=== PATIENT | female | born 1945 | race Caucasian/White ===

== ENCOUNTER 2020-06-27 10:01 | Outpatient (REF) | payer MEDICARE, OTHER, SELFPAY ==
[2020-06-27 11:50] LABS: Estimated Average Glucose 157 mg/dL; Hemoglobin A1c % 7.1 %
== END 2020-06-27 10:02 | disposition home or self-care (01) ==
LOC: HO.MANLDS 10:01
PROVIDERS: PCP Physician Assistant; Visit Provider Physician Assistant
DX: E11.9 Type 2 diabetes mellitus without complications (principal)
CPT/HCPCS: 83036

== ENCOUNTER 2020-08-29 09:03 | Outpatient (REF) | payer MEDICARE, OTHER, SELFPAY ==
--- NOTE | 2020-08-29 | MM_ITS ---
EXAMINATION: MM SCREENING DIGITAL BREAST TOMOSYNTHESIS, BILATERAL CLINICAL INFORMATION: Screening. Asymptomatic. Prior left breast cancer, post lumpectomy 1999. COMPARISON: Mammography: 08/24/2019, 08/20/2018, 08/13/2017 TECHNIQUE: Digital breast tomosynthesis is performed in both the craniocaudal and mediolateral oblique views along with computer-aided detection (CAD). Synthesized 2D images are generated from the tomosynthesis. Additional bilateral MLO views are provided. FINDINGS: The breasts are almost entirely fatty (ACR BI-RADS breast composition Category a). There are post therapy changes on left with mild reduced breast size and stable scarring. Medial breast shows developing density or interval mass or architectural abnormality or abnormal calcifications. No significant changes from prior studies. MM/MM tomosynthesis screening BI IMPRESSION: No mammographic evidence of malignancy. Post therapy changes left breast. ASSESSMENT: BI-RADS 2: Benign RECOMMENDATION: Routine annual mammography screening. This patient's information was entered into a reminder system with a target due date for their next mammogram.
== END 2020-08-29 09:04 | disposition home or self-care (01) ==
LOC: HO.MAMMO 09:03
PROVIDERS: PCP Internal Medicine; Visit Provider Internal Medicine
DX: Z12.31 Encounter for screening mammogram for malignant neoplasm of breast (principal)
CPT/HCPCS: 77063; 77067

== ENCOUNTER 2020-10-24 07:54 | Outpatient (REF) | payer MEDICARE, OTHER, SELFPAY ==
[2020-10-24 11:25] LABS: Estimated Average Glucose 151 mg/dL; Hemoglobin A1c % 6.9 %
[2020-10-24 11:54] LABS: Alanine Aminotransferase 28 U/L (0-31); Albumin Level 4.1 g/dL (3.5-5.0); Alkaline Phosphatase 69 U/L (39-117); Anion Gap 15 (12-20); Aspartate Amino Transferase 30 U/L (5-31); Bilirubin Total 0.3 mg/dL (0.0-1.0); Blood Urea Nitrogen 13 mg/dL (9-16); Calcium 9.3 mg/dL (8.4-10.2); Carbon Dioxide 27 mmol/L (22-29); Chloride 105 mmol/L (96-108); Cholesterol 162 mg/dL; Estimated Glomerular Filt Rate > 60; Glucose Fasting 151 mg/dL (60-99); HDL Cholesterol 49 mg/dL; LDL Cholesterol Calculated 68 mg/dl; Potassium 4.5 mmol/L (3.3-5.1); Sodium 142 mmol/L (135-145); Total Protein 6.3 g/dL (6.5-8.0); Triglycerides 227 mg/dL
[2020-10-24 11:58] LABS: Creatinine Urine 112.23 mg/dL; Microalbum/Creatinine Ratio Ur 14.2 ug/mg cr
== END 2020-10-24 07:55 | disposition home or self-care (01) ==
LOC: HO.MANLR 07:54
PROVIDERS: PCP Internal Medicine; Visit Provider Physician Assistant
DX: E11.9 Type 2 diabetes mellitus without complications (principal); I10 Essential (primary) hypertension
CPT/HCPCS: 36415; 80053; 80061; 82043; 83036

== ENCOUNTER 2021-01-17 07:48 | Outpatient (REF) | payer MEDICARE, OTHER, SELFPAY ==
[2021-01-17 11:57] LABS: Estimated Average Glucose 160 mg/dL; Hemoglobin A1c % 7.2 %
[2021-01-17 12:11] LABS: Alanine Aminotransferase 18 U/L (0-31); Albumin Level 4.2 g/dL (3.5-5.0); Alkaline Phosphatase 79 U/L (39-117); Anion Gap 16 (12-20); Aspartate Amino Transferase 21 U/L (5-31); Bilirubin Total 0.5 mg/dL (0.0-1.0); Blood Urea Nitrogen 11 mg/dL (9-16); Calcium 9.7 mg/dL (8.4-10.2); Carbon Dioxide 27 mmol/L (22-29); Chloride 106 mmol/L (96-108); Cholesterol 182 mg/dL; Estimated Glomerular Filt Rate > 60; Glucose Fasting 153 mg/dL (60-99); HDL Cholesterol 53 mg/dL; LDL Cholesterol Calculated 70 mg/dl; Potassium 4.5 mmol/L (3.3-5.1); Sodium 144 mmol/L (135-145); Total Protein 6.5 g/dL (6.5-8.0); Triglycerides 295 mg/dL
== END 2021-01-17 07:49 | disposition home or self-care (01) ==
LOC: HO.MANLDS 07:48
PROVIDERS: Visit Provider Internal Medicine
DX: E11.9 Type 2 diabetes mellitus without complications (principal); I10 Essential (primary) hypertension
CPT/HCPCS: 36415; 80053; 80061; 83036

== ENCOUNTER 2021-04-18 07:56 | Outpatient (REF) | payer MEDICARE, OTHER, SELFPAY ==
[2021-04-18 11:34] LABS: Estimated Average Glucose 151 mg/dL; Hemoglobin A1c % 6.9 %
== END 2021-04-18 07:57 | disposition home or self-care (01) ==
LOC: HO.MANLDS 07:56
PROVIDERS: PCP Physician Assistant; Visit Provider Physician Assistant
DX: E11.9 Type 2 diabetes mellitus without complications (principal); I10 Essential (primary) hypertension
CPT/HCPCS: 36415; 83036

== ENCOUNTER 2021-08-08 09:42 | Outpatient (REF) | payer MEDICARE, OTHER, SELFPAY ==
[2021-08-08 11:39] LABS: Estimated Average Glucose 163 mg/dL; Hemoglobin A1c % 7.3 %
[2021-08-08 12:16] LABS: Alanine Aminotransferase 28 U/L (0-31); Albumin Level 4.1 g/dL (3.5-5.0); Alkaline Phosphatase 68 U/L (39-117); Anion Gap 12 (12-20); Aspartate Amino Transferase 23 U/L (5-31); Bilirubin Total 0.4 mg/dL (0.0-1.0); Blood Urea Nitrogen 11 mg/dL (9-16); Carbon Dioxide 28 mmol/L (22-29); Chloride 106 mmol/L (96-108); Cholesterol 161 mg/dL; Estimated Glomerular Filt Rate > 60; Glucose Fasting 152 mg/dL (60-99); HDL Cholesterol 50 mg/dL; LDL Cholesterol Calculated 64 mg/dl; Potassium 4.3 mmol/L (3.3-5.1); Sodium 142 mmol/L (135-145); Total Protein 6.3 g/dL (6.5-8.0); Triglycerides 239 mg/dL
[2021-08-08 12:21] LABS: Creatinine Urine 55.41 mg/dL
== END 2021-08-08 09:43 | disposition home or self-care (01) ==
LOC: HO.MANLDS 09:42
PROVIDERS: PCP Physician Assistant; Visit Provider Physician Assistant
DX: E11.9 Type 2 diabetes mellitus without complications (principal); I10 Essential (primary) hypertension
CPT/HCPCS: 36415; 80053; 80061; 82043; 83036

== ENCOUNTER 2021-08-31 07:53 | Outpatient (REF) | payer MEDICARE, OTHER, SELFPAY ==
--- NOTE | ~2021-08-31 | MM_ITS ---
EXAMINATION: MM SCREENING DIGITAL BREAST TOMOSYNTHESIS, BILATERAL CLINICAL INFORMATION: Status post left breast lumpectomy. COMPARISON: Mammography: August 29, 2020 and studies dating back to June 14, 2014 TECHNIQUE: Digital breast tomosynthesis is performed in both the craniocaudal and mediolateral oblique views along with computer-aided detection (CAD). Synthesized 2D images are generated from the tomosynthesis. FINDINGS: The breasts are almost entirely fatty (ACR BI-RADS breast composition Category a). There are no new significant masses, abnormal calcifications, or other abnormalities. Status post left breast lumpectomy with postsurgical change in the deep upper outer aspect. MM/MM tomosynthesis screening BI IMPRESSION: There are no significant changes from prior study. ASSESSMENT: BI-RADS 2: Benign RECOMMENDATION: Routine annual mammography screening. This patient's information was entered into a reminder system with a target due date for their next mammogram.
--- NOTE | ~2021-08-31 | XR_ITS ---
EXAMINATION: XR SINUSES CLINICAL INFORMATION: New onset vertigo and dizziness COMPARISON: None TECHNIQUE: 4 views of the sinuses were obtained. FINDINGS: The paranasal sinuses are well aerated and clear. No opacification or air-fluid level is seen to suggest sinusitis. There is a 0.7 cm density visualized adjacent/medial to the left mandible. This is not identified on the other views to better localize or define the abnormality. Bony structures are otherwise unremarkable. XR/XR sinus min 3V IMPRESSION: Clear paranasal sinuses. 0.7 cm density seen on the submental vertex view only medial to the left side of the mandible of uncertain etiology.
== END 2021-08-31 07:54 | disposition home or self-care (01) ==
LOC: HO.MAMMO 07:53
PROVIDERS: Absent Provider Physician Assistant; PCP Internal Medicine; Visit Provider Internal Medicine
DX: Z12.31 Encounter for screening mammogram for malignant neoplasm of breast (principal); R42 Dizziness and giddiness
CPT/HCPCS: 70220; 77063; 77067

== ENCOUNTER 2021-09-05 10:11 | Outpatient (REF) | payer MEDICARE, OTHER, SELFPAY ==
--- NOTE | ~2021-09-05 | US_ITS ---
EXAMINATION: US EXTRACRANIAL CAROTID DUPLEX, BILATERAL CLINICAL INFORMATION: Dizziness and giddiness. COMPARISON: None TECHNIQUE: Real-time ultrasound and Doppler techniques (integrating B-mode 2-D vascular images, Doppler spectral analysis and color-flow Doppler imaging) were utilized to interrogate the extracranial carotid arteries, the vertebral arteries and proximal subclavian arteries bilaterally. The degree of stenosis is determined by criteria similar to NASCET. FINDINGS: Right Side: 1. There is mild atherosclerotic plaque seen in the bifurcation/proximal ICA region. 2. The common carotid artery PSV proximally is 95 cm/s and distally 68 cm/s. 3. The proximal internal carotid artery velocities are 46 cm/s systolic and 14 cm/s diastolic. 4. The proximal external carotid artery PSV is 112 cm/s. 5. The vertebral artery shows antegrade flow. 6. The subclavian artery waveforms are normal. Left Side: 1. There is no atherosclerotic plaque seen in the bifurcation/proximal ICA region. 2. The common carotid artery PSV proximally is 136 cm/s and distally 90 cm/s. 3. The proximal internal carotid artery velocities are 76 cm/s systolic and 29 cm/s diastolic. 4. The proximal external carotid artery PSV is 101 cm/s. 5. The vertebral artery shows flow antegrade flow. 6. The subclavian artery waveforms are normal. US/US carotid duplex BI IMPRESSION: 1. RIGHT: Mild atherosclerotic plaque. Nonhemodynamically significant 0-49% right ICA stenosis. 2. LEFT: Normal. No plaque or stenosis.
== END 2021-09-05 10:12 | disposition home or self-care (01) ==
LOC: HO.US 10:11
PROVIDERS: Visit Provider Physician Assistant
DX: R42 Dizziness and giddiness (principal)
CPT/HCPCS: 93880

== ENCOUNTER 2021-09-12 08:28 | Outpatient (REF) | payer MEDICARE, OTHER, SELFPAY ==
--- NOTE | ~2021-09-12 | CT_ITS ---
EXAMINATION: CT SINUS WITHOUT CONTRAST CLINICAL INFORMATION: Chronic sinusitis. COMPARISON: X-ray sinuses 08/31/2021. TECHNIQUE: 1.5 mm thin axial and reformatted 1.5 mm thin sagittal and coronal images of sinuses were obtained. This CT examination was performed using dose optimization techniques as appropriate, variously including the following: *Automated exposure control *Adjustment of mA and/or kV according to patient size (this includes techniques or standardized protocols for targeted exams where dose is matched to indication/reason for exam; i.e. extremities or head) *Use of iterative reconstruction technique DLP: 117 mGy-cm FINDINGS: FRONTAL SINUSES AND DRAINAGE PATHWAYS: There is minimal mucosal thickening right frontal sinus. Left frontal sinus is widely patent. MAXILLARY SINUSES AND DRAINAGE PATHWAYS: Normal. The infundibula are patent. ETHMOID SINUSES: There is minimal mucosal thickening right ethmoid sinus. The ethmoid roofs are symmetric, with olfactory fossa depth of 0.4 on the right and 0.5 on the left. SPHENOID SINUSES AND DRAINAGE PATHWAYS: Normal. The sphenoid ostia are patent. The carotid canals are covered by bone. NASAL CAVITY/NASOPHARYNX: The nasal cavity is clear. There is moderate nasal septal deviation/spurring to the left. The nasopharynx is symmetric. ADDITIONAL RELEVANT FINDINGS: No periapical disease is seen. The TMJs articulate normally. The orbits and skull base soft tissues are unremarkable. The middle ear cavities and mastoid air cells are clear. Limited evaluation demonstrates no acute intracranial findings. CT/CT sinus wo con IMPRESSION: There is moderate deviation of nasal septum to the left with a moderate-sized spur. Minimal inflammatory changes right frontal and anterior ethmoid sinus.
== END 2021-09-12 08:29 | disposition home or self-care (01) ==
LOC: HO.CT 08:28
PROVIDERS: Visit Provider Physician Assistant
DX: J32.9 Chronic sinusitis, unspecified (principal)
CPT/HCPCS: 70486

== ENCOUNTER 2021-11-08 08:16 | Outpatient (REF) | payer MEDICARE, OTHER, SELFPAY ==
[2021-11-08 11:35] LABS: Estimated Average Glucose 163 mg/dL; Hemoglobin A1c % 7.3 %
== END 2021-11-08 08:17 | disposition home or self-care (01) ==
LOC: HO.MANLDS 08:16
PROVIDERS: PCP Physician Assistant; Visit Provider Physician Assistant
DX: I10 Essential (primary) hypertension (principal); E78.1 Pure hyperglyceridemia; E11.9 Type 2 diabetes mellitus without complications
CPT/HCPCS: 36415; 83036

== ENCOUNTER 2022-02-27 07:49 | Outpatient (REF) | payer MEDICARE, OTHER, SELFPAY ==
[2022-02-27 11:37] LABS: Alanine Aminotransferase 22 U/L (0-31); Albumin Level 4.2 g/dL (3.5-5.0); Alkaline Phosphatase 85 U/L (39-117); Anion Gap 13 (12-20); Aspartate Amino Transferase 19 U/L (5-31); Bilirubin Total 0.4 mg/dL (0.0-1.0); Blood Urea Nitrogen 15 mg/dL (9-16); Calcium 9.4 mg/dL (8.4-10.2); Carbon Dioxide 28 mmol/L (22-29); Chloride 105 mmol/L (96-108); Cholesterol 181 mg/dL; Estimated Glomerular Filt Rate > 60; Glucose Random 186 mg/dL (60-115); HDL Cholesterol 52 mg/dL; LDL Cholesterol Calculated 61 mg/dl; Potassium 4.5 mmol/L (3.3-5.1); Sodium 141 mmol/L (135-145); Total Protein 6.4 g/dL (6.5-8.0); Triglycerides 344 mg/dL
[2022-02-27 11:40] LABS: Creatinine Urine 114.26 mg/dL; Microalbum/Creatinine Ratio Ur 57.7 ug/mg cr
[2022-02-27 11:46] LABS: Estimated Average Glucose 169 mg/dL; Hemoglobin A1c % 7.5 %
== END 2022-02-27 07:50 | disposition home or self-care (01) ==
LOC: HO.MANLDS 07:49
PROVIDERS: Visit Provider Physician Assistant
DX: I10 Essential (primary) hypertension (principal); E78.1 Pure hyperglyceridemia; E11.9 Type 2 diabetes mellitus without complications
CPT/HCPCS: 36415; 80053; 80061; 82043; 83036

== ENCOUNTER 2022-06-18 09:45 | Outpatient (REF) | payer MEDICARE, OTHER, SELFPAY ==
[2022-06-18 11:14] LABS: MANUAL DIFF FLAG NO
[2022-06-18 11:40] LABS: Basophils Percent Auto 0.4 % (0-2); Eosinophils Absolute Auto 0.2 X10*3/uL (0.0-0.4); Eosinophils Percent Auto 2.2 % (0-4); Hematocrit 40.2 % (37.0-47.0); Hemoglobin 13.2 g/dl (12.0-16.0); Imm Gran Abs Auto 0.02 X10*3/uL (0.00-0.03); Imm Gran Pct Auto 0.3 % (0.0-0.4); Lymphocytes Absolute Auto 1.5 X10*3/uL (1.2-4.9); Lymphocytes Percent Auto 19.6 % (20-40); Mean Corpuscular HGB Conc 32.8 g/dl (31.0-35.0); Mean Corpuscular Hemoglobin 30.8 pg (27.0-33.0); Mean Corpuscular Volume 93.7 fL (80.0-98.0); Mean Platelet Volume 10.2 fL (9.4-12.3); Monocytes Absolute Auto 0.4 X10*3/uL (0.1-1.2); Monocytes Percent Auto 5.3 % (2-11); Neutrophils Absolute Auto 5.3 x10*3/uL (2.0-8.3); Neutrophils Percent Auto 72.2 % (45-73); Platelet Count 252 X10*3/uL (160-400); Red Blood Count 4.29 X10*6/uL (4.20-5.50); Red Cell Distribution Width 13.2 % (11.0-16.0); White Blood Count 7.4 X10*3/uL (4.8-10.8)
[2022-06-18 13:02] LABS: Alanine Aminotransferase 24 U/L (0-31); Alkaline Phosphatase 93 U/L (39-117); Anion Gap 15 (12-20); Aspartate Amino Transferase 20 U/L (5-31); Bilirubin Total 0.4 mg/dL (0.0-1.0); Blood Urea Nitrogen 15 mg/dL (9-16); Calcium 10.1 mg/dL (8.4-10.2); Carbon Dioxide 26 mmol/L (22-29); Chloride 105 mmol/L (96-108); Estimated Glomerular Filt Rate > 60; Glucose Random 177 mg/dL (60-115); Potassium 4.4 mmol/L (3.3-5.1); Sodium 142 mmol/L (135-145); Total Protein 6.3 g/dL (6.5-8.0)
[2022-06-18 14:16] LABS: Vitamin D 25-OH Total 56.5 ng/mL (>30)
== END 2022-06-18 09:46 | disposition home or self-care (01) ==
LOC: HO.MANLDS 09:45
PROVIDERS: Visit Provider Physician Assistant
DX: E11.9 Type 2 diabetes mellitus without complications (principal); E83.52 Hypercalcemia
CPT/HCPCS: 36415; 80053; 82306; 85025

== ENCOUNTER 2022-09-04 07:37 | Outpatient (REF) | payer MEDICARE, OTHER, SELFPAY ==
--- NOTE | ~2022-09-04 | MM_ITS ---
EXAMINATION: MM SCREENING DIGITAL BREAST TOMOSYNTHESIS, BILATERAL CLINICAL INFORMATION: Screening. Asymptomatic. Remote left lumpectomy for breast cancer, 1999. COMPARISON: Mammography: 08/31/2021, 08/29/2020, 08/24/2019 TECHNIQUE: Digital breast tomosynthesis is performed in both the craniocaudal and mediolateral oblique views along with computer-aided detection (CAD). Synthesized 2D images are generated from the tomosynthesis. Additional left exaggerated CC and left MLO views are provided. FINDINGS: The breasts are almost entirely fatty (ACR BI-RADS breast composition Category a). There are no significant masses, abnormal calcifications, or other abnormalities. Post therapy changes left breast are again seen similar to prior studies. No significant changes. MM/MM tomosynthesis screening BI IMPRESSION: No mammographic evidence of malignancy. ASSESSMENT: BI-RADS 2: Benign RECOMMENDATION: Routine annual mammography screening. This patient's information was entered into a reminder system with a target due date for their next mammogram.
== END 2022-09-04 07:38 | disposition home or self-care (01) ==
LOC: HO.MAMMO 07:37
PROVIDERS: PCP Physician Assistant; Visit Provider Physician Assistant
DX: Z12.31 Encounter for screening mammogram for malignant neoplasm of breast (principal)
CPT/HCPCS: 77063; 77067

== ENCOUNTER 2022-09-10 07:40 | Outpatient (REF) | payer MEDICARE, OTHER, SELFPAY ==
[2022-09-10 12:07] LABS: Estimated Average Glucose 186 mg/dL; Hemoglobin A1c % 8.1 %
[2022-09-10 12:17] LABS: Alanine Aminotransferase 19 U/L (0-31); Albumin Level 4.1 g/dL (3.5-5.0); Alkaline Phosphatase 92 U/L (39-117); Anion Gap 13 (12-20); Aspartate Amino Transferase 17 U/L (5-31); Bilirubin Total 0.5 mg/dL (0.0-1.0); Blood Urea Nitrogen 10 mg/dL (9-16); Calcium 9.9 mg/dL (8.4-10.2); Carbon Dioxide 30 mmol/L (22-29); Chloride 105 mmol/L (96-108); Cholesterol 155 mg/dL; Estimated Glomerular Filt Rate > 60; Glucose Random 181 mg/dL (60-115); HDL Cholesterol 50 mg/dL; LDL Cholesterol Calculated 61 mg/dl; Potassium 4.4 mmol/L (3.3-5.1); Sodium 144 mmol/L (135-145); Total Protein 6.2 g/dL (6.5-8.0); Triglycerides 221 mg/dL
== END 2022-09-10 07:41 | disposition home or self-care (01) ==
LOC: HO.MANLDS 07:40
PROVIDERS: Visit Provider Physician Assistant
DX: E11.9 Type 2 diabetes mellitus without complications (principal)
CPT/HCPCS: 36415; 80053; 80061; 83036

== ENCOUNTER 2022-12-10 07:42 | Outpatient (REF) | payer MEDICARE, OTHER, SELFPAY ==
[2022-12-10 11:49] LABS: Estimated Average Glucose 128 mg/dL; Hemoglobin A1c % 6.1 %
[2022-12-10 12:31] LABS: Alanine Aminotransferase 19 U/L (0-31); Alkaline Phosphatase 71 U/L (39-117); Anion Gap 13 (12-20); Aspartate Amino Transferase 18 U/L (5-31); Bilirubin Total 0.6 mg/dL (0.0-1.0); Blood Urea Nitrogen 14 mg/dL (9-16); Calcium 10.3 mg/dL (8.4-10.2); Carbon Dioxide 29 mmol/L (22-29); Chloride 106 mmol/L (96-108); Cholesterol 143 mg/dL; Estimated Glomerular Filt Rate > 60; Glucose Random 104 mg/dL (60-115); HDL Cholesterol 45 mg/dL; LDL Cholesterol Calculated 72 mg/dl; Potassium 4.4 mmol/L (3.3-5.1); Sodium 144 mmol/L (135-145); Total Protein 6.2 g/dL (6.5-8.0); Triglycerides 131 mg/dL
[2022-12-10 12:38] LABS: Creatinine Urine 137.68 mg/dL
== END 2022-12-10 07:43 | disposition home or self-care (01) ==
LOC: HO.MANLDS 07:42
PROVIDERS: Visit Provider Physician Assistant
DX: E11.9 Type 2 diabetes mellitus without complications (principal)
CPT/HCPCS: 36415; 80053; 80061; 82043; 83036

== ENCOUNTER 2023-03-25 07:40 | Outpatient (REF) | payer MEDICARE, OTHER, SELFPAY ==
[2023-03-25 13:55] LABS: Estimated Average Glucose 111 mg/dL; Hemoglobin A1c % 5.5 % (<6.0)
[2023-03-25 14:24] LABS: Creatinine Urine 34.94 mg/dL; Microalbum/Creatinine Ratio Ur 125.9 ug/mg cr (<30)
[2023-03-25 14:25] LABS: Alanine Aminotransferase 29 U/L (0-31); Alkaline Phosphatase 59 U/L (39-117); Anion Gap 11 (12-20); Aspartate Amino Transferase 27 U/L (5-31); Bilirubin Total 0.5 mg/dL (0.0-1.0); Blood Urea Nitrogen 14 mg/dL (9-16); Calcium 10.8 mg/dL (8.4-10.2); Carbon Dioxide 29 mmol/L (22-29); Chloride 108 mmol/L (96-108); Cholesterol 142 mg/dL (<200); Estimated Glomerular Filt Rate > 60; Glucose Random 116 mg/dL (60-115); HDL Cholesterol 44 mg/dL (>40); LDL Cholesterol Calculated 64 mg/dL (<100); Potassium 4.4 mmol/L (3.3-5.1); Sodium 144 mmol/L (135-145); Total Protein 6.4 g/dL (6.5-8.0); Triglycerides 170 mg/dL (<150)
== END 2023-03-25 07:41 | disposition home or self-care (01) ==
LOC: HO.MANLDS 07:40
PROVIDERS: Visit Provider Physician Assistant
DX: E11.9 Type 2 diabetes mellitus without complications (principal)
CPT/HCPCS: 36415; 80053; 80061; 82043; 83036

== ENCOUNTER 2023-05-27 07:39 | Outpatient (REF) | payer MEDICARE, OTHER, SELFPAY ==
[2023-05-27 14:03] LABS: Alanine Aminotransferase 41 U/L (0-31); Albumin Level 4.2 g/dL (3.5-5.0); Alkaline Phosphatase 66 U/L (39-117); Anion Gap 14 (12-20); Aspartate Amino Transferase 34 U/L (5-31); Bilirubin Total 0.4 mg/dL (0.0-1.0); Blood Urea Nitrogen 11 mg/dL (9-16); Carbon Dioxide 28 mmol/L (22-29); Chloride 107 mmol/L (96-108); Cholesterol 142 mg/dL (<200); Estimated Glomerular Filt Rate > 60; Glucose Fasting 103 mg/dL (60-99); HDL Cholesterol 52 mg/dL (>40); LDL Cholesterol Calculated 68 mg/dL (<100); Potassium 4.4 mmol/L (3.3-5.1); Sodium 145 mmol/L (135-145); Total Protein 6.7 g/dL (6.5-8.0); Triglycerides 113 mg/dL (<150)
[2023-05-27 14:04] LABS: Estimated Average Glucose 111 mg/dL; Hemoglobin A1c % 5.5 % (<6.0)
== END 2023-05-27 07:40 | disposition home or self-care (01) ==
LOC: HO.MANLDS 07:39
PROVIDERS: Visit Provider Physician Assistant
DX: E11.9 Type 2 diabetes mellitus without complications (principal)
CPT/HCPCS: 36415; 80053; 80061; 83036

== ENCOUNTER 2023-09-10 09:12 | Outpatient (REF) | payer MEDICARE, OTHER, SELFPAY ==
--- NOTE | ~2023-09-10 | MM_ITS ---
EXAMINATION: MM SCREENING DIGITAL BREAST TOMOSYNTHESIS, BILATERAL CLINICAL INFORMATION: Screening. Asymptomatic. Previously treated left breast cancer in 2000. COMPARISON: Mammography: This study is compared with prior exams dating back to 2019. TECHNIQUE: Digital breast tomosynthesis is performed in both the craniocaudal and mediolateral oblique views along with computer-aided detection (CAD). Synthesized 2D images are generated from the tomosynthesis. FINDINGS: The breasts are almost entirely fatty (ACR BI-RADS breast composition Category a). There are no significant masses, abnormal calcifications, or other abnormalities. There are minor architectural changes in the upper outer quadrant of the left breast from prior cancer surgery. MM/MM tomosynthesis screening BI IMPRESSION: No mammographic evidence of malignancy. ASSESSMENT: BI-RADS BI-RADS 2 - Benign Findings RECOMMENDATION: Routine annual mammography screening. 1 year F/U This examination should not preclude the clinical evaluation of a suspicious palpable abnormality. This patient's information was entered into a reminder system with a target due date for their next mammogram.
== END 2023-09-10 09:13 | disposition home or self-care (01) ==
LOC: HO.MAMMO 09:12
PROVIDERS: PCP Internal Medicine; Visit Provider Physician Assistant
DX: Z12.31 Encounter for screening mammogram for malignant neoplasm of breast (principal)
CPT/HCPCS: 77063; 77067

== ENCOUNTER → 2023-09-10 09:30 | Outpatient (BNV) | payer MEDICARE, OTHER, SELFPAY | PROVIDERS: PCP Internal Medicine; Visit Provider Radiology Diagnostic Radiology | DX: Z12.31 Encounter for screening mammogram for malignant neoplasm of breast (principal) | CPT/HCPCS: 77063; 77067 ==

== ENCOUNTER 2023-09-16 07:46 | Outpatient (REF) | payer MEDICARE, OTHER, SELFPAY ==
[2023-09-16 14:00] LABS: Estimated Average Glucose 111 mg/dL; Hemoglobin A1c % 5.5 % (<6.0)
[2023-09-16 14:40] LABS: Alanine Aminotransferase 31 U/L (0-31); Albumin Level 3.9 g/dL (3.5-5.0); Alkaline Phosphatase 62 U/L (39-117); Anion Gap 13 (12-20); Aspartate Amino Transferase 31 U/L (5-31); Blood Urea Nitrogen 13 mg/dL (9-16); Calcium 10.2 mg/dL (8.4-10.2); Carbon Dioxide 30 mmol/L (22-29); Chloride 106 mmol/L (96-108); Cholesterol 131 mg/dL (<200); Estimated Glomerular Filt Rate > 60; Glucose Random 119 mg/dL (60-115); HDL Cholesterol 47 mg/dL (>40); LDL Cholesterol Calculated 51 mg/dL (<100); Potassium 3.5 mmol/L (3.3-5.1); Sodium 145 mmol/L (135-145); Total Protein 6.3 g/dL (6.5-8.0); Triglycerides 165 mg/dL (<150)
[2023-09-16 14:50] LABS: Bilirubin Total 0.5 mg/dL (0.0-1.0)
== END 2023-09-16 07:47 | disposition home or self-care (01) ==
LOC: HO.MANLDS 07:46
PROVIDERS: Visit Provider Physician Assistant
DX: E11.9 Type 2 diabetes mellitus without complications (principal)
CPT/HCPCS: 36415; 80053; 80061; 83036

== ENCOUNTER 2023-09-30 11:01 | Outpatient (REF) | payer MEDICARE, OTHER, SELFPAY ==
[2023-09-30 14:40] LABS: Erythrocyte Sedimentation Rate 13 MM/HR (0-20)
[2023-09-30 14:47] LABS: Alanine Aminotransferase 46 U/L (0-31); Albumin Level 3.9 g/dL (3.5-5.0); Alkaline Phosphatase 72 U/L (39-117); Anion Gap 11 (12-20); Aspartate Amino Transferase 35 U/L (5-31); Bilirubin Total 0.4 mg/dL (0.0-1.0); Blood Urea Nitrogen 17 mg/dL (9-16); C Reactive Protein < 0.10 mg/dL (< or = 0.50); Calcium 10.3 mg/dL (8.4-10.2); Carbon Dioxide 29 mmol/L (22-29); Chloride 108 mmol/L (96-108); Estimated Glomerular Filt Rate > 60; Glucose Random 73 mg/dL (60-115); Potassium 3.9 mmol/L (3.3-5.1); Sodium 144 mmol/L (135-145); Total Protein 6.4 g/dL (6.5-8.0)
[2023-10-04 15:34] LABS: NT-proBNP 321 pg/mL (<450)
== END 2023-09-30 11:02 | disposition home or self-care (01) ==
LOC: HO.MANLDS 11:01
PROVIDERS: Visit Provider Physician Assistant
DX: R60.0 Localized edema (principal)
CPT/HCPCS: 36415; 80053; 83880; 85652; 86140

== ENCOUNTER 2024-01-07 07:31 | Outpatient (REF) | payer MEDICARE, OTHER, SELFPAY ==
[2024-01-07 13:31] LABS: MANUAL DIFF FLAG NO
[2024-01-07 13:46] LABS: Basophils Absolute Auto 0.1 X10*3/uL (0.0-0.2); Eosinophils Absolute Auto 0.5 X10*3/uL (0.0-0.4); Eosinophils Percent Auto 6.6 % (0-4); Hematocrit 41.4 % (37.0-47.0); Hemoglobin 13.2 g/dl (12.0-16.0); Imm Gran Abs Auto 0.02 X10*3/uL (0.00-0.03); Imm Gran Pct Auto 0.3 % (0.0-0.4); Lymphocytes Absolute Auto 1.3 X10*3/uL (1.2-4.9); Lymphocytes Percent Auto 18.9 % (20-40); Mean Corpuscular HGB Conc 31.9 g/dl (31.0-35.0); Mean Corpuscular Hemoglobin 31.1 pg (27.0-33.0); Mean Corpuscular Volume 97.4 fL (80.0-98.0); Mean Platelet Volume 9.7 fL (9.4-12.3); Monocytes Absolute Auto 0.5 X10*3/uL (0.1-1.2); Monocytes Percent Auto 7.3 % (2-11); Neutrophils Absolute Auto 4.5 x10*3/uL (2.0-8.3); Neutrophils Percent Auto 65.9 % (45-73); Platelet Count 362 X10*3/uL (160-400); Red Blood Count 4.25 X10*6/uL (4.20-5.50); White Blood Count 6.8 X10*3/uL (4.8-10.8)
[2024-01-07 13:58] LABS: Alanine Aminotransferase 11 U/L (0-31); Albumin Level 3.9 g/dL (3.5-5.0); Alkaline Phosphatase 136 U/L (39-117); Anion Gap 15 (12-20); Aspartate Amino Transferase 15 U/L (5-31); Bilirubin Total 0.4 mg/dL (0.0-1.0); Blood Urea Nitrogen 11 mg/dL (9-16); Calcium 10.4 mg/dL (8.4-10.2); Carbon Dioxide 26 mmol/L (22-29); Chloride 107 mmol/L (96-108); Cholesterol 165 mg/dL (<200); Estimated Glomerular Filt Rate > 60; Glucose Random 99 mg/dL (60-115); HDL Cholesterol 60 mg/dL (>40); LDL Cholesterol Calculated 66 mg/dL (<100); Potassium 3.8 mmol/L (3.3-5.1); Sodium 144 mmol/L (135-145); Total Protein 6.7 g/dL (6.5-8.0); Triglycerides 196 mg/dL (<150)
[2024-01-07 13:59] LABS: Estimated Average Glucose 117 mg/dL; Hemoglobin A1c % 5.7 % (<6.0)
[2024-01-07 14:14] LABS: Parathyroid Hormone Intact 95.1 pg/mL (8.7-77.1)
[2024-01-07 14:15] LABS: Free T4 (Free Thyroxine) 1.01 ng/dL (0.71-1.85); Thyroid Stimulating Hormone 0.49 uIU/mL (0.32-4.0)
== END 2024-01-07 07:32 | disposition home or self-care (01) ==
LOC: HO.MANLDS 07:31
PROVIDERS: Visit Provider Physician Assistant
DX: E11.9 Type 2 diabetes mellitus without complications (principal); E83.52 Hypercalcemia
CPT/HCPCS: 36415; 80053; 80061; 83036; 83970; 84439; 84443; 85025

== ENCOUNTER 2024-09-15 09:15 | Outpatient (REF) | payer MEDICARE, OTHER, SELFPAY | END 2024-09-15 09:16 | disposition home or self-care (01) | LOC: HO.MAMMO 09:15 | PROVIDERS: PCP Internal Medicine; Visit Provider Internal Medicine | DX: Z12.31 Encounter for screening mammogram for malignant neoplasm of breast (principal) | CPT/HCPCS: 77063; 77067 ==

== ENCOUNTER → 2024-09-15 09:30 | Outpatient (BNV) | payer MEDICARE, OTHER, SELFPAY | PROVIDERS: PCP Internal Medicine; Visit Provider Internal Medicine | DX: Z12.31 Encounter for screening mammogram for malignant neoplasm of breast (principal) | CPT/HCPCS: 77063; 77067 ==

== ENCOUNTER 2024-10-12 16:24 | Inpatient (IN) | payer MEDICARE, OTHER, SELFPAY ==
--- NOTE | ~2024-10-12 | FL_ITS ---
EXAMINATION: FL GUIDANCE ONLY HISTORY: CYSTOSCOPY URETEROSCOPY WITH STENT PLACEMENT COMPARISON: Correlation is made with an unenhanced CT of the abdomen and pelvis dated 10/12/2024. TECHNIQUE: Fluoroscopy time: 28.9 seconds. Cumulative Dose: 10.97 mGy. Images: 3. FINDINGS: Images demonstrate placement of a left nephroureteral stent. FL/FL guidance in OR IMPRESSION: Fluoroscopy during procedure. Please see procedure report for additional information. Electronically signed by: Shree Can MD 10/13/2024 03:34 PM EDT
--- NOTE | ~2024-10-12 | CT_ITS ---
CLINICAL HISTORY: L fLank pain CT abdomen and pelvis without contrast Comparison: X-rays of the left hip from 11/20/2016 Findings: Mild bibasilar atelectasis and scarring. Metal artifacts obscure of the majority of the pelvis including majority of the urinary bladder. Mild to moderate left-sided hydronephrosis secondary to 6 mm stone in the midportion left ureter. Additional nephrolithiasis measures 4 mm in the upper pole of the left kidney. 2 mm nephrolithiasis of the lower pole of the right kidney no obstructing stone in the right kidney or imaged right ureter. The adrenal glands are normal. The spleen is nonenlarged. Mild volume loss of the pancreas is noted. Gallbladder and liver are unremarkable for noncontrast CT. Calcified and noncalcified plaque involving the aorta and its branches. No enlarged lymphadenopathy. Small bilateral fat containing inguinal hernias, right larger than left. No small bowel obstruction. Severe stool burden, including the cecum. Imaged appendix is within normal limits. Uterus and adnexa are partly obscured but otherwise unremarkable. No definite hardware loosening of the hip arthroplasty hardware with multiple old sclerotic fragments particularly at left greater trochanter. Degenerative changes include pubic symphysis, SI joints, and spine, with multifocal facet arthropathy. IMPRESSION: 1. Mild-moderate left-sided hydroureteronephrosis secondary to 6 mm stone in the midportion of the left ureter. 2. Additional small bilateral nephrolithiasis noted This document has been electronically signed by: Mich Ivy MD on 10/12/2024 20:50:32
[2024-10-12 16:38] VITALS: BP 146/57; PULSE 61; RESP 19; TEMP 36.6; O2SAT 98; BMI 29.1
[2024-10-12 17:20] LABS: Basophils Percent Auto 0.2 % (0-2); Eosinophils Percent Auto 0.1 % (0-4); Hematocrit 40.4 % (37.0-47.0); Hemoglobin 13.7 g/dl (12.0-16.0); Imm Gran Abs Auto 0.04 X10*3/uL (0.00-0.03); Imm Gran Pct Auto 0.3 % (0.0-0.4); Lymphocytes Absolute Auto 0.5 X10*3/uL (1.2-4.9); Lymphocytes Percent Auto 4.2 % (20-40); MANUAL DIFF FLAG SCAN; Mean Corpuscular HGB Conc 33.9 g/dl (31.0-35.0); Mean Corpuscular Volume 94.4 fL (80.0-98.0); Mean Platelet Volume 9.7 fL (9.4-12.3); Monocytes Absolute Auto 0.5 X10*3/uL (0.1-1.2); Monocytes Percent Auto 4.3 % (2-11); Neutrophils Absolute Auto 11.3 x10*3/uL (2.0-8.3); Neutrophils Percent Auto 90.9 % (45-73); Platelet Count 243 X10*3/uL (160-400); Red Blood Count 4.28 X10*6/uL (4.20-5.50); Red Cell Distribution Width 14.2 % (11.0-16.0); SCAN SMEAR FLAG 1; White Blood Count 12.4 X10*3/uL (4.8-10.8)
[2024-10-12 17:33] LABS: Appearance Urine Cloudy; Color Urine Dark Yellow; Glucose Urine UA 500 mg/dL (Negative); Leukocyte Esterase Urine Small (1+) (Negative); Nitrite Urine Negative (Negative); PH 5.5 (5.0-9.0); Specific Gravity - Urine 1.025 (1.005-1.025); UMIC TRIGGER UACC YES; Urine Blood Large (3+) (Negative); Urine Ketones 15 mg/dL (Negative); Urine Protein 100 (2+) mg/dL (Neg-Trace)
[2024-10-12 17:34] LABS: Anion Gap 11 (12-20); Blood Urea Nitrogen 13 mg/dL (9-16); Calcium 10.5 mg/dL (8.4-10.2); Carbon Dioxide 27 mmol/L (22-29); Chloride 107 mmol/L (96-108); Creatinine Clr Calc Pharmacy 62.2; Estimated Glomerular Filt Rate > 60; Glucose Random 132 mg/dL (60-115); Potassium 4.4 mmol/L (3.3-5.1); Sodium 141 mmol/L (135-145)
[2024-10-12 17:40] LABS: Bacteria Urine None Seen (None Seen); Calcium Oxalate Crystals Urine Present; RBC Urine >20 /HPF (0-2); UACC Culture Trigger YES; WBC Urine 21-50 /HPF (0-5)
[2024-10-12 18:09] LABS: SLIDE REVIEW VERIFIED
[2024-10-12 22:14] LABS: Alanine Aminotransferase 12 U/L (0-31); Albumin Level 4.1 g/dL (3.5-5.0); Alkaline Phosphatase 75 U/L (39-117); Aspartate Amino Transferase 22 U/L (5-31); Bilirubin Direct 0.2 mg/dL (0.0-0.5); Bilirubin Total 0.6 mg/dL (0.0-1.0); Lipase 20 U/L (8-78); Total Protein 7.1 g/dL (6.5-8.0)
--- NOTE | 2024-10-12 22:32 | ED_ITS ---
HPI - Female Genitourinary General Chief complaint: Urogenital-Female Stated complaint: vomiting,lower back pack Time Seen by Provider: 10/12/24 22:21 Source: patient Mode of arrival: ambulatory Limitations: no limitations History of Present Illness ED Provider: DR. Barreto HPI Narrative: 79-year-old female presented for evaluation of left flank pain x5 days associated with nausea and vomiting, no dysuria, no frequency urination, no hematuria, no fever, chills. Never had similar pain before, no history of kidney stone, last bowel movement was this morning and was normal no blood in the vomit or the stool. Related Data Allergies Allergy/AdvReac Type Severity Reaction Status Date / Time acetaminophen [From PERCOCET] Allergy Intermediate NAUSEA & Verified 10/12/24 16:40 VOMITING codeine [CODEINE] Allergy Unknown RASH-VOMITI Verified 10/12/24 16:40 NG latex Allergy Rash Verified 10/12/24 16:41 From PERCOCET Allergy Intermediate NAUSEA & Uncoded 10/12/24 16:40 VOMITING Review of Systems 2 Review of Systems: All other systems are reviewed and are negative Constitutional: Reports as per HPI and Reports no additional constitutional complaints Eyes: Reports as per HPI and Reports no additional eye complaints Reports system reviewed and no additional complaints, except as documented Cardiovascular: Reports as per HPI and Reports no additional cardiovascular complaints Respiratory: Reports as per HPI and Reports no additional respiratory complaints Gastrointestinal: Reports as per HPI and Reports no additional gastrointestinal complaints Genitourinary: Reports no additional female genitourinary complaints Musculoskeletal: Reports no additional musculoskeletal complaints Skin/Breast: Reports system reviewed and no additional complaints, except as docu Psychiatric: Reports no additional psychiatric complaints Endocrine: Reports no additional endocrine complaints Hematologic/Lymphatic: Reports no additional hematologic/lymphatic complaints Allergic/Immunologic: Reports no additional allergic/immunologic complaints Reports system reviewed and no additional complaints, except as documented and Reports Abnormal speech present [facility] Social History Social History Advance Directives: No Advance Directives Information Provided: No Do you have a plan to hurt others: No Plan Physical Exam 2 Vital Signs: Vital Signs: Last Vital Signs Temp 98 F 10/12/24 16:38 Pulse 61 10/12/24 16:38 Resp 19 10/12/24 16:38 BP 146/57 H 10/12/24 16:38 Pulse Ox 98 10/12/24 16:38 O2 Del Method Room Air 10/12/24 16:38 BMI result Body Mass Index 29.1 Vital signs have been reviewed and appear to be correct. Blood pressure elevated. Heart rate normal. Respiratory rate normal. Temperature normal. Oxygen saturation normal. Appearance: Alert. Oriented X3. No acute distress. Head: Normal external exam. Normocephalic. Atraumatic. No Melendez signs noted. No raccoon eyes noted Eyes: PERRLA. EOMI. Conjunctiva and sclera normal. Eyelids normal. ENT: TM's Normal. Pharynx normal. Uvula midline. Moist mucous membranes. No trismus noted. No drooling noted. No muffled voice noted. Neck: Normal inspection. Neck supple. FROM. No adenopathy. Thyroid Normal. No meningeal signs. No neck mass noted. CVS: Normal heart rate and rhythm. Heart sound normal. No murmurs noted. Pulses normal throughout. Respiratory: No respiratory distress. Painless inspiration. Breath sounds normal. No wheezes/rales/rhonchi noted. Chest nontender. No accessory muscle usage noted or decreased air movement noted. Abdomen: Soft and nontender. Bowel sounds normal in all 4 quadrants. No distention noted. No organomegaly noted. No visible injury noted. Back: Left CVA tenderness. Full range of motion noted. Skin: Skin warm and dry. Normal skin color. Normal skin turgor. No rashes/lesions/lacerations noted. Extremities: No lower extremity edema. Extremities exhibit normal range of motion. Extremities nontender. Neuro: Oriented X 3. Cranial nerve exam: II-XII are grossly intact No motor deficit. No sensory deficit. Reflexes normal. Course Reevaluation(s) Reevaluation #1: presented with left flank pain x4 days, CT reveals 6 mm left mid ureteral kidney stone with UTI. Case discussed with Dr. Yas ferrer ( from Urology Service) recommended antibiotic, fluids, NPO after midnight and admit to medical service. Case discussed with Dr. Schmitz to admit to his service. Time: 22:50 Medical Decision Making Differential Diagnosis Differential Diagnoses: The differential diagnosis associated with the presentation includes ( Colitis, pancreatitis, acute cholecystitis, diverticulitis, obstructive uropathy, pyelonephritis, UTI, electrolyte derangement, severe anemia.) Admission/Observation Consideration of admission/observation: Escalation of care including admission/observation considered Consult Healthcare Provider Management of the patient was discussed with: Hospitalist ( Dr. Schmitz) and Information Security Analyst ( Dr. Ferrer) Lab Data MDM Lab Attestation statement: I reviewed the patient's lab results. 10/12/24 17:14 10/12/24 17:14 Labs: Lab Results 10/12/24 Range/Units 17:14 WBC 12.4 H (4.8-10.8) X10*3/uL RBC 4.28 (4.20-5.50) X10*6/uL Hgb 13.7 (12.0-16.0) g/dl Hct 40.4 (37.0-47.0) % MCV 94.4 (80.0-98.0) fL MCH 32.0 (27.0-33.0) pg MCHC 33.9 (31.0-35.0) g/dl RDW 14.2 (11.0-16.0) % Plt Count 243 D (160-400) X10*3/uL MPV 9.7 (9.4-12.3) fL Immature Gran % (Auto) 0.3 (0.0-0.4) % Neut % (Auto) 90.9 H (45-73) % Lymph % (Auto) 4.2 L (20-40) % [place] % (Auto) 4.3 (2-11) % Eos % (Auto) 0.1 (0-4) % Baso % (Auto) 0.2 (0-2) % Lymph # (Auto) 0.5 L (1.2-4.9) X10*3/uL [place] # (Auto) 0.5 (0.1-1.2) X10*3/uL Eos # (Auto) 0.0 (0.0-0.4) X10*3/uL Baso # (Auto) 0.0 (0.0-0.2) X10*3/uL Abs Immat Gran (auto) 0.04 H (0.00-0.03) X10*3/uL Absolute Neuts (auto) 11.3 H (2.0-8.3) x10*3/uL Absolute Nucleated RBC 0.000 (0.0-0.012) X10*3/uL Nucleated RBC % (auto) 0.0 (0.0-0.2) /100WBC Smear Tech's Comments VERIFIED Sodium 141 (135-145) mmol/L Potassium 4.4 (3.3-5.1) mmol/L Chloride 107 (96-108) mmol/L Carbon Dioxide 27 (22-29) mmol/L Anion Gap 11 L (12-20) BUN 13 (9-16) mg/dL Creatinine 0.75 (0.5-1.4) mg/dL Estim Creat Clear Calc 62.2 Estimated GFR > 60 Random Glucose 132 H (60-115) mg/dL Calcium 10.5 H (8.4-10.2) mg/dL Total Bilirubin 0.6 (0.0-1.0) mg/dL Direct Bilirubin 0.2 (0.0-0.5) mg/dL AST 22 (5-31) U/L ALT 12 (0-31) U/L Alkaline Phosphatase 75 (39-117) U/L Total Protein 7.1 (6.5-8.0) g/dL Albumin 4.1 (3.5-5.0) g/dL Lipase 20 (8-78) U/L Urine Color Dark Yellow Urine Appearance Cloudy Urine pH 5.5 (5.0-9.0) Ur Specific [place] 1.025 (1.005-1.025) Urine Protein 100 (2+) H (Neg-Trace) mg/dL Urine Glucose (UA) 500 H (Negative) mg/dL Urine Ketones 15 (Negative) mg/dL Urine Blood Large (3+) H (Negative) Urine Nitrite Negative (Negative) Ur Leukocyte Esterase Small (1+) H (Negative) Urine RBC >20 H (0-2) /HPF Urine WBC 21-50 H (0-5) /HPF Ur Squamous Epith Cells 3-5 (0-2) /HPF Calcium Oxalate Crystal Present Urine Bacteria None Seen (None Seen) Hyaline Casts 3-5 (0-2) /LPF Independent Interpretation I performed an independent interpretation of an: CT Scan ( abdomen and pelvis:1. Mild-moderate left-sided hydroureteronephrosis secondary to 6 mm stone in the midportion of the left ureter. 2. Additional small bilateral nephrolithiasis noted) Radiology Impression Discussion of test interpretation with radiology: I have reviewed the radiologist's reading. Discharge Plan Discharge Clinical Impression: Urinary tract infection, Calculus of left ureter Patient Disposition: Admitted As Inpatient Print Language: Cymro
--- OUTSIDE RECORDS SUMMARY | 2024-10-12 22:32 | XMS_ITS | Patient Health Record ---
Author Organization [facility] Address [address] [place] [address] Support Name Relationship Address Phone JAYLENBALDOMEROE Guarantor Unknown [phone] Reason For Referral No Information Medications Medication SIG (Take, Route, Fr equency, Duration) Notes Start Date End Date Status Multivitamins 1 ORAL daily for -3 [facility]- 05/09/2012 Active 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 2.5MG 1 ORAL EVERY WEEK for -3 [facility]-MJ 2011 Active Folic Acid 1MG 1 ORAL 6X A WEEK for -3 [facility]- 05/09/2012 Active Ecotrin 325MG 1 ORAL daily for -3 [facility]- 05/09/2012 Active Atenolol 25MG 1 ORAL DAILY for -3 [facility]- 05/09/2012 Active Problems Problem Type SNOMED Code ICD Code Onset Dates Problem Status W/U Status Risk Notes Problem Hyperlipidemia (19907346) Other and unspecified hyperlipidemia (272.4) Active confirmed Major Problem Obesity (091171278) Obesity, unspecified (278.00) Active confirmed Major Problem Rheumatoid arthritis (10385284) Rheumatoid arthritis (714.0) Active confirmed Major Problem Gynecological examination normal (301359707177825) Routine gynecological examination (V72.31) Active confirmed Diag Plan Of Treatment No Information Insurance Providers Payer Name Payer Address Payer Phone Subscriber Number Group Number Insured Name Patient Relationship to Insured Coverage Start Date Coverage End Date MEDICARE [address] [place], [place] [id number] RODNEY [place] Self - patient is the insured /[address] [employer] [address] [place] [address] [id number] RODNEY YORK Self - patient is the insured
--- OUTSIDE RECORDS SUMMARY | 2024-10-12 22:32 | XMS_ITS | Continuity of Care Document ---
Author Name [facility] Organization [facility] Care Team Providers Care Hospitality Aide Name Role Phone [facility] Unavailable Unavailable Medications Combined list of outpatient medications from Department of Defense and Veterans Affairs facilities.Medications provided include 1) outpatient medications from the last 15 months, and 2) patient-reported medications. Medication Details Route Status Patient Instructions Prescription Expires Prescription Number Last Dispense Date Ordering Provider Order Date Order Qty Source ALBUTEROL SULFATE HFA (albuterol sulfate), 90 MCG, HFA AER AD, INHALATION, [facility]/ IKMA, 6.7 g CANISTER Active [id number] 4 2023 6.7 Pharmac y Data Transac tion Service Facilit y ATENOLOL (ATENOLOL), 25 MG, TABLET, ORAL, [address] 1000 ea. BOTTLE Active [id number] 4 2023 90 Pharmac y Data Transac tion Service Facilit y BENZONATATE (benzonatat e), 200 MG, CAPSULE, ORAL, STRIDES PHARMA, 100 ea. BOTTLE Active [id number] 4 2023 21 Pharmac y Data Transac tion Service Facilit y BENZONATATE (benzonatat e), 200 MG, CAPSULE, ORAL, STRIDES PHARMA, 500 ea. BOTTLE Active [id number] 4 2023 21 Pharmac y Data Transac tion Service Facilit y BENZONATATE (benzonatat e), 200 MG, CAPSULE, ORAL, STRIDES PHARMA, 500 ea. BOTTLE Active [id number] 4 2023 21 Pharmac y Data Transac tion Service Facilit y CEFADROXIL (CEFADROXIL ), 500 MG, CAPSULE, ORAL, [employer], 100 ea. BOTTLE Active [id number] 4 2023 19 Pharmac y Data Transac tion Service Facilit y CELECOXIB (celecoxib) , 200 MG, CAPSULE, ORAL, LINDA PHARMACEU, 500 ea. BOTTLE Active [id number] 4 2023 90 Pharmac y Data Transac tion Service Facilit y DOXYCYCLINE HYCLATE (doxycyclin e hyclate), 100 MG, TABLET, ORAL, [employer], 50 ea. BOTTLE Active [id number] 4 2023 20 Pharmac y Data Transac tion Service Facilit y FLUTICASONE PROPIONATE (FLUTICASON E PROPIONATE) , 50MCG, SPRAY SUSP, NASAL, APOTEX DONNA, 16 g AER W/ADAP Active [id number] 4 2023 16 Pharmac y Data Transac tion Service Facilit y GLIMEPIRIDE (glimepirid e), 2 MG, TABLET, ORAL, [employer] TECH, 500 ea. BOTTLE Active [id number] 4 2023 90 Pharmac y Data Transac tion Service Facilit y GLIMEPIRIDE (glimepirid e), 2 MG, TABLET, ORAL, [employer] TECH, 500 ea. BOTTLE Active [id number] 4 2023 90 Pharmac y Data Transac tion Service Facilit y GLIMEPIRIDE (glimepirid e), 2 MG, TABLET, ORAL, [employer] 100 ea. BOTTLE Active [id number] 3 2022 90 Pharmac y Data Transac tion Service Facilit y LISINOPRIL (lisinopril ), 10 MG, TABLET, ORAL, EXELAN PHARMACE, 1000 ea. BOTTLE Active [id number] 4 2023 90 Pharmac y Data Transac tion Service Facilit y LISINOPRIL (lisinopril ), 10 MG, TABLET, ORAL, EXELAN PHARMACE, 1000 ea. BOTTLE Active [id number] 4 2023 90 Pharmac y Data Transac tion Service Facilit y METFORMIN HCL ER (metformin HCl), 750 MG, TAB ER 24H, ORAL, [employer], 100 ea. BOTTLE Active [id number] 3 2022 180 Pharmac y Data Transac tion Service Facilit y METFORMIN HCL ER (metformin HCl), 750 MG, TAB ER 24H, ORAL, [employer], 100 ea. BOTTLE Active [id number] 4 2023 180 Pharmac y Data Transac tion Service Facilit y METFORMIN HCL ER (metformin HCl), 750 MG, TAB ER 24H, ORAL, [employer], 500 ea. BOTTLE Active [id number] 4 2023 180 Pharmac y Data Transac tion Service Facilit y METHYLPREDN ISOLONE (methylpred nisolone), 4 MG, TAB DS PK, ORAL, ZYDUS PHARMACEU, 21 ea. DOSE-PACK Active [id number] 4 2023 21 Pharmac y Data Transac tion Service Facilit y MUPIROCIN (MUPIROCIN) , 2%, OINT.(GM), TOPICAL, [employer] 22 g TUBE Active [id number] 4 2023 22 Pharmac y Data Transac tion Service Facilit y ONDANSETRON ODT (ONDANSETRO N), 4MG, TAB RAPDIS, ORAL, [employer] PHARMA, 30 ea. BLIST PACK Active [id number] 4 2023 20 Pharmac y Data Transac tion Service Facilit y OXYCODONE HCL (OXYCODONE HCL), 5MG, TABLET, ORAL, [employer]RT PHARM, 100 ea. BOTTLE Cancele d [id number] : 2023 0 Pharmac y Data Transac tion Service Facilit y ROSUVASTATI N CALCIUM (rosuvastat in calcium), 40 MG, TABLET, ORAL, [address] 1000 ea. BOTTLE Active [id number] 4 2023 90 Pharmac y Data Transac tion Service Facilit y Immunizations Combined list of available immunizations from the Department of Defense and Veterans Affairs facilities. Immunization Series Date Given Administered By Site Reaction Lot Number CVX Code Drug Art Conservator Status Comments Source COVID-19, mRNA, LNP-S, PF, 30 mcg/0.3 mL dose 2020 [employer] [place] (PFR) Not Given COVID-19, mRNA, LNP-S, PF, 30 mcg/0.3 mL dose [facility] influenza, high-dose, quadrivalent 2020 BOGDASARIAN, () Not Given influenza , high-dose , quadrival ent [facility] influenza, high-dose, quadrivalent 2019 GIANNA, () Not Given influenza , high-dose , quadrival ent [facility] Influenza, high dose seasonal 2018 Kiet KATZ () Not Given Influenza , high dose seasonal DoD pneumococcal polysaccharid e PPV23 2017 Kiet KATZ () Not Given pneumococ ramy polysacch aride PPV23 [facility] Influenza, high dose seasonal 2015 LEONARDA BLUE () Not Given Influenza , high dose seasonal DoD Pneumococcal conjugate PCV 13 2014 LEONARDA BLUE () Not Given Pneumococ ramy conjugate PCV 13 [facility] Social History Combined list of available smoking, tobacco, and other social history from Department of Defense and Veterans Affairs facilities. Social History Type Response Date Comment [facility] e This section is an empty social history section. DoD
--- OUTSIDE RECORDS SUMMARY | 2024-10-12 22:32 | XMS_ITS | Data Portability ---
Author Organization [facility] Home Service Address [address] [place] [address] Assessment Encounter Date Assessment Date Assessment LastModified by Organization Details LastModified Time 10/25/2023 10/25/2023 Patient agreed and verbally consents to this audio and video Telehealth appt via a secure platform [email or web address] Not available 10/25/2023 13:59:35 01/20/2024 01/20/2024 The patient denies little pleasure in activities they find enjoyable, feeling depressed, difficulties sleeping, feeling tired or having little energy, change in appetite, feeling guilty, overwhelmed or unmotivated. The patient denies suicidal ideation, thoughts of hurting themselves or others. Their mood is appropriate, they show good judgement and clear understanding of the conversation. They are orientated to time, place and person. They are not expressing any concerning thoughts or actions that would need further investigation and treatment for mental health. The patient denies recent falls or recurrent falls. Denies instability, weakness, abnormal gait, or difficulties with movement. The patient wears correct, supportive shoes and is not otherwise severely visually impaired. The patient is full weight bearing and if using the assistance of a cane or walker feels supported and stable with the use of such devices. All medical conditions have been taken into account that may pose a risk for the patient for falls. Home mitzi, carpets and/or rugs do not pose a challenge for the patient. The patient has been educated about the use of vitamin D supplementation for bone health and prevention of hypotensive episodes that may increase risk for fall. All question and concerns were answered to the patient's satisfaction. 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 REVIEW OF PRIOR EXTERNAL NOTES/RESULTS, ORDERING OF TEST(S) CATEGORY 2. ASSESSMENT REQUIRING INDEPENDENT HISTORIAN(S) INCLUDE WHO THE HISTORIAN IS AND RELATION TO PT AND WHY PT IS UNABLE TO GIVE COMPLETE HISTORY ELEMENT 3: RISK (LOW) RISK OF COMPLICATIONS AND/OR MORBIDITY OR MORTALITY OF PATIENT MANAGEMENT PROVIDER MUST THOROUGHLY DOCUMENT ALL OF THE ELEMENTS COVERED Not available 01/29/2024 14:12:22 09/07/2024 09/07/2024 Patient presente d to office today for their Medicare Annual Wellness Visit. Education was provided on healthy nutrition, including a diet rich in fruits and vegetables, minimizing simple carbohydrates, salt, and saturated fats. Encouraged regular cardiovascular exercise such as walking at least 30 minutes daily, 5 times per week. Emphasized preventive health measures and educated pt on fall prevention and community-based lifestyle interventions to help reduce health risks and promote healthy living. [email or web address] Not available 09/07/2024 09:04:55 Plan of Treatment Reminders Order Date Submit Date Provider Last Modified By Organization Details Last Modified Time Details Appointments FOLLOW UP 15 2024 09:45A M KEVIN COY Not available Not available Not available MEDICARE ANNUAL WELLNESS 2025 09:00A M KEVIN COY Not available Not available Not available Lab None recorded. Referral None recorded. Procedures None recorded. Surgeries None recorded. Imaging None recorded. Medication Orders albuterol sulfate HFA 90 mcg/actua tion aerosol inhaler 2023 024 [id number], [address], [place], [id number], 05/25/2024 10:25:08 doxycycli ne hyclate 100 mg tablet 2023 024 [facility] #[id number], [address], [place], [id number], 01/20/2024 10:14:21 Patient TargetsNo targets recorded. Patient Instructions Encounter Date Encounter Id Patient Instructions Last Modified By Organization Details Last Modified Time 01/29/2024 [id number] knee arthritis: care instructions Not available 01/29/2024 14:12:23 09/07/2024 [id number] advance care planning: care instructions [email or web address] Not available 09/07/2024 09:05:22 Discussed and explained advance directives such as standard forms to the {{patient* caregi karissa patient and caregiver}}. Face to face discussion lasted for a duration of 30 minutes. [email or web address] Not available 09/07/2024 09:07:49 Reason for Referral None Reported. Results Created Date Observation Date Name Description Value Unit Range Abnormal Flag Note LastModifiedBy Organization Detail LastModifiedTime 09/23/1909/15/2024 MAMMO , scree liza, digit al, bilat eral No observ ation record ed. [email or web address] [facility] [address] [place], [address], 09/23/2024 09:46:39 10/13/19 25 10/12/2024 imagi ng/di agnos tic resul t No observ ation record ed. [email or web address] [facility] (Medical Records) [address] [facility], [place], [address], 10/12/2024 21:09:15 Result Notes None recorded. Problems Name Problem SNOMED Code Status Onset Date Resolution Date Notes Provider Name and Address Organization Details Recorded Time Hypertri glycerid emia 096742834 Active 2017 Not Available [facility] 4 17:49:00 Low back pain 232811418 Active 2021 Not Available [facility] 4 17:49:00 Osteoart hritis of knee 456825477 Active 2021 Not Available [facility] 4 17:49:00 [place]we[place] ht 314868784 Active 2021 Not Available [facility] 4 17:49:00 Microalb uminuria 591622211 Active 2021 Not Available [facility] 4 17:49:00 Hypercal cemia 85945879 Active 2021 Not Available [facility] 4 17:49:01 Carotid artery stenosis 57235779 Active 2022 Not Available [facility] 4 17:49:01 Carotid artery stenosis 81201539 Active 2022 Not Available [facility] 4 17:49:01 Type 2 diabetes mellitus 96618095 Active 2022 Not Available [facility] 4 17:49:01 Cellulit is of lower limb 764444763 Active 2022 Not Available [facility] 4 17:49:01 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 57333300 Active 2022 Not Available [facility] 4 17:49:01 Osteoart hritis of left hip joint 9908918256 51525 Active 2022 Not Available [facility] 4 17:49:00 Disorder of bone 51968059 Active 2022 Not Available [facility] 4 17:49:01 Vertigo 420671993 Active 2022 Not Available [facility] 4 17:49:01 Posterio r rhinorrh ea 63909851 Active 2023 KEVIN COY [address] [place], [address], [facility] 4 10:33:06 Edema of lower extremit y 095344574 Active 2023 KEVIN COY [address] [place], [address], [facility] 4 10:36:12 Cough 73409878 Active 2023 KEVIN COY [address] [place], [address], [facility] 4 12:15:25 Total replacem ent of hip Active 2023 R KEVIN COY [address] [place] [address], [phone], [facility] 4 10:17:40 [facility] hyperten chirs 85492613 Active 2017 Not Available [facility] 4 17:49:01 Disorder of breast 15577247 Active 2017 Breast cancer 2000, lumpecto my, XRT Left THR 2014 Not Available [facility] 4 17:49:01 Rheumato id arthriti s 68193013 Active 2017 Dr. Nixon bryan Not Available [facility] 4 17:49:01 Lyme disease 65335325 Active 2017 Not Available [facility] 4 17:49:00 Osteopor osis 83636182 Active 2017 Not Available [facility] 4 17:49:01 Hemorrho ids 40360562 Active 2017 Not Available [facility] 4 17:49:01 Impaired fasting glycemia 113992620 Completed 201702/12/2018November DIMPLE Mascorro [address] [place] [address], [address], [facility] 8 09:22:42 Problem Notes None recorded. Procedures Surgical History Date Name Laterality Status Provider Name and Address Organization Details Recorded Time 024 Corticosteroid Injection completed Gary Mcfadden DO [address] [place] [address], [address], [facility] 01/29/2024 14:11:37 024 Corticosteroid Injection completed Gary Mcfadden DO [address] [place] [address], [address], [facility] 10/01/2023 15:44:04 023 Corticosteroid Injection completed Gary Mcfadden DO [address] [place] [address], [address], [facility] 05/22/2023 14:43:19 023 Corticosteroid Injection completed Gary Mcfadden DO [address] [place] [address], [address], [facility] 01/02/2023 17:04:01 023 Corticosteroid Injection completed Gary Mcfadden DO [address] [place], [address], [facility] 10/24/2022 14:24:12 023 Corticosteroid Injection completed Gary Mcfadden DO [address] [place], [address], [facility] 09/11/2022 12:15:39 022 Corticosteroid Injection completed Gary Mcfadden DO [address] [place] [address], [address], [facility] 12/08/2021 12:37:09 021 Corticosteroid Injection completed Gary Mcfadden DO [address] [place] [address], [address], [facility] 07/25/2021 09:35:46 021 Corticosteroid Injection completed Gary Mcfadden DO [address] [place] [address], [address], [facility] 02/13/2021 15:45:24 018 Most Recent Mammogram completed Radha Zimmerman [facility] 09/09/2018 13:49:25 Imaging Results Imaging Date Name Status LastModified by Organiz ation Details LastModified Time 09/15/2024 MAMMO, screening, digital, bilateral completed [email or web address] [facility] [address] [place] [address] [place], [address], 09/23/2024 09:46:39 10/12/2024 imaging/diagno stic result active [email or web address] [facility] (Medical Records) [address] [place] [address] [place], [address], 10/12/2024 21:09:15 Procedure Notes None recorded. Medical Equipment None Reported. Allergies Allergen ID Allergen Name Allergen Category Reaction Reaction Severity Criticality Documentation Date Start Date Code Code System Note Provider Name and Address Organization Details Recorded Time 7208 duloxetin e medicatio n nausea Not available Not available 04/01/2023 97123 RxNorm KEVIN COY [address] [place], [address], [facility] 3 09:04:05 7431 Latex (substanc e) environme nt,medica tion Not available Not available Not available 06/04/2023 29373 8007 SNOMED Julianne Louie [facility] 3 14:15:23 8111 oxycodone medicatio n Not available Not available Not available 01/20/2024 7804 RxNorm nause a, chest pain KEVIN COY [address] [place], [address], [facility] 4 10:06:05 Medications Name Sig Start Date Stop Date Status Note LastModified by Organization Details LastModified Time celecoxib 200 mg capsule TAKE 1 CAPSULE DAILY 2024 active Not Available Not Available Not Avai lable amoxicillin 500 mg capsule TAKE 4 CAPSULES BY MOUTH DIRECTED 30 MINUTES TO 1 HOUR PRIOR TO ANY DENTAL PROCEDURE 05/25 completed Not Available Not Available Not Available atorvastati n 80 mg tablet TAKE 1 TABLET DAILY 03/09 completed Not Available Not Available Not Available acetaminoph en 325 mg tablet 01/19 completed Not Available Not Available Not Available prednisone 10 mg tablet 06/21 completed Not Available Not Available Not Available doxycycline hyclate 100 mg capsule TAKE 1 CAPSULE BY MOUTH TWICE DAILY FOR 7 DAYS 12/19 completed Not Available Not Available Not Available azithromyci n 250 mg tablet TAKE 2 TABLETS (500 MG) BY ORAL ROUTE ONCE DAILY FOR 1 DAY THEN 1 TABLET (250 MG) BY ORAL ROUTE ONCE DAILY FOR 4 DAYS 03/25 completed Not Available Not Available Not Available benzonatate 200 mg capsule TAKE 1 CAPSULE BY MOUTH THREE TIMES DAILY FOR 7 DAYS NEEDED 09/07 completed Not Available Not Available Not Available senna 8.6 mg tablet TAKE 2 TABLETS BY MOUTH EVERY NIGHT AT BEDTIME 01/19 completed Not Available Not Available Not Available glipizide ER 5 mg tablet, extended release 24 hr active Not Available Not Available Not Available atenolol 25 mg tablet TAKE 1 TABLET DAILY active Not Available Not Available No t Available aspirin 81 mg tablet,jesusita yed release TAKE 1 TABLET BY MOUTH TWICE DAILY 05/25 completed Not Available Not Available Not Available tramadol 50 mg tablet Take 1 tablet every 6 hours by oral route as needed for 7 days. 2024 active Not Available Not Available Not Avai lable glimepiride 2 mg tablet TAKE 1 TABLET DAILY active Not Available Not Available No t Available cefadroxil 500 mg capsule 01/19 completed Not Available Not Available Not Available methotrexat e sodium 2.5 mg tablet 6 tablets every saturday active Not Available Not Available No t Available meclizine 25 mg tablet TAKE 1 TABLET BY MOUTH EVERY DAY 01/19 completed PRN Not Available Not Available Not Available baclofen 10 mg tablet Take 1 tablet 3 times a day by oral route as needed for 14 days. 2024 active Not Available Not Available Not Avai lable cephalexin 500 mg capsule TAKE 1 CAPSULE BY MOUTH TWICE DAILY FOR 7 DAYS 05/25 completed Not Available Not Available Not Available ranitidine 150 mg tablet Take 1 tablet twice a day by oral route as needed for 30 days. 03/09 completed Not Available Not Available Not Available lisinopril 10 mg tablet TAKE 1 TABLET DAILY 2024 active Not Available Not Available Not Avai lable folic acid 1 mg tablet TAKE 1 TABLET BY MOUTH DAILY DIRECTED active Not Available Not Available No t Available lisinopril 5 mg tablet TAKE 1 TABLET DAILY 06/21 completed Not Available Not Available Not Available mupirocin 2 % topical ointment APPLY TOPICALLY TWICE DAILY. APPLY TO BOTH NARES TWICE DAILY STARTING 5 DAYS BEFORE SURGERY. 01/19 completed Not Available Not Available Not Available levofloxaci n 500 mg tablet Take 1 tablet every 24 hours by oral route for 7 days. 12/13 completed Not Available Not Available Not Available methylpredn isolone 4 mg tablets in a dose pack FOLLOW PACKAGE DIRECTION S 01/19 completed Not Available Not Available Not Available albuterol sulfate HFA 90 mcg/actuati on aerosol inhaler Inhale 2 puffs every 4 hours by inhalatio n route for 30 days. 05/25 completed Not Available Not Available Not Available ondansetron 4 mg disintegrat ing tablet 01/19 completed Not Available Not Available Not Available fluticasone propionate 50 mcg/actuati on nasal spray,suspe nsion SHAKE LIQUID AND USE 1 SPRAY IN EACH NOSTRIL EVERY DAY 09/07 completed Not Available Not Available Not Available lisinopril 2.5 mg tablet TAKE 1 TABLET DAILY 06/24 completed Not Available Not Available Not Available doxycycline hyclate 100 mg tablet TAKE 1 TABLET BY MOUTH TWICE DAILY FOR 10 DAYS 01/19 completed Not Available Not Available Not Available atenolol 50 mg tablet Take 1 tablet every day by oral route. 06/24 completed Not Available Not Available Not Available amoxicillin 500 mg-potassiu m clavulanate 125 mg tablet TAKE 1 TABLET BY MOUTH TWICE DAILY 09/30 completed Not Available Not Available Not Available oxycodone 5 mg tablet 01/19 completed Not Available Not Available Not Available Pneumovax-2 3 25 mcg/0.5 mL injection syringe 03/25 completed Not Available Not Available Not Available Asprin Ec Low Dose 81 mg tablet,jesusita yed release Take 1 tablet every day by oral route. 09/10 completed Not Available Not Available Not Available cyclobenzap rine 5 mg tablet TAKE 1 TABLET BY MOUTH TWICE DAILY NEEDED 06/04 completed Not Available Not Available Not Available metformin ER 750 mg tablet,exte nded release 24 hr TAKE 1 TABLET TWICE A DAY active Not Available Not Available No t Available rosuvastati n 40 mg tablet TAKE 1 TABLET DAILY active Not Available Not Available No t Available duloxetine 30 mg capsule,del ayed release TAKE 1 CAPSULE BY MOUTH EVERY DAY 06/04 completed Not Available Not Available Not Available methotrexat e 5 pills at 2.5 mg once a week 01/19 completed Not Available Not Available Not Available Centrum 1 tablet qd 12/19 completed Not Available Not Available Not Available celecoxib 200 mg every other day 01/19 completed Not Available Not Available Not Available Glucosamine Chondroitin 1500.mg glucosami ne 1200mg chondroti n 2 tablets per day active Not Available Not Available No t Available Fluad 65yr up(PF)45 mcg(15 mcgx3)/0.5 mL intramuscul ar syringe 12/13 completed Not Available Not Available Not Available Fluzone High-Dose 5154-8789 (PF) 180 mcg/0.5 mL intramuscul ar syringe 03/09 completed Not Available Not Available Not Available Fluzone High-Dose 2018- (PF) 180 mcg/0.5 mL intramuscul ar syringe 09/07 completed Not Available Not Available Not Available Fluzone High-Dose Quad (PF) 240 mcg/0.7 mL IM syringe 11/02 completed Not Available Not Available Not Available BinaxNOW COVID-19 Ag Self Test kit TEST DIRECTED TODAY 09/12 completed Not Available Not Available Not Available Vitals Date Recorded Body height Provider Name an d Address Organization Details Last Updated DateTime 10/25/2023 163.83 cm Emani Hernandez [facility] 10/25/2023 09:25:36 Date Recorded Body height Body mass index (BMI) Body weight Heart rate Oxygen saturation Oxygen saturation in Arterial blood by Pulse oximetry Systolic blood pressure Diastolic blood pressure Provider Name and Address Organization Details Last Updated DateTime 4 163.83 cm 29.9 kg/m2 52997.8 5 g 55 /min 95 % 95 % 142 mm[Hg] 80 mm[Hg] Ольга [facility] 4 10:00:05 Date Recorded Body height Body mass index (BMI) Body weight Heart rate Oxygen saturation Oxygen saturation in Arterial blood by Pulse oximetry Systolic blood pressure Diastolic blood pressure Provider Name and Address Organization Details Last Updated DateTime 4 163.83 cm 30.2 kg/m2 63268.9 6 g 54 /min 98 % 98 % 124 mm[Hg] 78 mm[Hg] Emani [facility] 4 10:26:51 Date Recorded Body height Body mass index (BMI) Body weight Heart rate Oxygen saturation Oxygen saturation in Arterial blood by Pulse oximetry Systolic blood pressure Diastolic blood pressure Provider Name and Address Organization Details Last Updated DateTime 5 163.83 cm 29.9 kg/m2 49976.4 9 g 61 /min 95 % 95 % 134 mm[Hg] 74 mm[Hg] Emani [facility] 5 08:56:09 Social History Question Answer Notes LastModified by Organizat ion Details LastModified Time Tobacco Smoking Status Never Smoker Radha [facility] 12/06/2017 11:10:37 What Was The Date Of Your Most Recent Tobacco Screening? 09/07/2024 [email or web address] Information not available 09/07/2024 Do You Or Have You Ever Used Any Other Forms Of Tobacco Or Nicotine? No [email or web address] Information not available 12/19/2022 Sex: Unknown Functional Status None recorded. Mental Status None recorded. Family History Relationship Description Onset Age of this Age Resolved Age Notes LastModified by Organization Details LastModified Time Father No current problems or disability [email or web address] Not available 11/14 09:53:50 Mother No current problems or disability [email or web address] Not available 11/14 09:53:50 Medical History No medical history recorded. Gynecological History Statement/Question Response Most Recent Mammogram 08/13/2017 Obstetrics History GPAL:G 0 P 0 0 0 0 Immunizations Vaccine Type Date Status Note Provider Nam e and Address Organization Details Recorded Time Influenza, split virus, quadrivalent, preservative 8 completed Not Available [facility] 08/07/2023 17:49:02 COVID-19, mRNA, LNP-S, PF, 30 mcg/0.3 mL dose 2 completed Not Available [facility] 08/07/2023 17:49:02 Influenza, split virus, quadrivalent, preservative 2 completed Not Available [facility] 08/07/2023 17:49:02 SARS-COV-2 (COVID-19) vaccine, UNSPECIFIED 3 completed Not Available [facility] 08/07/2023 17:49:02 SARS-COV-2 (COVID-19) vaccine, UNSPECIFIED 4 completed [facility] 05/25/2024 10:25:28 Tdap 5 completed Not Available [facility] 08/07/2023 17:49:03 pneumococcal polysaccharide PPV23 5 completed Not Available [facility] 08/07/2023 17:49:03 Pneumococcal conjugate PCV 13 7 completed Not Available [facility] 08/07/2023 17:49:03 Influenza, split virus, quadrivalent, preservative 9 completed Not Available [facility] 08/07/2023 17:49:01 pneumococcal polysaccharide PPV23 8 completed Not Available [facility] 08/07/2023 17:49:03 COVID-19 vaccine, vector-nr, rS-ChAdOx1, PF, 0.5 mL 1 completed Not Available [facility] 08/07/2023 17:49:02 COVID-19 vaccine, vector-nr, rS-ChAdOx1, PF, 0.5 mL 1 completed Not Available [facility] 08/07/2023 17:49:02 Past Encounters Encounter ID Performer Location Encounter Start Date Encounter Closed Date Diagnosis/Indication Diagnosis SNOMED-CT Code Diagnosis ICD10 Code Diagnosis Note [id number] [facility] [address] [facility] [facility],[place] [address] 12/06/2017 10:58:12 12/06/2017 15:55:32 Pneumonia 188397010 J18.9 Please take prescribed or OTC medication s as above. Pt advised to rest, drink clear fluids, use a humidifier , gargle with warm salt water, use Acetominop hen and/or Ibuprofen for fever or pain. Pt advised to notify provider: if temp >101 or persists for >3weeks, if there are any signs of dehydratio n, or any problems breathing. also advised to take mucinex dm if sx worsen, will order cxr, for now will defer and treat empiricall y Essential hypertension 72284923 I10 slightly elevated today, though like fever related, will check at f/u next week [id number] [facility] [address], [place] [address] 12/13/2017 09:19:31 12/13/2017 10:36:58 Pneumonia 078524056 J18.9 sx all resolved except minor cough at this point Essential hypertension 85990480 I10 BP greatly improved after resolution of fever stable on current regimen Diabetes mellitus 411748 09 E11.9 consistent ly stable a1c, with good diet, and exercise lipids at goal as well [id number] [address] [facility] [address] [facility] [address] 01/17/2018 14:59:45 01/17/2018 15:52:11 Acute sinusitis 67591540 J01.90 fluids, rinses, flonase if needed Essential hypertension 14157992 I10 stable [id number] [facility] [address] [facility] [address], [place] [address] 03/25/2018 08:51:05 03/25/2018 12:04:25 Essential hypertension 29175843 I10 not quite at goal, will increase lisinopril from 2.5 to 5 mg daily Diabetes mellitus 232326 09 E11.9 consistent ly stable a1c, with good diet, and exercise lipids at goal as well Hypertriglyceridemia 302 895177 E78.2 elevated trig diet/exerc ise/wt loss discussed [id number] [facility] [address] [facility] [facility], [place] [address] 06/24/2018 09:47:54 06/24/2018 10:51:06 Essential hypertension 48617839 I10 accidental ly taking 2 of atenolol instead of 2 of lisinopril she will take atenolol 25 qd and lisinopril 5 mg qd bp at goal today Diabetes mellitus 030132 09 E11.9 consistent ly stable a1c, with good diet, and exercise lipids at goal as well Hypertriglyceridemia 302 838231 E78.2 elevated trig diet/exerc ise/wt loss discussed Body mass index 30+ - obesity 223151138 Z68.32 continue healthy diet and exercise Palpitations 09243461 R0 0.2 ? 2/2 bradycardi a? will d/c 50 atenolol and restart 25 of atenolol and assess sx. if persisting or if new sx develop f/u luz [id number] Kylah [place], [facility] [facility] [address] [facility] [address] [address] 09/10/2018 09:04:35 09/10/2018 10:18:01 Adult health examination 843981930 Z00.00 had derm annual exam medicare wellness visit complete Screening for cardiovascular system disease 185794639 Z13.6 labs complete LDL mildly elevated trigs elevated healthy diet encouraged will trial change from atorvastat in to rosuvastat in to attempt to reach LDL goals Screening mammography 24 119591 Z12.31 done 2019 Essential hypertension 80838222 I10 bp nearly at goal Diabetes mellitus 082746 09 E11.9 consistent ly stable a1c, on metformin with good diet, and exercise foot exam next visit Hypertriglyceridemia 302 592508 E78.2 trigs remain elevated LDL mildly above goal plan as stated above Body mass index 30+ - obesity 875225752 Z68.32 continue healthy diet and exercise Palpitations 57034411 R0 0.2 palps resolved Heartburn 11926906 R12 more likely explanatio n for her sx though if chest pain/back pain persists despite treatement f/u Chest pain 15613644 R07. 9 ACS unlikely in setting of totally normal EKG advised taht if chest pain persists we will pursue further cardiac work up Osteoporosis 50415925 M8 1[place]0 [place] [address] November [facility] Internal Medicine [address] [facility],[place] [address] 03/09/2019 08:54:24 03/09/2019 09:36:30 Essential hypertension 11769065 I10 stable Diabetes mellitus 053533 09 E11.9 consistent ly stable a1c, with good diet, and exercise lipids at goal as well dm eye exam scheduled for next month meds reviewed Hypertriglyceridemia 302 448422 E78.2 elevated trig diet/exerc ise/wt loss discussed Body mass index 30+ - obesity 191699827 Z68.32 continue healthy diet and exercise Palpitations 47239688 R0 0.2 resolved with proper bp medication s Heartburn 29706478 R12 resolved no longer taking zantac 96754 November [facility] Internal Medicine [address] [facility],[place] [facility] [place] [address] 09/07/2019 08:50:34 09/07/2019 09:27:12 Screening for cardiovascular system disease 541454443 Z13.6 labs complete LDL mildly elevated trigs elevated healthy diet encouraged will trial change from atorvastat in to rosuvastat in to attempt to reach LDL goals Diabetes mellitus 777541 09 E11.9 go back on metformin BID rather than QD Essential hypertension 53141565 I10 stable Headache 56404410 R51 stable, treated with tylenol vs excedrin tension Difficulty sleeping 3013 87495 Z72.820 take tylenol pm occasional ly, advised it can become habit forming, but not likely if used sparingly 13208 KEVIN COY [facility] Internal Medicine [address],[place] [facility] [place] [address] 12/08/2019 08:50:47 12/08/2019 10:04:23 Diabetes mellitus 01549694 E11.9 the patient is doing well, no concerns no numbness or tingling in the feet no loss of propriocep tion or balance will check her HbA1c to see what her level is at Essential hypertension 43332040 I10 BP 120/76 excellent control 19991 KEVIN COY [facility] Internal Medicine [address] [facility],[place] [address] 03/08/2020 08:54:15 03/08/2020 10:16:49 Essential hypertension 99284561 I10 BP 126/62 today the patient is well controlled on medication Diabetes mellitus 554640 09 E11.9 the patient is doing well, no concerns no numbness or tingling in the feet no loss of propriocep tion or balance will check her HbA1c to see what her level is at Hypertriglyceridemia 302 505513 E78.1 will check lipid panel again [id number] Gary Mcfadden DO [facility] Internal Medicine [address] [facility],[place] [address] 04/20/2020 09:54:08 04/20/2020 10:32:45 Cellulitis of toe of right foot 5865748857 0885278 L03.031 not finished by cephalexin will change to doxy for poss resist and rechk in 10 days [id number] Gary Mcfadden DO [facility] Internal Medicine [address] [facility],[place] [address] 05/02/2020 11:20:31 05/02/2020 12:08:55 Essential hypertension 23168165 I10 Diabetes mellitus 522466 09 E11.9 Cellulitis of toe of right foot 4001321858 5538856 L03.031 resolved and doing well 23331 KEVIN COY [facility] Internal Medicine [address] [facility] [facility],[place] [address] 06/21/2020 10:24:54 06/21/2020 11:20:07 Type 2 diabetes mellitus 66729070 E11.9 will check A1c Adult heal th examination 267648729 Z00.00 will fu in one month for BP Essential hypertension 31257906 I10 BP elevated will increase to 5 mg to 10 mg of lisinopril [id number] KEVIN COY [facility] Internal Medicine [address] [facility],[place] [address] 07/22/2020 10:22:13 07/22/2020 11:34:58 Essential hypertension 79534336 I10 BP much improved on increased lisinopril dosage Diabetes mellitus 649459 09 E11.9 the patient is doing well, no concerns no numbness or tingling in the feet no loss of propriocep tion or balance 38822 KEVIN COY [facility] Internal Medicine [address] [facility],[place] [address] 11/02/2020 09:51:44 11/02/2020 15:02:04 Essential hypertension 47835124 I10 BP much improved on increased lisinopril dosage Acute low back pain 2788 72181 M54.5 will trial a low dose MSK relaxer and see if improvemen t patient is told to rest her back as well Diabetes mellitus 022396 09 E11.9 the patient is doing well, no concerns no numbness or tingling in the feet no loss of propriocep tion or balance A1c is down to 6.9 which is excellent 51705 KEVIN COY [facility] Internal Medicine [address] [facility],[place] [address] 01/25/2021 09:52:00 01/25/2021 12:09:58 Osteoarthritis of knee 785681543 M17.0 L>Rset up with a cortisone injection with MB Diabetes mellitus 996895 09 E11.9 mild increase in neuropathy A1c is upwill work on exercise when her knee feels better Essential hypertension 14062567 I10 BP much improved on increased lisinopril dosage 09907 Gary Mcfadden DO [facility] [address] [facility] [address],[place] [address] 02/13/2021 14:53:54 02/13/2021 16:48:51 Osteoarthritis of left knee joint 3242375603 84441 M17.12 [place] 6[address]14 KEVIN COY [facility] [address] [facility] [address],[place] [address] 04/24/2021 08:27:26 04/25/2021 11:57:09 Diabetes mellitus 37265532 E11.9 A1c is downdoing excellent with diet and exercise 00558 Gary Mcfadden [facility] Internal Medicine [address] [facility] [address],[place] [address] 07/25/2021 09:04:12 07/25/2021 11:09:29 Osteoarthritis of right knee joint 5523715731 60572 M17.11 [place] 12852 KEVIN COY [facility] [address] [facility] [address],[place] [address] 08/15/2021 08:09:04 08/15/2021 17:23:48 Diabetes mellitus 19322451 E11.9 A1c is downdoing excellent with diet and exercise Essential hypertension 40719115 I10 BP much improved on increased lisinopril dosage Hypertriglyceridemia 302 840321 E78.1 will check lipid panel again Osteoporosis 16493618 M8 1.0 stable, sees arthritis clinic Rheumatoid arthritis 698 71717 M06.89 seeing arthritis clinic Vertigo 054332465 R42 will fu with work up to r/o 50353 KEVIN COY [facility] [address] [facility] [address],[place] [address] 11/14/2021 09:18:16 11/15/2021 10:00:16 Hypertriglyceridemia 712523339 E78.1 will check lipid panel again Essential hypertension 11840841 I10 BP much improved on increased lisinopril dosage Diabetes mellitus 890969 09 E11.9 A1c is downdoing excellent with diet and exercise Low back pain 146360201 M54.59 acute flare up of her low backwill give a refill of MSK relaxer Osteoarthr itis of knee 968701034 M17.0 will have her fu with MB for cortisone inj in the right knee 80148 Gary Mcfadden DO [facility] Medicine [address] [facility] [address],[place] [address] 12/08/2021 12:05:43 12/08/2021 12:47:42 Osteoarthritis of knee 932625958 M17.0 [place] [address] KEVIN COY [facility] [address] [facility] [address],[place] [address] 03/20/2022 11:06:26 03/20/2022 13:44:40 Hypertriglyceridemia 303990613 E78.1 stable, add fish oil Essential hypertension 64290152 I10 stable at home Diabetes mellitus 905406 09 E11.9 A1c is downdoing excellent with diet and exercise Overweight 085383111 E66 .3 will fu with nutritioni st referral 96936 KEVIN COY [facility] [address] [facility] [address],[place] [address] 06/18/2022 09:04:12 06/18/2022 09:50:39 Diabetes mellitus 57627225 E11.9 will need to add labs they didn't do all of it for me at prior appts Microalbuminuria 4210927 06 R80.8 will recheck labsprobab ly a combinatio n T2DM, being a methotrexa te user and being 77 y/o, probably related to mild kidney dysfunctio n Hypercalcemia 65737556 E 83.52 will recheck levels from prior assessment at rheum Overweight 534244635 E66 .3 will f/u with nutritioni st referral [id number] Gary Mcfadden DO [facility] [address] [facility] [address],[place] [address] 09/11/2022 11:37:16 09/11/2022 16:02:49 Osteoarthritis of knee 334987955 M17.0 [place] 61996 KEVIN COY [facility] Medicine [address] [facility] [address],[place] [address] 09/12/2022 11:09:02 09/12/2022 15:11:47 Diabetes mellitus 93149974 E11.9 agreed to starting on glipizide for better sugar control with elevated A1c Carotid ar alex stenosis 88693708 I65.21 will recheck in another yearwas between 0-49% Essential hypertension 16183058 I10 stable at home and here 770[address] Gary Mcfadden [facility] Internal Medicine [address] [facility] [address] [address] 10/24/2022 14:04:11 10/24/2022 16:05:05 Rheumatoid arthritis 27961865 M06.89 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 Sparrow Low back pain 553426179 M54.59 stableit's her hip that's causing complicati on Disorder of bone 3401070 3 M89.762 [address] fu with Dr[address] Sparrow 50915 Gary Mcfadden [facility] Internal Medicine [address] [facility],[place] [address] 01/02/2023 16:23:51 01/04/2023 14:04:10 Osteoarthritis of knee 336051089 M17.0 [place] 71246 KEVIN COY [facility] Internal Medicine [address] [facility] [address] [address] 04/01/2023 08:34:59 04/01/2023 15:53:08 Essential hypertension 04971377 I10 stable at home and here Hypercalcemia 98075019 E 83.52 elevated againprevi ous checks were normal with PTH Hypertriglyceridemia 302 548791 E78.1 stable, add fish oil Rheumatoid arthritis 698 50781 M06.89 stable Type 2 haris betes mellitus 97550024 E11.9 level is excellent Disorder of bone 8720060 3 M89.762 has hip surgery 07/[address] Levy Moore [address] Gary Mcfadden, [facility] Internal Medicine [address] [facility],[place] [address] 05/22/2023 14:22:32 05/22/2023 15:29:01 Osteoarthritis of knee 600376784 M17.0 [place] 22295 KEVIN COY [facility] Medicine [address] [facility],[place] 7 06/04/2023 14:03:21 06/04/2023 14:57:43 Vertigo 977747135 R42 will trial medrol if no effective other options are valium, HTCZ insteadhol d on vestibular rehab referral for now Pre-surger y evaluation 331593402 Z01.818 The patient was seen in the office today for pre-op evaluation . All medical conditions on patient's problem list were addressed and are currently stable, no interventi on needed at this time. Based on history and physical performed, the patient is cleared for surgery. [id number] Gary Mcfadden, [facility] Internal Medicine [address] [facility],[place] [address] 10/01/2023 15:07:23 10/02/2023 15:26:36 Osteoarthritis of knee 481546788 M17.0 well baltazar inj [id number] KEVIN COY [facility] Internal Medicine [address] [facility],[place] [address] 09/30/2023 10:18:18 10/01/2023 10:51:36 Posterior rhinorrhea 18591217 R09.82 start on nasal spraywill let me know if her ears are still having issues Edema of l ower extremity 792260149 R60.0 possibly just vascular incompeten cewill set up with lab work Type 2 haris betes mellitus 86023371 E11.9 level is excellent Hypercalcemia 40773428 E 83.52 elevated againprevi ous checks were normal with PTH Rheumatoid arthritis 698 10837 M06.89 stable 140201 KEVIN COY [facility] Internal Medicine [address] [facility] [address] [facility],[place] [address] 10/25/2023 09:23:22 10/25/2023 14:18:18 Acute bronchitis 22602293 J20.8 continue on the medrol and benzonatat estart inhaler 426002 KEVIN COY [facility] Internal Medicine [address] [facility] [address] [facility],[place] [address] 01/20/2024 09:48:24 01/20/2024 10:54:22 Depression screening 295618812 Z13.31 negative At low risk for fall 439 275455 Z91.81 0 Essential hypertension 14933246 I10 stable at home and here Type 2 hrais betes mellitus 77446184 E11.9 level is excellent; 5.7%, feet look good [id number] Gary Mcfadden DO [facility] Internal Medicine [address] [facility],[place] [address] 01/29/2024 13:35:06 01/29/2024 14:37:32 Osteoarthritis of knee 407342187 M17.0 well baltazar inj [id number] KEVIN COY [facility] Medicine [address] [facility],[place] [address] 05/25/2024 10:06:16 05/25/2024 11:19:26 Essential hypertension 14781982 I10 stable at home and here Hypercalcemia 40479905 E 83.52 stablewnl with this recent check Hypertriglyceridemia 302 503706 E78.1 stable Type 2 haris betes mellitus 41020558 E11.9 6% which is excellent [id number] KEVIN COY [facility] Internal Medicine [address] [facility],[place] [address] 09/07/2024 08:47:58 09/07/2024 09:34:56 Adult health examination 742837814 Z00.00 BP is stable Type 2 haris betes mellitus 62827657 E11.9 6% which is excellent Rheumatoid arthritis 698 39385 M06.89 stable Health Concerns Section Related Observation LastModified by Organization Detai ls LastModified Time None Recorded Concern Status LastModified by Organization Details LastModified Time None Recorded Advance Directives Directive None Recorded Payers Encounter Date Sequence Insurance Name Policy Number Policy Abrams Covered Member ID Abrams Member ID Guarantor Name 10/25/2023 1 MEDICARE [place]: [facility] Evelia Russell [id number] Eveliaronak Russell 10/25/2023 2 WPS - FOR LIFE (SECONDARY TO MEDICARE) Blake Russell [id number] Eveliaronak Russell 01/20/2024 [facility] Evelia Russell [id number] Evelia Drew 01/20/2024 2 WPS - FOR LIFE (SECONDARY TO MEDICARE) Blake Russell [id number] Eveliaronak Russell 01/29/2024 1 [place]ICARE B[place]: [facility] Evelia Russell [id number] Eveliaronak Russell 01/29/2024 2 WPS - FOR LIFE (SECONDARY TO MEDICARE) Blake Russell [id number] Eveliaronak Russell 05/25/2024 1 [facility] Evelia Russell [id number] Evelia Drew 05/25/2024 2 WPS - FOR LIFE (SECONDARY TO MEDICARE) Blake Russell [id number] Evelia Russell 09/07/2024 1 [facility] Evelia Russell [id number] Eveliaronak Russell 09/07/2024 2 WPS - FOR LIFE (SECONDARY TO MEDICARE) Blake Russell [id number] Evelia Russell Notes Date Note Type Note Provider Name a nd Address Organization Details Recorded Time 4 text/html c/o sick symptoms The patient is participating in this appointment via telemedicine communication with a phone call/video calling service (Doxy)The patient consents to use of these platforms in place of an in-person appointment due to either sick symptoms the patient is presenting with or current office closure due to COVID exposure in order to keep our office staff and patients safe The patient presents to the office today with concerns of sick symptoms including wheezing, cough, ear pain, sinus congestion The symptoms started originally around last weekThe patient reports exposure to family members and was also in [place], could have been exposed to anyone with sick symptomsThe patient symptoms mainly involves the cough and wheezing Pertinent comorbidities include age The patient symptoms are alleviated by restThe patient symptoms are exacerbated by laying flat, mornings The patient has tested for COVID-19 and the results was negative KEVIN COY [address] [place], [address], [facility] Medicine 10/25/2023 14:06:54 4 text/html f/u 4 mos the patient is doing well after her surgery for hip replacement (R)the patient has recovered from acute bronchitis as wellno lingering symptoms the patient has an injection with MB for the right knee the patient reports she developed an allergy to oxycodone while recovering from the surgerycaused significant chest pain and discomfort and severe nausea the incision site looks good, no signs of infection PTH and calcium elevated but related to recent surgery, surgical response depression score: negativefall risk score: negative, low risk her levels look good for her A1c medication reviewed in chart, all current meds up to date no other concerns todayreviewed her lab work KEVIN COY [address] [place], [address], [facility] 01/20/2024 10:20:04 4 text/html did fantastic with her hip surgery feels greathere for right knee inj shakira Gary Mcfadden, [address] [place], [address], [facility] 01/29/2024 14:17:01 4 text/html 4 mos f/u the pt is doing wellthe patient lab work looks excellent the patient's cholesterol is really goodthe patient's thyroid levels are wnl HTN: today in the office the patient BP is 124/78 R arm sitting the patient is doing well on the BP medication with no side effects and no adjustment of their medications needed today at the appointment well-controlled on medication denies chest pain, sob, ankle swelling, orthopnea, palpitations KEVIN COY [address] [place], [address], [facility] 05/25/2024 10:50:04 5 text/html Medicare Annual Wellness VisitReported bypatient.Diet and Nutrition:healthy diet; discussed vitamin and supplement use; discussed portion control; discussed maintaining calcium balance; discussed diet improvement Fracture Risk:no history of fractures; no recent explained fracture; no sudden unexplained fractures; no previous musculoskeletal injuries Physical Activity:exercises on a regular basis; recent increase in physical activity; good physical condition; discussed weightbearing activities; discussed exercise habits Depression Risk:never feels sad, empty, or tearful; no loss of interest in activities; no significant changes in weight; no sleep disturbances or insomnia; no agitation; no loss of energy; no feelings of worthlessness or guilt; no thoughts of suicide; no history of depression; no history of mood disorders Orientation:no disorientation to time; no disorientation to date; no disorientation to place Concentration and Memory:no decreased concentrating ability; no memory lapses or loss; does not forget words Speech/Motor difficulties:no speech difficulties; no difficulty expressing formulated concepts; no difficulty with fine manipulative tasks; no difficulty writing/copying; no slowed reaction time; does not knock things over when trying to pick them up Hearing:no loss of hearing Vision:no vision problems Activities of Daily Living:able to bathe with limited or no assistance; able to contol urination and bowels; able to dress with limited or no assistance; able to feed self with limited or no assistance; able to get out of chair or bed with limited or no assistance; able to groom with limited or no assistance; able to toilet with limited or no assistance Instrumental Activities of Daily Living:able to do house work with limited or no assistance; able to grocery shop with limited or no assistance; able to manage medications with limited or no assistance; able to manage money with limited or no assistance; able to prepare meals with limited or no assistance; able to use the phone with limited or no assistance Falls Risk Assessment:no frequent falls while walking; no fall in the past year; no fall since last visit; no dizziness/vertigo Home Safety:no unsafe mitzi hazzards; no unsafe stairs; no unsafe gas appliances; working smoke/CO detectors; wears protective head gear for biking/high velocity; use of seatbelts; practicing 'safer sex'; no vision or hearing loss while driving; no fire arms; has hand bars in the bathroom/shower; good lighting in the home restart fish oil for her triglycerides KEVIN COY [address] [place] [address], [address], [facility] 09/07/2024 09:18:59 OBGyn Episode No OBEpisode recorded.
[2024-10-12] MEDS: 0.9 % Sodium Chloride 1,000 ML 999 ML IV (23:20)
[2024-10-12] MEDS: ondansetron HCL 4 MG/2 ML VIAL IVPUSH (23:20)
[2024-10-12] MEDS: Ketorolac Tromethamine 15 MG/ML VIAL IVPUSH (23:20)
[2024-10-12] MEDS: Morphine Sulfate 2 MG/ML CARTRIDGE IVPUSH (23:21)
--- NOTE | 2024-10-12 23:21 | P.HPHOSP_ITS ---
History of Present Illness Date of Service: 10/12/24 Chief Complaint: Left flank pain 79-year-old female with a past medical history of HTN, HLD, dm presented to the hospital with a chief complaint of left flank pain. Patient reports that over the past 1 week she has been having intermittent left flank pain; denies any associated nausea vomiting. Denies any diarrhea. Denies any urinary symptoms. As the symptoms were not improving she decided to come to the ER for further evaluation. Mentions today she had severe pain. Reports her pain is better at the time of entry. Denies any hematuria. Denies any fever chills cough or sputum production. Denies any chest pain or palpitations. Review of all other systems is negative except mentioned above ER course: Per ER team, patient noted to have left flank tenderness; CT scan showed [id number] left-sided hydroureteronephrosis with 6 mm ureteric stone. Also noted additional small nephrolithiasis. Urology Dr. Harrison was notified who suggested admission to the medicine service and will evaluate with the patient in the morning. Blood pressure is stable with systolic in 140s. Urinalysis abnormal case with the UTI. Given ceftriaxone. PMFSH Social History Advance Directives: No Advance Directives Information Provided: No Do you have a plan to hurt others: No Plan Meds Allergies Allergy/AdvReac Type Severity Reaction Status Date / Time acetaminophen [From PERCOCET] Allergy Intermediate NAUSEA & Verified 10/12/24 16:40 VOMITING codeine [CODEINE] Allergy Unknown RASH-VOMITI Verified 10/12/24 16:40 NG latex Allergy Rash Verified 10/12/24 16:41 From PERCOCET Allergy Intermediate NAUSEA & Uncoded 10/12/24 16:40 VOMITING Active Medications: Current Medications Acetaminophen (Acetaminophen 325 Mg Tablet) 650 mg PO Q6H PRN PRN Reason: Pain, Mild 1-3,fever,headache Calcium Carbonate (Calcium Carbonate 750 Mg Tab.Chew) 750 mg PO Q4H PRN PRN Reason: Heartburn Heparin Sodium (Porcine) (Heparin Sodium,Porcine 5,000 Unit/Ml Vial) 5,000 unit SUBCUT Q8H [facility] Hydromorphone HCl (Hydromorphone Hcl 0.5 Mg/0.5 Ml Syringe) 0.5 mg IVPUSH Q4H PRN; Protocol PRN Reason: Pain, Severe (Pain Scale 7-10) Sodium Chloride (Ns) 1,000 mls @ 999 mls/hr IV .Q1H1M ONE Stop: 10/12/24 23:37 Lactated Ringer's (Lr) 1,000 mls @ 100 mls/hr IVCONT .Q10H [facility] Magnesium Hydroxide (Milk Of Magnesia 30 Ml Oral.Susp) 30 ml PO DAILY PRN PRN Reason: Constipation Melatonin (Melatonin 3 Mg Tablet) 6 mg PO BEDTIME PRN PRN Reason: Insomnia Sodium Chloride (0.9 % Sodium Chloride Flush 3 Ml Syringe) 3 ml IVFLUSH QSHIFT [facility] Physical Exam 2 Vital Signs and Narrative: Vital Signs: Last Vital Signs Temp 98 F 10/12/24 16:38 Pulse 61 10/12/24 16:38 Resp 19 10/12/24 16:38 BP 146/57 H 10/12/24 16:38 Pulse Ox 98 10/12/24 16:38 O2 Del Method Room Air 10/12/24 16:38 BMI result Body Mass Index 29.1 Gen: Appears be in no acute distress HEENT: NCAT, Moist mucosa. Pulmonary: Vesicular breath sounds, fair air entry CVS: Normal S1-S2 Abdomen: BS+, Soft, Nontender Extremities: Warm well perfused Neuro: Alert and awake. Results Labs 10/12/24 17:14 10/12/24 17:14 Labs: Laboratory Results - last 24 hr 10/12/24 17:14 MCV 94.4 MCH 32.0 MCHC 33.9 RDW 14.2 Plt Count 243 D MPV 9.7 Immature Gran % (Auto) 0.3 Neut % (Auto) 90.9 H Lymph % (Auto) 4.2 L Kay % (Auto) 4.3 Eos % (Auto) 0.1 Baso % (Auto) 0.2 Lymph # (Auto) 0.5 L Kay # (Auto) 0.5 Eos # (Auto) 0.0 Baso # (Auto) 0.0 Abs Immat Gran (auto) 0.04 H Absolute Neuts (auto) 11.3 H Absolute Nucleated RBC 0.000 Nucleated RBC % (auto) 0.0 Smear Tech's Comments VERIFIED Anion Gap 11 L Estim Creat Clear Calc 62.2 Estimated GFR > 60 Random Glucose 132 H Calcium 10.5 H Total Bilirubin 0.6 Direct Bilirubin 0.2 AST 22 ALT 12 Alkaline Phosphatase 75 Total Protein 7.1 Albumin 4.1 Lipase 20 Urine Color Dark Yellow Urine Appearance Cloudy Urine pH 5.5 Ur Specific [place] 1.025 Urine Protein 100 (2+) H Urine Glucose (UA) 500 H Urine Ketones 15 Urine Blood Large (3+) H Urine Nitrite Negative Ur Leukocyte Esterase Small (1+) H Urine RBC >20 H Urine WBC 21-50 H Ur Squamous Epith Cells 3-5 Calcium Oxalate Crystal Present Urine Bacteria None Seen Hyaline Casts 3-5 Assessment and Plan (1) Urinary tract infection: Qualifiers: Urinary tract infection type: acute cystitis Hematuria presence: with hematuria Qualified Code(s): N30.01 - Acute cystitis with hematuria Status: Acute Plan 79-year-old female with a past medical history of HTN, HLD, dm presented to the hospital with a chief complaint of left flank pain. Noted to have obstructing ureteral stone with hydronephrosis. Also positive for UTI. UTI: Left ureteral stone: Left hydroureteronephrosis: Nephrolithiasis: Patient denies prior history of renal calculi. Has been symptomatic for about a week. Noted to have microscopic hematuria with UTI as well. Blood pressure is stable with systolic 140s on admission. Urology Dr. Rojo was notified. Continue ceftriaxone Follow-up cultures NPO Gentle IV fluids Pain control Diabetes: Insulin sliding scale. Hold home metformin. Hypertension: Hold home atenolol for now. DVT prophylaxis: SubQ heparin Code status: Full code, confirmed Quality Stroke Does the patient have a stroke diagnosis?: No VTE Prior VTE?: No VTE Risk Level:: Medical - moderate - high VTE Device Contraindication: N/A - Device Ordered VTE Drug Contraindication: N/A - Med Ordered
[2024-10-12] MEDS: cefTRIAXone sodium 1 GM VIAL IVPUSH (23:34)
[2024-10-12 23:36] VITALS: BP 133/36; PULSE 69; RESP 18; TEMP 37.6; O2SAT 90
[2024-10-13] VITALS (18 sets, daily range): BP systolic 118–144; BP diastolic 48–66; PULSE 58–74; RESP 14–20; TEMP 36.4–37.5; O2SAT 90–99; BMI 30.1
[2024-10-13] MEDS: Lactated Ringers 1,000 ML 100 ML IVCONT ×2 (01:18→09:33)
[2024-10-13] MEDS: Heparin Sodium,Porcine 5,000 UNIT/ML VIAL 5000 UNIT SUBCUT ×3 (01:18→17:29)
[2024-10-13] MEDS: HYDROmorphone HCl 0.5 MG/0.5 ML SYRINGE IVPUSH ×2 (03:36→13:24)
[2024-10-13] MEDS: Acetaminophen 325 MG TABLET 650 MG PO (03:43)
--- NOTE | 2024-10-13 03:44 | PC.NURSE ---
pt rang call samson. c/o pain returning 02/11, and felt warm like she had a fever. temp 99.4 oral. pt medicated per OCT for pain and fever
[2024-10-13 05:12] LABS: MANUAL DIFF FLAG NO
[2024-10-13 05:15] LABS: Basophils Percent Auto 0.3 % (0-2); Eosinophils Percent Auto 0.5 % (0-4); Hemoglobin 11.9 g/dl (12.0-16.0); Imm Gran Abs Auto 0.03 X10*3/uL (0.00-0.03); Imm Gran Pct Auto 0.4 % (0.0-0.4); Lymphocytes Absolute Auto 0.8 X10*3/uL (1.2-4.9); Lymphocytes Percent Auto 9.9 % (20-40); Mean Corpuscular HGB Conc 33.1 g/dl (31.0-35.0); Mean Corpuscular Hemoglobin 31.6 pg (27.0-33.0); Mean Corpuscular Volume 95.7 fL (80.0-98.0); Mean Platelet Volume 9.9 fL (9.4-12.3); Monocytes Absolute Auto 0.6 X10*3/uL (0.1-1.2); Monocytes Percent Auto 7.7 % (2-11); Neutrophils Absolute Auto 6.2 x10*3/uL (2.0-8.3); Neutrophils Percent Auto 81.2 % (45-73); Platelet Count 200 X10*3/uL (160-400); Red Blood Count 3.76 X10*6/uL (4.20-5.50); Red Cell Distribution Width 14.1 % (11.0-16.0); White Blood Count 7.6 X10*3/uL (4.8-10.8)
[2024-10-13 05:38] LABS: Alanine Aminotransferase 13 U/L (0-31); Albumin Level 3.4 g/dL (3.5-5.0); Alkaline Phosphatase 65 U/L (39-117); Anion Gap 11 (12-20); Aspartate Amino Transferase 22 U/L (5-31); Bilirubin Total 0.3 mg/dL (0.0-1.0); Blood Urea Nitrogen 12 mg/dL (9-16); Calcium 9.4 mg/dL (8.4-10.2); Carbon Dioxide 26 mmol/L (22-29); Chloride 108 mmol/L (96-108); Creatinine Clr Calc Pharmacy 63.9; Estimated Glomerular Filt Rate > 60; Glucose Random 107 mg/dL (60-115); Potassium 3.4 mmol/L (3.3-5.1); Sodium 142 mmol/L (135-145); Total Protein 5.8 g/dL (6.5-8.0)
[2024-10-13] MEDS: Morphine Sulfate 2 MG/ML CARTRIDGE 1 MG IVPUSH (05:45)
--- NOTE | 2024-10-13 05:48 | PC.NURSE ---
pt endorsing pain remained after dilaudid. hospitalist aware. pt medicated per MAR with morphine
--- NOTE | 2024-10-13 07:42 | P.PNIM_ITS ---
Subjective Subjective Date of Service: 10/13/24 Interval History: f/u on obstructive kidney stone, hydronephrosis and uti Physical Exam 2 Vital Signs: Vital Signs: Last Vital Signs Temp 97.6 F 10/13/24 04:00 Pulse 62 10/13/24 04:00 Resp 15 10/13/24 04:00 BP 144/63 H 10/13/24 04:00 Pulse Ox 96 10/13/24 04:00 O2 Del Method Room Air 10/13/24 04:00 BMI result Body Mass Index 29.1 Const: Other: General: AO X 3, no acute distress Resp: CTA bilateral CVS: S1,S2,RRR GI: +BS, NT, no distention Skin: No rash Neuro: motor grossly intact Psych: appropriate affect Objective Data Active Medications Acetaminophen (Acetaminophen 325 Mg Tablet) 650 mg PO Q6H PRN PRN Reason: Pain, Mild 1-3,fever,headache Last Admin: 10/13/24 03:43 Dose: 650 mg Documented By: JENNY Calcium Carbonate (Calcium Carbonate 750 Mg Tab.Chew) 750 mg PO Q4H PRN PRN Reason: Heartburn Ceftriaxone Sodium (Ceftriaxone Sodium 1 Gm Vial) 1 gm IVPUSH Q24H [facility] Dextrose (Dextrose 50 % 25 Gm/50 Ml Syringe) 25 gm IVPUSH Q15M PRN; Protocol PRN Reason: per Hypoglycemia Standing Ord. Glucose (Glucose Gel 15 Gm Gel..Gram.) 15 gm PO Q15M PRN; Protocol PRN Reason: per Hypoglycemia Standing Ord. Heparin Sodium (Porcine) (Heparin Sodium,Porcine 5,000 Unit/Ml Vial) 5,000 unit SUBCUT Q8H [facility] Last Admin: 10/13/24 01:18 Dose: 5,000 unit Documented By: JENNY Hydromorphone HCl (Hydromorphone Hcl 0.5 Mg/0.5 Ml Syringe) 0.5 mg IVPUSH Q4H PRN; Protocol PRN Reason: Pain, Severe (Pain Scale 7-10) Last Admin: 10/13/24 03:36 Dose: 0.5 mg Documented By: JENNY Lactated Ringer's (Lr) 1,000 mls @ 100 mls/hr IVCONT .Q10H [facility] Last Admin: 10/13/24 01:18 Dose: 100 mls/hr Documented By: JENNY Insulin Human Lispro (Insulin Lispro 100 Unit/Ml 3 Ml Vial) 0 unit SUBCUT QIDACHS [facility]; Protocol Magnesium Hydroxide (Milk Of Magnesia 30 Ml Oral.Susp) 30 ml PO DAILY PRN PRN Reason: Constipation Melatonin (Melatonin 3 Mg Tablet) 6 mg PO BEDTIME PRN PRN Reason: Insomnia Sodium Chloride (0.9 % Sodium Chloride Flush 3 Ml Syringe) 3 ml IVFLUSH QSHIFT [facility] Last Admin: 10/13/24 00:09 Dose: Not Given Documented By: JENNY Non-Admin Reason: IV Running Labs 10/13/24 04:25 10/13/24 04:25 Labs: Laboratory Results - last 24 hr 10/12/24 10/13/24 17:14 04:25 MCV 94.4 95.7 MCH 32.0 31.6 MCHC 33.9 33.1 RDW 14.2 14.1 Plt Count 243 D 200 MPV 9.7 9.9 Immature Gran % (Auto) 0.3 0.4 Neut % (Auto) 90.9 H 81.2 H Lymph % (Auto) 4.2 L 9.9 L [place] % (Auto) 4.3 7.7 Eos % (Auto) 0.1 0.5 Baso % (Auto) 0.2 0.3 Lymph # (Auto) 0.5 L 0.8 L [place] # (Auto) 0.5 0.6 Eos # (Auto) 0.0 0.0 Baso # (Auto) 0.0 0.0 Abs Immat Gran (auto) 0.04 H 0.03 Absolute Neuts (auto) 11.3 H 6.2 Absolute Nucleated RBC 0.000 0.000 Nucleated RBC % (auto) 0.0 0.0 Smear Tech's Comments VERIFIED Anion Gap 11 L 11 L Estim Creat Clear Calc 62.2 63.9 Estimated GFR > 60 > 60 Random Glucose 132 H 107 Calcium 10.5 H 9.4 D Total Bilirubin 0.6 0.3 Direct Bilirubin 0.2 AST 22 22 ALT 12 13 Alkaline Phosphatase 75 65 Total Protein 7.1 5.8 L Albumin 4.1 3.4 L Lipase 20 Urine Color Dark Yellow Urine Appearance Cloudy Urine pH 5.5 Ur Specific [place] 1.025 Urine Protein 100 (2+) H Urine Glucose (UA) 500 H Urine Ketones 15 Urine Blood Large (3+) H Urine Nitrite Negative Ur Leukocyte Esterase Small (1+) H Urine RBC >20 H Urine WBC 21-50 H Ur Squamous Epith Cells 3-5 Calcium Oxalate Crystal Present Urine Bacteria None Seen Hyaline Casts 3-5 Assessment and Plan (1) Calculus of left ureter: Status: Acute (2) Urinary tract infection: Status: Acute Plan 79-year-old female with a past medical history of HTN, HLD, dm presented to the hospital with a chief complaint of left flank pain. Noted to have obstructing ureteral stone with hydronephrosis and UTI Left ureteral stone, Left hydroureteronephrosis and Nephrolithiasis and UTI Urology consult (Dr. Kota wild) pending, may need cysto and stent contininue ceftriaxone, follow cultures NPO IVF Dilaudid and Tyelenol for pain Diabetes Insulin sliding scale Hold home metformin Hypertension reume home meds once DVT prophylaxis: SubQ heparin Code status: Full code, confirmed Quality Stroke Does the patient have a stroke diagnosis?: No VTE Prior VTE?: No VTE Risk Level:: Medical - moderate - high VTE Device Contraindication: N/A - Device Ordered VTE Drug Contraindication: N/A - Med Ordered
--- NOTE | 2024-10-13 08:52 | PHA.MEDREC ---
Addendum entered by Williams Michelle 10/13/24 09:23: reviewed Original Note: Pharmacy Consult ? Medication Reconciliation Pharmacy has completed the medication reconciliation. Spoke to patient to confirm med list. Patient states she is no longer taking Baclofen 10 mg and Tramadol 50 mg. Patient confirmed 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 12.5 mg every Saturday. (5 x 2.5 mg), last dose 10/09/24.
[2024-10-13] MEDS: 0.9 % Sodium Chloride Flush 3 ML SYRINGE IVFLUSH (09:19)
[2024-10-13] MEDS: atenoloL 25 MG TABLET PO (09:32)
[2024-10-13] MEDS: lisinopriL 10 MG TABLET PO (09:32)
[2024-10-13] MEDS: Folic Acid 1 MG TABLET PO (09:32)
[2024-10-13 09:41] LABS: Glucose, Whole Blood 117 mg/dL (60-115)
--- NOTE | 2024-10-13 10:44 | MHC.CM.PN ---
CM met with Patient at bedside and addressed IMM with her; the original was given to her and a copy has been placed on the chart. 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 Home/self care is Patient's goal and CM has initiated and will follow for dc planning. PCP is Dr. Gary Mcfadden and Daughter will transport to home at dc.
--- NOTE | 2024-10-13 10:46 | P.CNUR_ITS ---
History of Present Illness Consult details Consult date: 10/13/24 Requesting physician: Brown Evans Narrative: 79-year-old female with a past medical history of HTN, HLD, dm presented to the hospital with a chief complaint of left flank pain. Patient reports that over the past 1 week she has been having intermittent left flank pain; denies any associated nausea vomiting. Denies any diarrhea. Denies any urinary symptoms. CTAP-10/12/24--Mild-moderate left-sided hydroureteronephrosis secondary to 6 mm stone, in the midportion of the left ureter. Review of Systems 2 Review of Systems: Yes all other systems are reviewed and are negative Constitutional: Constitutional: Reports no additional constitutional complaints Eyes: Eyes: Reports no additional eye complaints ENT: Reports system reviewed and no additional complaints, except as documented Cardiovascular: Cardiovascular: Reports no additional cardiovascular complaints Respiratory: Respiratory: Reports no additional respiratory complaints Gastrointestinal: Gastrointestinal: Reports no additional gastrointestinal complaints Genitourinary: Genitourinary: Reports as per HPI Musculoskeletal: Musculoskeletal: Reports no additional musculoskeletal complaints Integumentary/Breasts: Skin/Breast: Reports system reviewed and no additional complaints, except as docu Neurologic: Reports system reviewed and no additional complaints, except as documented Psychiatric: Psychiatric: Reports no additional psychiatric complaints Endocrine: Endocrine: Reports no additional endocrine complaints Hematologic/Lymphatic: Hematologic/Lymphatic: Reports no additional hematologic/lymphatic complaints Allergic/Immunologic: Allergic/Immunologic: Reports no additional allergic/immunologic complaints [facility] Social History Social History Household Members: None [facility] Are you a primary career and guidance counselor to a significant other at home: No Do you presently have visiting nurse or other home services: No Patient Tobacco Use Status: Never used Tobacco service: No Meds Allergies Allergy/AdvReac Type Severity Reaction Status Date / Time acetaminophen [From PERCOCET] Allergy Intermediate NAUSEA & Verified 10/12/24 16:40 VOMITING codeine [CODEINE] Allergy Unknown RASH-VOMITI Verified 10/12/24 16:40 NG latex Allergy Rash Verified 10/12/24 16:41 From PERCOCET Allergy Intermediate NAUSEA & Uncoded 10/12/24 16:40 VOMITING Active Medications: Current Medications Acetaminophen (Acetaminophen 325 Mg Tablet) 650 mg PO Q6H PRN PRN Reason: Pain, Mild 1-3,fever,headache Last Admin: 10/13/24 03:43 Dose: 650 mg Atenolol (Atenolol 25 Mg Tablet) 25 mg PO DAILY [facility]; Protocol Last Admin: 10/13/24 09:32 Dose: 25 mg Atorvastatin Calcium (Atorvastatin Calcium 80 Mg Tablet) 80 mg PO BEDTIME [facility] Calcium Carbonate (Calcium Carbonate 750 Mg Tab.Chew) 750 mg PO Q4H PRN PRN Reason: Heartburn Ceftriaxone Sodium (Ceftriaxone Sodium 1 Gm Vial) 1 gm IVPUSH Q24H [facility] Dextrose (Dextrose 50 % 25 Gm/50 Ml Syringe) 25 gm IVPUSH Q15M PRN; Protocol PRN Reason: per Hypoglycemia Standing Ord. Folic Acid (Folic Acid 1 Mg Tablet) 1 mg PO DAILY [facility] Last Admin: 10/13/24 09:32 Dose: 1 mg Glucose (Glucose Gel 15 Gm Gel..Gram.) 15 gm PO Q15M PRN; Protocol PRN Reason: per Hypoglycemia Standing Ord. Heparin Sodium (Porcine) (Heparin Sodium,Porcine 5,000 Unit/Ml Vial) 5,000 unit SUBCUT Q8H [facility] Last Admin: 10/13/24 09:18 Dose: 5,000 unit Hydromorphone HCl (Hydromorphone Hcl 0.5 Mg/0.5 Ml Syringe) 0.5 mg IVPUSH Q4H PRN; Protocol PRN Reason: Pain, Severe (Pain Scale 7-10) Last Admin: 10/13/24 03:36 Dose: 0.5 mg Lactated Ringer's (Lr) 1,000 mls @ 100 mls/hr IVCONT .Q10H [facility] Last Admin: 10/13/24 09:33 Dose: 100 mls/hr Insulin Human Lispro (Insulin Lispro 100 Unit/Ml 3 Ml Vial) 0 unit SUBCUT QIDACHS [facility]; Protocol Last Admin: 10/13/24 09:18 Dose: Not Given Lisinopril (Lisinopril 10 Mg Tablet) 10 mg PO DAILY [facility]; Protocol Last Admin: 10/13/24 09:32 Dose: 10 mg Magnesium Hydroxide (Milk Of Magnesia 30 Ml Oral.Susp) 30 ml PO DAILY PRN PRN Reason: Constipation Melatonin (Melatonin 3 Mg Tablet) 6 mg PO BEDTIME PRN PRN Reason: Insomnia 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 (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 Sodium 2.5 Mg Tablet) 12.5 mg PO FR [facility] Sodium Chloride (0.9 % Sodium Chloride Flush 3 Ml Syringe) 3 ml IVFLUSH QSHIFT [facility] Last Admin: 10/13/24 09:19 Dose: 3 ml Home Medications ?Medication ?Instructions ?Recorded ?Confirmed ?Last Taken ?Type atenolol 25 mg tablet 25 mg PO DAILY 10/13/24 10/13/24 10/12/24 History celecoxib 200 mg capsule 200 mg PO DAILY 10/13/24 10/13/24 10/12/24 History folic acid 1 mg tablet 1 mg PO DAILY 10/13/24 10/13/24 10/12/24 History glimepiride 2 mg tablet 2 mg PO DAILY 10/13/24 10/13/24 10/12/24 History lisinopril 10 mg tablet 10 mg PO DAILY 10/13/24 10/13/24 10/12/24 History metformin 750 mg tablet,extended 750 mg PO BID 10/13/24 10/13/24 10/12/24 History release 24 hr methotrexate sodium 2.5 mg tablet 12.5 mg PO FR 10/13/24 10/13/24 10/09/24 History rosuvastatin 40 mg tablet 40 mg PO BEDTIME 10/13/24 10/13/24 10/12/24 History Physical Exam 2 Vital Signs: Vital Signs: Last Vital Signs Temp 98.2 F 10/13/24 09:11 Pulse 60 10/13/24 09:32 Resp 20 10/13/24 09:11 BP 139/65 10/13/24 09:32 Pulse Ox 93 10/13/24 09:11 O2 Del Method Room Air 10/13/24 09:11 BMI result Body Mass Index 29.1 Const: General: cooperative, healthy appearing and no acute distress O rientation/consciousness: patient oriented x3 HEENT: Head: Yes normal to inspection, Yes normocephalic and Yes atraumatic Eyes: Conjunctivae: conjunctivae normal Neck: Neck: Yes normal visual inspection and Yes trachea midline Chest: Chest palpation & inspection: normal inspection of the chest Resp: Effort & Inspection: normal respiratory effort Cardio: Rate: regular rate GI: Inspection: Yes normal to inspection Palpation (GI): Soft to palpation : General: Yes CVA tenderness (left) Back/Spine/Pelvis: Back: CVA tenderness (left) Neuro: General: patient oriented x3 Psych: Appearance: grossly normal Results Labs 10/13/24 04:25 10/13/24 04:25 Labs: Abnormal lab results 10/12/24 10/13/24 10/13/24 Range/Units 17:14 04:25 09:17 WBC 12.4 H (4.8-10.8) X10*3/uL RBC 3.76 L (4.20-5.50) X10*6/uL Hgb 11.9 L (12.0-16.0) g/dl Hct 36.0 L (37.0-47.0) % Neut % (Auto) 90.9 H 81.2 H (45-73) % Lymph % (Auto) 4.2 L 9.9 L (20-40) % Lymph # (Auto) 0.5 L 0.8 L (1.2-4.9) X10*3/uL Abs Immat Gran (auto) 0.04 H (0.00-0.03) X10*3/uL Absolute Neuts (auto) 11.3 H (2.0-8.3) x10*3/uL Anion Gap 11 L 11 L (12-20) POC Glucose 117 H (60-115) mg/dL Random Glucose 132 H (60-115) mg/dL Calcium 10.5 H (8.4-10.2) mg/dL Total Protein 5.8 L (6.5-8.0) g/dL Albumin 3.4 L (3.5-5.0) g/dL Urine Protein 100 (2+) H (Neg-Trace) mg/dL Urine Glucose (UA) 500 H (Negative) mg/dL Urine Blood Large (3+) H (Negative) Ur Leukocyte Esterase Small (1+) H (Negative) Urine RBC >20 H (0-2) /HPF Urine WBC 21-50 H (0-5) /HPF Short CBC 10/12/24 10/13/24 Range/Units 17:14 04:25 WBC 12.4 H 7.6 (4.8-10.8) X10*3/uL Hgb 13.7 11.9 L (12.0-16.0) g/dl Hct 40.4 36.0 L (37.0-47.0) % Plt Count 243 D 200 (160-400) X10*3/uL BMP 10/12/24 10/13/24 17:14 04:25 Sodium 141 142 Potassium 4.4 3.4 D Chloride 107 108 Carbon Dioxide 27 26 BUN 13 12 Creatinine 0.75 0.73 Calcium 10.5 H 9.4 D Liver Function 10/12/24 10/13/24 Range/Units 17:14 04:25 Total Bilirubin 0.6 0.3 (0.0-1.0) mg/dL Direct Bilirubin 0.2 (0.0-0.5) mg/dL AST 22 22 (5-31) U/L ALT 12 13 (0-31) U/L Alkaline Phosphatase 75 65 (39-117) U/L Albumin 4.1 3.4 L (3.5-5.0) g/dL Urine 10/12/24 Range/Units 17:14 Urine Color Dark Yellow Urine Appearance Cloudy Urine pH 5.5 (5.0-9.0) Ur Specific [place] 1.025 (1.005-1.025) Urine Protein 100 (2+) H (Neg-Trace) mg/dL Urine Glucose (UA) 500 H (Negative) mg/dL Imaging Abdomen CT scan report/results: report reviewed and image reviewed CT scan - pelvis: report reviewed and image reviewed Additional studies: Date of Service: 10/12/24 CLINICAL HISTORY: L fLank pain CT abdomen and pelvis without contrast Comparison: X-rays of the left hip from 11/20/2016 Findings: Mild bibasilar atelectasis and scarring. Metal artifacts obscure of the majority of the pelvis including majority of the urinary bladder. Mild to moderate left-sided hydronephrosis secondary to 6 mm stone in the midportion left ureter. Additional nephrolithiasis measures 4 mm in the upper pole of the left kidney. 2 mm nephrolithiasis of the lower pole of the right kidney no obstructing stone in the right kidney or imaged right ureter. The adrenal glands are normal. The spleen is nonenlarged. Mild volume loss of the pancreas is noted. Gallbladder and liver are unremarkable for noncontrast CT. Calcified and noncalcified plaque involving the aorta and its branches. No enlarged lymphadenopathy. Small bilateral fat containing inguinal hernias, right larger than left. No small bowel obstruction. Severe stool burden, including the cecum. Imaged appendix is within normal limits. Uterus and adnexa are partly obscured but otherwise unremarkable. No definite hardware loosening of the hip arthroplasty hardware with multiple old sclerotic fragments particularly at left greater trochanter. Degenerative changes include pubic symphysis, SI joints, and spine, with multifocal facet arthropathy. IMPRESSION: 1. Mild-moderate left-sided hydroureteronephrosis secondary to 6 mm stone in the midportion of the left ureter. 2. Additional small bilateral nephrolithiasis noted Assessment and Plan (1) Calculus of left ureter: Status: Acute (2) Hydronephrosis, left: Status: Acute (3) Bilateral kidney stones: Status: Acute Plan Cystoscopy Left ureteral stent, possible ureteroscopy laser. Procedures Date of Service Date of Service: 10/13/24
[2024-10-13 10:53] LABS: Glucose, Whole Blood 97 mg/dL (60-115)
[2024-10-13 11:41] LABS: Glucose, Whole Blood 98 mg/dL (60-115)
--- NOTE | 2024-10-13 12:01 | P.CONAN_ITS ---
HPI - Anesthesia Eval Consult details Narrative: 79 yo female patient for Cysto, Ureteroscopy, Retro, Stent Left Ureter PMFSH Active Problems Active Problems: All Active Problems Bilateral kidney stones (Acute) Hydronephrosis, left (Acute) Calculus of left ureter (Acute) Urinary tract infection (Acute) Type 2 DM HTN Hypercholesterolemia Rheumatoid Arthritis H/o Left breast Ca Past Medical History Medical History (Updated 10/13/24 @ 13:20 by Penny Tavares RN) Lyme disease Diabetes mellitus, type 2 Urinary tract infection Kidney stones Dizziness Hypercholesteremia Osteoporosis Foot fracture, right Breast cancer Family History Family history of problems with anesthesia: No Surgical History Surgical History (Updated 10/13/24 @ 13:32 by Vilma Gonsalves MD) Breast cancer, left breast S/P hip replacement History of Problems with Anesthesia: Yes (PONV) Social History Social History Household Members: None [facility] Are you a primary nurse healthcare manager to a significant other at home: No Do you presently have visiting nurse or other home services: No Patient Tobacco Use Status: Never used Tobacco service: No Meds Allergies Allergy/AdvReac Type Severity Reaction Status Date / Time acetaminophen [From PERCOCET] Allergy Intermediate NAUSEA & Verified 10/12/24 16:40 VOMITING codeine [CODEINE] Allergy Unknown RASH-VOMITI Verified 10/12/24 16:40 NG latex Allergy Rash Verified 10/12/24 16:41 From PERCOCET Allergy Intermediate NAUSEA & Uncoded 10/12/24 16:40 VOMITING Active Medications: Current Medications Acetaminophen (Acetaminophen 325 Mg Tablet) 650 mg PO Q6H PRN PRN Reason: Pain, Mild 1-3,fever,headache Last Admin: 10/13/24 03:43 Dose: 650 mg Atenolol (Atenolol 25 Mg Tablet) 25 mg PO DAILY COOKIE; Protocol Last Admin: 10/13/24 09:32 Dose: 25 mg Atorvastatin Calcium (Atorvastatin Calcium 80 Mg Tablet) 80 mg PO BEDTIME COOKIE Calcium Carbonate (Calcium Carbonate 750 Mg Tab.Chew) 750 mg PO Q4H PRN PRN Reason: Heartburn Ceftriaxone Sodium (Ceftriaxone Sodium 1 Gm Vial) 1 gm IVPUSH Q24H COOKIE Dextrose (Dextrose 50 % 25 Gm/50 Ml Syringe) 25 gm IVPUSH Q15M PRN; Protocol PRN Reason: per Hypoglycemia Standing Ord. Folic Acid (Folic Acid 1 Mg Tablet) 1 mg PO DAILY [facility] Last Admin: 10/13/24 09:32 Dose: 1 mg Glucose (Glucose Gel 15 Gm Gel..Gram.) 15 gm PO Q15M PRN; Protocol PRN Reason: per Hypoglycemia Standing Ord. Heparin Sodium (Porcine) (Heparin Sodium,Porcine 5,000 Unit/Ml Vial) 5,000 unit SUBCUT Q8H [facility] Last Admin: 10/13/24 09:18 Dose: 5,000 unit Hydromorphone HCl (Hydromorphone Hcl 0.5 Mg/0.5 Ml Syringe) 0.5 mg IVPUSH Q4H PRN; Protocol PRN Reason: Pain, Severe (Pain Scale 7-10) Last Admin: 10/13/24 03:36 Dose: 0.5 mg Lactated Ringer's (Lr) 1,000 mls @ 100 mls/hr IVCONT .Q10H [facility] Last Admin: 10/13/24 09:33 Dose: 100 mls/hr Insulin Human Lispro (Insulin Lispro 100 Unit/Ml 3 Ml Vial) 0 unit SUBCUT QIDACHS [facility]; Protocol Last Admin: 10/13/24 10:59 Dose: Not Given Lisinopril (Lisinopril 10 Mg Tablet) 10 mg PO DAILY [facility]; Protocol Last Admin: 10/13/24 09:32 Dose: 10 mg Magnesium Hydroxide (Milk Of Magnesia 30 Ml Oral.Susp) 30 ml PO DAILY PRN PRN Reason: Constipation Melatonin (Melatonin 3 Mg Tablet) 6 mg PO BEDTIME PRN PRN Reason: Insomnia 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 (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 Sodium 2.5 Mg Tablet) 12.5 mg PO [facility] Sodium Chloride (0.9 % Sodium Chloride Flush 3 Ml Syringe) 3 ml IVFLUSH QSHIFT [facility] Last Admin: 10/13/24 09:19 Dose: 3 ml Home Medications ?Medication ?Instructions ?Recorded ?Confirmed ?Last Taken ?Type atenolol 25 mg tablet 25 mg PO DAILY 10/13/24 10/13/24 10/12/24 History celecoxib 200 mg capsule 200 mg PO DAILY 10/13/24 10/13/24 10/12/24 History folic acid 1 mg tablet 1 mg PO DAILY 10/13/24 10/13/24 10/12/24 History glimepiride 2 mg tablet 2 mg PO DAILY 10/13/24 10/13/24 10/12/24 History lisinopril 10 mg tablet 10 mg PO DAILY 10/13/24 10/13/24 10/12/24 History metformin 750 mg tablet,extended 750 mg PO BID 10/13/24 10/13/24 10/12/24 History release 24 hr methotrexate sodium 2.5 mg tablet 12.5 mg PO FR 10/13/24 10/13/24 10/09/24 History rosuvastatin 40 mg tablet 40 mg PO BEDTIME 10/13/24 10/13/24 10/12/24 History Exam Height,Weight and Vital Signs: Height 5 ft 5 in Weight 82 kg Last Vital Signs Temp 99.0 F 10/13/24 11:26 Pulse 58 10/13/24 11:26 Resp 14 10/13/24 11:26 BP 140/66 H 10/13/24 11:26 Pulse Ox 99 10/13/24 11:26 O2 Del Method Room Air 10/13/24 11:26 Pertinent Lab Results Pertinent Lab Results: Laboratory Tests 10/12/24 10/13/24 10/13/24 17:14 04: 09:17 WBC 12.4 H 7.6 RBC 4.28 3.76 L Hgb 13.7 11.9 L Hct 40.4 36.0 L MCV 94.4 95.7 MCH 32.0 31.6 MCHC 33.9 33.1 RDW 14.2 14.1 Plt Count 243 D 200 MPV 9.7 9.9 Immature Gran % (Auto) 0.3 0.4 Neut % (Auto) 90.9 H 81.2 H Lymph % (Auto) 4.2 L 9.9 L [place] % (Auto) 4.3 7.7 Eos % (Auto) 0.1 0.5 Baso % (Auto) 0.2 0.3 Lymph # (Auto) 0.5 L 0.8 L [place] # (Auto) 0.5 0.6 Eos # (Auto) 0.0 0.0 Baso # (Auto) 0.0 0.0 Abs Immat Gran (auto) 0.04 H 0.03 Absolute Neuts (auto) 11.3 H 6.2 Absolute Nucleated RBC 0.000 0.000 Nucleated RBC % (auto) 0.0 0.0 Smear Tech's Comments VERIFIED Sodium 141 142 Potassium 4.4 3.4 D Chloride 107 108 Carbon Dioxide 27 26 Anion Gap 11 L 11 L BUN 13 12 Creatinine 0.75 0.73 Estim Creat Clear Calc 62.2 63.9 Estimated GFR > 60 > 60 POC Glucose 117 H Random Glucose 132 H 107 Calcium 10.5 H 9.4 D Total Bilirubin 0.6 0.3 Direct Bilirubin 0.2 AST 22 22 ALT 12 13 Alkaline Phosphatase 75 65 Total Protein 7.1 5.8 L Albumin 4.1 3.4 L Lipase 20 Urine Color Dark Yellow Urine Appearance Cloudy Urine pH 5.5 Ur Specific [place] 1.025 Urine Protein 100 (2+) H Urine Glucose (UA) 500 H Urine Ketones 15 Urine Blood Large (3+) H Urine Nitrite Negative Ur Leukocyte Esterase Small (1+) H Urine RBC >20 H Urine WBC 21-50 H Ur Squamous Epith Cells 3-5 Calcium Oxalate Crystal Present Urine Bacteria None Seen Hyaline Casts 3-5 10/13/24 10/13/24 10:47 11:37 WBC RBC Hgb Hct MCV MCH MCHC RDW Plt Count MPV Immature Gran % (Auto) Neut % (Auto) Lymph % (Auto) [place] % (Auto) Eos % (Auto) Baso % (Auto) Lymph # (Auto) [place] # (Auto) Eos # (Auto) Baso # (Auto) Abs Immat Gran (auto) Absolute Neuts (auto) Absolute Nucleated RBC Nucleated RBC % (auto) Smear Tech's Comments Sodium Potassium Chloride Carbon Dioxide Anion Gap BUN Creatinine Estim Creat Clear Calc Estimated GFR POC Glucose 97 98 Random Glucose Calcium Total Bilirubin Direct Bilirubin AST ALT Alkaline Phosphatase Total Protein Albumin Lipase Urine Color Urine Appearance Urine pH Ur Specific [place] Urine Protein Urine Glucose (UA) Urine Ketones Urine Blood Urine Nitrite Ur Leukocyte Esterase Urine RBC Urine WBC Ur Squamous Epith Cells Calcium Oxalate Crystal Urine Bacteria Hyaline Casts Narrative Narrative: O2 saturation noted by Pre-op nurse to be drifting below 90%. Nasal O2 @2L/min give Airway Mallampati Class: II TM Dist: >3cm Neck ROM: Full Loose/Missing/Broken Teeth: Yes (Missing some teeth. Denies broken or loose teeth) Heart: RRR Lungs: CTAB Assessment and Plan Assessment Anesthesia Assessment: Anesthesia Plan Discussed and Chart Reviewed Final Anesthetic Review Family History of Problems with Anesthesia: No History of Problems with Anesthesia: Yes (PONV) NPO: Yes ASA Class: III and Emergency Final Preanesthetic Review: No Changes in Pt Med Stat, Meds/Allgs Chart Reviewed, Consent Obtained/Reviewed and Anes Risks/Benef Reviewed Patient Risk: Intermediate Procedure Risk: Low Assessment/Block/Sedation in SS: Assess/Block/Sedation-SS Anesthetic Plan Anesthetic Plan: GA Disposition: Standard PACU
--- NOTE | 2024-10-13 13:59 | P.OP_ITS ---
Operative Note Operative Note Date of Service: 10/13/24 Narrative: PreOperative Diagnosis:?? Left ureteral stone left hydronephrosis Post Operative Diagnosis:?? Left ureteral stone left hydronephrosis Procedure: - Cystoscopy, left retrograde, left ureteroscopy laser lithotripsy stent insertion, 6 Indonesian by 24 cm Surgeon:?Dr Yas Chapman Anesthesia:? General Indications for procedure: Left flank pain left obstructive uropathy Procedure: After informed consent was verified the patient was brought to the operating placed on the OR table in supine position.? General Anesthesia was administered per protocol.? The patient was placed in lithotomy position, prepped and draped in the usual sterile fashion.? Safety pause time-out and side of surgery confirmed.? Antibiotics confirmed. 2% lidocaine jelly 10 mL was passed transurethrally. A 22 Indonesian cystoscope was inserted transurethrally, The bladder was visualized.? Both ureteric orifices were in normal position. An open-ended ureteral catheter was passed into the left ureteral orifice and a retrograde examination was performed. There was a filling defect in the distal left ureter and dilatation of the proximal ureter. A guidewire was passed through the ureteral catheter into the kidney. The balloon dilator size 12 fr x 4 cm was passed over the guide-wire the balloon was inflated to 8 mmHg and the intramural ureter was dilated for 40 seconds. The balloon was deflated and removed. After removing the balloon dilator a 2nd guidewire was then passed into the kidney to use as a safety. The cystoscope was removed, leaving both guidewires in place. One guidewire was used as the safety and was attached to the draping. The semi rigid ureteroscope was passed over one of the guidewires to the level of the stone in the ureter. One guidewire was then removed. Laser lithotripsy of the stone was done using the 365 fiber with settings 0.8 joules by 5 w. There was good fragmentation of the stone. The 0 degree basket was passed through the ureteroscope, stone fragment(s) removed and sent for analysis. The ureteroscope was removed. The cystoscope was passed over the safety guidewire. A? 6 Indonesian by 24 cm stent was placed into the ureter and renal pelvis under a combination of fluoroscopy and direct visualization. The bladder was emptied.? The rigid cystoscope was removed. ? The patient tolerated the procedure well and was brought to the recovery room in stable condition. Complications: None Drains: Ureteral stent as dictated above
--- NOTE | 2024-10-13 13:59 | MHC.SHP ---
Pre-Procedural Eval Section A - 24 Hr Update-Section A only Date of Service: 10/13/24 The patient is an INPATIENT: Yes Section B - Complete if H&P > 30 days Chief Complaint: Left ureteral stone Allergies: Allergies Allergy/AdvReac Type Severity Reaction Status Date / Time acetaminophen [From PERCOCET] Allergy Intermediate NAUSEA & Verified 10/12/24 16:40 VOMITING codeine [CODEINE] Allergy Unknown RASH-VOMITI Verified 10/12/24 16:40 NG latex Allergy Rash Verified 10/12/24 16:41 From PERCOCET Allergy Intermediate NAUSEA & Uncoded 10/12/24 16:40 VOMITING Plan Diagnosis/Plan: Unchanged I have reviewed the history and physical and performed a pertinent physical examination on my patient. No changes have occurred unless specified. Plan for Cystoscopy, Left ureteral stent possible ureteroscopy, laser lithotripsy. Risks discussed included but not limited to, possible need to repeat procedure if stone is not completely fragmented, Irritative voiding symptoms, bladder spasms, urgency, blood in urine. Time Spent With Patient Time: Total time managing care of this patient today ____ minutes.
[2024-10-13 16:23] LABS: Glucose, Whole Blood 120 mg/dL (60-115)
[2024-10-13 20:21] LABS: Glucose, Whole Blood 317 mg/dL (60-115)
[2024-10-13] MEDS: cefTRIAXone sodium 1 GM VIAL IVPUSH (20:53)
[2024-10-13] MEDS: Atorvastatin Calcium 80 MG TABLET PO (20:53)
[2024-10-13] MEDS: Insulin Lispro 100 UNIT/ML 3 ML VIAL SUBCUT (20:54)
[2024-10-14 03:24] VITALS: BP 130/61; PULSE 71; RESP 16; TEMP 37.1; O2SAT 94
[2024-10-14] MEDS: Acetaminophen 325 MG TABLET 650 MG PO (03:49)
[2024-10-14 06:58] LABS: Glucose, Whole Blood 93 mg/dL (60-115)
[2024-10-14 07:20] VITALS: BP 143/74; PULSE 59; RESP 20; TEMP 37; O2SAT 92
[2024-10-14 08:44] VITALS: BP 138/68
[2024-10-14] MEDS: atenoloL 25 MG TABLET PO (08:44)
[2024-10-14] MEDS: lisinopriL 10 MG TABLET PO (08:44)
[2024-10-14] MEDS: Folic Acid 1 MG TABLET PO (08:44)
[2024-10-14] MEDS: 0.9 % Sodium Chloride Flush 3 ML SYRINGE IVFLUSH ×2 (08:45)
[2024-10-14 09:07] LABS: Hematocrit 37.1 % (37.0-47.0); Hemoglobin 12.4 g/dl (12.0-16.0); Mean Corpuscular HGB Conc 33.4 g/dl (31.0-35.0); Mean Corpuscular Hemoglobin 31.7 pg (27.0-33.0); Mean Corpuscular Volume 94.9 fL (80.0-98.0); Mean Platelet Volume 9.8 fL (9.4-12.3); Platelet Count 208 X10*3/uL (160-400); Red Blood Count 3.91 X10*6/uL (4.20-5.50); Red Cell Distribution Width 14.3 % (11.0-16.0); White Blood Count 5.9 X10*3/uL (4.8-10.8)
--- NOTE | 2024-10-14 09:42 | MHC.CM.PN ---
Shorty MARIN has been addressed with Patient; she has received the original and a copy has been placed on the chart.
--- NOTE | 2024-10-14 10:35 | P.DS_ITS ---
DS: Providers Provider Date of admission: 10/12/24 23:17 Primary care physician: Gary Mcfadden MD Consults: 10/12/24 23:16 Consult to Urology Routine Consulting Provider: [facility] – [place] Urology Services Reason for consultation: obstructing stone; uti DS: Diagnosis Discharge Diagnosis (1) Calculus of left ureter: Status: Acute (2) Hydronephrosis, left: Status: Acute (3) Bilateral kidney stones: Status: Acute DS: Summary Hospital Course Hospital Course: admission hpi Chief Complaint: Left flank pain 79-year-old female with a past medical history of HTN, HLD, dm presented to the hospital with a chief complaint of left flank pain. Patient reports that over the past 1 week she has been having intermittent left flank pain; denies any associated nausea vomiting. Denies any diarrhea. Denies any urinary symptoms. As the symptoms were not improving she decided to come to the ER for further evaluation. Mentions today she had severe pain. Reports her pain is better at the time of entry. Denies any hematuria. Denies any fever chills cough or sputum production. Denies any chest pain or palpitations. Review of all other systems is negative except mentioned above ER course: Per ER team, patient noted to have left flank tenderness; CT scan showed [id number] left-sided hydroureteronephrosis with 6 mm ureteric stone. Als o noted additional small nephrolithiasis. Urology Dr. Harrison was notified who suggested admission to the medicine service and will evaluate with the patient in the morning. Blood pressure is stable with systolic in 140s. Urinalysis abnormal case with the UTI. Given ceftriaxone. Hospital course: 79-year-old female with a past medical history of HTN, HLD, dm presented to the hospital with a chief complaint of left flank pain. Noted to have obstructing ureteral stone with hydronephrosis and UTI. She was initiated on IV Ceftriaxone for UTI, cultures are negative. She underwent cystoscopy on 10/13 with left retrograde, left ureteroscopy laser lithotripsy stent insertion, 6 Serbian by 24 cm. She is afebrile, WBC are normal. Will transition to oral Ceftin for 7 days, Pyridium for dysuria and to follow up with urology in the office. Diabetes resume home medication Hypertension resume home medication Physical Exam Vital Signs: Vital Signs: Last Vital Signs Temp 98.6 F 10/14/24 07:20 Pulse 59 10/14/24 07:20 Resp 20 10/14/24 07:20 BP 138/68 10/14/24 08:44 Pulse Ox 92 10/14/24 07:20 O2 Del Method Room Air 10/14/24 07:20 O2 Flow Rate 2 10/13/24 15:45 BMI result Body Mass Index 30.1 DS: Data Data Completed and Pending Pending studies at discharge: Pending at discharge 10/13/24 15:33 Surgical [PTH] Routine Labs on day of discharge: Laboratory Results - last 24 hr 10/13/24 10/13/24 10/13/24 10:47 11:37 16:16 WBC RBC Hgb Hct MCV MCH MCHC RDW Plt Count MPV Absolute Nucleated RBC Nucleated RBC % (auto) POC Glucose 97 98 120 H 10/13/24 10/14/24 10/14/24 20:17 06:53 09:03 WBC 5.9 RBC 3.91 L Hgb 12.4 Hct 37.1 MCV 94.9 MCH 31.7 MCHC 33.4 RDW 14.3 Plt Count 208 MPV 9.8 Absolute Nucleated RBC 0.000 Nucleated RBC % (auto) 0.0 POC Glucose 317 H 93 Preliminary micro results at discharge 10/12/24 23:23 Blood Culture - Preliminary Blood - Venous No growth after 24 hours. 10/12/24 23:23 Blood Culture - Preliminary Blood - Venous No growth after 24 hours. Discharge Plan Discharge Referrals: Gary Mcfadden MD [Primary Care Provider] - 1 Week Discharge Medications: No Action celecoxib 200 mg capsule 200 mg PO DAILY atenolol 25 mg tablet 25 mg PO DAILY glimepiride 2 mg tablet 2 mg PO DAILY methotrexate sodium 2.5 mg tablet 12.5 mg PO FR Rx Instructions: 5 tabs X 2.5 mg lisinopril 10 mg tablet 10 mg PO DAILY folic acid 1 mg tablet 1 mg PO DAILY metformin 750 mg tablet extended release 24 hr 750 mg PO BID rosuvastatin 40 mg tablet 40 mg PO BEDTIME Print Language: Icelandic
--- NOTE | 2024-10-14 10:51 | MHC.CM.PN ---
Patient has been medically cleared for dc to hoe today, self care.
--- NOTE | 2024-10-15 08:19 | HO.POSTANES ---
Post Anesthesia Evaluation Post Anesthesia Evaluation Date of Service: 10/15/24 Anesthesia: General Mental Status: Awake Pain Control: Satisfactory Nausea/Vomiting: None Hydration: Adequate Anesthesia-Related Issues: No Anes. Related Issues
[2024-10-21 04:13] LABS: Stone Source KIDNEY STONE
== END 2024-10-14 11:51 | disposition home or self-care (01) | DRG 661 ==
LOC: HO.ED 22:49 → HO.EDOVER 23:24 → HO.IMC 10-13 09:07
PROVIDERS: Urology; Admitting Provider Hospitalist; Emergency Provider Emergency Medicine; PCP Internal Medicine; Visit Provider Internal Medicine
PROC: 0T778DZ Dilation of Left Ureter with Intraluminal Device, Via Natural or Artificial Opening Endoscopic (ICD-10-PCS; principal; 2024-10-13 13:10)
DX: N13.6 Pyonephrosis (principal); I10 Essential (primary) hypertension; E78.5 Hyperlipidemia, unspecified; E11.9 Type 2 diabetes mellitus without complications; Z79.84 Long term (current) use of oral hypoglycemic drugs; Z79.899 Other long term (current) drug therapy
CPT/HCPCS: 36415; 74176; 80048; 80053; 80076; 81001; 82365; 82947; 83690; 85025; 85027; 87040; 87086; 88300; 99285; C1726; C1758; C1769; C2617; J0131; J0690; J0696; J1100; J1171; J1644; J1885; J2003; J2270; J2371; J2405; J2704; J3010; J7120; Q9967

== ENCOUNTER → 2024-10-12 19:23 | Outpatient (BNV) | payer MEDICARE, OTHER, SELFPAY | PROVIDERS: PCP Internal Medicine; Visit Provider Radiology Neuroradiology | DX: R10.32 Left lower quadrant pain (principal) | CPT/HCPCS: 74176 ==

== ENCOUNTER → 2024-10-12 23:17 | Outpatient (BNV) | payer MEDICARE, OTHER, SELFPAY | PROVIDERS: Admitting Provider Hospitalist; Emergency Provider Emergency Medicine; PCP Internal Medicine; Visit Provider Urology | DX: N20.1 Calculus of ureter (principal); N13.30 Unspecified hydronephrosis; N20.0 Calculus of kidney | CPT/HCPCS: 99223 ==

== ENCOUNTER → 2024-10-12 23:17 | Outpatient (BNV) | payer MEDICARE, OTHER, SELFPAY | PROVIDERS: Admitting Provider Hospitalist; Emergency Provider Emergency Medicine; PCP Internal Medicine; Visit Provider Hospitalist | DX: N20.1 Calculus of ureter (principal); N13.30 Unspecified hydronephrosis; N20.0 Calculus of kidney | CPT/HCPCS: 99223; 99232; 99239 ==

== ENCOUNTER 2024-10-20 09:24 | Outpatient (AMB) | payer MEDICARE, OTHER, SELFPAY ==
--- NOTE | 2024-10-20 09:56 | MHC.OFFVIS ---
Intake Visit Reasons: cysto/stent removal Intake Note: Patient is present for Cystoscopy/STENT REMOVAL Urology Medication:PYRDIUM Antibiotic Allergy:NONE Blood Thinner:NONE Lot:[id number] Exp:06/08/27 Treasury Representative Required: No Allergies acetaminophen [From PERCOCET] Allergy (Intermediate, Verified 10/20/24 09:57) NAUSEA & VOMITING codeine [CODEINE] Allergy (Unknown, Verified 10/20/24 09:57) RASH-VOMITING latex Allergy (Verified 10/20/24 09:57) Rash From PERCOCET Allergy (Intermediate, Uncoded 10/20/24 09:57) NAUSEA & VOMITING HPI Comments Details: 10/20/24--Evelia is an 79-year-old female presenting with the need for stent removal post-procedure. She underwent left ureteroscopy with laser lithotripsy on October 13, 2024, to treat a left distal ureteral stone. A CT scan post-procedure has revealed additional renal stones, including a 4 mm stone in the left upper pole and a 2 mm stone in the right kidney, suggesting bilateral nephrolithiasis. I discussed with the patient the finding of additional stones on her recent CT scan, including the 4 mm stone in the left kidney and the 2 mm stone in the right kidney. We covered managing these stones and the potential for a shockwave lithotripsy to address the 4 mm stone in the left kidney if necessary. We also discussed conducting a 24-hour urine collection to assess for any dietary causes contributing to stone formation, emphasizing the importance of maintaining a low-sodium diet and sufficient fluid intake (48 to 64 ounces daily). Consents for stent removal and future shockwave lithotripsy were thoroughly discussed, considering benefits, risks, and alternatives. Results - Imaging: CT scan showing a 4 mm stone in the left upper pole of the kidney and a 2 mm stone in the right kidney. [10/12/24--Mild to moderate left-sided hydronephrosis secondary to 6 mm stone in the midportion left ureter. Additional nephrolithiasis measures 4 mm in the upper pole of the left kidney. 2 mm nephrolithiasis of the lower pole of the right kidney no obstructing stone in the right kidney or imaged right ureter.] [facility] Medical History Lyme disease Diabetes mellitus, type 2 Urinary tract infection Kidney stones Dizziness Hypercholesteremia Osteoporosis Foot fracture, right Breast cancer Surgical History Breast cancer, left breast S/P hip replacement Social History Household Members: None Housing: Condominium Are you a primary home care associate to a significant other at home: No Do you presently have visiting nurse or other home services: No Patient Tobacco Use Status: Never used Tobacco service: No Review of Systems Const All systems reviewed & are unremarkable except as noted in HPI and below Reports no additional complaints Eyes Reports no additional complaints ENT Reports no additional complaints Card Reports no additional complaints Resp Reports no additional complaints GI Reports no additional complaints Reports as per HPI Musc Reports no additional complaints Skin/Breast Reports system reviewed and no additional complaints, except as documented Neuro Reports no additional complaints Psych Reports no additional complaints Endo Reports no additional complaints Dany/Lymph Reports no additional complaints Aller/Immun Reports no additional complaints Office Procedures Cystoscopy Consent Discussed risk and benefit or proposed procedure with the patient. Information consent for procedure given to the patient. Discussed technical aspects, risks, benefits and alternatives in full. Addressed all of the patient's questions and concerns regarding the procedure. The patient demonstrated knowledge and understanding. They wish to proceed with this procedure. Preparation The patient was prepped in the usual manner. A hearing consultant was present and in the room. Genitalia was prepped with betadine solution in a sterile manner. Lidocaine Jelly 2% was placed into the urethra and 16Fr flexible Olympus cystoscope was inserted into the meatus after adequate lubrication. Procedure Time out per protocol performed. Bladder Inspection Cystoscopy findings: mild edema ureteral orifice which is expected, distal end of ureteral stent visualized. The grasping forceps were used and the stent was removed without difficulty. [id number] with stent removal DISPOSABLE SCOPE URO-G FLEXIBLE SCOPE Procedure code (CPT) selection complete Office Meds lidocaine HCl 2 % mucosal jelly in applicator Performing Provider: Yas Chapman MD [place] Administered by: John Hernandez LPN on 10/20/24 09:59 Dose Route Admin Location Dispensed Lot Number Expiration Date [facility] Front End Architect 10 mL intra-urethral 20 mL ciprofloxacin HCl 500 mg tablet Performing Provider: Yas Chapman MD Performing Location: [facility] [place] [facility] Administered by: John Hernandez LPN on 10/20/24 09:59 Dose Route Admin Location Dispensed Lot Number Expiration Date NDC Front End Architect 500 mg PO 1 tab naproxen 500 mg tablet Performing Provider: Yas Chapman MD Performing Location: [facility] [place] [facility] Administered by: John Hernandez LPN on 10/20/24 09:59 Dose Route Admin Location Dispensed Lot Number Expiration Date NDC Front End Architect 500 mg PO 1 tab phenazopyridine 200 mg tablet Performing Provider: Yas Chapman MD Performing Location: [facility] [place] [facility] Administered by: John Hernandez LPN on 10/20/24 09:59 Dose Route Admin Location Dispensed Lot Number Expiration Date NDC Front End Architect 200 mg PO 1 tab Results AMB Urinalysis, Automated UA Leukoctes 500 Jono/uL Last Edit by RAJENDRA Rosado on 10/20/24 10:00 UA Nitrite Positive Last Edit by RAJENDRA Rosado on 10/20/24 10:00 UA Urobilinogen 35 mg/dL Last Edit by RAJENDRA Rosado on 10/20/24 10:00 UA Protein 3.0 mg/dL Last Edit by RAJENDRA Rosado on 10/20/24 10:00 UA pH 6.0 Last Edit by RAJENDRA Rosado on 10/20/24 10:00 UA Blood 200 Hiram/uL Last Edit by RAJENDRA Rosado on 10/20/24 10:00 UA Specific Empire 1.025 Last Edit by RAJENDRA Rosado on 10/20/24 10:00 UA Ketone Positive Last Edit by RAJENDRA Rsoado on 10/20/24 10:00 UA Bilirubin 17 mg/dL Last Edit by RAJENDRA Rosado on 10/20/24 10:00 UA Glucose 15 mg/dL Last Edit by RAJENDRA Rosado on 10/20/24 10:00 Results Reviewed Results Reviewed: Laboratory Last Values Urine pH (Auto) 6.0 10/20/24 09:50 Specific Empire (Auto) 1.025 10/20/24 09:50 Urine Protein (Auto) 3.0 mg/dL 10/20/24 09:50 Glucose (UA)(Auto) 15 mg/dL 10/20/24 09:50 Urine Ketones (Auto) Positive 10/20/24 09:50 Urine Blood (Auto) 200 Hiram/uL 10/20/24 09:50 Urine Nitrite (Auto) Positive 10/20/24 09:50 Urine Bilirubin (Auto) 17 mg/dL 10/20/24 09:50 Urine Urobilinogen (Auto) 35 mg/dL 10/20/24 09:50 Leukocyte Esterase (Auto) 500 Jono/uL 10/20/24 09:50 Date of Service: 10/12/24 CLINICAL HISTORY: L fLank pain CT abdomen and pelvis without contrast Comparison: X-rays of the left hip from 11/20/2016 Findings: Mild bibasilar atelectasis and scarring. Metal artifacts obscure of the majority of the pelvis including majority of the urinary bladder. Mild to moderate left-sided hydronephrosis secondary to 6 mm stone in the midportion left ureter. Additional nephrolithiasis measures 4 mm in the upper pole of the left kidney. 2 mm nephrolithiasis of the lower pole of the right kidney no obstructing stone in the right kidney or imaged right ureter. The adrenal glands are normal. The spleen is nonenlarged. Mild volume loss of the pancreas is noted. Gallbladder and liver are unremarkable for noncontrast CT. Calcified and noncalcified plaque involving the aorta and its branches. No enlarged lymphadenopathy. Small bilateral fat containing inguinal hernias, right larger than left. No small bowel obstruction. Severe stool burden, including the cecum. Imaged appendix is within normal limits. Uterus and adnexa are partly obscured but otherwise unremarkable. No definite hardware loosening of the hip arthroplasty hardware with multiple old sclerotic fragments particularly at left greater trochanter. Degenerative changes include pubic symphysis, SI joints, and spine, with multifocal facet arthropathy. IMPRESSION: 1. Mild-moderate left-sided hydroureteronephrosis secondary to 6 mm stone in the midportion of the left ureter. 2. Additional small bilateral nephrolithiasis noted Assessment & Plan Assessment & Plan (1) Bilateral kidney stones: Code(s): N20.0 - Calculus of kidney Category: Medical (2) Hydronephrosis, left: Code(s): N13.30 - Unspecified hydronephrosis Category: Medical (3) Calculus of left ureter: Code(s): N20.1 - Calculus of ureter Category: Medical Plan Plan The patient's ureteral stent was successfully removed today. Further management of her bilateral nephrolithiasis with consideration of shockwave lithotripsy for the left-sided 4 mm renal stone. I have instructed her on a 24-hour urine collection to identify dietary factors that may be contributing to the formation of stones. Patient education focused on maintaining a low-sodium diet and adequate hydration. Orders: Orders AMB Urinalysis Automated Today Z13.9 - Encounter for screening, unspecified AMB Cystoscopy Today N20.0 - Calculus of kidney Patient Instructions: The patient had an opportunity to ask questions regarding treatment plan. The patient expressed understanding and agreement with the above treatment plan. The patient is aware they should contact our office by phone for worsening of their current condition or the appearance of new symptoms. Compliance is encouraged with any medications and followup testing that is ordered. It is a privilege to be allowed the opportunity to participate in the urologic care of your patient. If you have any questions or concerns regarding treatment for the above conditions please do not hesitate to contact me. The office telephone contact is [phone]. This note is constructed in part using voice recognition software. While every effort has been made to ensure accuracy concrete pipe machine operator errors may have been included. Yours sincerely, Yas Chapman MD Scribe Plan - Not visible on output: Patient was informed and verbally consented to the use of an ambient scribe for clinic note documentation during this visit. Coding Level of Care Code Est Pt Level 4 (34203) Diagnoses Bilateral kidney stones N20.0 Hydronephrosis, left N13.30 Calculus of left ureter N20.1 CPT Codes Cystoscopy - CPT: 91858-[id number] with stent removal ([id number])
--- OUTSIDE RECORDS SUMMARY | 2024-10-20 10:16 | XMS_ITS | Data Portability ---
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 Patient Instructions Encounter Date Encounter Id Patient Instructions Last Modified By Organization Details Last Modified Time 01/29/2024 [id number] knee arthritis: care instructions Not available 01/29/2024 14:12:23 09/07/2024 [id number] advance care planning: care instructions [email or web address] Not [...] eral No observ ation record ed. [email or web address] [facility] [address] [place], [id number], 09/23/2024 09:46:39 10/13/19 25 10/12/2024 CT, abdom en + pelvi s, w/o contr ast No observ ation record ed. [email or web address] [facility] (Medical Records) [address] [place], [address], 10/13/2024 08:17:17 10/14/19 25 10/13/2024 fluor oscop ic lis nce for needl e place ment (PROC ) No observ ation record ed. [email or web address] [facility] (Medical Records) [address] [place], [address], 10/13/2024 15:45:55 Result Notes None recorded. Problems Name Problem SNOMED Code Status Onset Date Resolution Date Notes Provider Name and Address Organization Details Recorded Time Hypertri glycerid emia 926658312 Active 2017 Not Available [facility] 4 17:49:00 Low back pain 155819130 Active 2021 Not Available [facility] 4 17:49:00 Osteoart hritis of knee 753947106 Active 2021 Not Available [facility] 4 17:49:00 Overweig ht 841556576 Active 2021 Not Available [facility] 4 17:49:00 Microalb uminuria 943875998 Active 2021 Not Available [facility] 4 17:49:00 Hypercal cemia 96801430 Active 2021 Not Available [facility] 4 17:49:01 Carotid artery stenosis 46484744 Active 2022 Not Available [facility] 4 17:49:01 Carotid artery stenosis 87060102 Active 2022 Not Available [facility] 4 17:49:01 Type 2 diabetes mellitus 77699587 Active 2022 Not Available [facility] 4 17:49:01 Cellulit is of lower limb 121350302 Active 2022 Not Available [facility] 4 17:49:01 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 35638817 Active 2022 Not Available [facility] 4 17:49:01 Osteoart hritis of left hip joint 3689653316 20884 Active 2022 Not Available [facility] 4 17:49:00 Disorder of bone 58402286 Active 2022 Not Available [facility] 4 17:49:01 Vertigo 327744087 Active 2022 Not Available [facility] 4 17:49:01 Posterio r rhinorrh ea 18743213 Active 2023 KEVIN COY [address] [place], [address], [facility] 4 10:33:06 Edema of lower extremit y 330295690 Active 2023 KEVIN COY [address] [place], [address], [facility] 4 10:36:12 Cough 70806646 Active 2023 KEVIN COY [address] [place], [address], [facility] 4 12:15:25 Total replacem ent of hip Active 2023 R KEVIN COY [address] [place], [address], [facility] 4 10:17:40 [facility] hyperten chris 03135549 Active 2017 Not Available [facility] 4 17:49:01 Disorder of breast 17662679 Active 2017 Breast cancer 2000, lumpecto my, XRT Left THR 2014 Not Available [facility] 4 17:49:01 Rheumato id arthrimartina s 53850832 Active 2017 Dr. Nixon bryan Not Available [facility] 4 17:49:01 Lyme disease 33677809 Active 2017 Not Available [facility] 4 17:49:00 Osteopor osis 92039519 Active 2017 Not Available [facility] 4 17:49:01 Hemorrho ids 03286651 Active 2017 Not Available [facility] 4 17:49:01 Impaired fasting glycemia 438550326 Completed 201702/12/2018November DIMPLE Mascorro [address] [place], [address], [facility] 8 09:22:42 Problem Notes None recorded. Procedures Surgical History Date Name Laterality Status Provider Name and Address Organization Details Recorded Time 024 Corticosteroid Injection completed Gary Mcfadden DO [address] [place] [address], [address], [facility] 01/29/2024 14:11:37 024 Corticosteroid Injection completed Gary Mcfadden DO [address] [place] [address], [phone], [facility] 10/01/2023 15:44:04 023 Corticosteroid Injection completed Gary Mcfadden DO [address] [place] [address], [phone], [facility] 05/22/2023 14:43:19 023 Corticosteroid Injection completed Gary Mcfadden DO [address] [place] [address], [address], [facility] 01/02/2023 17:04:01 023 Corticosteroid Injection completed Gary Mcfadden DO [address] [place] [address], [address], [facility] 10/24/2022 14:24:12 023 Corticosteroid Injection completed Gary BarillasBetsy LesaDO [address] [place] [address], [address], [facility] 09/11/2022 12:15:39 022 Corticosteroid Injection completed Gary BarillasBetsy LesaDO [address] [place] [address], [address], [facility] 12/08/2021 12:37:09 021 Corticosteroid Injection completed Gary McfaddenDO [address] [place] [address], [address], [facility] 07/25/2021 09:35:46 021 Corticosteroid Injection completed Gary BarillasBetsy LesaDO [address] [place] [address], [address], [facility] 02/13/2021 15:45:24 018 Most Recent Mammogram completed Radha Zimmerman [facility] 09/09/2018 13:49:25 Imaging Results Imaging Date Name Status LastModified by Organization Details LastModified Time 09/15/2024 MAMMO, screening, digital, bilateral completed [email or web address] [facility] [address] [place] [address] Abdulaziz Batista, [facility], [address], 09/23/2024 09:46:39 10/12/2024 CT, abdomen + pelvis, w/o contrast completed [email or web address] [facility] (Medical Records) [address] [place], [address], 10/13/2024 08:17:17 10/13/2024 fluoroscopic guidance for needle placement (PROC) completed [email or web address] [facility] (Medical Records) [address] [place], [address], 10/13/2024 15:45:55 Procedure Notes None recorded. Medical Equipment None Reported. Allergies Allergen ID Allergen Name Allergen Category Reaction Reaction Severity Criticality Documentation Date Start Date Code Code System Note Provider Name and Address Organization Details Recorded Time 7208 duloxetin e medicatio n nausea Not available Not available 04/01/2023 91452 RxNorm KEVIN COY [address] [place], [address], [facility] 3 09:04:05 7431 Latex (substanc e) environme nt,medica tion Not available Not available Not available 06/04/2023 77166 8007 SNOMED Julianne Louie [facility] 3 14:15:23 8111 oxycodone medicatio n Not available Not available Not available 01/20/2024 7804 RxNorm nause a, chest pain KEVIN COY [address] [place], [address], [facility] 4 10:06:05 Medications Name Sig Start Date Stop Date Status Note LastModified by Organization Details LastModified Time celecoxib 200 mg capsule TAKE 1 CAPSULE DAILY active Not Available Not Available No t Available amoxicillin 500 mg capsule TAKE 4 CAPSULES [...] Available Not Available tramadol 50 mg tablet TAKE 1 TABLET BY MOUTH EVERY 6 HOURS FOR 7 DAYS NEEDED active Not Available Not Available No t Available glimepiride 2 mg tablet TAKE 1 TABLET [...] PRN Not Available Not Available Not Available phenazopyri dine 100 mg tablet active Not Available Not Available Not Available baclofen 10 mg tablet TAKE 1 TABLET BY MOUTH THREE TIMES DAILY FOR 14 DAYS NEEDED active Not Available Not Available No t Available cephalexin 500 mg capsule TAKE 1 CAPSULE BY MOUTH TWICE DAILY FOR 7 DAYS 05/25 completed Not Available Not Available Not Available ranitidine 150 mg tablet Take 1 tablet twice a day by oral route as needed for 30 days. 03/09 completed Not Available Not Available Not Available lisinopril 10 mg tablet TAKE 1 TABLET DAILY active Not Available Not Available No t Available folic acid 1 mg tablet TAKE 1 [...] completed Not Available Not Available Not Available cefuroxime axetil 500 mg tablet active Not Available Not Available No t Available levofloxaci n 500 mg tablet Take [...] Available Not Available No t Available Fluad 2016- 65yr up(PF)45 mcg(15 mcgx3)/0.5 mL intramuscul ar syringe 12/13 completed Not Available Not Available Not Available Fluzone High-Dose 6906-5085 (PF) 180 mcg/0.5 mL intramuscul ar syringe 03/09 completed Not Available Not Available Not Available Fluzone High-Dose 2018- (PF) 180 mcg/0.5 mL intramuscul ar syringe 09/07 completed Not Available Not Available Not Available Fluzone High-Dose Quad 2019- (PF) 240 mcg/0.7 mL IM syringe 11/02 completed Not Available Not Available Not Available BinaxNOW COVID-19 Ag Self Test kit TEST DIRECTED TODAY 09/12 completed Not Available Not Available Not Available Vitals Date Recorded Body height Provider Name an d Address Organization Details Last Updated DateTime 10/25/2023 163.83 cm Emani Hernandez [facility] 10/25/2023 09:25:36 Date Recorded Body height Body mass index (BMI) Body weight Heart rate Oxygen saturation Oxygen saturation in Arterial blood by Pulse oximetry Systolic blood pressure Diastolic blood pressure Provider Name and Address Organization Details Last Updated DateTime 4 163.83 cm 29.9 kg/m2 54107.8 5 g 55 /min 95 % 95 % 142 mm[Hg] 80 mm[Hg] Ольга [facility] 4 10:00:05 Date Recorded Body height Body mass index (BMI) Body weight Heart rate Oxygen saturation Oxygen saturation in Arterial blood by Pulse oximetry Systolic blood pressure Diastolic blood pressure Provider Name and Address Organization Details Last Updated DateTime 4 163.83 cm 30.2 kg/m2 63617.9 6 g 54 /min 98 % 98 % 124 mm[Hg] 78 mm[Hg] Emani Julio [facility] 4 10:26:51 Date Recorded Body height Body mass index (BMI) Body weight Heart rate Oxygen saturation Oxygen saturation in Arterial blood by Pulse oximetry Systolic blood pressure Diastolic blood pressure Provider Name and Address Organization Details Last Updated DateTime 5 163.83 cm 29.9 kg/m2 12510.4 9 g 61 /min 95 % 95 % 134 mm[Hg] 74 mm[Hg] Emani Julio [facility] 5 08:56:09 Social History Question Answer Notes LastModified by Organizat ion Details LastModified Time Tobacco Smoking Status Never Smoker [facility] 12/06/2017 11:10:37 What Was The [...] virus, quadrivalent, preservative 8 completed Not Available [facility] 08/07/2023 17:49:02 COVID-19, mRNA, LNP-S, PF, 30 mcg/0.3 mL dose 2 completed Not Available [facility] 08/07/2023 17:49:02 Influenza, split virus, quadrivalent, preservative 2 completed Not Available [facility] 08/07/2023 17:49:02 SARS-COV-2 (COVID-19) vaccine, UNSPECIFIED 3 completed Not Available [facility] 08/07/2023 17:49:02 SARS-COV-2 (COVID-19) vaccine, UNSPECIFIED 4 completed Emani christine [facility] 05/25/2024 10:25:28 Tdap 5 completed Not Available [facility] 08/07/2023 17:49:03 pneumococcal polysaccharide PPV23 5 completed Not Available [facility] 08/07/2023 17:49:03 Pneumococcal conjugate PCV 13 7 completed Not Available [facility] 08/07/2023 17:49:03 Influenza, split virus, quadrivalent, preservative 9 completed Not Available [facility] 08/07/2023 17:49:01 pneumococcal polysaccharide PPV23 8 completed Not Available [facility] 08/07/2023 17:49:03 COVID-19 vaccine, vector-nr, rS-ChAdOx1, PF, 0.5 mL 1 completed Not Available [facility] 08/07/2023 17:49:02 COVID-19 vaccine, vector-nr, rS-ChAdOx1, PF, 0.5 mL 1 completed Not Available [facility] 08/07/2023 17:49:02 Past Encounters Encounter ID Performer Location Encounter Start Date Encounter Closed Date Diagnosis/Indication Diagnosis SNOMED-CT Code Diagnosis ICD10 Code Diagnosis Note [id number] November DIMPLE Mascorro [facility] [address] [facility],[place] [address] 12/06/2017 10:58:12 12/06/2017 15:55:32 Pneumonia 788855596 J18.9 Please take prescribed or OTC medication [...] defer and treat empiricall y Essential hypertension 89756897 I10 slightly elevated today, though like fever related, will check at f/u next week [id number] [facility] [address] [facility] [address] [place], [place] [facility] [address] 12/13/2017 09:19:31 12/13/2017 10:36:58 Pneumonia 726646809 J18.9 sx all resolved except minor cough at this point Essential hypertension 76801108 I10 BP greatly improved after resolution of fever stable on current regimen Diabetes mellitus 611083 09 E11.9 consistent ly stable a1c, with good diet, and exercise lipids at goal as well [id number] Kylah [facility] [address] [facility], [place]e [facility] [place] [address] 01/17/2018 14:59:45 01/17/2018 15:52:11 Acute sinusitis 78313841 J01.90 fluids, rinses, flonase if needed Essential hypertension 79205574 I10 stable [id number] November [facility] [address] [facility] [address], [employer] [facility] [address] 03/25/2018 08:51:05 03/25/2018 12:04:25 Essential hypertension 28844737 I10 not quite at goal, will increase lisinopril from 2.5 to 5 mg daily Diabetes mellitus 639434 09 E11.9 consistent ly stable a1c, with good diet, and exercise lipids at goal as well Hypertriglyceridemia 302 239466 E78.2 elevated trig diet/exerc ise/wt loss discussed [id number] [facility] [address] [facility], [place] [address] 06/24/2018 09:47:54 06/24/2018 10:51:06 Essential hypertension 15662425 I10 accidental ly taking 2 of atenolol instead of 2 of lisinopril she will take atenolol 25 qd and lisinopril 5 mg qd bp at goal today Diabetes mellitus 149193 09 E11.9 consistent ly stable a1c, with good diet, and exercise lipids at goal as well Hypertriglyceridemia 302 734405 E78.2 elevated trig diet/exerc ise/wt loss discussed Body mass index 30+ - obesity 420889146 Z68.32 continue healthy diet and exercise Palpitations 90915803 R0 0.2 ? 2/2 bradycardi a? will d/c 50 atenolol and restart 25 of atenolol and assess sx. if persisting or if new sx develop f/u luz [id number] November [facility] [address] [facility],[place] [address] 09/10/2018 09:04:35 09/10/2018 10:18:01 Adult health examination 864005208 Z00.00 had derm annual exam medicare wellness visit complete Screening for cardiovascular system disease 262520326 Z13.6 labs complete LDL mildly elevated trigs elevated healthy diet encouraged will trial change from atorvastat in to rosuvastat in to attempt to reach LDL goals Screening mammography 24 586514 Z12.31 done 2019 Essential hypertension 94570923 I10 bp nearly at goal Diabetes mellitus 997209 09 E11.9 consistent ly stable a1c, on metformin with good diet, and exercise foot exam next visit Hypertriglyceridemia 302 786150 E78.2 trigs remain elevated LDL mildly above goal plan as stated above Body mass index 30+ - obesity 423181009 Z68.32 continue healthy diet and exercise Palpitations 49365189 R0 0.2 palps resolved Heartburn 80722951 R12 more likely explanatio n for her sx though if chest pain/back pain persists despite treatement f/u Chest pain 18748179 R07. 9 ACS unlikely in setting of totally normal EKG advised taht if chest pain persists we will pursue further cardiac work up Osteoporosis 94910818 M8 1.0 [place] [id number] November [facility] [address] [facility],[place] [facility] [place] [address] 03/09/2019 08:54:24 03/09/2019 09:36:30 Essential hypertension 26625036 I10 stable Diabetes mellitus 582651 09 E11.9 consistent ly stable a1c, with good diet, and exercise lipids at goal as well dm eye exam scheduled for next month meds reviewed Hypertriglyceridemia 302 581489 E78.2 elevated trig diet/exerc ise/wt loss discussed Body mass index 30+ - obesity 173509462 Z68.32 continue healthy diet and exercise Palpitations 27138671 R0 0.2 resolved with proper bp medication s Heartburn 53650689 R12 resolved no longer taking zantac [id number] Kylah DIMPLE Mascorro [facility] [address] [facility],[place] [address] 09/07/2019 08:50:34 09/07/2019 09:27:12 Screening for cardiovascular system disease 134456946 Z13.6 labs complete LDL mildly elevated trigs elevated healthy diet encouraged will trial change from atorvastat in to rosuvastat in to attempt to reach LDL goals Diabetes mellitus 607068 09 E11.9 go back on metformin BID rather than QD Essential hypertension 52032849 I10 stable Headache 94382959 R51 stable, treated with tylenol vs excedrin tension Difficulty sleeping 3013 65316 Z72.820 take tylenol pm occasional ly, advised it can become habit forming, but not likely if used sparingly [id number] KEVIN COY [facility] [address] [facility], [place] [address] 12/08/2019 08:50:47 12/08/2019 10:04:23 Diabetes mellitus 46355847 E11.9 the patient is doing well, no concerns no numbness or tingling in the feet no loss of propriocep tion or balance will check her HbA1c to see what her level is at Essential hypertension 75600013 I10 BP 120/76 excellent control [id number] KEVIN COY [facility] [address] [facility], [place] [address] 03/08/2020 08:54:15 03/08/2020 10:16:49 Essential hypertension 99116777 I10 BP 126/62 today the patient is well controlled on medication Diabetes mellitus 515647 09 E11.9 the patient is doing well, no concerns no numbness or tingling in the feet no loss of propriocep tion or balance will check her HbA1c to see what her level is at Hypertriglyceridemia 302 726167 E78.1 will check lipid panel again [id number] Gary Mcfadden DO [facility] [address] [facility],[place] [address] 04/20/2020 09:54:08 04/20/2020 10:32:45 Cellulitis of toe of right foot 0796532543 9985244 L03.031 not finished by cephalexin will change to doxy for poss resist and rechk in 10 days [id number] aGry Mcfadden DO [facility] [address] [facility],[place] [address] 05/02/2020 11:20:31 05/02/2020 12:08:55 Essential hypertension 69963564 I10 Diabetes mellitus 179451 E11.9 Cellulitis of toe of right foot 3783770343 9007390 L03.031 resolved and doing well [id number] KEVIN COY [facility] [address] [facility],[place] [address] 06/21/2020 10:24:54 06/21/2020 11:20:07 Type 2 diabetes mellitus 26736160 E11.9 will check A1c Adult [facility] examination 277898625 Z00.00 will fu in one month for BP Essential hypertension 98179229 I10 BP elevated will increase to 5 mg to 10 mg of lisinopril [id number] KEVIN COY [facility] [address] [facility],[place] [address] 07/22/2020 10:22:13 07/22/2020 11:34:58 Essential hypertension 70458266 I10 BP much improved on increased lisinopril dosage Diabetes mellitus 957212 E11.9 the patient is doing well, no concerns no numbness or tingling in the feet no loss of propriocep tion or balance [id number] KEVIN COY [facility] [address] [facility],[place] [address] 11/02/2020 09:51:44 11/02/2020 15:02:04 Essential hypertension 54160155 I10 BP much improved on increased lisinopril dosage Acute low back pain 1128 74357 M54.5 will trial a low dose MSK relaxer and see if improvemen t patient is told to rest her back as well Diabetes mellitus 931872 E11.9 the patient is doing well, no concerns no numbness or tingling in the feet no loss of propriocep tion or balance A1c is down to 6.9 which is excellent [id number] KEVIN COY [facility] [address] [facility] [address], [place] [address] 01/25/2021 09:52:00 01/25/2021 12:09:58 Osteoarthritis of knee 371064054 M17.0 L>Rset up with a cortisone injection with MB Diabetes mellitus 193546 09 E11.9 mild increase in neuropathy A1c is upwill work on exercise when her knee feels better Essential hypertension 37004212 I10 BP much improved on increased lisinopril dosage [id number] Gary Mcfadden [facility] [address] [facility] [address], [place] [address] 02/13/2021 14:53:54 02/13/2021 16:48:51 Osteoarthritis of left knee joint 6807719248 56301 M17.12 [place] [id number] KEVIN COY [facility] [address] [facility], [place] [address] 04/24/2021 08:27:26 04/25/2021 11:57:09 Diabetes mellitus 82304660 E11.9 A1c is downdoing excellent with diet and exercise [id number] Gary Mcfadden DO [facility] [address] [facility],[place] [address] 07/25/2021 09:04:12 07/25/2021 11:09:29 Osteoarthritis of right knee joint 5904256155 29670 M17.11 [place] [id number] KEVIN COY [facility] [address] [facility], [place] [address] 08/15/2021 08:09:04 08/15/2021 17:23:48 Diabetes mellitus 14321899 E11.9 A1c is downdoing excellent with diet and exercise Essential hypertension 33030483 I10 BP much improved on increased lisinopril dosage Hypertriglyceridemia 302 440031 E78.1 will check lipid panel again Osteoporosis 21634413 M8 1.0 stable, sees arthritis clinic Rheumatoid arthritis 698 79186 M06.89 seeing arthritis clinic Vertigo 643334762 R42 will fu with work up to r/o [id number] KEVIN COY [facility] [address] [facility] [address] [address] 11/14/2021 09:18:16 11/15/2021 10:00:16 Hypertriglyceridemia 975638837 E78.1 will check lipid panel again Essential hypertension 08449600 I10 BP much improved on increased lisinopril dosage Diabetes mellitus 293992 09 E11.9 A1c is downdoing excellent with diet and exercise Low back pain 851817289 M54.59 acute flare up of her low backwill give a refill of MSK relaxer Osteoarthr itis of knee 761550382 M17.0 will have her fu with MB for cortisone inj in the right knee [id number] Gary Mcfadden, [facility] [address] [facility] [address] [address] 12/08/2021 12:05:43 12/08/2021 12:47:42 Osteoarthritis of knee 174293752 M17.0 [place] [id number] KEVIN COY [facility] [address] [facility] [address],[place] [address] 03/20/2022 11:06:26 03/20/2022 13:44:40 Hypertriglyceridemia 026934014 E78.1 stable, add fish oil Essential hypertension 80688383 I10 stable at home Diabetes mellitus 311640 09 E11.9 A1c is downdoing excellent with diet and exercise Overweight 676991088 E66 .3 will fu with nutritioni st referral [id number] KEVIN COY [facility] [facility] [address],[place] [address] 06/18/2022 09:04:12 06/18/2022 09:50:39 Diabetes mellitus 60857921 E11.9 will need to add labs they didn't do all of it for me at prior appts Microalbuminuria 6428739 06 R80.8 will recheck labsprobab ly a combinatio n T2DM, being a methotrexa te user and being 77 y/o, probably related to mild kidney dysfunctio n Hypercalcemia 35384182 E 83.52 will recheck levels from prior assessment at rheum Overweight 646156919 E66 .3 will f/u with nutritioni referral [id number] Gary Mcfadden [facility] [address] [facility] [address],[place] [address] 09/11/2022 11:37:16 09/11/2022 16:02:49 Osteoarthritis of knee 345426683 M17.0 [place] [id number] KEVIN COY [facility] [address] [facility],[place] [address] 09/12/2022 11:09:02 09/12/2022 15:11:47 Diabetes mellitus 17619463 E11.9 agreed to starting on glipizide for better sugar control with elevated A1c Carotid ar alex stenosis 15772513 I65.21 will recheck in another yearwas between 0-49% Essential hypertension 80104607 I10 stable at home and here 04668 Gary Mcfadden [facility] [address] [facility] [facility] [address],[place] [address] 10/24/2022 14:04:11 10/24/2022 16:05:05 Rheumatoid arthritis 57296075 M06.89 Degenerati ve joint disease of shoulder region 54929188 M19.019 shakira inj well tolerated 64481 KEVIN COY [facility] [address] [facility] [address] 12/19/2022 09:20:11 12/19/2022 10:11:53 Type 2 diabetes mellitus 85373632 E11.9 will check A1c Essential hypertension 65969883 I10 stable at home and here Osteoarthr itis of left hip joint 0009034970 94868 M16.12 will set up with previous ortho Dr. Sparrow Low back pain 341412401 M54.59 stableit's her hip that's causing complicati on Disorder of bone 0382953 3 M89.762 left hipwill fu with Dr. Sparrow 18875 Gary Mcfadden [facility] [address] [facility],[place] [address] 01/02/2023 16:23:51 01/04/2023 14:04:10 Osteoarthritis of knee 628364869 M17.0 [place] [address] KEVIN COY [facility] [address] [facility], [facility] [facility] [place] [address] 04/01/2023 08:34:59 04/01/2023 15:53:08 Essential hypertension 58512855 I10 stable at home and here Hypercalcemia 83841128 E 83.52 elevated againprevi ous checks were normal with PTH Hypertriglyceridemia 302 688887 E78.1 stable, add fish oil Rheumatoid arthritis 698 89268 M06.89 stable Type 2 haris betes mellitus 94510215 E11.9 level is excellent Disorder of bone 5287845 3 M89.762 has hip surgery 07/[address] Levy Moore [address]9667 Gary Mcfadden [facility] [address] [place] [address], [place] [address] 05/22/2023 14:22:32 05/22/2023 15:29:01 Osteoarthritis of knee 358578336 M17.0 [place] [address] KEVIN COY [facility] [address] [place] [address], [place] [address] 06/04/2023 14:03:21 06/04/2023 14:57:43 Vertigo 654554366 R42 will trial medrol if no effective other options are valium, HTCZ insteadhol d on vestibular rehab referral for now Pre-surger y evaluation 117168931 Z01.818 The patient was seen in the office today for pre-op evaluation . All medical conditions on patient's problem list were addressed and are currently stable, no interventi on needed at this time. Based on history and physical performed, the patient is cleared for surgery. [id number] Gary Mcfadden [facility] [address] [facility], [place] [address] 10/01/2023 15:07:23 10/02/2023 15:26:36 Osteoarthritis of knee 212707824 M17.0 well baltazar inj [id number] KEVIN COY [facility] [address] [address] 09/30/2023 10:18:18 10/01/2023 10:51:36 Posterior rhinorrhea 16504024 R09.82 start on nasal spraywill let me know if her ears are still having issues Edema of l ower extremity 310732109 R60.0 possibly just vascular incompeten cewill set up with lab work Type 2 haris betes mellitus 67924453 E11.9 level is excellent Hypercalcemia 03895256 E 83.52 elevated againprevi ous checks were normal with PTH Rheumatoid arthritis 698 74087 M06.89 stable 070896 KEVIN COY [facility] [address] [facility] [address] [place] [address] 10/25/2023 09:23:22 10/25/2023 14:18:18 Acute bronchitis 70942081 J20.8 continue on the medrol and benzonatat estart inhaler [id number] KEVIN COY [facility] [address] [facility] [address] [place] [address] 01/20/2024 09:48:24 01/20/2024 10:54:22 Depression screening 224731534 Z13.31 negative At low risk for fall 439 333042 Z91.81 0 Essential hypertension 37817099 I10 stable at home and here Type 2 haris betes mellitus 59699252 E11.9 level is excellent; 5.7%, feet look good [id number] Gary Mcfadden, [facility] [address],[place] [address] 01/29/2024 13:35:06 01/29/2024 14:37:32 Osteoarthritis of knee 194468323 M17.0 well baltazar inj [id number] KEVIN COY [facility] [address],[place] [address] 05/25/2024 10:06:16 05/25/2024 11:19:26 Essential hypertension 89719011 I10 stable at home and here Hypercalcemia 41712395 E 83.52 stablewnl with this recent check Hypertriglyceridemia 302 810684 E78.1 stable Type 2 haris betes mellitus 29899248 E11.9 6% which is excellent [id number] KEVIN COY [facility] [address],[place] [address] 09/07/2024 08:47:58 09/07/2024 09:34:56 Adult health examination 622406223 Z00.00 BP is stable Type 2 haris betes mellitus 08286841 E11.9 6% which is excellent Rheumatoid arthritis 698 08302 M06.89 stable Health Concerns Section Related Observation LastModified by Organization Detai ls LastModified Time None Recorded Concern Status LastModified by Organization Details LastModified Time None Recorded Advance Directives Directive None Recorded Payers Encounter Date Sequence Insurance Name Policy Number Policy Abrams Covered Member ID Abrams Member ID Guarantor Name 10/25/2023 1 [place]: [employer] Evelia Russell [id number] Evelia Russell 10/25/2023 2 WPS - FOR LIFE (SECONDARY TO MEDICARE) Blake Russell [id number] Evelia Russell 01/20/2024 1 MED[place]ARE [place]: [facility] Evelia Russell [id number] Evelia Russell 01/20/2024 2 WPS - FOR LIFE (SECONDARY TO MEDICARE) Blake Russell [id number] Evelia Russell 01/29/2024 1 [place]: [facility] Evelia Russell [id number] Evelia Russell 01/29/2024 2 WPS - FOR LIFE (SECONDARY TO MEDICARE) Blake Russell [id number] Evelia Russell 05/25/2024 1 [place]: [facility] Evelia Russell [id number] Evelia Russell 05/25/2024 2 WPS - FOR LIFE (SECONDARY TO MEDICARE) Blake Russell [id number] Evelia Russell 09/07/2024 1 [place]: [employer] Evelia Russell [id number] Evelia Russell 09/07/2024 2 WPS - FOR LIFE (SECONDARY TO MEDICARE) Blake Russell [id number] Evelia Russell Notes Date Note Type Note [...] and the results was negative KEVIN COY [address] [place] [address], [phone], [facility] 10/25/2023 14:06:54 4 text/html f/u [...] concerns todayreviewed her lab work KEVIN COY [address] [place] [address], [phone], [facility] 01/20/2024 10:20:04 4 text/html did fantastic with her hip surgery feels greathere for right knee inj shakira Mcfadden DO [address] [place] [address], [address], [facility] 01/29/2024 14:17:01 4 text/html 4 [...] ankle swelling, orthopnea, palpitations KEVIN COY [address] [place], [address], [facility] 05/25/2024 10:50:04 5 text/html Medicare [...] fish oil for her triglycerides KEVIN COY [address] [place], [address], [facility] 09/07/2024 09:18:59 OBGyn Episode No OBEpisode recorded.
--- OUTSIDE RECORDS SUMMARY | 2024-10-20 10:16 | XMS_ITS | Patient Health Record ---
Author Organization [employer] [facility] Address [address] [place] [address] Support Name Relationship Address Phone JAYLENBALDOMEROE Guarantor Unknown [phone] Reason For Referral No Information Medications Medication SIG (Take, Route, Fr equency, Duration) Notes Start Date End Date Status Multivitamins 1 ORAL daily for -3 [facility] 05/09/2012 Active 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 2.5MG 1 ORAL EVERY WEEK for -3 [facility] [place] 2011 Active Folic Acid 1MG 1 ORAL 6X A WEEK for -3 [facility] [place]- 05/09/2012 Active Ecotrin 325MG 1 ORAL daily for -3 [facility] [place]- 05/09/2012 Active Atenolol 25MG 1 ORAL DAILY for -3 [facility] [place]- 05/09/2012 Active Problems Problem Type SNOMED Code ICD Code Onset Dates Problem Status W/U Status Risk Notes Problem Hyperlipidemia (35761070) Other and unspecified hyperlipidemia (272.4) Active confirmed Major Problem Obesity (443758802) Obesity, unspecified (278.00) Active confirmed Major Problem Rheumatoid arthritis (31397051) Rheumatoid arthritis (714.0) Active confirmed Major Problem Gynecological examination normal (947679801880864) Routine gynecological examination (V72.31) Active confirmed Diag Plan Of Treatment No Information Insurance Providers Payer Name Payer Address Payer Phone Subscriber Number Group Number Insured Name Patient Relationship to Insured Coverage Start Date Coverage End Date MEDICARE [address] [place], [place] [id number] RODNEY YORK Self - patient is the insured /[address] [employer] [address] [place] [address] [id number] RODNEY YORK Self - patient is the insured
== END 2024-10-20 11:08 | disposition home or self-care (01) ==
LOC: HO.HUSH 09:25
PROVIDERS: PCP Internal Medicine; Visit Provider Urology
DX: N20.0 Calculus of kidney (principal); N13.30 Unspecified hydronephrosis; N20.1 Calculus of ureter; Z13.9 Encounter for screening, unspecified; Z96.0 Presence of urogenital implants
CPT/HCPCS: 52310; 99214

== ENCOUNTER → 2024-10-20 09:24 | Outpatient (BNVA) | payer MEDICARE, OTHER, SELFPAY | PROVIDERS: PCP Internal Medicine; Visit Provider Urology | DX: N20.0 Calculus of kidney (principal); N20.1 Calculus of ureter; N13.30 Unspecified hydronephrosis; Z46.6 Encounter for fitting and adjustment of urinary device | CPT/HCPCS: 52310; 81003; 99212 ==

== ENCOUNTER 2024-12-01 11:11 | Outpatient (REF) | payer MEDICARE, OTHER, SELFPAY ==
--- OUTSIDE RECORDS SUMMARY | 2024-12-01 13:08 | XMS_ITS | Data Portability ---
Author Organization [facility] Home Service Address [address] [place] [address] Assessment Encounter Date Assessment Date Assessment LastModified [...] [email or web address] Not available 01/20/2024 10:08:51 01/29/2024 01/29/2024 [id number] [place] [id number] ([employer]) : MDM LOW MUST MEET 2 OF [...] 90 mcg/actua tion aerosol inhaler 2023 024 [id number], [address], [place], [id number], 05/25/2024 10:25:08 doxycycli ne hyclate 100 mg tablet 2023 024 [facility] [address][id number], [address], [place], [id number], 01/20/2024 10:14:21 Patient TargetsNo targets recorded. Patient Instructions Encounter Date Encounter Id Patient Instructions Last Modified By Organization Details Last Modified Time 01/29/2024 [id number] knee arthritis: care instructions Not available 01/29/2024 14:12:23 09/07/2024 [id number] advance care planning: care instructions [email or web address] Not [...] eral No observ ation record ed. [email or web address] [facility] [address], [address], 09/23/2024 09:46:39 10/13/19 25 10/12/2024 CT, abdom en + pelvi s, w/o contr ast No observ ation record ed. [email or web address] [facility] (Medical Records) [address] [place], [address], 10/13/2024 08:17:17 10/14/19 25 10/13/2024 fluor oscop ic lis nce for needl e place ment (PROC ) No observ ation record ed. [email or web address] [facility] (Medical Records) [address] [place], [address], 10/13/2024 15:45:55 Result Notes None recorded. Problems Name Problem SNOMED Code Status Onset Date Resolution Date Notes Provider Name and Address Organization Details Recorded Time Hypertri glycerid emia 380250812 Active 2017 Not Available [facility] 4 17:49:00 Low back pain 056865126 Active 2021 Not Available [facility] 4 17:49:00 Osteoart hritis of knee 150888400 Active 2021 Not Available [facility] 4 17:49:00 Overweig ht 831973152 Active 2021 Not Available [facility] 4 17:49:00 Microalb uminuria 046316343 Active 2021 Not Available [facility] 4 17:49:00 Hypercal cemia 71806367 Active 2021 Not Available [facility] 4 17:49:01 Carotid artery stenosis 89693061 Active 2022 Not Available [facility] 4 17:49:01 Carotid artery stenosis 87235069 Active 2022 Not Available [facility] 4 17:49:01 Type 2 diabetes mellitus 77253931 Active 2022 Not Available [facility] 4 17:49:01 Cellulit is of lower limb 607759855 Active 2022 Not Available [facility] 4 17:49:01 Osteoart hritis of shoulder region 41765019 Active 2022 Not Available [facility] 4 17:49:01 Osteoart hritis of left hip joint 3440348713 72555 Active 2022 Not Available [facility] 4 17:49:00 Disorder of bone 03876294 Active 2022 Not Available [facility] 4 17:49:01 Vertigo 241179858 Active 2022 Not Available [facility] 4 17:49:01 Posterio r rhinorrh ea 95341458 Active 2023 KEVIN COY [address] [place], [address], [facility] 4 10:33:06 Edema of lower extremit y 783400763 Active 2023 KEVIN COY [address] [place], [address], [facility] 4 10:36:12 Cough 47279890 Active 2023 KEVIN COY [address] [place], [address], [facility] 4 12:15:25 Total replacem ent of hip Active 2023 R KEVIN COY [address] [place], [address], [facility] 4 10:17:40 [facility] hyperten chris 29505968 Active 2017 Not Available [facility] 4 17:49:01 Disorder of breast 17690440 Active 2017 Breast cancer 2000, lumpecto my, XRT Left THR 2014 Not Available [facility] 4 17:49:01 Rheumato id arthrimartina s 95606925 Active 2017 Dr. Nixon bryan Not Available [facility] 4 17:49:01 Lyme disease 06584478 Active 2017 Not Available [facility] 4 17:49:00 Osteopor osis 20000121 Active 2017 Not Available [facility] 4 17:49:01 Hemorrho ids 28626659 Active 2017 Not Available [facility] 4 17:49:01 Impaired fasting glycemia 535203690 Completed 201702/12/2018November DIMPLE Mascorro [address] [place], [address], [facility] 8 09:22:42 Problem Notes None recorded. Procedures Surgical History Date Name Laterality Status Provider Name and Address Organization Details Recorded Time 024 Corticosteroid Injection completed Gary Mcfadden DO [address] [place] [address], [address], [facility] 01/29/2024 14:11:37 024 Corticosteroid Injection completed Gary Mcfadden DO [address] [place] [address], [address], [facility] 10/01/2023 15:44:04 10/18/2 023 Corticosteroid Injection completed Gary Mcfadden DO [address] [place] [address], [address], [facility] 05/22/2023 14:43:19 023 Corticosteroid Injection completed Gary Mcfadden DO [address] [place] [address], [address], [facility] 01/02/2023 17:04:01 023 Corticosteroid Injection completed Gary Mcfadden DO [address] [place] [address], [address], [facility] 10/24/2022 14:24:12 023 Corticosteroid Injection completed Gary BarillasBetsy LesaDO [address] [place] [address], [address], [facility] 09/11/2022 12:15:39 022 Corticosteroid Injection completed Gary BarillasBetsy LesaDO [address] [place] [address], [address], [facility] 12/08/2021 12:37:09 021 Corticosteroid Injection completed Gary McfaddenDO [address] [place] [address], [address], [facility] 07/25/2021 09:35:46 021 Corticosteroid Injection completed Gary BarillasBetsy LesaDO [address] [place] [address], [address], [facility] 02/13/2021 15:45:24 018 Most Recent Mammogram completed Radha Zimmerman [facility] 09/09/2018 13:49:25 Imaging Results Imaging Date Name Status LastModified by Organization Details LastModified Time 09/15/2024 MAMMO, screening, digital, bilateral completed [email or web address] [facility] [address] [place] [address] [place], [address], 09/23/2024 09:46:39 10/12/2024 CT, abdomen + pelvis, w/o contrast completed [email or web address] [facility] (Medical Records) [address] [place], [address], 10/13/2024 08:17:17 10/13/2024 fluoroscopic guidance for needle placement (PROC) completed [email or web address] [facility] (Medical Records) [address] [place], [address], 10/13/2024 15:45:55 Procedure Notes None recorded. Medical Equipment None Reported. Allergies Allergen ID Allergen Name Allergen Category Reaction Reaction Severity Criticality Documentation Date Start Date Code Code System Note Provider Name and Address Organization Details Recorded Time 7208 duloxetin e medicatio n nausea Not available Not available 04/01/2023 48526 RxNorm KEVIN COY [address] [place], [address], [facility] 3 09:04:05 7431 Latex (substanc e) environme nt,medica tion Not available Not available Not available 06/04/2023 14088 8007 SNOMED Julianne Louie [facility] 3 14:15:23 8111 oxycodone medicatio n Not available Not available Not available 01/20/2024 7804 RxNorm nause a, chest pain KEVIN COY [address] [place], [address], [facility] 4 10:06:05 Medications Name Sig [...] THREE TIMES DAILY FOR 7 DAYS NEEDED active Not Available Not Available No t Available senna 8.6 mg tablet TAKE 2 [...] Available Not Available Not Available Fluzone High-Dose (PF) 180 mcg/0.5 mL intramuscul ar syringe 03/09 completed Not Available Not Available Not Available Fluzone High-Dose (PF) 180 mcg/0.5 mL intramuscul ar syringe [...] DateTime 10/25/2023 163.83 cm Emani Hernandez [facility] 10/25/2023 09:25:36 Date Recorded Body height Body mass index (BMI) Body weight Heart rate Oxygen saturation Oxygen saturation in Arterial blood by Pulse oximetry Systolic blood pressure Diastolic blood pressure Provider Name and Address Organization Details Last Updated DateTime 4 163.83 cm 29.9 kg/m2 03720.8 5 g 55 /min 95 % 95 % 142 mm[Hg] 80 mm[Hg] Ольга [facility] 4 10:00:05 Date Recorded Body height Body mass index (BMI) Body weight Heart rate Oxygen saturation Oxygen saturation in Arterial blood by Pulse oximetry Systolic blood pressure Diastolic blood pressure Provider Name and Address Organization Details Last Updated DateTime 4 163.83 cm 30.2 kg/m2 53435.9 6 g 54 /min 98 % 98 % 124 mm[Hg] 78 mm[Hg] Emani Julio [facility] 4 10:26:51 Date Recorded Body height Body mass index (BMI) Body weight Heart rate Oxygen saturation Oxygen saturation in Arterial blood by Pulse oximetry Systolic blood pressure Diastolic blood pressure Provider Name and Address Organization Details Last Updated DateTime 5 163.83 cm 29.9 kg/m2 21038.4 9 g 61 /min 95 % 95 % 134 mm[Hg] 74 mm[Hg] Emani Drew [facility] 5 08:56:09 Social History Question Answer Notes LastModified by Organizat ion Details LastModified Time Tobacco Smoking Status [facility] 11:10:37 What Was The Date Of [...] virus, quadrivalent, preservative 8 completed Not Available [facility] 08/07/2023 17:49:02 COVID-19, mRNA, LNP-S, PF, 30 mcg/0.3 mL dose 2 completed Not Available [facility] 08/07/2023 17:49:02 Influenza, split virus, quadrivalent, preservative 2 completed Not Available [facility] 08/07/2023 17:49:02 SARS-COV-2 (COVID-19) vaccine, UNSPECIFIED 3 completed Not Available [facility] 08/07/2023 17:49:02 SARS-COV-2 (COVID-19) vaccine, UNSPECIFIED 4 completed Emani christine [facility] 05/25/2024 10:25:28 Tdap 5 completed Not Available [facility] 08/07/2023 17:49:03 pneumococcal polysaccharide PPV23 5 completed Not Available [facility] 08/07/2023 17:49:03 Pneumococcal conjugate PCV 13 7 completed Not Available [facility] 08/07/2023 17:49:03 Influenza, split virus, quadrivalent, preservative 9 completed Not Available [facility] 08/07/2023 17:49:01 pneumococcal polysaccharide PPV23 8 completed Not Available [facility] 08/07/2023 17:49:03 COVID-19 vaccine, vector-nr, rS-ChAdOx1, PF, 0.5 mL 1 completed Not Available [facility] 08/07/2023 17:49:02 COVID-19 vaccine, vector-nr, rS-ChAdOx1, PF, 0.5 mL 1 completed Not Available [facility] 08/07/2023 17:49:02 Past Encounters Encounter ID Performer Location Encounter Start Date Encounter Closed Date Diagnosis/Indication Diagnosis SNOMED-CT Code Diagnosis ICD10 Code Diagnosis Note [id number] November DIMPLE Mascorro [facility] [address] [employer] [address] [place] [address] 12/06/2017 10:58:12 12/06/2017 15:55:32 Pneumonia 346298823 J18.9 Please take prescribed or OTC medication [...] defer and treat empiricall y Essential hypertension 13235525 I10 slightly elevated today, though like fever related, will check at f/u next week [id number] [facility] [address] [facility] [address],[place] [address] 12/13/2017 09:19:31 12/13/2017 10:36:58 Pneumonia 098887785 J18.9 sx all resolved except minor cough at this point Essential hypertension 04203239 I10 BP greatly improved after resolution of fever stable on current regimen Diabetes mellitus 988574 09 E11.9 consistent ly stable a1c, with good diet, and exercise lipids at goal as well [id number] [facility] [address] [facility] [address], [place] [address] 01/17/2018 14:59:45 01/17/2018 15:52:11 Acute sinusitis 82712239 J01.90 fluids, rinses, flonase if needed Essential hypertension 01909156 I10 stable [id number] November [facility] [address] [facility] [address],[place] [address] 03/25/2018 08:51:05 03/25/2018 12:04:25 Essential hypertension 66074430 I10 not quite at goal, will increase lisinopril from 2.5 to 5 mg daily Diabetes mellitus 133979 09 E11.9 consistent ly stable a1c, with good diet, and exercise lipids at goal as well Hypertriglyceridemia 302 745156 E78.2 elevated trig diet/exerc ise/wt loss discussed [id number] [facility] [address] [facility] [address], [place] [address] 06/24/2018 09:47:54 06/24/2018 10:51:06 Essential hypertension 61151987 I10 accidental ly taking 2 of atenolol instead of 2 of lisinopril she will take atenolol 25 qd and lisinopril 5 mg qd bp at goal today Diabetes mellitus 184622 09 E11.9 consistent ly stable a1c, with good diet, and exercise lipids at goal as well Hypertriglyceridemia 302 808676 E78.2 elevated trig diet/exerc ise/wt loss discussed Body mass index 30+ - obesity 605901073 Z68.32 continue healthy diet and exercise Palpitations 46207678 R0 0.2 ? 2/2 bradycardi a? will d/c 50 atenolol and restart 25 of atenolol and assess sx. if persisting or if new sx develop f/u luz [id number] November [facility] [address] [employer] [address] [address] 09/10/2018 09:04:35 09/10/2018 10:18:01 Adult health examination 593837780 Z00.00 had derm annual exam medicare wellness visit complete Screening for cardiovascular system disease 659237044 Z13.6 labs complete LDL mildly elevated trigs elevated healthy diet encouraged will trial change from atorvastat in to rosuvastat in to attempt to reach LDL goals Screening mammography 24 140115 Z12.31 done 2019 Essential hypertension 61805133 I10 bp nearly at goal Diabetes mellitus 480721 09 E11.9 consistent ly stable a1c, on metformin with good diet, and exercise foot exam next visit Hypertriglyceridemia 302 837807 E78.2 trigs remain elevated LDL mildly above goal plan as stated above Body mass index 30+ - obesity 606308571 Z68.32 continue healthy diet and exercise Palpitations 10146049 R0 0.2 palps resolved Heartburn 66362020 R12 more likely explanatio n for her sx though if chest pain/back pain persists despite treatement f/u Chest pain 29976212 R07. 9 ACS unlikely in setting of totally normal EKG advised taht if chest pain persists we will pursue further cardiac work up Osteoporosis 01409880 M8 1.0 [place] [id number] November [facility] [address] [address] 03/09/2019 08:54:24 03/09/2019 09:36:30 Essential hypertension 95992386 I10 stable Diabetes mellitus 879881 09 E11.9 consistent ly stable a1c, with good diet, and exercise lipids at goal as well dm eye exam scheduled for next month meds reviewed Hypertriglyceridemia 302 413237 E78.2 elevated trig diet/exerc ise/wt loss discussed Body mass index 30+ - obesity 151554639 Z68.32 continue healthy diet and exercise Palpitations 03682932 R0 0.2 resolved with proper bp medication s Heartburn 23666940 R12 resolved no longer taking zantac [id number] Kylah DIMPLE Mascorro [facility] [address] [employer] [address],[place] [address] 09/07/2019 08:50:34 09/07/2019 09:27:12 Screening for cardiovascular system disease 607614319 Z13.6 labs complete LDL mildly elevated trigs elevated healthy diet encouraged will trial change from atorvastat in to rosuvastat in to attempt to reach LDL goals Diabetes mellitus 181586 09 E11.9 go back on metformin BID rather than QD Essential hypertension 60530705 I10 stable Headache 19148675 R51 stable, treated with tylenol vs excedrin tension Difficulty sleeping 3013 43749 Z72.820 take tylenol pm occasional ly, advised it can become habit forming, but not likely if used sparingly [id number] KEVIN COY [facility] [address] [address] 12/08/2019 08:50:47 12/08/2019 10:04:23 Diabetes mellitus 78529244 E11.9 the patient is doing well, no concerns no numbness or tingling in the feet no loss of propriocep tion or balance will check her HbA1c to see what her level is at Essential hypertension 98817215 I10 BP 120/76 excellent control [id number] KEVIN COY [facility] [address] [address] 03/08/2020 08:54:15 03/08/2020 10:16:49 Essential hypertension 38397014 I10 BP 126/62 today the patient is well controlled on medication Diabetes mellitus 405779 09 E11.9 the patient is doing well, no concerns no numbness or tingling in the feet no loss of propriocep tion or balance will check her HbA1c to see what her level is at Hypertriglyceridemia 302 162767 E78.1 will check lipid panel again [id number] Gary Mcfadden DO [facility] [address] [address] 04/20/2020 09:54:08 04/20/2020 10:32:45 Cellulitis of toe of right foot 0710815039 9551940 L03.031 not finished by cephalexin will change to doxy for poss resist and rechk in 10 days [id number] Gary Mcfadden DO [facility] [address] [facility] [address] [address] 05/02/2020 11:20:31 05/02/2020 12:08:55 Essential hypertension 96408705 I10 Diabetes mellitus 827719 E11.9 Cellulitis of toe of right foot 6470850420 4980807 L03.031 resolved and doing well [id number] KEVIN COY [facility] [address] [facility] [address],[place] [address] 06/21/2020 10:24:54 06/21/2020 11:20:07 Type 2 diabetes mellitus 96995345 E11.9 will check A1c Adult [facility] examination 400310311 Z00.00 will fu in one month for BP Essential hypertension 73524491 I10 BP elevated will increase to 5 mg to 10 mg of lisinopril [id number] KEVIN COY [facility] [address] [facility] [address],[place] [address] 07/22/2020 10:22:13 07/22/2020 11:34:58 Essential hypertension 51337246 I10 BP much improved on increased lisinopril dosage Diabetes mellitus 983442 E11.9 the patient is doing well, no concerns no numbness or tingling in the feet no loss of propriocep tion or balance [id number] KEVIN COY [facility] [address] [facility] [address],[place] [address] 11/02/2020 09:51:44 11/02/2020 15:02:04 Essential hypertension 84568424 I10 BP much improved on increased lisinopril dosage Acute low back pain 1428 11662 M54.5 will trial a low dose MSK relaxer and see if improvemen t patient is told to rest her back as well Diabetes mellitus 306561 E11.9 the patient is doing well, no concerns no numbness or tingling in the feet no loss of propriocep tion or balance A1c is down to 6.9 which is excellent [id number] KEVIN COY [facility] [address] [facility] [address] [address] 01/25/2021 09:52:00 01/25/2021 12:09:58 Osteoarthritis of knee 477847648 M17.0 L>Rset up with a cortisone injection with MB Diabetes mellitus 649161 09 E11.9 mild increase in neuropathy A1c is upwill work on exercise when her knee feels better Essential hypertension 29667612 I10 BP much improved on increased lisinopril dosage [id number] Gary Mcfadden [facility] [address] [facility] [address] [address] 02/13/2021 14:53:54 02/13/2021 16:48:51 Osteoarthritis of left knee joint 8100115726 16684 M17.12 [place] [id number] KEVIN COY [facility] [address] [facility] [address],[place] [address] 04/24/2021 08:27:26 04/25/2021 11:57:09 Diabetes mellitus 95651904 E11.9 A1c is downdoing excellent with diet and exercise [id number] Gary Mcfadden DO [facility] [address] [facility] [address],[place] [address] 07/25/2021 09:04:12 07/25/2021 11:09:29 Osteoarthritis of right knee joint 5903147202 92634 M17.11 [place] [id number] KEVIN COY [facility] [address] [employer] [address] [address] 08/15/2021 08:09:04 08/15/2021 17:23:48 Diabetes mellitus 36021212 E11.9 A1c is downdoing excellent with diet and exercise Essential hypertension 55563189 I10 BP much improved on increased lisinopril dosage Hypertriglyceridemia 302 927093 E78.1 will check lipid panel again Osteoporosis 53817164 M8 1.0 stable, sees arthritis clinic Rheumatoid arthritis 698 74062 M06.89 seeing arthritis clinic Vertigo 693880836 R42 will fu with work up to r/o [id number] KEVIN COY [facility] [address] [address] 11/14/2021 09:18:16 11/15/2021 10:00:16 Hypertriglyceridemia 504981243 E78.1 will check lipid panel again Essential hypertension 16324481 I10 BP much improved on increased lisinopril dosage Diabetes mellitus 122006 09 E11.9 A1c is downdoing excellent with diet and exercise Low back pain 713214177 M54.59 acute flare up of her low backwill give a refill of MSK relaxer Osteoarthr itis of knee 445296923 M17.0 will have her fu with MB for cortisone inj in the right knee [id number] Gary Mcfadden, [facility] [address] [address] 12/08/2021 12:05:43 12/08/2021 12:47:42 Osteoarthritis of knee 717976990 M17.0 [place] [id number] KEVIN COY [facility] [address] [facility] [address] [address] 03/20/2022 11:06:26 03/20/2022 13:44:40 Hypertriglyceridemia 133024167 E78.1 stable, add fish oil Essential hypertension 09911110 I10 stable at home Diabetes mellitus 761227 09 E11.9 A1c is downdoing excellent with diet and exercise Overweight 416396455 E66 .3 will fu with nutritioni st referral [id number] KEVIN COY [facility] [address] [facility] [address] [address] 06/18/2022 09:04:12 06/18/2022 09:50:39 Diabetes mellitus 94331327 E11.9 will need to add labs they didn't do all of it for me at prior appts Microalbuminuria 5702886 06 R80.8 will recheck labsprobab ly a combinatio n T2DM, being a methotrexa te user and being 77 y/o, probably related to mild kidney dysfunctio n Hypercalcemia 02874636 E 83.52 will recheck levels from prior assessment at rheum Overweight 678582183 E66 .3 [id number] Gary Mcfadden [facility] [address] [facility] [address] [address] 09/11/2022 11:37:16 09/11/2022 16:02:49 Osteoarthritis of knee 313428530 M17.0 [place] [id number] KEVIN COY [facility] [address] [facility] [address] [address] 09/12/2022 11:09:02 09/12/2022 15:11:47 Diabetes mellitus 22435648 E11.9 agreed to starting on glipizide for better sugar control with elevated A1c Carotid ar alex stenosis 42453324 I65.21 will recheck in another yearwas between 0-49% Essential hypertension 07579721 I10 stable at home and here [id number] Gary Mcfadden [facility] [address] [facility] [address],[place] [address] 10/24/2022 14:04:11 10/24/2022 16:05:05 Rheumatoid arthritis 83110672 M06.89 Osteoarthr itis of shoulder region 17659456 M19.019 shakira inj well tolerated [id number] KEVIN COY [facility] [address] [facility] [address] [address] 12/19/2022 09:20:11 12/19/2022 10:11:53 Type 2 diabetes mellitus 85998653 E11.9 will check A1c Essential hypertension 16386462 I10 stable at home and here Osteoarthr itis of left hip joint [id number] 52811 M16.12 will set up with previous ortho Dr. Sparrow Low back pain [id number] M54.59 stableit's her hip that's causing complicati on Disorder of bone 1591977 3 M89.762 left hipwill fu with Dr. Sparrow [id number] Gary Mcfadden [facility] [address],[place] [address] 01/02/2023 16:23:51 01/04/2023 14:04:10 Osteoarthritis of knee 998712292 M17.0 [place] [id number] KEVIN COY [facility] [address],[place] [address] 04/01/2023 08:34:59 04/01/2023 15:53:08 Essential hypertension 49372590 I10 stable at home and here Hypercalcemia 34383025 E 83.52 elevated againprevi ous checks were normal with PTH Hypertriglyceridemia 302 952238 E78.1 stable, add fish oil Rheumatoid arthritis 698 20194 M06.89 stable Type 2 haris betes mellitus 34836829 E11.9 level is excellent Disorder of bone 2286514 3 M89.762 has hip surgery 07/[address] Levy Moore [id number] Gary Mcfadden [facility] [address] [place] [address],[place], [place] 7 05/22/2023 14:22:32 05/22/2023 15:29:01 Osteoarthritis of knee 210826159 M17.0 [place] [id number] KEVIN COY [facility] [address] [place] [address],[place] 7 06/04/2023 14:03:21 06/04/2023 14:57:43 Vertigo 499669921 R42 will trial medrol if no effective other options are valium, HTCZ insteadhol d on vestibular rehab referral for now Pre-surger y evaluation 298240079 Z01.818 The patient was seen in the office today for pre-op evaluation . All medical conditions on patient's problem list were addressed and are currently stable, no interventi on needed at this time. Based on history and physical performed, the patient is cleared for surgery. [id number] Gary Mcfadden [facility] [address],[place] [address] 10/01/2023 15:07:23 10/02/2023 15:26:36 Osteoarthritis of knee 763162955 M17.0 well baltazar inj [id number] KEVIN COY [facility] [address],[place] [address] 09/30/2023 10:18:18 10/01/2023 10:51:36 Posterior rhinorrhea 42344540 R09.82 start on nasal spraywill let me know if her ears are still having issues Edema of l ower extremity 552468075 R60.0 possibly just vascular incompeten cewill set up with lab work Type 2 haris betes mellitus 95612879 E11.9 level is excellent Hypercalcemia 50873180 E 83.52 elevated againprevi ous checks were normal with PTH Rheumatoid arthritis 698 94994 M06.89 stable [id number] KEVIN COY [facility] [address],[place] [address] 10/25/2023 09:23:22 10/25/2023 14:18:18 Acute bronchitis 15435722 J20.8 continue on the medrol and benzonatat estart inhaler [id number] KEVIN COY [facility] [address],[place] [address] 01/20/2024 09:48:24 01/20/2024 10:54:22 Depression screening 094779800 Z13.31 negative At low risk for fall 439 440902 Z91.81 0 Essential hypertension 59474456 I10 stable at home and here Type 2 haris betes mellitus 98953209 E11.9 level is excellent; 5.7%, feet look good [id number] Gary Mcfadden DO [facility] [address],[place] [address] 01/29/2024 13:35:06 01/29/2024 14:37:32 Osteoarthritis of knee 730176279 M17.0 well baltazar inj [id number] KEVIN COY [facility] [address],[place] [address] 05/25/2024 10:06:16 05/25/2024 11:19:26 Essential hypertension 14663463 I10 stable at home and here Hypercalcemia 96651966 E 83.52 stablewnl with this recent check Hypertriglyceridemia 302 439338 E78.1 stable Type 2 haris betes mellitus 42154252 E11.9 6% which is excellent [id number] KEVIN COY [facility] [address],[place] [address] 09/07/2024 08:47:58 09/07/2024 09:34:56 Adult health examination 846790686 Z00.00 BP is stable Type 2 haris betes mellitus 72491160 E11.9 6% which is excellent Rheumatoid arthritis 698 90325 M06.89 stable Health Concerns Section Related Observation LastModified by Organization Detai ls LastModified Time None Recorded Concern Status LastModified by Organization Details LastModified Time None Recorded Advance Directives Directive None Recorded Payers Encounter Date Sequence Insurance Name Policy Number Policy Abrams Covered Member ID Abrams Member ID Guarantor Name 10/25/2023 1 [place] [employer] Evelia Russell [id number] Evelia Russlel 10/25/2023 2 WPS - FOR LIFE (SECONDARY TO MEDICARE) Blake Russell [id number] Evelia uRssell 01/20/2024 1 [place] [employer] Evelia Russell [id number] Evelia Russell 01/20/2024 2 WPS - FOR LIFE (SECONDARY TO MEDICARE) Blake Russell [id number] Evelia Russell 01/29/2024 1 [place] [employer] Evelia Russell [id number] Evelia Russell 01/29/2024 2 WPS - FOR LIFE (SECONDARY TO MEDICARE) Blake Russell [id number] Evelia Russell 05/25/2024 1 [place] [employer] Evelia Russell [id number] Evelia Russell 05/25/2024 2 WPS - FOR LIFE (SECONDARY TO MEDICARE) Blake Russell [id number] Evelia Russell 09/07/2024 1 [place] [employer] Evelia Russell [id number] Evelia Russell 09/07/2024 2 WPS - FOR LIFE (SECONDARY TO MEDICARE) Blake Russell [id number] Evelia Russell Notes Date Note Type Note [...] and the results was negative KEVIN COY [address] [place] [address], [address], [facility] 10/25/2023 14:06:54 4 text/html [...] todayreviewed her lab work KEVIN COY [address] [place], [address], [facility] 01/20/2024 10:20:04 4 text/html did fantastic with her hip surgery feels greathere for right knee inj shakira Mcfadden, [address] [place], [address], [facility] 01/29/2024 14:17:01 4 text/html [...] ankle swelling, orthopnea, palpitations KEVIN COY [address] [place], [address], [facility] 05/25/2024 10:50:04 5 text/html Medicare [...] oil for her triglycerides KEVIN COY [address] [place], [address], [facility] 09/07/2024 09:18:59 OBGyn Episode No OBEpisode recorded.
--- OUTSIDE RECORDS SUMMARY | 2024-12-01 13:08 | XMS_ITS | Patient Health Record ---
Author Organization [facility] Address [address] [place] [address] Support Name Relationship Address Phone JAYLENBALDOMEROE Guarantor Unknown [phone] Reason For Referral No Information Medications Medication SIG (Take, Route, Fr equency, Duration) Notes Start Date End Date Status Multivitamins 1 ORAL daily for -3 [facility] 05/09/2012 Active 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 2.5MG 1 ORAL EVERY WEEK for -3 [facility] 2011 Active Folic Acid 1MG 1 ORAL 6X A WEEK for -3 [facility] 05/09/2012 Active Ecotrin 325MG 1 ORAL daily for -3 [facility] 05/09/2012 Active Atenolol 25MG 1 ORAL DAILY for -3 [facility] 05/09/2012 Active Problems Problem Type SNOMED Code ICD Code Onset Dates Problem Status W/U Status Risk Notes Problem Hyperlipidemia (22390701) Other and unspecified hyperlipidemia (272.4) Active confirmed Major Problem Obesity (269305828) Obesity, unspecified (278.00) Active confirmed Major Problem Rheumatoid arthritis (33590178) Rheumatoid arthritis (714.0) Active confirmed Major Problem Gynecological examination normal (987121185565881) Routine gynecological examination (V72.31) Active confirmed Diag Plan Of Treatment No Information Insurance Providers Payer Name Payer Address Payer Phone Subscriber Number Group Number Insured Name Patient Relationship to Insured Coverage Start Date Coverage End Date MEDICARE [address] [place], [place] [id number] RODNEY YORK Self - patient is the insured /[address] [employer] [address] [place] [address] [id number] RODNEY YORK Self - patient is the insured
--- OUTSIDE RECORDS SUMMARY | 2024-12-01 13:08 | XMS_ITS | Continuity of Care Document ---
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 Medication Details Route Status Patient Instructions Prescription Expires Prescription Number Last Dispense Date Ordering Provider Order Date Order Qty Source ALBUTEROL SULFATE HFA (albuterol sulfate), 90 MCG, HFA AER AD, INHALATION, [facility]/ [facility]KMA, 6.7 g CANISTER Active [id number] 4 2023 6.7 Pharmac y Data Transac tion Service Facilit y ATENOLOL (ATENOLOL), 25 MG, TABLET, ORAL, [employer] 1000 ea. BOTTLE Active [id number] 4 2023 90 Pharmac y Data Transac tion Service Facilit y BENZONATATE (benzonatat e), 200 MG, CAPSULE, ORAL, STRIDES PHARMA, 100 ea. BOTTLE Active [id number] 4 2023 21 Pharmac y Data Transac tion Service Facilit y BENZONATATE (benzonatat e), 200 MG, CAPSULE, ORAL, STRIDES PHARMA, 500 ea. BOTTLE Active [id number] 4 2023 21 Pharmac y Data Transac tion Service Facilit y BENZONATATE (benzonatat e), 200 MG, CAPSULE, ORAL, STRIDES PHARMA, 500 ea. BOTTLE Active [id number] 4 2023 21 Pharmac y Data Transac tion Service Facilit y CEFADROXIL (CEFADROXIL ), 500 MG, CAPSULE, ORAL, [employer], 100 ea. BOTTLE Active [id number] 4 2023 19 Pharmac y Data Transac tion Service Facilit y CELECOXIB (celecoxib) , 200 MG, CAPSULE, ORAL, LINDA PHARMACEU, 500 ea. BOTTLE Active [id number] 4 2023 90 Pharmac y Data Transac tion Service Facilit y DOXYCYCLINE HYCLATE (doxycyclin e hyclate), 100 MG, TABLET, ORAL, [employer], 50 ea. BOTTLE Active [id number] 4 2023 20 Pharmac y Data Transac tion Service Facilit y FLUTICASONE PROPIONATE (FLUTICASON E PROPIONATE) , 50MCG, SPRAY SUSP, NASAL, APOTEX DONNA, 16 g AER W/ADAP Active [id number] 4 2023 16 Pharmac y Data Transac tion Service Facilit y LISINOPRIL (lisinopril ), 10 MG, TABLET, ORAL, EXELAN PHARMACE, 1000 ea. BOTTLE Active [id number] 4 2023 90 Pharmac y Data Transac tion Service Facilit y LISINOPRIL (lisinopril ), 10 MG, TABLET, ORAL, EXELAN PHARMACE, 1000 ea. BOTTLE Active [id number] 4 2023 90 Pharmac y Data Transac tion Service Facilit y METHYLPREDN ISOLONE (methylpred nisolone), 4 MG, TAB DS PK, ORAL, ZYDUS PHARMACEU, 21 ea. DOSE-PACK Active [id number] 4 2023 21 Pharmac y Data Transac tion Service Facilit y MUPIROCIN (MUPIROCIN) , 2%, OINT.(GM), TOPICAL, [employer] 22 g TUBE Active [id number] 4 2023 22 Pharmac y Data Transac tion Service Facilit y ONDANSETRON ODT (ONDANSETRO N), 4MG, TAB RAPDIS, ORAL, [employer] PHARMA, 30 ea. BLIST PACK Active [id number] 4 2023 20 Pharmac y Data Transac tion Service Facilit y OXYCODONE HCL (OXYCODONE HCL), 5MG, TABLET, ORAL, MALL[employer]RT PHARM, 100 ea. BOTTLE Cancele d [id number] : 2023 0 Pharmac y Data Transac tion Service Facilit y ROSUVASTATI N CALCIUM (rosuvastat in calcium), 40 MG, TABLET, ORAL, [employer] 1000 ea. BOTTLE Active [id number] 4 2023 90 Pharmac y Data Transac tion Service Facilit y Immunizations Combined list of available immunizations from the Department of Defense and Veterans Affairs facilities. 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 Status Comments Source COVID-19, mRNA, LNP-S, PF, 30 mcg/0.3 mL dose 2020 [employer] (PFR) Not Given COVID-19, mRNA, LNP-S, PF, 30 mcg/0.3 mL dose [facility] influenza, high-dose, quadrivalent 2020 BOGDASARIAN, () Not Given influenza , high-dose , quadrival ent [facility] influenza, high-dose, quadrivalent 2019 BOGDASARIAN, () Not Given influenza , high-dose , quadrival ent [facility] Influenza, high dose seasonal 2018 Kiet KATZ () Not Given Influenza , high dose seasonal DoD pneumococcal polysaccharid e PPV23 2017 Kiet KATZ () Not Given pneumococ ramy polysacch aride PPV23 [facility] Influenza, high dose seasonal 2015 LEONARDA BLUE () Not Given Influenza , high dose seasonal DoD Pneumococcal conjugate PCV 13 2014 LEONARDA BLUE () Not Given Pneumococ ramy conjugate PCV 13 [facility] Social History Combined list of available smoking, tobacco, and other social history from Department of Defense and Veterans Affairs facilities. Social History Type Response Date Comment Sour e This section is an empty social history section. DoD
[2024-12-01 13:10] LABS: MANUAL DIFF FLAG NO
[2024-12-01 13:25] LABS: Basophils Absolute Auto 0.1 X10*3/uL (0.0-0.2); Basophils Percent Auto 0.8 % (0-2); Eosinophils Absolute Auto 0.2 X10*3/uL (0.0-0.4); Eosinophils Percent Auto 2.7 % (0-4); Hematocrit 41.7 % (37.0-47.0); Hemoglobin 13.5 g/dl (12.0-16.0); Imm Gran Abs Auto 0.02 X10*3/uL (0.00-0.03); Imm Gran Pct Auto 0.3 % (0.0-0.4); Lymphocytes Absolute Auto 1.6 X10*3/uL (1.2-4.9); Lymphocytes Percent Auto 20.2 % (20-40); Mean Corpuscular HGB Conc 32.4 g/dl (31.0-35.0); Mean Corpuscular Hemoglobin 31.4 pg (27.0-33.0); Mean Platelet Volume 10.4 fL (9.4-12.3); Monocytes Absolute Auto 0.5 X10*3/uL (0.1-1.2); Monocytes Percent Auto 5.8 % (2-11); Neutrophils Absolute Auto 5.5 x10*3/uL (2.0-8.3); Neutrophils Percent Auto 70.2 % (45-73); Platelet Count 296 X10*3/uL (160-400); Red Cell Distribution Width 14.1 % (11.0-16.0); White Blood Count 7.9 X10*3/uL (4.8-10.8)
[2024-12-01 13:52] LABS: Alanine Aminotransferase 14 U/L (0-31); Albumin Level 4.1 g/dL (3.5-5.0); Alkaline Phosphatase 77 U/L (39-117); Anion Gap 12 (12-20); Aspartate Amino Transferase 23 U/L (5-31); Bilirubin Total 0.4 mg/dL (0.0-1.0); Blood Urea Nitrogen 15 mg/dL (9-16); Carbon Dioxide 25 mmol/L (22-29); Chloride 107 mmol/L (96-108); Estimated Glomerular Filt Rate > 60; Glucose Random 159 mg/dL (60-115); Sodium 140 mmol/L (135-145); Total Protein 6.7 g/dL (6.5-8.0)
== END 2024-12-01 11:12 | disposition home or self-care (01) ==
LOC: HO.MANLDS 11:11
PROVIDERS: Visit Provider Physician Assistant
DX: E11.9 Type 2 diabetes mellitus without complications (principal)
CPT/HCPCS: 36415; 80053; 85025

== ENCOUNTER 2025-01-11 10:03 | Outpatient (AMB) | payer MEDICARE, OTHER, SELFPAY ==
--- NOTE | 2025-01-11 10:35 | A.OFFVIS_ITS ---
Intake Visit Reasons: 12w/Litholink Intake Note: Patient is present for 12 week/Litholink * 11/04 [facility] Completed Urology Medication:PYRDIUM Antibiotic Allergy:NONE Blood Thinner:NONE Timber Deadener Required: No Allergies acetaminophen [From PERCOCET] Allergy (Intermediate, Verified 01/11/25 10:36) NAUSEA & VOMITING codeine [CODEINE] Allergy (Unknown, Verified 01/11/25 10:36) RASH-VOMITING latex Allergy (Verified 01/11/25 10:36) Rash From PERCOCET Allergy (Intermediate, Uncoded 10/20/24 09:57) NAUSEA & VOMITING Medication List - Last Reconciled 01/11/25 by Yas Chapman MD atenolol 25 mg PO DAILY celecoxib 200 mg PO DAILY docusate sodium (Colace) 100 mg PO BID folic acid 1 mg PO DAILY glimepiride 2 mg PO DAILY lisinopril 10 mg PO DAILY metformin ER 750 mg PO BID methotrexate sodium 12.5 mg PO FR polyethylene glycol 3350 (Miralax) 17 grams PO DAILY PRN rosuvastatin 40 mg PO BEDTIME HPI Comments Details: 01/11/2025--Discussed 24 hour urine results collected:11/04/24 Total volume 900 mL, Calcium 169 mg; Oxalate 15 mg, Citrate 320 mg, Sodium 62. Instructed on importance of fluid intake. History of Present Illness - The patient is an 79-year-old female presenting with kidney stones. - Recently underwent ureteroscopy with laser lithotripsy on 10/13/24 for a distal ureteral stone. - Previous imaging on 10/12/24 identified small renal stones bilaterally. - 24-hour urine collection demonstrates suboptimal volume reflecting insufficient hydration (900 mL). - Slightly reduced urinary citrate levels, important in stone prevention. - Reports a longstanding pattern of low water consumption. Discussion Notes I discussed with the patient the results of the recent 24-hour urine collection, emphasizing the importance of increasing fluid intake to at least 48 ounces per day to improve hydration and prevent further stone formation. I adding lemon to her water as a means to naturally increase citrate levels. We reviewed previous CT findings and acknowledged the presence of small bilateral kidney stones that will require monitoring. I recommended a follow-up ultrasound in approximately 10 months to assess the status of these stones. Results - 24-hour urine collection: Low volume collection of 900 mL, slightly low urinary citrate. - Previous CT scan: Small bilateral renal stones, post ureteroscopy. 10/20/24--Evelia is an 79-year-old female presenting with the need for stent removal post-procedure. She underwent left ureteroscopy with laser lithotripsy on October 13, 2024, to treat a left distal ureteral stone. A CT scan post- procedure has revealed additional renal stones, including a 4 mm stone in the left upper pole and a 2 mm stone in the right kidney, suggesting bilateral nephrolithiasis. I discussed with the patient the finding of additional stones on her recent CT scan, including the 4 mm stone in the left kidney and the 2 mm stone in the righ t kidney. We covered managing these stones and the potential for a shockwave lithotripsy to address the 4 mm stone in the left kidney if necessary. We also discussed conducting a 24-hour urine collection to assess for any dietary causes contributing to stone formation, emphasizing the importance of maintaining a low-sodium diet and sufficient fluid intake (48 to 64 ounces daily). Consents for stent removal and future shockwave lithotripsy were thoroughly discussed, considering benefits, risks, and alternatives. Results - Imaging: CT scan showing a 4 mm stone in the left upper pole of the kidney and a 2 mm stone in the right kidney. 10/12/24--Mild to moderate left-sided hydronephrosis secondary to 6 mm stone in the midportion left ureter. Additional nephrolithiasis measures 4 mm in the upper pole of the left kidney. 2 mm nephrolithiasis of the lower pole of the right kidney no obstructing stone in the right kidney or imaged right ureter. [facility] Medical History Lyme disease Diabetes mellitus, type 2 Urinary tract infection Kidney stones Dizziness Hypercholesteremia Osteoporosis Foot fracture, right Breast cancer Surgical History Breast cancer, left breast S/P hip replacement Social History Household Members: None Housing: Condominium Are you a primary animal care supervisor to a significant other at home: No Do you presently have visiting nurse or other home services: No Patient Tobacco Use Status: Never used Tobacco service: No Review of Systems Const All systems reviewed & are unremarkable except as noted in HPI and below Reports no additional complaints Eyes Reports no additional complaints ENT Reports no additional complaints Card Reports no additional complaints Resp Reports no additional complaints GI Reports no additional complaints Reports as per HPI Musc Reports no additional complaints Skin/Breast Reports system reviewed and no additional complaints, except as documented Neuro Reports no additional complaints Psych Reports no additional complaints Endo Reports no additional complaints Dany/Lymph Reports no additional complaints Aller/Immun Reports no additional complaints Results Reviewed Results Reviewed: Date of Service: 10/12/24 CLINICAL HISTORY: L fLank pain CT abdomen and pelvis without contrast Comparison: X-rays of the left hip from 11/20/2016 Findings: Mild bibasilar atelectasis and scarring. Metal artifacts obscure of the majority of the pelvis including majority of the urinary bladder. Mild to moderate left-sided hydronephrosis secondary to 6 mm stone in the midportion left ureter. Additional nephrolithiasis measures 4 mm in the upper pole of the left kidney. 2 mm nephrolithiasis of the lower pole of the right kidney no obstructing stone in the right kidney or imaged right ureter. The adrenal glands are normal. The spleen is nonenlarged. Mild volume loss of the pancreas is noted. Gallbladder and liver are unremarkable for noncontrast CT. Calcified and noncalcified plaque involving the aorta and its branches. No enlarged lymphadenopathy. Small bilateral fat containing inguinal hernias, right larger than left. No small bowel obstruction. Severe stool burden, including the cecum. Imaged appendix is within normal limits. Uterus and adnexa are partly obscured but otherwise unremarkable. No definite hardware loosening of the hip arthroplasty hardware with multiple old sclerotic fragments particularly at left greater trochanter. Degenerative changes include pubic symphysis, SI joints, and spine, with multifocal facet arthropathy. IMPRESSION: 1. Mild-moderate left-sided hydroureteronephrosis secondary to 6 mm stone in the midportion of the left ureter. 2. Additional small bilateral nephrolithiasis noted Assessment & Plan Assessment & Plan (1) Bilateral kidney stones: Code(s): N20.0 - Calculus of kidney Category: Medical Plan Plan - Increase fluid intake to a minimum of 48 ounces per day. - Use lemon concentrate in water to enhance urinary citrate levels. - Plan a follow-up ultrasound in 10 months for stone evaluation. Orders: Orders US renal BI 10 Months N20.0 - Calculus of kidney Patient Instructions: The patient had an opportunity to ask questions regarding treatment plan. The patient expressed understanding and agreement with the above treatment plan. The patient is aware they should contact our office by phone for worsening of their current condition or the appearance of new symptoms. Compliance is encouraged with any medications and followup testing that is ordered. It is a privilege to be allowed the opportunity to participate in the urologic care of your patient. If you have any questions or concerns regarding treatment for the above conditions please do not hesitate to contact me. The office telephone contact is [phone]. This note is constructed in part using voice recognition software. While every effort has been made to ensure accuracy editor magazine errors may have been included. Yours sincerely, Yas Chapman MD Scribe Plan - Not visible on output: Patient was informed and verbally consented to the use of an ambient scribe for clinic note documentation during this visit. Coding Level of Care Code Est Pt Level 3 (39264) Complex EM visit Add On G2211 Diagnoses Bilateral kidney stones N20.0
--- OUTSIDE RECORDS SUMMARY | 2025-01-11 11:04 | XMS_ITS | Patient Health Record ---
Author Organization [facility] Address [address] [place] [address] Support Name Relationship Address Phone JAYLENBALDOMEROE Guarantor Unknown [phone] Reason For Referral No Information Medications Medication SIG (Take, Route, Fr equency, Duration) Notes Start Date End Date Status Multivitamins 1 ORAL daily for -3 [facility] 05/09/2012 Active 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 2.5MG 1 ORAL EVERY WEEK for -3 [facility] 2011 Active Folic Acid 1MG 1 ORAL 6X A WEEK for -3 [facility] 05/09/2012 Active Ecotrin 325MG 1 ORAL daily for -3 [facility] 05/09/2012 Active Atenolol 25MG 1 ORAL DAILY for -3 [facility] 05/09/2012 Active Problems Problem Type SNOMED Code ICD Code Onset Dates Problem Status W/U Status Risk Notes Problem Hyperlipidemia (35873046) Other and unspecified hyperlipidemia (272.4) Active confirmed Major Problem Obesity (049183979) Obesity, unspecified (278.00) Active confirmed Major Problem Rheumatoid arthritis (00144349) Rheumatoid arthritis (714.0) Active confirmed Major Problem Gynecological examination normal (894410056727400) Routine gynecological examination (V72.31) Active confirmed Diag Plan Of Treatment No Information Insurance Providers Payer Name Payer Address Payer Phone Subscriber Number Group Number Insured Name Patient Relationship to Insured Coverage Start Date Coverage End Date MEDICARE [address] [place], [place] [id number] RODNEY YORK Self - patient is the insured /[employer] [address] [place] [address] [id number] RODNEY YORK Self - patient is the insured
== END 2025-01-11 11:13 | disposition home or self-care (01) ==
LOC: HO.HUSH 10:04
PROVIDERS: PCP Internal Medicine; Visit Provider Urology
DX: N20.0 Calculus of kidney (principal); N30.01 Acute cystitis with hematuria
CPT/HCPCS: 99213; G2211

== ENCOUNTER → 2025-01-11 10:03 | Outpatient (BNVA) | payer MEDICARE, OTHER, SELFPAY | PROVIDERS: PCP Internal Medicine; Visit Provider Urology | DX: N20.0 Calculus of kidney (principal) | CPT/HCPCS: 81003; 99212 ==

== ENCOUNTER 2025-01-19 13:44 | Outpatient (REF) | payer MEDICARE, OTHER, SELFPAY ==
--- NOTE | 2025-01-19 13:51 | PFT_ITS ---
Indication: Dyspnea Spirometry FEV1 to FVC 83%; FEV1 1.78 L; FVC 2.14 L. No significant response to bronchodilators noted. Lung Volumes Total lung capacity 80% predicted Diffusion Capacity DLCO 79% predicted Comparisons None Interpretation No obstructive nor restrictive ventilatory defects identified. No significant response to bronchodilators noted. The patient does have a low normal total lung capacity therefore occult interstitial lung conditions or neuromuscular conditions can not be ruled out. The patient does have a very mild diffusion impairment that does correct to normal when corrected for the alveolar volume. Clinical correlation warranted. MTDD
[2025-01-19 14:32] VITALS: PULSE 54; O2SAT 99
--- OUTSIDE RECORDS SUMMARY | 2025-01-19 15:40 | XMS_ITS | Patient Health Record ---
Author Organization [facility] Address [address] [place] [address] Support Name Relationship Address Phone JAYLENBALDOMEROE Guarantor Unknown [phone] Reason For Referral No Information Medications Medication SIG (Take, Route, Fr equency, Duration) Notes Start Date End Date Status Multivitamins 1 ORAL daily for -3 [facility] [place]- 05/09/2012 Active 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 2.5MG 1 ORAL EVERY WEEK for -3 [facility] [place]-[facility]J 2011 Active Folic Acid 1MG 1 ORAL 6X A WEEK for -3 [facility] [place]- 05/09/2012 Active Ecotrin 325MG 1 ORAL daily for -3 [facility] [place]- 05/09/2012 Active Atenolol 25MG 1 ORAL DAILY for -3 [facility] [place]- 05/09/2012 Active Problems Problem Type SNOMED Code ICD Code Onset Dates Problem Status W/U Status Risk Notes Problem Hyperlipidemia (58484398) Other and unspecified hyperlipidemia (272.4) Active confirmed Major Problem Obesity, unspecified (278.00) Active confirmed Major Problem Rheumatoid arthritis (18918282) Rheumatoid arthritis (714.0) Active confirmed Major Problem Gynecological examination normal (755152463588148) Routine gynecological examination (V72.31) Active confirmed Diag Plan Of Treatment No Information Insurance Providers Payer Name Payer Address Payer Phone Subscriber Number Group Number Insured Name Patient Relationship to Insured Coverage Start Date Coverage End Date MEDICARE [address] [place] [id number] RODNEY YORK Self - patient is the insured /[employer] [address] [place] [address] [id number] RODNEY YORK Self - patient is the insured
== END 2025-01-19 13:45 | disposition home or self-care (01) ==
LOC: HO.RESP 13:44
PROVIDERS: PCP Internal Medicine; Visit Provider Physician Assistant
DX: R79.81 Abnormal blood-gas level (principal)
CPT/HCPCS: 94010; 94640; 94727; 94729

== ENCOUNTER → 2025-01-19 13:51 | Outpatient (BNV) | payer MEDICARE, OTHER, SELFPAY | PROVIDERS: PCP Internal Medicine; Visit Provider Hospitalist | DX: R06.00 Dyspnea, unspecified (principal) | CPT/HCPCS: 94060; 94727; 94729 ==

== ENCOUNTER 2025-01-30 08:30 | Outpatient (REF) | payer MEDICARE, OTHER, SELFPAY ==
--- NOTE | ~2025-01-30 | CT_ITS ---
CLINICAL HISTORY: Shortness of breath CT chest without IV contrast. COMPARISON: None provided. FINDINGS: Visualized thyroid is unremarkable. No supraclavicular or axillary lymphadenopathy. Surgical clips in the left axilla. Ascending aorta and main pulmonary artery are normal in caliber. No pericardial effusion. Coronary artery calcifications present within the LAD, RCA and circumflex. Aortic annular calcifications. Small hiatal hernia. No mediastinal lymphadenopathy. Visualized portions of the upper abdomen are unremarkable. No pleural effusion. Minimal linear atelectasis versus scarring along the posterior right lower lobe. Trachea and central airways are clear. No significant bronchial wall thickening. No bronchiectasis. Right lower lobe subpleural 5 mm pulmonary nodule (series 3, image 95). Right lower lobe subpleural 4 mm pulmonary nodule (series 3, image 89). Right lower lobe subpleural 7 mm pulmonary nodule (series 3, image 81) Left lower lobe subpleural 5 mm pulmonary nodule (series 3, image 84). Right upper lobe 2 mm pulmonary nodule (series 3, image 63) Right upper lobe 2 mm pulmonary micronodule (series 3, image 64). Visualized portions of the upper abdomen are unremarkable. Mild to moderate spondylosis. No acute fracture or suspicious bone lesion. Degenerative changes of the glenohumeral joints bilaterally. IMPRESSION: 1. Minimal linear atelectasis versus scarring within the right lower lobe. 2. Coronary artery atherosclerosis. Aortic annular calcifications. 3. Small hiatal hernia. 4. Bilateral pulmonary nodules measuring up to 7 mm in the right lower lobe. Recommend comparison with prior imaging if available. If none available, recommend short-term follow-up imaging in 3-6 months. This document has been electronically signed by: Fitz Merino MD on 02/02/2025 14:11:09
--- OUTSIDE RECORDS SUMMARY | 2025-01-30 08:33 | XMS_ITS | Patient Health Record ---
Author Organization [facility] Address [address] [place] [address] Support Name Relationship Address Phone RODNEY YORK Guarantor Unknown [phone] Reason For Referral No Information Medications Medication SIG (Take, Route, Fr equency, Duration) Notes Start Date End Date Status Multivitamins 1 ORAL daily; Duration: -3 Jyacob-MJ 2 Active 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 2.5MG 1 ORAL EVERY WEEK; Duration: -3 Ajycob-MJ 05/09/2012 Active Folic Acid 1MG 1 ORAL 6X A WEEK; Duration: -3 Jaycob-MJ 12/2011 Active Ecotrin 325MG 1 ORAL daily; Duration: -3 Jaycob-MJ 2 Active Atenolol 25MG 1 ORAL DAILY; Duration: -3 Jaycob-MJ 2 Active Problems Problem Type SNOMED Code ICD Code Onset Dates Problem Status W/U Status Risk Notes Problem Hyperlipidemia (45981385) Other and unspecified hyperlipidemia (272.4) Active confirmed Major Problem Obesity (376237905) Obesity, unspecified (278.00) Active confirmed Major Problem Rheumatoid arthritis (52897837) Rheumatoid arthritis (714.0) Active confirmed Major Problem Gynecological examination normal (414479458606819) Routine gynecological examination (V72.31) Active confirmed Diag Plan Of Treatment No Information Insurance Providers Payer Name Payer Address Payer Phone Subscriber Number Group Number Insured Name Patient Relationship to Insured Coverage Start Date Coverage End Date MEDICARE [address] [place] [id number] RODNEY YORK Self - patient is the insured /[employer] [address] [place] [id number] RODNEY YORK Self - patient is the insured
== END 2025-01-30 08:31 | disposition home or self-care (01) ==
LOC: HO.CT 08:30
PROVIDERS: PCP Internal Medicine; Visit Provider Physician Assistant
DX: R06.02 Shortness of breath (principal)
CPT/HCPCS: 71250

== ENCOUNTER → 2025-01-30 08:45 | Outpatient (BNV) | payer MEDICARE, OTHER, SELFPAY | PROVIDERS: PCP Internal Medicine; Visit Provider Radiology Diagnostic Radiology | DX: I25.10 Atherosclerotic heart disease of native coronary artery without angina pectoris (principal); K44.9 Diaphragmatic hernia without obstruction or gangrene; R91.8 Other nonspecific abnormal finding of lung field | CPT/HCPCS: 71250 ==

== ENCOUNTER → 2025-02-01 12:41 | Outpatient (REF) | payer MEDICARE, OTHER, SELFPAY ==
--- NOTE | 2025-02-01 12:44 | CA_ITS ---
Transthoracic Echocardiogram Patient (Last, First, Middle): Evelia Russell M Gender: Female Date of : 1945 Age: 79 Procedure Date: 02/01/2025 Procedure Type: Transthoracic Echocardiogram Location: OP Height: 165.1 cm Weight: 79.38 kg BSA: 1.87 m2 Heart Rate: bpm BP: 120 / 82 mmHg Cold Saw Operator: HUGO Referring MD: Debby BROWN [employer] Field Specialist: Carlos Garcia MD Symptoms: SHORTNESS OF BREATH Study Quality: Adequate ECG Rhythm: Sinus Conclusions: - 1. Normal LV ejection fraction of 65-70% with impaired relaxation filling pattern 2. 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 Normal RV systolic pressure 4. No gross pericardial effusion Findings Left Ventricle Normal left ventricular size, thickness, and systolic function. The visually estimated ejection fraction is between 65-70%. Spectral Doppler is indicative of an impaired relaxation filling pattern. E/E prime ratio is between 8 and 15 consistent with indeterminate filling pressures. Right Ventricle Normal right ventricular cavity size and systolic function. Atria The left atrium is normal in size. There is no evidence of interatrial shunt. The right atrium was not well visualized. Aortic Valve There is mild calcification of the aortic valve. There is no aortic valve stenosis. There is trace (trivial) aortic valve regurgitation. Mitral Valve Likely normal mitral valve structure and function. There is no mitral valve regurgitation. There is no mitral valve stenosis. Pulmonic Valve The pulmonic valve was not well visualized. Tricuspid Valve Likely normal tricuspid valve structure and function. There is trace tricuspid valve regurgitation. The right ventricular systolic pressure is normal. The right ventricular systolic pressure is 26 mmHg. Normal right atrial pressure. There is no evidence of pulmonary hypertension. Great Vessels All visible segments of the aorta are normal in size. The pulmonary artery was not well visualized. There is no dilatation of the ascending aorta measuring 3.30 cm. Venous The inferior vena cava is normal in size and collapses greater than 50% with inspiration. Pericardium/Pleural There is no evidence of pericardial effusion. Prior Study Comparison No prior study available for comparison. Measurements 2D Linear Measurements IVSd: 1.19 0.6-0.9/0.6-1.0 cm LVIDd: 3.09 3.9-5.3/4.2-5.9 cm LVIDd Index: 1.65 2.4-3.2/2.2-3.1 cm/m2 LVIDs: 1.91 2.0-3.6 cm LVPWd: 0.93 0.7-1.1 cm LA Diam: 3.20 2.7-3.8/3.0-4.0 cm LAIDs Index: 1.71 1.5-2.3 cm/m2 LV Mass: 116.56 67-162/88-224 g LV Mass Index: 62.33 43-95/49-115 g/m2 LVOT Diam: 2.00 3.0+(-)1.3 cm 2D Systolic Function EF 4C: 69.00 >55% EF 2C: 71.70 >55% EF BiP: 70.60 >55% Mitral Valve MV Pk E: 0.78 MV PK A: 0.85 MV Decel Time: 322.00 E/A: 0.90 E'Lateral: 8.16 E'Medial: 7.51 E/E' Med: 10.40 E/E' Lat: 9.60 PHT: 94.00 MVA PHT: 2.34 Decel Mora: 2.42 Aortic Valve AoV Pk Bhavik: 1.96 AoV Mn Bhavik: 1.38 AoV VTI: 0.45 AoV Pk Grad: 15.00 Aov Mn Grad: 9.00 JONO Cont.VTI: 2.24 LVOT LVOT Pk Bhavik: 1.56 LVOT Mn Bhavik: 1.11 LVOT VTI: 0.32 LVOT Pk Grad: 10.00 LVOT Mn Grad: 6.00 LVOT Diam: 2.00 LVOT Area: 3.14 Diastolic Function MV Pk E: 0.78 MV Pk A: 0.85 E/A: 0.90 E'Medial: 7.51 E/E' Med: 10.40 E' Laterial: 8.16 E/E' Lat: 9.60 Right Ventricle TAPSE (mm): 25.20 TVS' Bhavik: 12.80 Tricuspid Valve TR Pk Bhavik: 2.38 TR Pk Grad: 23.00 RA Press: 3.00 RVSP: 26.00 Great Vessels Aorta Sinus of Valsalva: 3.48 2.0-3.5 cm Ao Asc: 3.30 2.1-3.4 cm Updated in Other Vendor System with Status of Final Carlos Garcia MD electronically signed on 02/01/2025 3:56:19 PM with status of Final
--- OUTSIDE RECORDS SUMMARY | 2025-02-01 13:07 | XMS_ITS | Continuity of Care Document ---
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 Medication Details Route Status Patient Instructions Prescription Expires Prescription Number Last Dispense Date Ordering Provider Order Date Order Qty Source ATENOLOL (ATENOLOL), 25 MG, TABLET, ORAL, [employer] 1000 ea. BOTTLE Active [id number] 4 2023 90 Pharmac y Data Transac tion Service Facilit y CEFADROXIL (CEFADROXIL ), 500 MG, CAPSULE, ORAL, [employer] [place], 100 ea. BOTTLE Active [id number] 4 2023 19 Pharmac y Data Transac tion Service Facilit y MUPIROCIN (MUPIROCIN) , 2%, OINT.(GM), TOPICAL, [employer] 22 g TUBE Active [id number] 4 2023 22 Pharmac y Data Transac tion Service Facilit y ONDANSETRON ODT (ONDANSETRO N), 4MG, TAB RAPDIS, ORAL, [employer], 30 ea. BLIST PACK Active [id number] 4 2023 20 Pharmac y Data Transac tion Service Facilit y OXYCODONE HCL (OXYCODONE HCL), 5MG, TABLET, ORAL, [employer], 100 ea. BOTTLE Cancele d [id number] : 2023 0 Pharmac y Data Transac tion Service Facilit y ROSUVASTATI N CALCIUM (rosuvastat in calcium), 40 MG, TABLET, ORAL, [employer] 1000 ea. BOTTLE Active [id number] 4 2023 90 Pharmac y Data Transac tion Service Facilit y Immunizations Combined list of available immunizations from the Department of Defense and Veterans Affairs facilities. Immunization Series Date Given Administered By Site Reaction Lot Number CVX Code Drug Tapper Bit Status Comments Source COVID-19, mRNA, LNP-S, PF, 30 mcg/0.3 mL dose 2020 [employer] (PFR) Not Given COVID-19, mRNA, LNP-S, PF, 30 mcg/0.3 mL dose DoD influenza, high-dose, quadrivalent 2020 BOGDASARIAN, () Not Given influenza , high-dose , quadrival ent DoD influenza, high-dose, quadrivalent 2019 BOGDASARIAN, () Not Given influenza , high-dose , quadrival ent DoD Influenza, high dose seasonal 2018 Kiet KATZ () Not Given Influenza , high dose seasonal DoD pneumococcal polysaccharid e PPV23 2017 Kiet KATZ () Not Given pneumococ ramy polysacch aride PPV23 [facility] Influenza, high dose seasonal 2015 LEONARDA BLUE () Not Given Influenza , high dose seasonal DoD Pneumococcal conjugate PCV 13 2014 LEONARDA BLUE () Not Given Pneumococ ramy conjugate PCV 13 [facility] Social History Combined list of available smoking, tobacco, and other social history from Department of Defense and Veterans Affairs facilities. Social History Type Response Date Comment Sour e This section is an empty social history section. [facility]
--- OUTSIDE RECORDS SUMMARY | 2025-02-01 13:08 | XMS_ITS | Data Portability ---
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) : MDM LOW MUST MEET 2 OF [...] Time Details Appointments FOLLOW UP 15 2024 09:30A M KEVIN COY Not available Not available Not available MEDICARE ANNUAL WELLNESS 2025 09:00A M KEVIN COY Not available Not available Not available Lab hemoglobi n A1c, QN, blood 2024 025 [facility] [address], [address], 12/07/2024 09:45:09 CMP, serum or plasma 2024 025 [facility] [address], [address], 12/07/2024 09:45:09 CBC w/ auto diff 2024 025 [facility] [address], [address], 12/07/2024 09:45:09 lipid panel, serum 2024 [facility] [address], [place], [address], 12/07/2024 09:45:09 Referral None recorded. Procedures None recorded. Surgeries None recorded. Imaging PFT, complete 2024 [facility], [address] [place], [address], 12/21/2024 08:09:53 Medication Orders trazodone 50 mg tablet 2024 [id number], [address], [place], [id number], 12/07/2024 09:47:09 Patient TargetsNo targets recorded. Patient Instructions Encounter Date Encounter Id Patient Instructions Last Modified By Organization Details Last Modified Time 01/29/2024 [id number] knee arthritis: care instructions Not available 01/29/2024 14:12:23 09/07/2024 [id number] advance care planning: care instructions [email or web address] Not available 09/07/2024 09:05:22 Discussed and explained advance directives such as standard forms to the patient. Face to face discussion lasted for a duration of 30 minutes. [email or web address] Not available 09/07/2024 09:07:49 Reason for Referral None Reported. Results Created Date Observation Date Name Description Value Unit Range Abnormal Flag Note LastModifiedBy Organization Detail LastModifiedTime 09/23/1909/15/2024 MAMMO , scree liza, digit al, bilat eral No observ ation record ed. [facility] [address] [place] [address] [place], [address], 12/07/2024 09:56:53 10/13/19 25 10/12/2024 CT, abdom en + pelvi s, w/o contr ast No observ ation record ed. [facility] (Medical Records) [address] [facility], [place], [address], 12/07/2024 09:56:53 10/14/19 25 10/13/2024 fluor oscop ic lis nce for needl e place ment (PROC ) No observ ation record ed. [facility] (Medical Records) [address] [place], [address], 12/07/2024 09:56:52 01/21/20 25 01/19/2025 PFT, compl ete No observ ation record ed. [facility] (Medical Records) [address] [place], [address], 01/20/2025 13:41:38 Result Notes None recorded. Problems Name Problem SNOMED Code Status Onset Date Resolution Date Notes Provider Name and Address Organization Details Recorded Time Hypertri glycerid emia 727586653 Active 2017 Not Available [facility] 4 17:49:00 Low back pain 742564901 Active 2021 Not Available [facility] 4 17:49:00 Osteoart hritis of knee 923900650 Active 2021 Not Available [facility] 4 17:49:00 Overweig ht 589719145 Active 2021 Not Available [facility] 4 17:49:00 Microalb uminuria 499207212 Active 2021 Not Available [facility] 4 17:49:00 Hypercal cemia 11571233 Active 2021 Not Available [facility] 4 17:49:01 Carotid artery stenosis 47906523 Active 2022 Not Available [facility] 4 17:49:01 Carotid artery stenosis 76680080 Active 2022 Not Available [facility] 4 17:49:01 Type 2 diabetes mellitus 47252758 Active 2022 Not Available [facility] 4 17:49:01 Cellulit is of lower limb 431941805 Active 2022 Not Available [facility] 4 17:49:01 Osteoart hritis of shoulder region 05067246 Active 2022 Not Available [facility] 4 17:49:01 Osteoart hritis of left hip joint 6490789314 45386 Active 2022 [facility] Available [facility] 4 17:49:00 Disorder of bone 34975143 Active 2022 Not Available [facility] 4 17:49:01 Vertigo 301686482 Active 2022 Not Available [facility] 4 17:49:01 Posterio r rhinorrh ea 78799674 Active 2023 KEVIN COY [address] [place], [address], [facility] 4 10:33:06 Edema of lower extremit y 579915079 Active 2023 KEVIN COY [address] [place], [address], [facility] 4 10:36:12 Cough 97578036 Active 2023 KEVIN COY [address] [place], [address], [facility] 4 12:15:25 Total replacem ent of hip Active 2023 R KEVIN COY [address] [place], [address], [facility] 4 10:17:40 Primary insomnia 7560952 Active 2024 KEVIN COY [address] [place], [address], [facility] 5 09:44:50 Oxygen saturati on below referenc e range 192168647 Active 2024 KEVIN COY [address] [place], [address], [facility] 5 09:46:18 Kidney stone 70647218 Active 2024 KEVIN COY [address] [place], [address], [facility] 5 09:47:20 Dyspnea 784629521 Active 2024 KEVIN COY [address] [place], [address], [facility] 5 13:42:22 [facility] hyperten chris 21320794 Active 2017 Not Available [facility] 4 17:49:01 Disorder of breast 72885384 Active 2017 Breast cancer 2000, lumpecto my, XRT Left THR 2014 Not Available [facility] 4 17:49:01 Rheumato id arthrimartina s 70958385 Active 2017 Dr. Nixon bryan Not Available [facility] 4 17:49:01 Lyme disease 22974220 Active 2017 Not Available [facility] 4 17:49:00 Osteopor osis 38721445 Active 2017 Not Available [facility] 4 17:49:01 Hemorrho ids 24686833 Active 2017 Not Available [facility] 4 17:49:01 Impaired fasting glycemia 723712629 Completed 201702/12/2018November DIMPLE Mascorro [address] [place], [address], [facility] 8 09:22:42 Problem Notes None recorded. Procedures Surgical History Date Name Laterality Status Provider Name and Address Organization Details Recorded Time 024 Corticosteroid Injection completed Gary Mcfadden DO [address] [place] [address], [address], [facility] 01/29/2024 14:11:37 024 Corticosteroid Injection completed Gary Mcfadden DO [address] [place], [address], [facility] 10/01/2023 15:44:04 023 Corticosteroid Injection completed Gary Mcfadden DO [address] [place], [address], [facility] 05/22/2023 14:43:19 023 Corticosteroid Injection completed Gary Mcfadden [address] [place], [address], [facility] 01/02/2023 17:04:01 023 Corticosteroid Injection completed Gary McfaddenDO [address] [place], [address], [facility] 10/24/2022 14:24:12 023 Corticosteroid Injection completed Gary McfaddenDO [address] [place] [address], [address], [facility] 09/11/2022 12:15:39 022 Corticosteroid Injection completed Gary BarillasBetsy LesaDO [address] [place] [address], [address], [facility] 12/08/2021 12:37:09 021 Corticosteroid Injection completed Gary Mcfadden [address] [place] [address], [address], [facility] 07/25/2021 09:35:46 021 Corticosteroid Injection completed Gary Mcfadden [address] [place] [address], [address], [facility] 02/13/2021 15:45:24 018 Most Recent Mammogram completed Radha Zimmerman [facility] 09/09/2018 13:49:25 Imaging Results None recorded. Procedure Notes None recorded. Medical Equipment None Reported. Allergies Allergen ID Allergen Name Allergen Category Reaction Reaction Severity Criticality Documentation Date Start Date Code Code System Note Provider Name and Address Organization Details Recorded Time 2663 duloxetin e medicatio n nausea Not available Not available 04/01/2023 60143 RxNorm KEVIN COY [address] [place], [address], [facility] 09:04:05 7431 Latex (substanc e) environme nt,medica tion Not available Not available Not available 06/04/2023 81729 8007 SNOMED Julianne Pollackult [facility], [facility] 3 14:15:23 8111 oxycodone medicatio n Not available Not available Not available 01/20/2024 7804 RxNorm nause a, chest pain KEVIN COY [address] [place], [address], [facility] 4 10:06:05 Medications Name Sig Start Date Stop Date Status Note LastModified by Organization Details LastModified Time celecoxib 200 mg capsule TAKE 1 CAPSULE DAILY active Not Available Not Available No t Available amoxicillin 500 mg capsule TAKE 4 CAPSULES BY MOUTH DIRECTED 30 MINUTES TO 1 HOUR PRIOR TO ANY DENTAL PROCEDURE active Not Available Not Available No t Available atorvastati n 80 mg tablet TAKE [...] completed Not Available Not Available Not Available trazodone 50 mg tablet TAKE 1 TABLET BY MOUTH EVERY DAY AT BEDTIME FOR 14 DAYS FOR INSOMNIA active Not Available Not Available No t Available azithromyci n 250 mg tablet TAKE 2 TABLETS (500 MG) BY ORAL ROUTE ONCE DAILY FOR 1 DAY THEN 1 TABLET (250 MG) BY ORAL ROUTE ONCE DAILY FOR 4 DAYS 03/25 completed Not Available Not Available Not Available benzonatate 200 mg capsule TAKE 1 CAPSULE BY MOUTH THREE TIMES DAILY FOR 7 DAYS NEEDED 12/07 completed Not Available Not Available Not Available [...] Not Available phenazopyri dine 100 mg tablet 12/07 completed Not Available Not Available Not Available baclofen 10 mg tablet TAKE 1 TABLET BY MOUTH THREE TIMES DAILY FOR 14 DAYS NEEDED 12/07 completed Not Available Not Available Not Available cephalexin 500 mg capsule TAKE 1 [...] Not Available cefuroxime axetil 500 mg tablet 12/07 completed Not Available Not Available Not Available [...] Available Not Available Not Available amoxicillin 500 mg-tobiasiu m clavulanate 125 mg tablet TAKE 1 [...] Not Available Vitals Date Recorded Body height Body mass index (BMI) Body weight Heart rate Oxygen saturation Oxygen saturation in Arterial blood by Pulse oximetry Systolic blood pressure Diastolic blood pressure Provider Name and Address Organization Details Last Updated DateTime 5 163.83 cm 29.9 kg/m2 33106.4 9 g 61 /min 95 % 95 % 134 mm[Hg] 74 mm[Hg] Emani Julio [facility] 5 08:56:09 Date Recorded Body height Body mass index (BMI) Body weight Heart rate Oxygen saturation Oxygen saturation in Arterial blood by Pulse oximetry Systolic blood pressure Diastolic blood pressure Provider Name and Address Organization Details Last Updated DateTime 5 163.83 cm 29.8 kg/m2 30753.4 1 g 61 /min 91 % 91 % 138 mm[Hg] 80 mm[Hg] Emani Julio [facility] 5 09:35:14 Date Recorded Body height Body mass index (BMI) Body weight Heart rate Oxygen saturation Oxygen saturation in Arterial blood by Pulse oximetry Systolic blood pressure Diastolic blood pressure Provider Name and Address Organization Details Last Updated DateTime 4 163.83 cm 29.9 kg/m2 76941.8 5 g 55 /min 95 % 95 % 142 mm[Hg] 80 mm[Hg] Ольга Jeffers [facility] 4 10:00:05 Date Recorded Body height Body mass index (BMI) Body weight Heart rate Oxygen saturation Oxygen saturation in Arterial blood by Pulse oximetry Systolic blood pressure Diastolic blood pressure Provider Name and Address Organization Details Last Updated DateTime 4 163.83 cm 30.2 kg/m2 43199.9 6 g 54 /min 98 % 98 % 124 mm[Hg] 78 mm[Hg] Emani Julio [facility] 4 10:26:51 Social History Question Answer Notes LastModified by Organizat ion Details LastModified Time Tobacco Smoking Status Never Smoker Radha Zimmerman emmett [facility] 12/06/2017 11:10:37 What Was The Date Of Your Most Recent Tobacco Screening? 12/07/2024 [email or web address] Information not available 12/07/2024 Sex: Unknown Functional Status Question Answer Note LastModified by Organization D etails LastModified Time Do you or have you ever used any other forms of tobacco or nicotine? No [email or web address] Information not available 12/19/2022 Mental Status None recorded. Family History Relationship [...] virus, quadrivalent, preservative 8 completed Not Available [facility] 08/07/2023 17:49:02 COVID-19, mRNA, LNP-S, PF, 30 mcg/0.3 mL dose 2 completed Not Available [facility] 08/07/2023 17:49:02 Influenza, split virus, quadrivalent, preservative 2 completed Not Available [facility] 08/07/2023 17:49:02 SARS-COV-2 (COVID-19) vaccine, UNSPECIFIED 3 completed Not Available [facility] 08/07/2023 17:49:02 SARS-COV-2 (COVID-19) vaccine, UNSPECIFIED 4 completed Emani christine [facility] 05/25/2024 10:25:28 Tdap 5 completed Not Available [facility] 08/07/2023 17:49:03 pneumococcal polysaccharide PPV23 5 completed Not Available [facility] 08/07/2023 17:49:03 Pneumococcal conjugate PCV 13 7 completed Not Available [facility] 08/07/2023 17:49:03 Influenza, split virus, quadrivalent, preservative 9 completed Not Available [facility] 08/07/2023 17:49:01 pneumococcal polysaccharide PPV23 8 completed Not Available [facility] 08/07/2023 17:49:03 COVID-19 vaccine, vector-nr, rS-ChAdOx1, PF, 0.5 mL 1 completed Not Available [facility] 08/07/2023 17:49:02 COVID-19 vaccine, vector-nr, rS-ChAdOx1, PF, 0.5 mL 1 completed Not Available [facility] 08/07/2023 17:49:02 Past Encounters Encounter ID Performer Location Encounter Start Date Encounter Closed Date Diagnosis/Indication Diagnosis SNOMED-CT Code Diagnosis ICD10 Code Diagnosis Note [id number] Gary Mcfadden [facility] [address] [place] [address],[place] [address] 12/06/2017 10:58:12 12/06/2017 15:55:32 Pneumonia 152662594 J18.9 Please take prescribed or OTC medication [...] defer and treat empiricall y Essential hypertension 52911321 I10 slightly elevated today, though like fever related, will check at f/u next week [id number] Gary Mcfadden DO [facility] [address],[place] [address] 12/13/2017 09:19:31 12/13/2017 10:36:58 Pneumonia 336766970 J18.9 sx all resolved except minor cough at this point Essential hypertension 29977399 I10 BP greatly improved after resolution of fever stable on current regimen Diabetes mellitus 160023 09 E11.9 consistent ly stable a1c, with good diet, and exercise lipids at goal as well [id number] Gary Mcfadden [facility] [address],[place] [address] 01/17/2018 14:59:45 01/17/2018 15:52:11 Acute sinusitis 63442186 J01.90 fluids, rinses, flonase if needed Essential hypertension 49260528 I10 stable [id number] Gary Mcfadden [facility] [address], [address] [facility] [place] [address] 03/25/2018 08:51:05 03/25/2018 12:04:25 Essential hypertension 04350585 I10 not quite at goal, will increase lisinopril from 2.5 to 5 mg daily Diabetes mellitus 572672 09 E11.9 consistent ly stable a1c, with good diet, and exercise lipids at goal as well Hypertriglyceridemia 302 753330 E78.2 elevated trig diet/exerc ise/wt loss discussed [id number] Gary Mcfadden [facility] [address], [facility] [facility] [address] 06/24/2018 09:47:54 06/24/2018 10:51:06 Essential hypertension 22094231 I10 accidental ly taking 2 of atenolol instead of 2 of lisinopril she will take atenolol 25 qd and lisinopril 5 mg qd bp at goal today Diabetes mellitus 060821 09 E11.9 consistent ly stable a1c, with good diet, and exercise lipids at goal as well Hypertriglyceridemia 302 744926 E78.2 elevated trig diet/exerc ise/wt loss discussed Body mass index 30+ - obesity 946314299 Z68.32 continue healthy diet and exercise Palpitations 30882996 R0 0.2 ? 2/2 bradycardi a? will d/c 50 atenolol and restart 25 of atenolol and assess sx. if persisting or if new sx develop f/u luz [id number] Gary Mcfadden [facility] [address] [facility] [address] [address] 09/10/2018 09:04:35 09/10/2018 10:18:01 Adult health examination 692230959 Z00.00 had derm annual exam medicare wellness visit complete Screening for cardiovascular system disease 556139450 Z13.6 labs complete LDL mildly elevated trigs elevated healthy diet encouraged will trial change from atorvastat in to rosuvastat in to attempt to reach LDL goals Screening mammography 24 584407 Z12.31 done 2019 Essential hypertension 84481262 I10 bp nearly at goal Diabetes mellitus 396211 09 E11.9 consistent ly stable a1c, on metformin with good diet, and exercise foot exam next visit Hypertriglyceridemia 302 104003 E78.2 trigs remain elevated LDL mildly above goal plan as stated above Body mass index 30+ - obesity 110568136 Z68.32 continue healthy diet and exercise Palpitations 39725944 R0 0.2 palps resolved Heartburn 99904714 R12 more likely explanatio n for her sx though if chest pain/back pain persists despite treatement f/u Chest pain 30074686 R07. 9 ACS unlikely in setting of totally normal EKG advised taht if chest pain persists we will pursue further cardiac work up Osteoporosis 46043828 M8 1.0 [place] [id number] DO [facility] [address],[place] [address] 03/09/2019 08:54:24 03/09/2019 09:36:30 Essential hypertension 76543350 I10 stable Diabetes mellitus 485359 09 E11.9 consistent ly stable a1c, with good diet, and exercise lipids at goal as well dm eye exam scheduled for next month meds reviewed Hypertriglyceridemia 302 826380 E78.2 elevated trig diet/exerc ise/wt loss discussed Body mass index 30+ - obesity 412963975 Z68.32 continue healthy diet and exercise Palpitations 27003762 R0 0.2 resolved with proper bp medication s Heartburn 95295414 R12 resolved no longer taking zantac [id number] DO [facility] [address],[place] [address] 09/07/2019 08:50:34 09/07/2019 09:27:12 Screening for cardiovascular system disease 115332311 Z13.6 labs complete LDL mildly elevated trigs elevated healthy diet encouraged will trial change from atorvastat in to rosuvastat in to attempt to reach LDL goals Diabetes mellitus 956725 09 E11.9 go back on metformin BID rather than QD Essential hypertension 69363119 I10 stable Headache 05321318 R51 stable, treated with tylenol vs excedrin tension Difficulty sleeping 3013 31637 Z72.820 take tylenol pm occasional ly, advised it can become habit forming, but not likely if used sparingly [id number] Gary Mcfadden DO [facility] [address],[place] [address] 12/08/2019 08:50:47 12/08/2019 10:04:23 Diabetes mellitus 70502158 E11.9 the patient is doing well, no concerns no numbness or tingling in the feet no loss of propriocep tion or balance will check her HbA1c to see what her level is at Essential hypertension 74874459 I10 BP 120/76 excellent control [id number] Gary Mcfadden DO [facility] [address],[place] [address] 03/08/2020 08:54:15 03/08/2020 10:16:49 Essential hypertension 01054756 I10 BP 126/62 today the patient is well controlled on medication Diabetes mellitus 503792 09 E11.9 the patient is doing well, no concerns no numbness or tingling in the feet no loss of propriocep tion or balance will check her HbA1c to see what her level is at Hypertriglyceridemia 302 901810 E78.1 will check lipid panel again [id number] Gary Mcfadden DO [facility] [address] [facility],[place] [address] 04/20/2020 09:54:08 04/20/2020 10:32:45 Cellulitis of toe of right foot 3335030416 1703078 L03.031 not finished by cephalexin will change to doxy for poss resist and rechk in 10 days [id number] Gary Mcfadden [facility] [address] [address] 05/02/2020 11:20:31 05/02/2020 12:08:55 Essential hypertension 48303505 I10 Diabetes mellitus 319441 09 E11.9 Cellulitis of toe of right foot 9674448865 5246888 L03.031 resolved and doing well [id number] Gary Mcfadden [facility] [address],[place] [facility] [address] 06/21/2020 10:24:54 06/21/2020 11:20:07 Type 2 diabetes mellitus 86388232 E11.9 will check A1c Adult heal th examination 113583766 Z00.00 will fu in one month for BP Essential hypertension 84854608 I10 BP elevated will increase to 5 mg to 10 mg of lisinopril [id number] Gary Mcfadden [facility] [address], ite [facility] [place] [address] 07/22/2020 10:22:13 07/22/2020 11:34:58 Essential hypertension 58891278 I10 BP much improved on increased lisinopril dosage Diabetes mellitus 515800 E11.9 the patient is doing well, no concerns no numbness or tingling in the feet no loss of propriocep tion or balance [id number] Gary Mcfadden [facility] [address], [address] [facility] [place] [address] 11/02/2020 09:51:44 11/02/2020 15:02:04 Essential hypertension 06243295 I10 BP much improved on increased lisinopril dosage Acute low back pain 2788 50531 M54.5 will trial a low dose MSK relaxer and see if improvemen t patient is told to rest her back as well Diabetes mellitus 780486 09 E11.9 the patient is doing well, no concerns no numbness or tingling in the feet no loss of propriocep tion or balance A1c is down to 6.9 which is excellent [id number] Gary Mcfadden [facility] [address],[place] [address] [facility] [place] [address] 01/25/2021 09:52:00 01/25/2021 12:09:58 Osteoarthritis of knee 659964690 M17.0 L>Rset up with a cortisone injection with MB Diabetes mellitus 656423 09 E11.9 mild increase in neuropathy A1c is upwill work on exercise when her knee feels better Essential hypertension 08635280 I10 BP much improved on increased lisinopril dosage [id number] Gary Mcfadden [facility] [address] [facility] [address] [address] 02/13/2021 14:53:54 02/13/2021 16:48:51 Osteoarthritis of left knee joint 7516168884 93189 M17.12 [place] [id number] Gary Mcfadden [facility] [address] [facility] [address] [address] 04/24/2021 08:27:26 04/25/2021 11:57:09 Diabetes mellitus 23309525 E11.9 A1c is downdoing excellent with diet and exercise [id number] Gary Mcfadden [facility] [address] [facility] [address] [facility] [address] 07/25/2021 09:04:12 07/25/2021 11:09:29 Osteoarthritis of right knee joint 4604227159 07133 M17.11 [place] [id number] Gary Mcfadden [facility] [facility] [address] [facility] [address] [address] 08/15/2021 08:09:04 08/15/2021 17:23:48 Diabetes mellitus 33444274 E11.9 A1c is downdoing excellent with diet and exercise Essential hypertension 63591663 I10 BP much improved on increased lisinopril dosage Hypertriglyceridemia 302 071698 E78.1 will check lipid panel again Osteoporosis 95459334 M8 1.0 stable, sees arthritis clinic Rheumatoid arthritis 698 22332 M06.89 seeing arthritis clinic Vertigo [id number] R42 will fu with work up to r/o [id number] Gary Mcfadden [facility] [address] [facility] [address] [address] 11/14/2021 09:18:16 11/15/2021 10:00:16 Hypertriglyceridemia 777075076 E78.1 will check lipid panel again Essential hypertension 07768791 I10 BP much improved on increased lisinopril dosage Diabetes mellitus 548650 09 E11.9 A1c is downdoing excellent with diet and exercise Low back pain 772670332 M54.59 acute flare up of her low backwill give a refill of MSK relaxer Osteoarthr itis of knee 174925110 M17.0 will have her fu with MB for cortisone inj in the right knee [id number] Gary Mcfadden DO [facility] [address] [facility] [address] [address] 12/08/2021 12:05:43 12/08/2021 12:47:42 Osteoarthritis of knee 257728339 M17.0 [place] 93578 EDON HERNANDEZ [facility] [address] [facility] [address] [address] 03/20/2022 11:06:26 03/20/2022 13:44:40 Hypertriglyceridemia 289590814 E78.1 stable, add fish oil Essential hypertension 09676591 I10 stable at home Diabetes mellitus 333191 09 E11.9 A1c is downdoing excellent with diet and exercise Overweight 614350685 E66 .3 will fu with nutritioni st referral [id number] Gary Mcfadden [facility] [address] [facility],[place] [address] 06/18/2022 09:04:12 06/18/2022 09:50:39 Diabetes mellitus 29096085 E11.9 will need to add labs they didn't do all of it for me at prior appts Microalbuminuria 0828832 06 R80.8 will recheck labsprobab ly a combinatio n T2DM, being a methotrexa te user and being 77 y/o, probably related to mild kidney dysfunctio n Hypercalcemia 79143944 E 83.52 will recheck levels from prior assessment at rheum Overweight 642311452 E66 .3 will f/u with nutritioni st referral 01779 Gary Mcfadden [facility] [address] [facility] [address] [address] 09/11/2022 11:37:16 09/11/2022 16:02:49 Osteoarthritis of knee 107521626 M17.0 [place] [address] Gary Mcfadden [facility] [address] [facility] [address] [address] 09/12/2022 11:09:02 09/12/2022 15:11:47 Diabetes mellitus 22665598 E11.9 agreed to starting on glipizide for better sugar control with elevated A1c Carotid ar alex stenosis 20322133 I65.21 will recheck in another yearwas between 0-49% Essential hypertension 93622440 I10 stable at home and here 99454 Gary Mcfadden [facility] [address] [facility] [address] [facility] [place] [address] 10/24/2022 14:04:11 10/24/2022 16:05:05 Rheumatoid arthritis 67759925 M06.89 Osteoarthr itis of shoulder region 32257298 M19.019 shakira inj well tolerated 75253 Gary Mcfadden [facility] [address] [facility] [address] [address] 12/19/2022 09:20:11 12/19/2022 10:11:53 Type 2 diabetes mellitus 46031912 E11.9 will check A1c Essential hypertension 96707601 I10 stable at home and here Osteoarthr itis of left hip joint 5073880220 52309 M16.12 will set up with previous ortho Dr. Sparrow Low back pain 895805886 M54.59 stableit's her hip that's causing complicati on Disorder of bone 8179456 3 M89.762 left hipwill fu with Dr. Sparrow 400[address] Gary Mcfadden [facility] [address] [facility] [address] [address] 01/02/2023 16:23:51 01/04/2023 14:04:10 Osteoarthritis of knee 326540397 M17.0 [place] [id number] Gary Mcfadden [facility] [address] [facility] [address] [place] [place] [facility] [place] [address] 04/01/2023 08:34:59 04/01/2023 15:53:08 Essential hypertension 65668395 I10 stable at home and here Hypercalcemia 83479882 E 83.52 elevated againprevi ous checks were normal with PTH Hypertriglyceridemia 302 162322 E78.1 stable, add fish oil Rheumatoid arthritis 698 47751 M06.89 stable Type 2 haris betes mellitus 09023000 E11.9 level is excellent Disorder of bone 7933774 3 M89.762 has hip surgery 07/[address] Levy Moore [address]134 Gary Mcfadden [facility] [address] [facility], [address] [facility] [place] [address] 05/22/2023 14:22:32 05/22/2023 15:29:01 Osteoarthritis of knee 242931330 M17.0 [place] 87685 Gary Mcfadden [facility] [address], [place] [address] 06/04/2023 14:03:21 06/04/2023 14:57:43 Vertigo 550922275 R42 will trial medrol if no effective other options are valium, HTCZ insteadhol d on vestibular rehab referral for now Pre-surger y evaluation 652549595 Z01.818 The patient was seen in the office today for pre-op evaluation . All medical conditions on patient's problem list were addressed and are currently stable, no interventi on needed at this time. Based on history and physical performed, the patient is cleared for surgery. [id number] Gary Mcfadden [facility] [address] [facility],[place] [address] 10/01/2023 15:07:23 10/02/2023 15:26:36 Osteoarthritis of knee 022819352 M17.0 well baltazar inj [id number] Gary Mcfadden [facility] [address] [facility], [place] [address] 09/30/2023 10:18:18 10/01/2023 10:51:36 Posterior rhinorrhea 00432496 R09.82 start on nasal spraywill let me know if her ears are still having issues Edema of l ower extremity 362661562 R60.0 possibly just vascular incompeten camryn set up with lab work Type 2 haris betes mellitus 07854333 E11.9 level is excellent Hypercalcemia 83897970 E 83.52 elevated againprevi ous checks were normal with PTH Rheumatoid arthritis 698 86855 M06.89 stable [id number] Gary Mcfadden [facility] [address] [facility],[place] [address] 10/25/2023 09:23:22 10/25/2023 14:18:18 Acute bronchitis 32530945 J20.8 continue on the medrol and benzonatat estart inhaler [id number] Gary cMfadden [facility] [address] [facility],[place] [address] 01/20/2024 09:48:24 01/20/2024 10:54:22 Depression screening 604280725 Z13.31 negative At low risk for fall 439 945741 Z91.81 0 Essential hypertension 57314460 I10 stable at home and here Type 2 haris betes mellitus 15169389 E11.9 level is excellent; 5.7%, feet look good 798348 Gary Mcfadden [facility] [address] [facility],[place] [address] 01/29/2024 13:35:06 01/29/2024 14:37:32 Osteoarthritis of knee 655208318 M17.0 well baltazar inj [id number] Gary Mcfadden [facility] [address] [facility],[place] [address] 05/25/2024 10:06:16 05/25/2024 11:19:26 Essential hypertension 11214848 I10 stable at home and here Hypercalcemia 71486407 E 83.52 stablewnl with this recent check Hypertriglyceridemia 302 676950 E78.1 stable Type 2 haris betes mellitus 51914635 E11.9 6% which is excellent [id number] Gary Mcfadden [facility] [address] [facility], [place] [address] 09/07/2024 08:47:58 09/07/2024 09:34:56 Adult health examination 628420594 Z00.00 BP is stable Type 2 haris betes mellitus 11549760 E11.9 6% which is excellent Rheumatoid arthritis 698 22841 M06.89 stable [id number] DO [facility] [address],[place] [address] 12/07/2024 09:29:00 12/07/2024 11:02:40 Depression screening 874678614 Z13.31 negative Type 2 haris betes mellitus 39336849 E11.9 needs renewed standing orders Essential hypertension 22586378 I10 stable at home and here Primary insomnia 6865257 F51.01 will trial trazodone Oxygen sat uration below reference range 238784492 R79.81 in ER and in office, no findings on recent BW through ER and her updated labs to show anemia or other issues Kidney stone 89594604 N2 0.0 stablehad it removed surgically and she had a stent for about a weekdoes have a urology f/u Health Concerns Section Related Observation LastModified by Organization Detai ls LastModified Time None Recorded Concern Status LastModified by Organization Details LastModified Time None Recorded Advance Directives Directive None Recorded Payers Insurance Date Sequence Insurance Name Policy Number Policy Abrams Covered Member ID Abrams Member ID Guarantor Name 12/04/2024 1 [place]IC[place]: [employer] Evelia Russell [id number] Evelia Russell 12/04/2024 2 FOR LIFE ( - MEDICARE SUPPLEMENT) Blake Russell [id number] Evelia Russell 06/13/2023 2 UNSPECIFIED REMIT PAYOR Evelia Russell Notes Date Note Type Note Provider Name a nd Address Organization Details Recorded Time 4 text/html f/u 4 mos the patient [...] todayreviewed her lab work KEVIN COY [address] [place], [address], [facility] 01/20/2024 10:20:04 4 text/html did fantastic with her hip surgery feels greathere for right knee inj shakira Gary Mcfadden, DO [address] [place], [address], [facility] 01/29/2024 14:17:01 4 text/html 4 [...] ankle swelling, orthopnea, palpitations KEVIN COY [address] [place], [address], [facility] 05/25/2024 10:50:04 5 text/html Medicare [...] oil for her triglycerides KEVIN COY [address] [place], [address], [facility] 09/07/2024 09:18:59 5 text/html 6 mos f/u the patient reports that she is still having issues with insomniadid discuss sleep aid last appt, will set with trazodonethe patient did just get seen at ER for emergent surgery the patient reports that she is doing fine nowhas f/u with uro, drinking more water did have low O2 sat in the hospital as well which is unusuallow here, recommended PFT the patient needs updated lab workotherwise doing well will f/u after her PFT KEVIN COY [address] [place], [address], [facility] 12/07/2024 09:57:05 OBGyn Episode No OBEpisode recorded.
--- OUTSIDE RECORDS SUMMARY | 2025-02-01 13:08 | XMS_ITS | Patient Health Record ---
Author Organization [facility] Address [address] [place] [address] Support Name Relationship Address Phone RODNEY YORK Guarantor Unknown [phone] Reason For Referral No Information Medications Medication SIG (Take, Route, Fr equency, Duration) Notes Start Date End Date Status Multivitamins 1 ORAL daily; Duration: -3 Jaycob-MJ 2 Active 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 2.5MG 1 ORAL EVERY WEEK; Duration: -3 Jaycob-MJ 05/09/2012 Active Folic Acid 1MG 1 ORAL 6X A WEEK; Duration: -3 Jaycob-MJ 12/2011 Active Ecotrin 325MG 1 ORAL daily; Duration: -3 Jaycob-MJ 2 Active Atenolol 25MG 1 ORAL DAILY; Duration: -3 Jaycob-MJ 2 Active Problems Problem Type SNOMED Code ICD Code Onset Dates Problem Status W/U Status Risk Notes Problem Hyperlipidemia (79263973) Other and unspecified hyperlipidemia (272.4) Active confirmed Major Problem Obesity (888348893) Obesity, unspecified (278.00) Active confirmed Major Problem Rheumatoid arthritis (38250413) Rheumatoid arthritis (714.0) Active confirmed Major Problem Routine gynecological examination (V72.31) Active confirmed Diag Plan Of Treatment No Information Insurance Providers Payer Name Payer Address Payer Phone Subscriber Number Group Number Insured Name Patient Relationship to Insured Coverage Start Date Coverage End Date MEDICARE [address] [place] [id number] RODNEY YORK Self - patient is the insured /[employer] [address] [place] [phone] [id number] RODNEY YORK Self - patient is the insured
== END ==
LOC: HO.CARD 12:41
PROVIDERS: PCP Physician Assistant; Visit Provider Physician Assistant
DX: R06.02 Shortness of breath (principal)
CPT/HCPCS: 93306

== ENCOUNTER → 2025-02-01 12:44 | Outpatient (BNV) | payer MEDICARE, OTHER, SELFPAY | PROVIDERS: PCP Physician Assistant; Visit Provider Internal Medicine Cardiovascular Disease | DX: I35.8 Other nonrheumatic aortic valve disorders (principal); I35.1 Nonrheumatic aortic (valve) insufficiency | CPT/HCPCS: 93306 ==

== ENCOUNTER 2025-06-30 07:12 | Outpatient (REF) | payer MEDICARE, OTHER, SELFPAY ==
--- NOTE | ~2025-06-30 | CT_ITS ---
CLINICAL HISTORY: Solitary pulmonary nodule CT chest without contrast Comparison: CT/SR - CT CHEST WO IV CON - 01/30/25 08:41 EDT Findings: The heart size is normal. Calcification of the coronary vasculature. Right anteromedial thyroid nodule present as before, measuring 19 mm. Small hiatal hernia. No evidence of pneumonia or edema. Stable bilateral pulmonary nodules. For example, no change in the 7 mm subpleural nodule within the right lower lobe posteromedially (image 81). No new pulmonary nodules. The visualized upper abdomen is unremarkable. No acute fractures. IMPRESSION: 1. Stable bilateral pulmonary nodules. Follow up chest CT in 6 months recommended for further assessment. 2. Coronary artery disease. 3. Small hiatal hernia. 4. Thyroid nodule which could be further assessed with ultrasound, if clinically indicated. This document has been electronically signed by: Max Thomas MD on 07/06/2025 15:31:52
--- OUTSIDE RECORDS SUMMARY | 2025-06-30 07:16 | XMS_ITS | Patient Health Record ---
Author Organization [facility] Address [address] [place] [address] Support Name Relationship Address Phone BALDOMERO YORKE Guarantor Unknown [phone] Reason For Referral No Information Medications Medication [...] Status W/U Status Risk Notes Problem Hyperlipidemia (25528951) Other and unspecified hyperlipidemia (272.4) Active confirmed Major Problem Obesity (288604203) Obesity, unspecified (278.00) Active confirmed Major Problem Rheumatoid arthritis (85663342) Rheumatoid arthritis (714.0) Active confirmed Major Problem Gynecological examination normal (012635549220119) Routine gynecological examination (V72.31) Active confirmed Diag Plan Of Treatment No Information Insurance Providers Payer Name Payer Address Payer Phone Subscriber Number Group Number Insured Name Patient Relationship to Insured Coverage Start Date Coverage End Date MEDICARE [address] [place] [id number] RODNEY YORK Self - patient is the insured /[employer] [address] [place] [phone] [id number] RODNEY YORK Self - patient is the insured
--- OUTSIDE RECORDS SUMMARY | 2025-06-30 07:16 | XMS_ITS | Encounter Summary ---
Author Organization [facility] Address [address] [place] [address] Phone Care Team Providers Care Drop Shipment Clerk Name Role Phone Gayr Mcfadden DO Primary Care Provider [phone] Gary Mcfadden DO Primary Care Provider [phone] Encounter Details Date Type Department Care Team (Late st Contact Info) Description 12/20/2023 Procedure Pass [facility] PERIOPERATIVE DEPT [address] [place] [phone] Social History Tobacco Use Types Packs/Day Years Used Date Smoking Tobacco: Never Smokeless Tobacco: Never Alcohol Use Standard Drinks/Week Comments Never 0 (1 standard drink = 0.6 oz pur e alcohol) Home Health Assessment: Transportation Answer Date Recorded Lack of Transportation (Medical) No 12/22/2023 Lack of Transportation (Non-Medical) No 12/22/2023 Patient Unable or Declines to Respond No 12/22/2023 Child or Family Care Answer Date Record ed Do you have problems with on e of the following making it difficult for you to work, study, or receive health care? No 02/22/2023 Education Answer Date Recorded Are you interested in more education? Not on laya e 11/29/2022 Are you concerned about learning? Not on file 11/29/2022 No 11/29/2022 No 11/29/2022 Food Answer Date Recorded Within the past 6 months we worried whether our food would run out before we got money to buy more. Never True 02/22/2023 Within the past 6 months the food we bought just didn't last and we didn't have enough money to get more. Never True Residential Stability Answer Date Recor ded What is your housing situation today? I have abilio marin 02/22/2023 How many times have you move d in the past 12 months? Zero (I did not move) 02/22/2023 Paying for Meds Answer Date Recorded Do you have trouble paying for medicines? No 02/22/2023 Paying Utility Bills Answer Date Record ed Do you have trouble paying your heating or elect ricity bill? No 02/22/2023 Transportation Answer Date Recorded Has the lack of transportati on kept you from medical appointments or from getting medications? No 02/22/2023 Digital Access Answer Date Recorded No 02/22/2023 Yes 02/22/2023 Do you have reliable internet access at home? Ye s 02/22/2023 Do you have a device (e.g., phone, tablet, computer) with a working camera? Yes 02/22/2023 Intimate Partner Violence Answer Date R ecorded Are you denied basic needs s uch as food, clothing, or medical care? No 12/20/2023 In the past 12 months have y ou been in a relationship with a person who hurts, threatens, or tries to control you? No 12/20/2023 Are you denied basic needs s uch as food, clothing, or medical care? No 12/20/2023 In the past 12 months have y ou been in a relationship with a person who hurts, threatens, or tries to control you? No 12/20/2023 Comments No Sex and Gender Information Value Date Recorded Sex Assigned at Not on file Legal Sex Female 12:12 PM EDT Gender Identity Not on file Sexual Orientation Not on file documented as of this encounter Plan of Treatment Upcoming Encounters Date Type Department Care Team (Late st Contact Info) Description 09/08/2025 9:30 AM EST Office Visit [facility] Rheumatology [address] [place] [address] Rubia Duncan MD [address], [address] [place] [address] documented as of this encounter Visit Diagnoses Not on filedocumented in this encounter Care Teams Drop Shipment Clerk Relationship Specialty Start Date End Date Gary Mcfadden DO PCP - General Internal Medicine 01/01/19 06/22/25 Gary Mcfadden DO [address] [place] [id number] [email or web address] PCP - General Internal Medicine 06/23/25 documented as of this encounter Additional Source Comments The information contained in this document represents components of the legal health record. It is not the complete legal health record.[facility]
--- OUTSIDE RECORDS SUMMARY | 2025-06-30 07:16 | XMS_ITS | Data Portability ---
Author Organization [facility] Telehealth Patient Home Address [address] [place] [address] Assessment Encounter Date Assessment Date Assessment LastModified by Organization Details LastModified Time 09/07/2024 09/07/2024 Patient presente d to office [...] Organization Details Last Modified Time Details Appointments MEDICARE ANNUAL WELLNESS 2025 09:00A KEVIN DEMARCO Not available Not available Not available Lab hemoglobi n A1c, QN, blood 2024 025 [facility] [address], [address], 03/23/2025 13:59:25 CMP, serum or plasma 2024 025 ATHENAFAX [facility] [address], [address], 12/07/2024 09:45:09 hemoglobi n A1c, QN, blood 2024 025 [facility] [address], [address], 03/23/2025 13:59:25 CBC w/ auto diff 2024 [facility] [address], [address], 12/07/2024 09:45:09 lipid panel, serum 2024 025 BLACK HAWK [facility] [address], [address], 03/23/2025 13:53:26 lipid panel, serum 2024 025 [place] [address], [address], 06/23/2025 08:56:13 lipid panel, serum 2024 025 ALEXIA [facility] [address], [address], 06/23/2025 08:56:13 Referral None recorded. Procedures None recorded. Surgeries None recorded. Imaging CT, chest, w/o contrast 2024 0[address] [place], [address], 03/30/2025 11:37:50 PFT, complete 2024 [facility] Central Scheduling, [address] [place], [address], 12/21/2024 08:09:53 Medication Orders trazodone 50 mg tablet 2024 BLACK [id number], [address] [place], [place], [id number], 03/29/2025 09:37:04 Patient TargetsNo targets recorded. Patient Instructions Encounter Date Encounter Id Patient Instructions Last Modified By Organization Details Last Modified Time 09/07/2024 [id number] advance care planning: care instructions rtryba Not [...] bilat eral No observ ation record ed. [facility]'s [address] [place], [address], 12/07/2024 09:56:53 10/13/19 25 10/12/2024 CT, abdom en + pelvi s, w/o contr ast No observ ation record ed. [facility] (Medical Records) [address] [place], [address], 12/07/2024 09:56:53 10/14/19 25 10/13/2024 fluor oscop ic lis nce for needl e place ment (PROC ) No observ ation record ed. [facility] (Medical Records) [address] [place], [address], 12/07/2024 09:56:52 01/21/20 25 01/19/2025 PFT, compl ete No observ ation record ed. [facility] (Medical Records) [address] [place], [address], 01/20/2025 13:41:38 02/02/20 25 02/01/2025 US, echoc ardio gram No observ ation record ed. rtryba Not Available 2024 09:01:57 02/03/20 25 01/30/2025 CT, chest , w/o contr ast No observ ation record ed. [email or web address] [place] [address] (Medical Records) [address] [place], [address], 02/02/2025 14:28:56 Result Notes None recorded. Problems Name Problem SNOMED Code Status Onset Date Resolution Date Notes Provider Name and Address Organization Details Recorded Time Lamonte perez 14534896 Active 2017 Not Available [facility] 4 17:49:01 Disorder of breast 71142143 Active 2017 Breast cancer 2000, lumpecto my, XRT Left THR 2014 Not Available [facility] 4 17:49:01 Rheumato id arthriti s 16183562 Active 2017 Dr. Nixon bryan Not Available [facility] 4 17:49:01 Lyme disease 57771685 Active 2017 Not Available [facility] 4 17:49:00 Osteopor osis 14835722 Active 2017 Not Available [facility] 4 17:49:01 Hemorrho ids 00166794 Active 2017 Not Available [facility] 4 17:49:01 Impaired fasting glycemia 542572339 Completed 201702/12/2018November DIMPLE Mascorro [address] [place], [address], [facility] 8 09:22:42 Hypertri glycerid emia 254127252 Active 2017 Not Available [facility] 4 17:49:00 Low back pain 086447397 Active 2021 Not Available [facility] 4 17:49:00 Osteoart hritis of knee 496869782 Active 2021 Not Available [facility] 4 17:49:00 Overweig ht 038994920 Active 2021 Not Available [facility] 4 17:49:00 Microalb uminuria 880913823 Active 2021 Not Available [facility] 4 17:49:00 Hypercal cemia 08561609 Active 2021 Not Available [facility] 4 17:49:01 Carotid artery stenosis 68370919 Active 2022 Not Available [facility] 4 17:49:01 Carotid artery stenosis 19169621 Active 2022 Not Available [facility] 4 17:49:01 Type 2 diabetes mellitus 29989636 Active 2022 Not Available [facility] 4 17:49:01 Cellulit is of lower limb 242407242 Active 2022 Not Available [facility] 4 17:49:01 Osteoart hritis of shoulder region 59983112 Active 2022 Not Available [facility] 4 17:49:01 Osteoart hritis of left hip joint 2810252061 08062 Active 2022 Not Available [facility] 4 17:49:00 Disorder of bone 26337382 Active 2022 Not Available [facility] 4 17:49:01 Vertigo 148952116 Active 2022 Not Available [facility] 4 17:49:01 Posterio r rhinorrh ea 87778645 Active 2023 KEVIN COY [address] [place], [address], [facility] 4 10:33:06 Edema of lower extremit y 066279975 Active 2023 KEVIN COY [address] [place], [address], [facility] 4 10:36:12 Cough 03924863 Active 2023 KEVIN COY [address] [place], [address], [facility] 4 12:15:25 Total replacem ent of hip Active 2023 R KEVIN COY [address] [place], [address], [facility] 4 10:17:40 Primary insomnia 1237722 Active 2024 KEVIN COY [address] [place], [address], [facility] 5 09:44:50 Oxygen saturati on below referenc e range 636643044 Active 2024 KEVIN COY [address] [place] [address], [address], [facility] 5 09:46:18 Kidney stone 47776385 Active 2024 KEVIN COY [address] [place] [address], [address], [facility] 5 09:47:20 Dyspnea 706231185 Active 2024 KEVIN COY [address] [place] [address], [address], [facility] 5 13:42:22 Nodule of lung 734047499 Active 2024 KEVIN COY [address] [place] [address], [address], [facility] 5 09:41:14 Problem Notes None recorded. Procedures Surgical History Date Name Laterality Status Provider Name and Address Organization Details Recorded Time 024 Corticosteroid Injection completed Gray Mcfadden DO [address] [place] [address], [address], [facility] 01/29/2024 14:11:37 024 Corticosteroid Injection completed Gary Mcfadden DO [address] [place] [address], [address], [facility] 10/01/2023 15:44:04 023 Corticosteroid Injection completed Gary Mcfadden DO [address] [place] [address], [address], [facility] 05/22/2023 14:43:19 023 Corticosteroid Injection completed Gary Mcfadden DO [address] [place] [address], [address], [facility] 01/02/2023 17:04:01 023 Corticosteroid Injection completed Gary Mcfadden DO [address] [place], [address], [facility] 10/24/2022 14:24:12 023 Corticosteroid Injection completed Gary Mcfadden DO [address] [place], [address], [facility] 09/11/2022 12:15:39 022 Corticosteroid Injection completed Gary Mcfadden DO [address] [place] [address], [address], [facility] 12/08/2021 12:37:09 021 Corticosteroid Injection completed Gary Mcfadden DO [address] [place] [address], [address], [facility] 07/25/2021 09:35:46 021 Corticosteroid Injection completed Gary Mcfadden DO [address] [place] [address], [address], [facility] 02/13/2021 15:45:24 018 Most Recent Mammogram completed Radha Zimmerman [facility] 09/09/2018 13:49:25 Imaging Results None recorded. Procedure Notes None recorded. Medical Equipment None Reported. Allergies Allergen ID Allergen Name Allergen Category Reaction Reaction Severity Criticality Documentation Date Start Date Code Code System Note Provider Name and Address Organization Details Recorded Time 79483 codeine phosphate medicatio n Not available Not available Not available 06/29/20252016 2672 RxNorm Other react ion(s ): up set stoma ch and vomit ting unrec ogniz ed react ion (text : Nause a and/o r Vomit ing, code: 67937 000) (from exter nal sour e) Not Available [facility] - External Data Service - prod 03:44:53 17611 latex environme nt,medica tion rash Not available low 06/29/20252014 44439 91 RxNorm Not Available [facility] - External Data Service - prod 03:44:53 03365 acetamino phen / oxycodone medicatio n Not available Not available Not available 06/29/20252016 29492 3 RxNorm Other react ion(s ): stoma ch upset unrec ogniz ed react ion (text : Nause a and/o r Vomit ing, code: 01741 000) (from exter nal sourc e) Not Available [facility] - External Data Service - prod 5 03:44:53 7209 duloxetin e medicatio n nausea Not available Not available 04/01/2023 90194 RxNorm KEVIN COY [address] [place], [address], [facility] 3 09:04:05 7431 Latex (substanc e) environme nt,medica tion Not available Not available Not available 06/04/2023 26892 8007 SNOMED Julianne Louie [facility] 3 14:15:23 8111 oxycodone medicatio n Not available Not available Not available 01/20/2024 7804 RxNorm nause a, chest pain KEVIN COY [address] [place], [address], [facility] 4 10:06:05 Medications Name Sig Start Date Stop Date Status Note LastModified by Organization Details LastModified Time celecoxib 200 mg capsule TAKE 1 CAPSULE DAILY active Not Available Not Available No t Available amoxicillin 500 mg capsule TAKE 4 CAPSULES BY MOUTH DIRECTED 30 MINUTES TO 1 HOUR PRIOR TO ANY DENTAL PROCEDURE 03/29 completed Not Available Not Available Not Available [...] AT BEDTIME FOR 14 DAYS FOR INSOMNIA 03/29 completed Not Available Not Available Not Available [...] 25 mg tablet TAKE 1 TABLET DAILY 2024 active Not Available Not Available Not Avai lable aspirin 81 mg tablet,jesusita yed release TAKE 1 TABLET BY MOUTH TWICE DAILY 05/25 completed Not Available Not Available Not Available tramadol 50 mg tablet TAKE 1 TABLET BY MOUTH EVERY 6 HOURS FOR 7 DAYS NEEDED 03/29 completed Not Available Not Available Not Available glimepiride 2 mg tablet TAKE 1 [...] Available Not Available Not Available amoxicillin 500 mg-potvanessaiu m clavulanate 125 mg tablet TAKE 1 [...] hr TAKE 1 TABLET TWICE A DAY 2024 active Not Available Not Available Not Avai lable rosuvastati n 40 mg tablet TAKE 1 TABLET DAILY 2024 active Not Available Not Available Not Avai lable duloxetine 30 mg capsule,del ayed release TAKE [...] Available Not Available Not Available Fluzone High-Dose 6268-6942 (PF) 180 mcg/0.5 mL intramuscul ar syringe [...] (BMI) Body weight Heart rate Oxygen saturation Systolic And Diastolic Provider Name and Address Organization Details Last Updated DateTime 5 163.83 cm 29.9 kg/m2 71354.4 9 g 61 /min 95 % 134/74 mm[Hg] Emani Julio [facility] 5 08:56:09 Date Recorded Body height Body mass index (BMI) Body weight Heart rate Oxygen saturation Systolic And Diastolic Provider Name and Address Organization Details Last Updated DateTime 5 163.83 cm 29.8 kg/m2 87181.4 1 g 61 /min 91 % 138/80 mm[Hg] Emani Julio MA [facility] 5 09:35:14 Date Recorded Body height Body mass index (BMI) Body weight Heart rate Oxygen saturation Systolic And Diastolic Provider Name and Address Organization Details Last Updated DateTime 5 163.83 cm 30.3 kg/m2 73353.8 3 g 63 /min 90 % 156/80 mm[Hg] Emani Drew [facility] 5 09:38:47 Date Recorded Body height Body mass index (BMI) Body weight Heart rate Oxygen saturation Systolic And Diastolic Provider Name and Address Organization Details Last Updated DateTime 4 163.83 cm 30.2 kg/m2 54165.9 6 g 54 /min 98 % 124/78 mm[Hg] Emani Drew [facility] 4 10:26:51 Date Recorded Body height Body mass index (BMI) Body weight Oxygen saturation Heart rate Systolic And Diastolic Provider Name and Address Organization Details Last Updated DateTime 5 163.83 cm 30.1 kg/m2 49936.4 4 g 95 % 62 /min 128/76 mm[Hg] HARIS MUNOZ [facility] 5 10:03:05 Social History Question Answer Notes LastModified by Organizat ion Details LastModified Time Tobacco Smoking Status [facility]/2017 11:10:37 What Was The Date Of Your Most Recent Tobacco Screening? 03/29/2025 [email or web address] Information not available 03/29/2025 Sex: Unknown Functional Status Question Answer Note [...] virus, quadrivalent, preservative 8 completed Not Available [facility] 08/07/2023 17:49:02 COVID-19, mRNA, LNP-S, PF, 30 mcg/0.3 mL dose 2 completed Not Available [facility] 08/07/2023 17:49:02 Influenza, split virus, quadrivalent, preservative 2 completed Not Available [facility] 08/07/2023 17:49:02 SARS-COV-2 (COVID-19) vaccine, UNSPECIFIED 3 completed Not Available [facility] 08/07/2023 17:49:02 SARS-COV-2 (COVID-19) vaccine, UNSPECIFIED 4 completed Emani christine MA [facility] 05/25/2024 10:25:28 Tdap 5 completed Not Available [facility] 08/07/2023 17:49:03 pneumococcal polysaccharide PPV23 5 completed Not Available [facility] 08/07/2023 17:49:03 Pneumococcal conjugate PCV 13 7 completed Not Available [facility] 08/07/2023 17:49:03 Influenza, split virus, quadrivalent, preservative 9 completed Not Available [facility] 08/07/2023 17:49:01 pneumococcal polysaccharide PPV23 8 completed Not Available [facility] 08/07/2023 17:49:03 COVID-19 vaccine, vector-nr, rS-ChAdOx1, PF, 0.5 mL 1 completed Not Available [facility] 08/07/2023 17:49:02 COVID-19 vaccine, vector-nr, rS-ChAdOx1, PF, 0.5 mL 1 completed Not Available [facility] 08/07/2023 17:49:02 Past Encounters Encounter ID Performer Location Encounter Start Date Encounter Closed Date Diagnosis/Indication Diagnosis SNOMED-CT Code Diagnosis ICD10 Code Diagnosis IMO Codes Diagnosis Note [id number] DO [facility] [address] [facility] [place] [address] 12/06/2017 10:58:12 12/06/2017 15:55:32 Pneumonia 944926868 J18.9 Please take prescribed or OTC medication [...] defer and treat empiricall y Essential hypertension 42359162 I10 slightly elevated today, though like fever related, will check at f/u next week [id number] Gary Mcfadden [facility] [address] [facility], [place] [address] 12/13/2017 09:19:31 12/13/2017 10:36:58 Pneumonia 475029432 J18.9 sx all resolved except minor cough at this point Essential hypertension 78314929 I10 BP greatly improved after resolution of fever stable on current regimen Diabetes mellitus 395853 09 E11.9 consistent ly stable a1c, with good diet, and exercise lipids at goal as well [id number] Gary Mcfadden [facility] [address] [facility] [place] [address] 01/17/2018 14:59:45 01/17/2018 15:52:11 Acute sinusitis 47553069 J01.90 fluids, rinses, flonase if needed Essential hypertension 32579903 I10 stable [id number] Gary Mcfadden DO [facility] [address] [facility], [place] [address] 03/25/2018 08:51:05 03/25/2018 12:04:25 Essential hypertension 75204734 I10 not quite at goal, will increase lisinopril from 2.5 to 5 mg daily Diabetes mellitus 969277 09 E11.9 consistent ly stable a1c, with good diet, and exercise lipids at goal as well Hypertriglyceridemia 302 103238 E78.2 elevated trig diet/exerc ise/wt loss discussed [id number] Gary Mcfadden [facility] [address] [facility], [place] [address] 06/24/2018 09:47:54 06/24/2018 10:51:06 Essential hypertension 25654994 I10 accidental ly taking 2 of atenolol instead of 2 of lisinopril she will take atenolol 25 qd and lisinopril 5 mg qd bp at goal today Diabetes mellitus 012707 09 E11.9 consistent ly stable a1c, with good diet, and exercise lipids at goal as well Hypertriglyceridemia 302 526278 E78.2 elevated trig diet/exerc ise/wt loss discussed Body mass index 30+ - obesity 186953047 Z68.32 continue healthy diet and exercise Palpitations 10199356 R0 0.2 ? 2/2 bradycardi a? will d/c 50 atenolol and restart 25 of atenolol and assess sx. if persisting or if new sx develop f/u luz [id number] DO [facility] [address] [facility], [place] [address] 09/10/2018 09:04:35 09/10/2018 10:18:01 Adult health examination 038022916 Z00.00 had derm annual exam medicare wellness visit complete Screening for cardiovascular system disease 055148556 Z13.6 labs complete LDL mildly elevated trigs elevated healthy diet encouraged will trial change from atorvastat in to rosuvastat in to attempt to reach LDL goals Screening mammography 24 186265 Z12.31 done 2019 Essential hypertension 22182220 I10 bp nearly at goal Diabetes mellitus 643316 09 E11.9 consistent ly stable a1c, on metformin with good diet, and exercise foot exam next visit Hypertriglyceridemia 302 029623 E78.2 trigs remain elevated LDL mildly above goal plan as stated above Body mass index 30+ - obesity 230306841 Z68.32 continue healthy diet and exercise Palpitations 09779392 R0 0.2 palps resolved Heartburn 52714193 R12 more likely explanatio n for her sx though if chest pain/back pain persists despite treatement f/u Chest pain 31331682 R07. 9 ACS unlikely in setting of totally normal EKG advised taht if chest pain persists we will pursue further cardiac work up Osteoporosis 57556454 M8 1[place]0 [place] [id number] DO [facility] [address] [facility],[place] [address] 03/09/2019 08:54:24 03/09/2019 09:36:30 Essential hypertension 67813990 I10 stable Diabetes mellitus 214511 09 E11.9 consistent ly stable a1c, with good diet, and exercise lipids at goal as well dm eye exam scheduled for next month meds reviewed Hypertriglyceridemia 302 926158 E78.2 elevated trig diet/exerc ise/wt loss discussed Body mass index 30+ - obesity 415955558 Z68.32 continue healthy diet and exercise Palpitations 04990023 R0 0.2 resolved with proper bp medication s Heartburn 62266449 R12 resolved no longer taking zantac [id number] Gary Mcfadden [facility] [address] [facility], [place] [address] 09/07/2019 08:50:34 09/07/2019 09:27:12 Screening for cardiovascular system disease 550671189 Z13.6 labs complete LDL mildly elevated trigs elevated healthy diet encouraged will trial change from atorvastat in to rosuvastat in to attempt to reach LDL goals Diabetes mellitus 051275 09 E11.9 go back on metformin BID rather than QD Essential hypertension 19019203 I10 stable Headache 23710252 R51 stable, treated with tylenol vs excedrin tension Difficulty sleeping 3013 48772 Z72.820 take tylenol pm occasional ly, advised it can become habit forming, but not likely if used sparingly [id number] Gary Mcfadden [facility] [address] [facility],[place] [address] 12/08/2019 08:50:47 12/08/2019 10:04:23 Diabetes mellitus 94261534 E11.9 the patient is doing well, no concerns no numbness or tingling in the feet no loss of propriocep tion or balance will check her HbA1c to see what her level is at Essential hypertension 21719623 I10 BP 120/76 excellent control [id number] Gary Mcfadden [facility] [address] [facility],[place] [address] 03/08/2020 08:54:15 03/08/2020 10:16:49 Essential hypertension 07305796 I10 BP 126/62 today the patient is well controlled on medication Diabetes mellitus 839454 09 E11.9 the patient is doing well, no concerns no numbness or tingling in the feet no loss of propriocep tion or balance will check her HbA1c to see what her level is at Hypertriglyceridemia 302 879831 E78.1 will check lipid panel again [id number] Gary Mcfadden [facility] [address] [facility],[place] [address] 04/20/2020 09:54:08 04/20/2020 10:32:45 Cellulitis of toe of right foot 1116852656 1794935 L03.031 not finished by cephalexin will change to doxy for poss resist and rechk in 10 days [id number] Gary Mcfadden [facility] [address] [facility],[place] [address] 05/02/2020 11:20:31 05/02/2020 12:08:55 Essential hypertension 16175712 I10 Diabetes mellitus 373075 09 E11.9 Cellulitis of toe of right foot 7817044455 9047481 L03.031 resolved and doing well [id number] Gary Mcfadden [facility] [address] [facility],[place] [address] 06/21/2020 10:24:54 06/21/2020 11:20:07 Type 2 diabetes mellitus 68200394 E11.9 will check A1c Adult [facility] examination 213955537 Z00.00 will fu in one month for BP Essential hypertension 66818538 I10 BP elevated will increase to 5 mg to 10 mg of lisinopril [id number] Gary Mcfadden [facility] [address] [facility],[place] [address] 07/22/2020 10:22:13 07/22/2020 11:34:58 Essential hypertension 82679653 I10 BP much improved on increased lisinopril dosage Diabetes mellitus 208774 09 E11.9 the patient is doing well, no concerns no numbness or tingling in the feet no loss of propriocep tion or balance [id number] Gary Mcfadden [facility] [address] [place] [address] 11/02/2020 09:51:44 11/02/2020 15:02:04 Essential hypertension 75717167 I10 BP much improved on increased lisinopril dosage Acute low back pain 2788 05988 M54.5 will trial a low dose MSK relaxer and see if improvemen t patient is told to rest her back as well Diabetes mellitus 805828 09 E11.9 the patient is doing well, no concerns no numbness or tingling in the feet no loss of propriocep tion or balance A1c is down to 6.9 which is excellent [id number] Gary Mcfadden [facility] [address] [place] [address] 01/25/2021 09:52:00 01/25/2021 12:09:58 Osteoarthritis of knee 707084735 M17.0 L>Rset up with a cortisone injection with MB Diabetes mellitus 513866 09 E11.9 mild increase in neuropathy A1c is upwill work on exercise when her knee feels better Essential hypertension 00405183 I10 BP much improved on increased lisinopril dosage [id number] Gary Mcfadden [facility] [address] [place] [address] 02/13/2021 14:53:54 02/13/2021 16:48:51 Osteoarthritis of left knee joint 8306806390 70713 M17.12 [place] [id number] Gary Mcfadden [facility] [address] [place] [address] 04/24/2021 08:27:26 04/25/2021 11:57:09 Diabetes mellitus 37298722 E11.9 A1c is downdoing excellent with diet and exercise [id number] Gary Mcfadden [facility] [address] [place] [address] 07/25/2021 09:04:12 07/25/2021 11:09:29 Osteoarthritis of right knee joint 6219890096 62054 M17.11 well [place] shakira inj [id number] Gary Mcfadden DO [facility] [address] [facility] [address] [address] 08/15/2021 08:09:04 08/15/2021 17:23:48 Diabetes mellitus 55874505 E11.9 A1c is downdoing excellent with diet and exercise Essential hypertension 37094415 I10 BP much improved on increased lisinopril dosage Hypertriglyceridemia 302 451030 E78.1 will check lipid panel again Osteoporosis 42844524 M8 1.0 stable, sees arthritis clinic Rheumatoid arthritis 698 06161 M06.89 seeing arthritis clinic Vertigo [id number] R42 will fu with work up to r/o [id number] Gary Mcfadden [facility] [address] [facility] [address], [address] [facility] [place] [address] 11/14/2021 09:18:16 11/15/2021 10:00:16 Hypertriglyceridemia 730194644 E78.1 will check lipid panel again Essential hypertension 12390563 I10 BP much improved on increased lisinopril dosage Diabetes mellitus 850788 09 E11.9 A1c is downdoing excellent with diet and exercise Low back pain 710814517 M54.59 acute flare up of her low backwill give a refill of MSK relaxer Osteoarthr itis of knee 883871904 M17.0 will have her fu with MB for cortisone inj in the right knee [id number] Gary Mcfadden [facility] [address] [facility] [address],[place] [facility] [place] [address] 12/08/2021 12:05:43 12/08/2021 12:47:42 Osteoarthritis of knee 761866244 M17.0 [place] [id number] KEVIN COY [facility] [address] [facility] [address],[place] [facility] [place] [address] 03/20/2022 11:06:26 03/20/2022 13:44:40 Hypertriglyceridemia 897583859 E78.1 stable, add fish oil Essential hypertension 93270579 I10 stable at home Diabetes mellitus 434781 09 E11.9 A1c is downdoing excellent with diet and exercise Overweight 474446713 E66 .3 will fu with nutritioni referral [id number] Gary Mcfadden [facility] [address] [facility] [address],[place] [address] 06/18/2022 09:04:12 06/18/2022 09:50:39 Diabetes mellitus 09154442 E11.9 will need to add labs they didn't do all of it for me at prior appts Microalbuminuria 0532272 06 R80.8 will recheck labsprobab ly a combinatio n T2DM, being a methotrexa te user and being 77 y/o, probably related to mild kidney dysfunctio n Hypercalcemia 23945386 E 83.52 will recheck levels from prior assessment at rheum Overweight 530647023 E66 .3 will f/u with nutritioni referral [id number] Gary Mcfadden [facility] [address] [facility] [address],[place] [address] 09/11/2022 11:37:16 09/11/2022 16:02:49 Osteoarthritis of knee 408684043 M17.0 well baltazar inj [id number] Gary Mcfadden [facility] [address] [facility] [address],[place] [address] 09/12/2022 11:09:02 09/12/2022 15:11:47 Diabetes mellitus 60814697 E11.9 agreed to starting on glipizide for better sugar control with elevated A1c Carotid ar alex stenosis 45954636 I65.21 will recheck in another yearwas between 0-49% Essential hypertension 85750852 I10 stable at home and here [id number] Gary Mcfadden [facility] [address] [facility] [address],[place] [address] 10/24/2022 14:04:11 10/24/2022 16:05:05 Rheumatoid arthritis 08752792 M06.89 Osteoarthr itis of shoulder region 00525393 M19.019 shakira inj well tolerated [id number] Gary Mcfadden [facility] [address] [facility] [address],[place] [address] 12/19/2022 09:20:11 12/19/2022 10:11:53 Type 2 diabetes mellitus 22879219 E11.9 will check A1c Essential hypertension 90593516 I10 stable at home and here Osteoarthr itis of left hip joint 4753707072 91327 M16.12 will set up with previous ortho Dr. Sparrow Low back pain 499860729 M54.59 stableit's her hip that's causing complicati on Disorder of bone 9064690 3 M89.762 left hipwill fu with Dr. Sparrow [id number] Gary Mcfadden [facility] [address] [facility] [address] [address] 01/02/2023 16:23:51 01/04/2023 14:04:10 Osteoarthritis of knee 106232113 M17.0 [place]zar inj [id number] Gary Mcfadden [facility] [address] [facility] [address] [address] 04/01/2023 08:34:59 04/01/2023 15:53:08 Essential hypertension 63137780 I10 stable at home and here Hypercalcemia 15033756 E 83.52 elevated againprevi ous checks were normal with PTH Hypertriglyceridemia 302 133952 E78.1 stable, add fish oil Rheumatoid arthritis 698 07067 M06.89 stable Type 2 haris betes mellitus 51284976 E11.9 level is excellent Disorder of bone 6991997 3 M89.762 has hip surgery 07/[address] Levy Moore [id number] Gary Mcfadden [facility] [address] [facility] [address] [address] 05/22/2023 14:22:32 05/22/2023 15:29:01 Osteoarthritis of knee 116746275 M17.0 [place] [id number] Gary Mcfadden [facility] [address] [facility] [address] [address] 06/04/2023 14:03:21 06/04/2023 14:57:43 Vertigo 285590952 R42 will trial medrol if no effective other options are valium, HTCZ insteadhol d on vestibular rehab referral for now Pre-surger y evaluation 643648800 Z01.818 The patient was seen in the office today for pre-op evaluation . All medical conditions on patient's problem list were addressed and are currently stable, no interventi on needed at this time. Based on history and physical performed, the patient is cleared for surgery. [id number] Gary Mcfadden [facility] [address] [facility],[place] [facility] [place] [address] 10/01/2023 15:07:23 10/02/2023 15:26:36 Osteoarthritis of knee 944977549 M17.0 well baltazar inj [id number] Gary Mcfadden [facility] [address] [facility] [address] 09/30/2023 10:18:18 10/01/2023 10:51:36 Posterior rhinorrhea 41456042 R09.82 start on nasal spraywill let me know if her ears are still having issues Edema of l ower extremity 052432992 R60.0 possibly just vascular incompeten cewill set up with lab work Type 2 haris betes mellitus 89926372 E11.9 level is excellent Hypercalcemia 02241256 E 83.52 elevated againprevi ous checks were normal with PTH Rheumatoid arthritis 698 33844 M06.89 stable [id number] Gary Mcfadden [facility] [address] [facility],[place] [facility] [place] [address] 10/25/2023 09:23:22 10/25/2023 14:18:18 Acute bronchitis 31394140 J20.8 continue on the medrol and benzonatat estart inhaler [id number] Gray Mcfadden [facility] [address] [facility],[place] [address] 01/20/2024 09:48:24 01/20/2024 10:54:22 Depression screening 579887884 Z13.31 negative At low risk for fall 439 827338 Z91.81 0 Essential hypertension 48998963 I10 stable at home and here Type 2 haris betes mellitus 71800171 E11.9 level is excellent; 5.7%, feet look good [id number] Gary Mcfadden [facility] [address] [facility] [address] [address] 01/29/2024 13:35:06 01/29/2024 14:37:32 Osteoarthritis of knee 681996680 M17.0 well baltazar inj [id number] Gary Mcfadden [facility] [address] [facility] [address] [address] 05/25/2024 10:06:16 05/25/2024 11:19:26 Essential hypertension 18080401 I10 stable at home and here Hypercalcemia 48165667 E 83.52 stablewnl with this recent check Hypertriglyceridemia 302 565824 E78.1 stable Type 2 haris betes mellitus 73900081 E11.9 6% which is excellent [id number] Gary Mcfadden [facility] [address] [facility],[place] [facility] [place] [address] 09/07/2024 08:47:58 09/07/2024 09:34:56 Adult health examination 397452570 Z00.00 BP is stable Type 2 haris betes mellitus 36017740 E11.9 6% which is excellent Rheumatoid arthritis 698 67244 M06.89 stable [id number] Gary Mcfadden [facility] [address] [facility] [address] [address] 12/07/2024 09:29:00 12/07/2024 11:02:40 Depression screening 662159116 Z13.31 negative Type 2 haris betes mellitus 24353255 E11.9 needs renewed standing orders Essential hypertension 49291705 I10 stable at home and here Primary insomnia 8770542 F51.01 17032 will trial trazodone Oxygen sat uration below reference range 520915895 R79.81 [id number] in ER and in office, no findings on recent BW through ER and her updated labs to show anemia or other issues Kidney stone 30619575 N2 0.0 60556 stablehad it removed surgically and she had a stent for about a weekdoes have a urology f/u [id number] Gary Mcfadden [facility] [address] [facility] [address] [address] 03/29/2025 09:20:24 03/29/2025 13:08:38 Type 2 diabetes mellitus 55475175 E11.9 needs renewed standing orders Depression screening 171 704039 Z13.31 negative Nodule of lung 277200925 R91.1 521042 need recheck, s at the 3 mos [id number] Gary Mcfadden DO [facility] [address] [facility], [place] [address] 06/29/2025 09:49:10 06/29/2025 16:30:02 Depression screening 301479335 Z13.31 negative Type 2 haris betes mellitus 70836531 E11.9 needs renewed standing orders Essential hypertension 85906037 I10 excellent Health Concerns Section Related Observation LastModified by Organization Detai ls LastModified Time None Recorded Concern Status LastModified by Organization Details LastModified Time None Recorded Advance Directives Directive None Recorded Payers Insurance Date Sequence Insurance Name Policy Number Policy Abrams Covered Member ID Abrams Member ID Guarantor Name 06/29/2025 1 [place] [employer] Evelia Drew [id number] Evelia Drew 03/26/2025 2 FOR LIFE ( - MEDICARE SUPPLEMENT) Blake Drew [id number] Evelia Drew 06/13/2023 2 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 PAYOR Evelia Russell Notes Date Note Type Note Provider Name a nd Address Organization Details Recorded Time 4 text/html ROS as noted in the HPI 4 mos f/u the pt is doing [...] ankle swelling, orthopnea, palpitations KEVIN COY [address] [facility], [place], [address], [facility] 05/25/2024 10:50:04 5 text/html Medicare Annual Wellness VisitReported by PatientSocial/Behavio ral HistoryFor diet and nutrition, patient reportshealthy diet,discussed vitamin and supplement use,discussed portion control,discussed maintaining calcium balance, anddiscussed diet improvement. For fracture risk, patient reportsno history of fractures,no recent explained fracture,no sudden unexplained fractures, andno previous musculoskeletal injuries. For physical activity, patient reportsexercises on a regular basis,recent increase in physical activity,good physical condition,discussed weightbearing activities, anddiscussed exercise habits.Mental Status:For depression risk, patient reportsnever feels sad, empty, or tearful,no loss of interest in activities,no significant changes in weight,no sleep disturbances or insomnia,no agitation,no loss of energy,no feelings of worthlessness or guilt,no thoughts of suicide,no history of depression, andno history of mood disorders. For orientation, patient reportsno disorientation to time,no disorientation to date, andno disorientation to place. For concentration and memory, patient reportsno decreased concentrating ability,no memory lapses or loss, anddoes not forget words. For speech/motor difficulties, patient reportsno speech difficulties,no difficulty expressing formulated concepts,no difficulty with fine manipulative tasks,no difficulty writing/copying,no slowed reaction time, anddoes not knock things over when trying to pick them up.Functional AbilityFor hearing, patient reportsno loss of hearing. For vision, patient reportsno vision problems. For activities of daily living, patient reportsable to bathe with limited or no assistance,able to contol urination and bowels,able to dress with limited or no assistance,able to feed self with limited or no assistance,able to get out of chair or bed with limited or no assistance,able to groom with limited or no assistance, andable to toilet with limited or no assistance. For instrumental activities of daily living, patient reportsable to do house work with limited or no assistance,able to grocery shop with limited or no assistance,able to manage medications with limited or no assistance,able to manage money with limited or no assistance,able to prepare meals with limited or no assistance, andable to use the phone with limited or no assistance. For falls risk assessment, patient reportsno frequent falls while walking,no fall in the past year,no fall since last visit, andno dizziness/vertigo. For home safety, patient reportsno unsafe mitzi hazzards,no unsafe stairs,no unsafe gas appliances,working smoke/co detectors,wears protective head gear for biking/high velocity,use of seatbelts,practicing 'safer sex',no vision or hearing loss while driving,no fire arms,has hand bars in the bathroom/shower, andgood lighting in the home.ROS as noted in the HPI restart fish oil for her triglycerides KEVIN COY [address] [place], [address], [facility] 09/07/2024 09:18:59 5 text/html ROS as noted in the HPI 6 mos f/u the patient reports that [...] f/u after her PFT KEVIN COY [address] [place], [address], [facility] 12/07/2024 09:57:05 5 text/html ROS as noted in the HPI 3 mos f/u Patient presents today for follow-up for Type 2 Diabetes Recent lab showed an A1c of 6.3% up from previous 5.8% The patient has been compliant with medicationsThe patient is not experiencing any complicationsThe patient has current concerns about related to their diabetes diagnosis are better glucose control, which given small increase, an adjustment in dietary choices should be effectiveThe patient has been compliant with lifestyle changes including dietary changes, exercise and healthy habits Discussion about feet reveals normal examDiscussion about eyes reveal normal exam Treatment plan going forward is continue medication with dietary adjustments HTN: today in the office the patient BP is 130/75 R arm sitting after 5 minutesthe patient is doing well on the BP medication with no side effects and no adjustment of their medications needed today at the appointmentwell-contr olled on medicationdenies chest pain, sob, ankle swelling, orthopnea, palpitations at her last appt she had some concerns about breathing changesset up with with a PFT and CT chest which were overall good, she does need a CT ordered placed today at this appt to recheck on one of the nodules they noted on exam her echo results were excellent the patient has a bug bite on her L knee, recommended she use abx ointmentthe patient agrees, will monitor lab work otherwise looks normal KEVIN COY [address] [place], [address], [facility] 03/29/2025 09:47:00 5 text/html ROS as noted in the HPI 3 mos f/u HTN: today in the office the patient BP is 128/76 L arm sittingthe patient is doing well on the BP medication with no side effects and no adjustment of their medications needed today at the appointmentwell-emani benzled on medicationdenies chest pain, sob, ankle swelling, orthopnea, palpitations HLD: excellent blood work, currently on rosuvastatinthe patient denies side effects T2DM: Patient presents today for follow-up for Type 2 Diabetes Recent lab showed an A1c of 6% The patient has been compliant with medications The patient has current concerns about related to their diabetes diagnosis continued control of her glucoseThe patient has been compliant with lifestyle changes including dietary changes, exercise and healthy habits Discussion about feet reveals stableDiscussion about eyes reveal stable Treatment plan going forward is cont current medications Has f/u with eye doc for consult for cataract surgery KEVIN COY [address] [place], [address], [facility] 06/29/2025 10:19:56 OBGyn Episode No OBEpisode recorded.
--- OUTSIDE RECORDS SUMMARY | 2025-06-30 07:16 | XMS_ITS | Encounter Summary ---
Author Organization [facility] Address [address] [place] [address] [place] [address] Phone Care Team Providers Care Energy Project Manager Name Role Phone Gary Mcfadden Primary Care Provider [phone] Gary Mcfadden Nargis Primary Care Provider [phone] Encounter Details Date Type Department Care Team (Late st Contact Info) Description 11/29/2022 Ancillary Orders [facility], X-Ray - [address] [address] Jena Torres PA [address] [place] [address] [email or web address] Hip pain, right; Right knee pain, unspecified chronicity Social History Tobacco Use Types Packs/Day Years Used Date Smoking Tobacco: Never Smokeless Tobacco: Never Education Answer Date Recorded Are you interested in more education? Not on laya e 11/29/2022 Are you concerned about learning? Not on file 11/29/2022 No 11/29/2022 No 11/29/2022 Comments Unknown Sex and Gender Information Value Date Recorded Sex Assigned at Not on file Legal Sex Female 12:12 PM EDT Gender Identity Not on file Sexual Orientation Not on file documented as of this encounter Plan of Treatment Upcoming Encounters Date Type Department Care Team (Late st Contact Info) Description 09/08/2025 9:30 AM EST Office Visit [facility] Rheumatology [address] [facility] [place] [address] Rubia Duncan MD [address] [facility], [address] [place] [address] [email or web address] documented as of this encounter Results * XR HIP 2 VW RIGHT PLUS PELVIS (11/29/2022 12:21 PM EDT) Anatomical Region Laterality Modality Hip, Pelvis Computed Radiogr aphy 11/29/2022 10:0 2 PM EDT Impressions 11/29/2022 10:09 PM EDT Progressive right hip osteoarthritis, now severe. Partially visualized post surgical changes from complex left total hip arthroplasty. Narrative 11/29/2022 10:09 PM EDT XR HIP 2 VW RIGHT PLUS PELVIS COMPARISON: [id number] FINDINGS: PELVIS: Pelvic ring intact. No displaced fracture. Degenerative changes of the lower lumbar spine, sacroiliac joints, and pubic symphysis. RIGHT HIP: Severe right hip joint space narrowing with ohdl-vl-oklm contact. Gluteal enthesopathy at the greater trochanter. LEFT HIP: Surgical changes from complex left total hip arthroplasty with iliac plate and screw construct and cerclage wire. When compared to 2014, there is increasing heterotopic ossification lateral to the femoral head component. Procedure Note Venu Navarro MD - 11/29/2022 XR HIP 2 VW RIGHT PLUS PELVIS COMPARISON: [id number] FINDINGS: PELVIS: Pelvic ring intact. No displaced fracture. Degenerative changes ofthe lower lumbar spine, sacroiliac joints, and pubic symphysis. RIGHT HIP: Severe right hip joint space narrowing with gzli-jv-cmzfruybsgs. Gluteal enthesopathy at the greater trochanter. LEFT HIP: Surgical changes from complex left total hip arthroplasty withiliac plate and screw construct and cerclage wire. When compared to 2014,there is increasing heterotopic ossification lateral to the femoral headcomponent. IMPRESSION: Progressive right hip osteoarthritis, now severe. Partially visualized post surgical changes from complex left total hiparthroplasty. Jena BROWN IMG XR PELVIS Final Result * XR KNEE 1-2 VIEWS (RIGHT) (11/29/2022 12:20 PM EDT) Anatomical Region Laterality Modality Knee Right Computed Radiogr aphy 11/29/2022 10:0 1 PM EDT Impressions 11/29/2022 10:02 PM EDT Right knee tricompartmental osteoarthritis, mild to moderate in the medial compartment. Narrative 11/29/2022 10:02 PM EDT XR KNEE 1-2 VIEWS (RIGHT) COMPARISON: None FINDINGS: Bones demineralized. No acute fracture or dislocation. Mild to moderate joint space narrowing with subchondral sclerosis and bony proliferative changes at the medial and patellofemoral compartments. Mild joint space narrowing is at the lateral compartment. No joint effusion. Quadriceps enthesopathy at the superior patellar pole. Procedure Note Venu Navarro MD - 11/29/2022 XR KNEE 1-2 VIEWS (RIGHT) COMPARISON: None FINDINGS: Bones demineralized. No acute fracture or dislocation. Mild to moderatejoint space narrowing with subchondral sclerosis and bony proliferativechanges at the medial and patellofemoral compartments. Mild joint spacenarrowing is at the lateral compartment. No joint effusion. Quadriceps enthesopathy at the superior patellar pole. IMPRESSION: Right knee tricompartmental osteoarthritis, mild to moderate in the medialcompartment. Jena YEPEZG XR LOWER EXTREMITY Final Result documented in this encounter Visit Diagnoses Diagnosis Hip pain, right Pain in joint, pelvic region and thigh Right knee pain, unspecified chronicity Right knee pain, unspecified chronicity Hip pain, right Pain in joint, pelvic region and thigh documented in this encounter Care Teams Energy Project Manager Relationship Specialty Start Date End Date Gary Mcfadden DO PCP - General Internal Medicine 01/01/19 06/22/25 Gary Mcfadden DO [address] [place] [address] [email or web address] PCP - General Internal Medicine 06/23/25 documented as of this encounter Additional Source Comments The information contained in this document represents components of the legal health record. It is not the complete legal health record.[facility]
--- OUTSIDE RECORDS SUMMARY | 2025-06-30 07:16 | XMS_ITS | Clinical Summary ---
Author Organization [facility] Address [address] [place] [address] Phone Care Team Providers Care Shop Coordinator Name Role Phone Gary Mcfadden DO Primary Care Provider Allergies Active Allergy Reactions Criticality Noted Date Comments Codeine Phosphate Nausea and/or Vomiting 10/26/2016 Other reaction(s): up set stomach and vomitting Duloxetine Nausea Only 11/27/2023 Latex Rash Low 08/20/2014 Oxycodone-Acetaminophe n Nausea and/or Vomiting 10/26/2016 Other reaction(s): stomach upset Medications atenolol (TENORMIN) 25 MG tablet Take 25 mg by mouth daily. Orally Active lisinopril (PRINIVIL,ZESTRI L) 10 MG tablet Take 10 mg by mouth daily. Active metFORMIN (GLUCOPHAGE-XR) 750 MG 24 hr tablet Take 750 mg by mouth 2 (two) times a day. Orally Once daily Active rosuvastatin (CRESTOR) 40 MG tablet Take 40 mg by mouth every evening. Active glucosamine HCl 1,500 mg Tab Take 2 tablets by mouth daily. And chondroitin Active celecoxib (CELEBREX) 200 MG capsule Take 1 capsule by mouth every other day. 2 Active glimepiride (AMARYL) 2 MG tablet Take 2 mg by mouth daily before breakfast. Active amoxicillin (AMOXIL) 500 MG capsule Take 4 capsules (2,000 mg total) by mouth as directed. Take 4 capsules (2,000 mg total) 30min-1hr prior to any dental procedure. 8 capsule 1 4 Active Lactobacillus acidophilus (PROBIOTIC ORAL) Take by mouth. 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 Active methotrexate 2.5 MG Oral tabletIndication s:Rheumatoid arthritis with positive rheumatoid factor Take 6 tablets (15 mg total) by mouth every 7 days. 72 tablet 1 5 Active Active Problems Problem Noted Date Diagnosed Date Primary osteoarthritis involving multiple joints 05/13/2025 Assessment & Plan (05/13/2025 10:16 AM EDT): Joint protection, energy conservation. Gentle, regular exercise routine. Avoid falls, injuries, overuse. Keep body weight in ideal range for her height. She may benefit from topical cream such as Arnica, Biofreeze, Aspercreme versus medicated patches such as salonpas, icy hot patch 2-3 times daily and if necessary at bedtime x 3 weeks. On statin therapy 03/23/2024 Assessment & Plan (07/23/2024 9:41 AM EST): Monitor for muscle tenderness, swelling and weakness Assessment & Plan (03/23/2024 9:14 AM EDT): Monitor for muscle tenderness, swelling and weakness Rotator cuff arthropathy of both shoulders 03/23 Assessment & Plan (01/08/2025 3:33 PM EDT): Warm packs versus warm shower prior to gentle, regular exercise routine. Examples of exercises with pictures and detailed instructions printed for home use today. She preferred that over formal PT. She may benefit from topical cream/gel such as of Arnica, Voltaren, Biofreeze versus medicated patches such as Salonpas or IcyHot patch. If symptoms progress despite above measures may need to consider local steroid injection. Assessment & Plan (07/23/2024 9:49 AM EST): Warm packs versus warm shower prior to gentle, regular exercise routine. Examples of exercises with pictures and detailed instructions printed for home use today. She preferred that over formal PT. She may benefit from topical cream/gel such as of Arnica, Voltaren, Biofreeze versus medicated patches such as Salonpas or IcyHot patch. If symptoms progress despite above measures may need to consider local steroid injection. Assessment & Plan (03/23/2024 9:32 AM EDT): Warm packs versus warm shower prior to gentle, regular exercise routine. Examples of exercises with pictures and detailed instructions printed for home use today. She preferred that over formal PT. She may benefit from topical cream/gel such as of Arnica, Voltaren, Biofreeze versus medicated patches such as Salonpas or IcyHot patch. If symptoms progress despite above measures may need to consider local steroid injection. S/P total right hip arthroplasty 12/20/2023 Assessment & Plan (07/23/2024 9:41 AM EST): Continue healthful lifestyle, avoid falls, injuries and overuse. She is aware about the need for antibiotics 1 hour prior to dental procedures. Assessment & Plan (03/23/2024 9:33 AM EDT): Continue healthful lifestyle, avoid falls, injuries and overuse. She is aware about the need for antibiotics 1 hour prior to dental procedures. Rheumatoid arthritis involvi ng multiple sites with positive rheumatoid factor 09/20/2022 Assessment & Plan (05/13/2025 10:16 AM EDT): Clinically and laboratory coffman somewhat less well-controlled on current regimen of weekly oral methotrexate 15 mg every Ezra that she increase from prior 12.5 mg every Ezra for the last 4 weeks, daily folic acid 1mg and Celebrex 200 mg every other day. Get new set of hand x-rays at her convenience and monitoring labs prior to next visit -standing orders in the medical center. Continue joint protection, energy conservation techniques. Avoid falls, injuries, overuse and sick contacts. Gentle, regular exercise routine as educated by PT and OT. Call if problems or questions. Assessment & Plan (01/08/2025 3:22 PM EDT): Clinically and laboratory meghna well-controlled on current regimen of weekly oral methotrexate 12.5 mg every Ezra, daily folic acid 1mg and Celebrex 200 mg every other day. Get monitoring labs prior to next visit -standing orders in the medical center. She was inquiring whether I would allow her to decrease weekly methotrexate dose from 5 tablets weekly to 4 tablets see weekly and we reviewed most readings of ESR, CRP going back to May 2022 that were stable however frequently disease flares during the cooler season therefore we postponed decreasing weekly dose of methotrexate until warmer season Joint protection, energy conservation techniques. Avoid falls, injuries, overuse and sick contacts. Gentle, regular exercise routine as educated by PT and OT. Call if problems or questions. Assessment & Plan (07/23/2024 9:51 AM EST): Clinically and laboratory meghna well-controlled on current regimen of weekly oral methotrexate 12.5 mg every Ezra, daily folic acid 1mg and Celebrex 200 mg every other day. Get monitoring labs prior to next visit -standing orders in the medical center. She was inquiring whether I would allow her to decrease weekly methotrexate dose from 5 tablets weekly to 4 tablets see weekly and we reviewed most readings of ESR, CRP going back to May 2022 that were stable however frequently disease flares during the cooler season therefore we postponed decreasing weekly dose of methotrexate until warmer season Joint protection, energy conservation techniques. Avoid falls, injuries, overuse and sick contacts. Gentle, regular exercise routine as educated by PT and OT. Call if problems or questions. Assessment & Plan (03/23/2024 9:06 AM EDT): Clinically and laboratory meghna well-controlled on current regimen of weekly oral methotrexate 12.5 mg every Ezra, daily folic acid 1mg and Celebrex 200 mg every other day. Get monitoring labs prior to next visit -standing orders in the medical center. I have explained to her that she should not have disease exacerbation when holding weekly methotrexate doses for at least 2 weeks after planned right total hip replacement scheduled for 12/20/2023 or longer if necessary up to 4-6 weeks. Joint protection, energy conservation techniques. Avoid falls, injuries, overuse and sick contacts. Gentle, regular exercise routine as educated by PT and OT. Call if problems or questions. Assessment & Plan (11/17/2023 9:21 PM EDT): Clinically and laboratory coffman well-controlled on current regimen of weekly oral methotrexate 12.5 mg every Ezra, daily folic acid 1mg and Celebrex 200 mg every other day. Get monitoring labs prior to next visit -standing orders in the medical center. I have explained to her that she should not have disease exacerbation when holding weekly methotrexate doses for at least 2 weeks after planned right total hip replacement scheduled for 12/20/2023 or longer if necessary up to 4-6 weeks. Joint protection, energy conservation techniques. Avoid falls, injuries, overuse and sick contacts. Gentle, regular exercise routine as educated by PT and OT. Call if problems or questions. Assessment & Plan (06/08/2023 12:47 PM EDT): Clinically and laboratory coffman well-controlled on current regimen of weekly oral methotrexate 17.5 mg every Ezra, daily folic acid 1mg and Celebrex 200 mg daily. Get monitoring labs prior to next visit -standing orders in the medical center. I have explained to her that she should not have disease exacerbation when holding weekly methotrexate doses for at least 2 weeks after planned right total hip replacement in August 2023 or longer if necessary after 4-6 weeks. Joint protection, energy conservation techniques. Avoid falls, injuries, overuse and sick contacts. Gentle, regular exercise routine as educated by PT and OT. Call if problems or questions. Assessment & Plan (01/21/2023 9:15 AM EDT): Get monitoring labs prior to next visit in 4 months-standing orders in the medical center. Carefully continue current dose of weekly oral methotrexate 17.5 mg every Ezra and daily folic acid 1000 mcg as tolerated. Joint protection, energy conservation techniques. Avoid falls, injuries, overuse and sick contacts. Gentle, regular exercise routine as educated by PT and OT. Call if problems or questions. Assessment & Plan (09/24/2022 7:17 PM EST): Get monitoring labs prior to next visit in 4 months-standing orders in the medical center. Carefully continue current dose of weekly oral methotrexate 17.5 mg every Ezra and daily folic acid 1000 mcg as tolerated. Joint protection, energy conservation techniques. Avoid falls, injuries, overuse and sick contacts. Gentle, regular exercise routine as educated by PT and OT. Call if problems or questions. Carotid artery stenosis 09/12/2022 NSAID long-term use 01/15/2022 Assessment & Plan (05/13/2025 10:16 AM EDT): Take the lowest dose, with least frequency, for shortest time. Remember to take it always with food. Favor topical over oral preparations. ' Assessment & Plan (01/08/2025 3:22 PM EDT): Take the lowest dose, with least frequency, for shortest time. Remember to take it always with food. Favor topical over oral preparations. ' Assessment & Plan (07/23/2024 9:24 AM EST): Take the lowest dose, with least frequency, for shortest time. Remember to take it always with food. Favor topical over oral preparations. ' Assessment & Plan (03/23/2024 9:06 AM EDT): Take the lowest dose, with least frequency, for shortest time. Remember to take it always with food. Favor topical over oral preparations. ' Assessment & Plan (11/14/2023 4:27 PM EDT): Take the lowest dose, with least frequency, for shortest time. Remember to take it always with food. Favor topical over oral preparations. ' Assessment & Plan (06/05/2023 9:05 AM EDT): Take the lowest dose, with least frequency, for shortest time. Remember to take it always with food. Favor topical over oral preparations. Assessment & Plan (02/08/2023 6:22 PM EDT): Take the lowest dose, with least frequency, for shortest time. Try to decrease frequency of Celebrex when stable and stop intermittently as tolerable. Remember to take it always with food. Favor topical over oral preparations. Assessment & Plan (09/20/2022 8:58 AM EST): Take the lowest dose, with least frequency, for shortest time. Remember to take it always with food. Favor topical over oral preparations. Assessment & Plan (05/17/2022 8:37 AM EDT): Take the lowest dose, with least frequency, for shortest time. Remember to take it always with food. Favor topical over oral preparations. Osteoarthritis of both knees 09/11/2021 Assessment & Plan (01/21/2023 9:14 AM EDT): Joint protection, energy conservation. Gentle, regular exercise routine. Avoid falls, injuries, overuse. Work diligently on bringing her body weight into ideal range for her height. She may benefit from topical cream such as Arnica, Biofreeze, Aspercreme versus medicated patches such as salonpas, icy hot patch 2-3 times daily and if necessary at bedtime x 3 weeks. Pamphlet on hyaluronic acid intra-articular injection as an alternative to cortisone injection provided for review and consideration. Assessment & Plan (09/24/2022 7:20 PM EST): Joint protection, energy conservation. Gentle, regular exercise routine. Avoid falls, injuries, overuse. Work diligently on bringing her body weight into ideal range for her height. She may benefit from topical cream such as Arnica, Biofreeze, Aspercreme versus medicated patches such as salonpas, icy hot patch 2-3 times daily and if necessary at bedtime x 3 weeks. Pamphlet on hyaluronic acid intra-articular injection as an alternative to cortisone injection provided for review and consideration. Assessment & Plan (01/15/2022 8:53 AM EDT): Joint protection, energy conservation. Gentle, regular exercise routine. Avoid falls, injuries, overuse. Work diligently on bringing her body weight into ideal range for her height. She may benefit from topical cream such as Arnica, Biofreeze, Aspercreme versus medicated patches such as salonpas, icy hot patch 2-3 times daily and if necessary at bedtime x 3 weeks. Assessment & Plan (09/11/2021 9:48 AM EST): Joint protection, energy conservation. Gentle, regular exercise routine. Avoid falls, injuries, overuse. Work on bringing her body weight into ideal range for her height. She may benefit from topical cream such as Arnica, Biofreeze, Aspercreme versus medicated patches such as salonpas, icy hot patch 2-3 times daily and if necessary at bedtime x 3 weeks. Since steroid injection in July 2021 did not really help her I offered her consideration for viscosupplementation and provided her with pamphlet on Synvisc that she is interested in trying once her insurance would approve it. Class 1 obesity due to exces s calories with serious comorbidity and body mass index (BMI) of 31.0 to 31.9 in adult 05/15/2021 Assessment & Plan (05/13/2025 10:17 AM EDT): Congratulations on losing 2 pounds from 180 on 01/08/2025 down to 178 today and keep it off. Continue diligent portion control. Limit concentrated sugars, saturated fats and calories in the diet. Keep well-hydrated. If unable to achieve expected goal consider formal dietary/nutritional support. Assessment & Plan (01/09/2025 7:27 PM EDT): Continue diligent portion control. Limit concentrated sugars, saturated fats and calories in the diet. Keep well-hydrated. If unable to achieve expected goal consider formal dietary/nutritional support. Assessment & Plan (07/23/2024 9:25 AM EST): Portion control. Limit concentrated sugars, saturated fats and calories in the diet. Keep well-hydrated. If unable to achieve expected goal consider formal dietary/nutritional support. Assessment & Plan (05/17/2022 8:34 AM EDT): Portion control. Limit concentrated sugars, saturated fats and calories in the diet. Keep well-hydrated. If unable to achieve expected goal consider formal dietary/nutritional support. Assessment & Plan (01/15/2022 8:39 AM EDT): Portion control. Limit concentrated sugars, saturated fats and calories in the diet. Keep well-hydrated. If unable to achieve expected goal consider formal dietary/nutritional support. Assessment & Plan (09/11/2021 9:44 AM EST): Continue portion control. Limit concentrated sugars, saturated fats and calories in the diet. Keep well-hydrated. If unable to achieve expected goal consider formal dietary/nutritional support. Assessment & Plan (05/15/2021 10:50 AM EDT): Portion control. Limit concentrated sugars, saturated fats and calories in the diet. Keep well-hydrated. If unable to achieve expected goal consider formal dietary/nutritional support. 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, usp, current use 05/10/2021 Assessment & Plan (05/13/2025 10:16 AM EDT): Take exactly as prescribed. Refrain from alcohol drinking while on methotrexate. Hold methotrexate whenever running fever, feeling sick or taking antibiotics. Complete entire course of antibiotic and wait at least 48 hours after the last dose of antibiotic before returning to its usual weekly schedule. Make sure to inform any new MD PA, STAVE CUTTING SUPERVISOR about chronic methotrexate therapy particularly in emergency situations. Monitor for increasing breathing difficulty, chest pain cough, abdominal pain, diarrhea, skin or mucous membranes yellowing etc. Assessment & Plan (01/08/2025 3:22 PM EDT): Take exactly as prescribed. Refrain from alcohol drinking while on methotrexate. Hold methotrexate whenever running fever, feeling sick or taking antibiotics. Complete entire course of antibiotic and wait at least 48 hours after the last dose of antibiotic before returning to its usual weekly schedule. Make sure to inform any new MD PA, STAVE CUTTING SUPERVISOR about chronic methotrexate therapy particularly in emergency situations. Monitor for increasing breathing difficulty, chest pain cough, abdominal pain, diarrhea, skin or mucous membranes yellowing etc. Assessment & Plan (07/23/2024 9:24 AM EST): Take exactly as prescribed. Refrain from alcohol drinking while on methotrexate. Hold methotrexate whenever running fever, feeling sick or taking antibiotics. Complete entire course of antibiotic and wait at least 48 hours after the last dose of antibiotic before returning to its usual weekly schedule. Make sure to inform any new KEVIN GORDON NP about chronic methotrexate therapy particularly in emergency situations. Monitor for increasing breathing difficulty, chest pain cough, abdominal pain, diarrhea, skin or mucous membranes yellowing etc. Assessment & Plan (03/23/2024 9:06 AM EDT): Take exactly as prescribed. Refrain from alcohol drinking while on methotrexate. Hold methotrexate whenever running fever, feeling sick or taking antibiotics. Complete entire course of antibiotic and wait at least 48 hours after the last dose of antibiotic before returning to its usual weekly schedule. Make sure to inform any new KEVIN GORDON NP about chronic methotrexate therapy particularly in emergency situations. Monitor for increasing breathing difficulty, chest pain cough, abdominal pain, diarrhea, skin or mucous membranes yellowing etc. Assessment & Plan (11/14/2023 4:27 PM EDT): Take exactly as prescribed. Refrain from alcohol drinking while on methotrexate. Hold methotrexate whenever running fever, feeling sick or taking antibiotics. Complete entire course of antibiotic and wait at least 48 hours after the last dose of antibiotic before returning to its usual weekly schedule. Make sure to inform any new KEVIN GORDON NP about chronic methotrexate therapy particularly in emergency situations. Monitor for increasing breathing difficulty, chest pain cough, abdominal pain, diarrhea, skin or mucous membranes yellowing etc. Assessment & Plan (06/05/2023 9:05 AM EDT): Take exactly as prescribed. Refrain from alcohol drinking while on methotrexate. Hold methotrexate whenever running fever, feeling sick or taking antibiotics. Complete entire course of antibiotic and wait at least 48 hours after the last dose of antibiotic before returning to its usual weekly schedule. Make sure to inform any new KEVIN GORDON NP about chronic methotrexate therapy particularly in emergency situations. Monitor for increasing breathing difficulty, chest pain cough, abdominal pain, diarrhea, skin or mucous membranes yellowing etc. Assessment & Plan (01/21/2023 9:18 AM EDT): Take exactly as prescribed. Refrain from alcohol drinking while on methotrexate. Hold methotrexate whenever running fever, feeling sick or taking antibiotics. Complete entire course of antibiotic and wait at least 48 hours after the last dose of antibiotic before returning to its usual weekly schedule. Make sure to inform any new KEVIN GORDON NP about chronic methotrexate therapy particularly in emergency situations. Monitor for increasing breathing difficulty, chest pain cough, abdominal pain, diarrhea, skin or mucous membranes yellowing etc. Assessment & Plan (09/20/2022 8:58 AM EST): Take exactly as prescribed. Refrain from alcohol drinking while on methotrexate. Hold methotrexate whenever running fever, feeling sick or taking antibiotics. Complete entire course of antibiotic and wait at least 48 hours after the last dose of antibiotic before returning to its usual weekly schedule. Make sure to inform any new KEVIN GORDON NP about chronic methotrexate therapy particularly in emergency situations. Monitor for increasing breathing difficulty, chest pain cough, abdominal pain, diarrhea, skin or mucous membranes yellowing etc. Assessment & Plan (05/17/2022 8:36 AM EDT): Take exactly as prescribed. Refrain from alcohol drinking while on methotrexate. Hold methotrexate whenever running fever, feeling sick or taking antibiotics. Complete entire course of antibiotic and wait at least 48 hours after the last dose of antibiotic before returning to its usual weekly schedule. Make sure to inform any new KEVIN GORDON NP about chronic methotrexate therapy particularly in emergency situations. Monitor for increasing breathing difficulty, chest pain cough, abdominal pain, diarrhea, skin or mucous membranes yellowing etc. Assessment & Plan (01/15/2022 8:39 AM EDT): Take exactly as prescribed. Refrain from alcohol drinking while on methotrexate. Hold methotrexate whenever running fever, feeling sick or taking antibiotics. Complete entire course of antibiotic and wait at least 48 hours after the last dose of antibiotic before returning to its usual weekly schedule. Make sure to inform any new KEVIN GORDON NP about chronic methotrexate therapy particularly in emergency situations. Monitor for increasing breathing difficulty, chest pain cough, abdominal pain, diarrhea, skin or mucous membranes yellowing etc. Assessment & Plan (09/11/2021 8:25 AM EST): Take exactly as prescribed. Refrain from alcohol drinking while on methotrexate. Hold methotrexate whenever running fever, feeling sick or taking antibiotics. Complete entire course of antibiotic and wait at least 48 hours after the last dose of antibiotic before returning to its usual weekly schedule. Make sure to inform any new MD PA, STAVE CUTTING SUPERVISOR about chronic methotrexate therapy particularly in emergency situations. Monitor for increasing breathing difficulty, chest pain cough, abdominal pain, diarrhea, skin or mucous membranes yellowing etc. Assessment & Plan (05/15/2021 10:54 AM EDT): Take exactly as prescribed. Refrain from alcohol drinking while on methotrexate. Hold methotrexate whenever running fever, feeling sick or taking antibiotics. Complete entire course of antibiotic and wait at least 48 hours after the last dose of antibiotic before returning to its usual weekly schedule. Make sure to inform any new KEVIN GORDON, STAVE CUTTING SUPERVISOR about chronic methotrexate therapy particularly in emergency situations. Monitor for increasing breathing difficulty, chest pain cough, abdominal pain, diarrhea, skin or mucous membranes yellowing etc. intermediate current use of oral hypoglycemic drug 05/10/2021 Assessment & Plan (01/09/2025 7:27 PM EDT): Take exactly as prescribed. Aim at BS= 90-120 mg %. Follow with prescribing doctor as scheduled/needed. Assessment & Plan (07/23/2024 9:25 AM EST): Take exactly as prescribed. Aim at BS= 90-120 mg %. Follow with prescribing doctor as scheduled/needed. Assessment & Plan (09/24/2022 7:18 PM EST): Take exactly as prescribed. Aim at BS= 90-120 mg %. Follow with prescribing doctor as scheduled/needed. Assessment & Plan (09/11/2021 8:25 AM EST): Take exactly as prescribed. Aim at BS= 90-120 mg % Assessment & Plan (05/15/2021 10:54 AM EDT): Take exactly as prescribed. Aim at BS= 90-120 mg % Encounter for monitoring statin therapy 05/10/20 Assessment & Plan (05/13/2025 10:17 AM EDT): Monitor for muscle tenderness, swelling and weakness Assessment & Plan (01/09/2025 7:27 PM EDT): Monitor for muscle tenderness, swelling and weakness Assessment & Plan (09/20/2022 8:57 AM EST): Monitor for muscle tenderness, swelling and weakness Assessment & Plan (05/17/2022 8:37 AM EDT): Monitor for muscle tenderness, swelling and weakness Assessment & Plan (01/15/2022 8:39 AM EDT): Monitor for muscle tenderness, swelling and weakness Assessment & Plan (09/11/2021 8:25 AM EST): Monitor for muscle tenderness, swelling and weakness Assessment & Plan (05/15/2021 10:55 AM EDT): Monitor for muscle tenderness, swelling and weakness Status post revision of total hip replacement Hypertriglyceridemia 03/25/2018 Diabetes mellitus 12/11/2017 Disorder of breast 12/11/2017 Hemorrhoids 12/11/2017 Lyme disease 12/11/2017 Essential hypertension 12/06/2017 Resolved Problems Problem Noted Date Diagnosed Date Resolved Date Class 1 obesity due to exces s calories with serious comorbidity and body mass index (BMI) of 30.0 to 30.9 in adult 06/05/2023 07/23/2024 Assessment & Plan (03/23/2024 9:33 AM EDT): Continue diligent portion control especially in view of gaining 5 pounds from 169. up to 174 today. Limit concentrated sugars, saturated fats and calories in the diet. Keep well-hydrated. If unable to achieve expected goal consider formal dietary/nutritional support. Assessment & Plan (06/08/2023 12:48 PM EDT): Continue diligent portion control. Limit concentrated sugars, saturated fats and calories in the diet. Keep well-hydrated. If unable to achieve expected goal consider formal dietary/nutritional support. Rheumatoid arthritis with po sitive rheumatoid factor 04/30/2019 09/20/2022 Assessment & Plan (05/17/2022 9:42 AM EDT): Get monitoring labs today and prior to next visit in 4 months-standing orders in the medical center. Carefully continue current dose of weekly oral methotrexate 17.5 mg every Ezra and daily folic acid as tolerated. Joint protection, energy conservation techniques. Avoid falls, injuries, overuse and sick contacts. Gentle, regular exercise routine as educated by PT and OT. Get yearly influenza and bivalent COVID-19 vaccines before the end of May 2022 and hold 2 weekly methotrexate doses afterwards. Call if problems or questions. Assessment & Plan (01/15/2022 8:38 AM EDT): Get monitoring labs today and prior to next visit in 4 months-standing orders in the medical center. Carefully continue current dose of weekly oral methotrexate 17.5 mg every Ezra and daily folic acid as tolerated. Joint protection, energy conservation techniques. Avoid falls, injuries, overuse and sick contacts. Gentle, regular exercise routine as educated by PT and OT. Call if problems or questions. Assessment & Plan (09/11/2021 8:20 AM EST): Get monitoring labs today and prior to next visit in 4 months-standing orders in the medical center. Carefully continue current dose of weekly oral methotrexate 17.5 mg every Ezra and daily folic acid as tolerated. Joint protection, energy conservation techniques. Avoid falls, injuries, overuse and sick contacts. Gentle, regular exercise routine as educated by PT and OT. Call if problems or questions. Assessment & Plan (05/15/2021 10:52 AM EDT): Get monitoring labs today and prior to next visit in 4 months-standing orders in the medical center. Carefully continue current dose of weekly oral methotrexate 17.5 mg every Ezra and daily folic acid as tolerated. Joint protection, energy conservation techniques. Avoid falls, injuries, overuse and sick contacts. Gentle, regular exercise routine as educated by PT and OT. Call if problems or questions. Assessment & Plan (02/15/2021 9:30 AM EDT): Continue 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 2.5 mg Take 7 pills PO q week. Continue Folic acid 1 mg PO daily. Blue Emu Arthritis spray as needed. Assessment & Plan (11/23/2020 8:22 AM EDT): Continue 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 2.5 mg Take 6 pills PO q week. Continue Folic acid 1 mg PO daily. Blue Emu arthritis spray as needed for additional joint pain relief as needed. Assessment & Plan (08/24/2020 8:28 AM EST): Continue methotrexate 2.5 mg Take 7 pills PO q week. Continue Folic acid 1 mg PO daily. Blue Emu arthritis spray, Tylenol for additional shoulder, hand pain relief as needed. 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; Primary osteoarthritis involving multiple joints; NSAID long-term use; Encounter for monitoring statin therapy; Need for influenza vaccination; Rheumatoid arthritis with positive rheumatoid factor; Class 1 obesity due to excess calories with serious comorbidity and body mass index (BMI) of 31.0 to 31.9 in adult 05/03/2025 8:06 AM EDT - 05/03/2025 11:59 PM EDT Hospital Encounter [address] [address] Rubia Duncan MD Discharge Disposition: Home or Self Care from Last 3 Months Immunizations Immunization Administration Dates Next Due COVID-19 (Pre-05/27) [place] Vaccine, rS-ChAdOx1, PF 10/05/2020,09/25/2020 COVID-19 (Pre-05/27) Pfizer Vaccine, mRNA, PF 10/05/2020,09/14/2020 COVID-19 Pfizer Comirnaty Vaccine 12+ 04/18/2024 ,05/07/2023 COVID-19, Unspecified Formulation 12/10/2022 Influenza High-Dose Quadriva lent Preservative Free IM 06/05/2023,05/17/2022,05/01/2021 Influenza High-Dose Trivalen t Preservative Free IM 05/13/2025,06/02/2024,05/07/2019,2017,07/11/2016 Influenza, Unspecified Formulation 10/22/2014(De ferred: Other - 00) Pneumococcal conjugate PCV13 09/06/2016 Pneumococcal, Unspecified Formulation (Deferred: Patient Decision - 00) RSV Vaccine (monovalent, adjuvanted) 06/19/2023 Social History Tobacco Use Types Packs/Day Years Used Date Smoking Tobacco: Never Smokeless Tobacco: Never Alcohol Use Standard Drinks/Week Comments Never 0 (1 standard drink = 0.6 oz pur e alcohol) Home Health Assessment: Transportation Answer Date Recorded Lack of Transportation (Medical) No 01/08/2024 Lack of Transportation (Non-Medical) No 01/08/2024 Patient Unable or Declines to Respond No 01/08/2024 Child or Family Care Answer Date Record [...] your housing situation today? I have abilio sing 02/22/2023 How many times have you move [...] 02/22/2023 Digital Access Answer Date Recorded No 02/22/2025 No 02/22/2025 Reliable internet access at home? Not on file 02/22/2025 Device with a working camera? Not on file Intimate Partner Violence Answer Date R ecorded [...] on file Sexual Orientation Not on file Last Filed Vital Signs Vital Sign Reading Time Taken Comments Blood Pressure 124/78 05/13/2025 9:22 AM EDT Pulse 57 05/13/2025 9:22 AM EDT Temperature 36.4 C (97.6 F) 01/08/2024 1:03 PM EDT Respiratory Rate 16 12/27/2023 10:37 AM EDT Oxygen Saturation 95% 05/13/2025 9:22 AM EDT Inhaled Oxygen Concentration - - Weight 80.7 kg (178 lb) 05/13/2025 9:22 AM EDT Height 161 cm (5' 3.39 ) 05/13/2025 9:22 AM EDT Body Mass Index 31.15 05/13/2025 9:22 AM EDT Plan of Treatment Upcoming Encounters Date Type Department Care Team (Late st Contact Info) Description 09/08/2025 9:30 AM EST Office Visit [facility] Rheumatology [address] [place] [address] Rubia Duncan MD [address] [facility], [address] [place] [address] [email or web address] Health Maintenance Due Date Last Done Comments DEPRESSION SCREENING 1957 ZOSTER VACCINES (1 of 2) 1963 DIABETIC EYE EXAM 04/19/2020 Adult Td,Tdap Booster 09/30/2024 09/30/2014 COVID-19 VACCINE ( season) 2025 04/18/2024, 05/07/2023, 12/10/2022, Additional history exists BLOOD PRESSURE 11/11/2025 05/13/2025 HEMOGLOBIN A1C 12/20/2025 06/22/2025, 03/05, 09/01/2024, Additional history exists CREATININE LEVEL 06/22/2026 06/22/2025, , 03/23/2025, Additional history exists POTASSIUM LEVEL 06/22/2026 06/22/2025, 04/06, 03/23/2025, Additional history exists OSTEOPOROSIS SCREENING INITIAL (ONE-TIME) Completed 12/20/2021 RSV VACCINE Completed 06/19/2023 PNEUMOCOCCAL VACCINES (50+ years) Completed 06/02/2024, 02/13/2018, 09/06/2016, Additional history exists INFLUENZA VACCINE Completed 05/13/2025, , 06/05/2023, Additional history exists HEPATITIS A VACCINES Aged Out No long er eligible based on patient's age to complete this topic HIB VACCINES Aged Out No longer eligi ble based on patient's age to complete this topic MENINGOCOCCAL VACCINES (ACWY) Aged Out No longer eligible based on patient's age to complete this topic MENINGOCOCCAL VACCINES (B) Aged Out N o longer eligible based on patient's age to complete this topic Medical Devices Implanted 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 Device Identifier Shelf Expiration Date Model / Serial / Lot Hip 36mm 0.0 Implant Plus Hd Alumina Ceramic Modular Delta Biolox 04 - [id number] Implanted:Qty: 1 on 12/20/2023 by Evelio Lang MD at [facility] STANDARD Right: Hip [employer] 08/21/2028 6570-0-1 36 / / [id number] Hardware Left: Hip Acetabular Insert 3.9x36mm 0deg Trident X3 Polyethylene - [id number] Implanted:Qty: 1 on 12/20/2023 by Evelio Lang MD at [facility] Right: Acetabulum [employer] 09/14/2028 723-00-3 6D / / [id number] Hip Acetabular 48d Shell Trident Ii Tritanium 3d Surface Clusterhole - [id number] Implanted:Qty: 1 on 12/20/2023 by Evelio Lang MD at [facility] Right: Hip [employer] 10/07/2028 702-04-4 8D / / [id number] Hip Stem Sz 2 High Offset Insignia Collared - [id number] Implanted:Qty: 1 on 12/20/2023 by Evelio Lang MD at [facility] Right: Acetabulum [employer] 08/28/2028 [id number] 2 / / [id number] Procedures Procedure Name Priority Date/Time Associated Diagnosis Comments CBC AND DIFFERENTIAL Routine 06/22/2025 7:54 AM EST Type 2 diabetes mellitus without complications Hypertension, unspecified type LIPID PANEL Routine 06/22/2025 7:54 AM EST Type 2 diabetes mellitus without complications Hypertension, unspecified type CBC AND DIFFERENTIAL Routine 06/22/2025 7:54 AM EST Type 2 diabetes mellitus without complications Hypertension, unspecified type COMPREHENSIVE METABOLIC PANEL (CMP) Routine 06/22/2025 7:54 AM EST Type 2 diabetes mellitus without complications Hypertension, unspecified type HEMOGLOBIN A1C Routine 06/22/2025 7:54 AM EST Type 2 diabetes mellitus without complications Hypertension, unspecified type XR HAND 3 OR MORE VIEWS (BILATERAL) Routine 05/24/2025 10:49 AM EDT Rheumatoid arthritis involving multiple sites with positive rheumatoid factor COMPREHENSIVE METABOLIC PANEL (CMP) Routine 05/03/2025 8:06 AM EDT Rheumatoid arthritis involving multiple sites with positive rheumatoid factor 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, 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, 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 NSAID long-term use C-REACTIVE PROTEIN (CRP) Routine 05/03/2025 8:06 AM EDT Rheumatoid arthritis involving multiple sites with positive rheumatoid factor 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, 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, 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 NSAID long-term use SEDIMENTATION RATE (ESR) Routine 05/03/2025 8:06 AM EDT Rheumatoid arthritis involving multiple sites with positive rheumatoid factor 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, usp, current use NSAID long-term use CBC AND DIFFERENTIAL Routine 05/03/2025 8:06 AM EDT Rheumatoid arthritis involving multiple sites with positive rheumatoid factor 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, usp, current use NSAID long-term use BD DXA AXIAL (SPINE) WITH HIP Routine 12/20/2021 1:47 PM EDT Rheumatoid arthritis involving both hands with positive rheumatoid factor Postmenopausal from Last 3 Months or Most Recently Relevant to Health Maintenance Results * (ABNORMAL) Comprehensive Metabolic Panel (CMP) (06/22/2025 7:54 AM EST) Only the most recent of2 resultswithin the time period is included. Sodium 141 136 - 145 mmol/L 06/22/2025 7:29 PM [facility] Potassium 4.2 3.4 - 5.1 mmol/L 06/22/2025 7:29 PM [facility] Chloride 103 98 - 107 mmol/L 06/22/2025 7:29 PM [facility] CO2 26 20 - 31 mmol/L 06/22/2025 7:29 PM [facility] Anion Gap 12 3 - 17 mmol/L 06/22/2025 7:29 PM [facility] BUN 13 6 - 23 mg/dL 06/22/2025 7:29 PM [facility] Creatinine 0.60 0.50 - 1.00 mg/dL 06/22/2025 7:29 PM [facility] eGFR 90 >59 mL/min/1.7 3m2 06/22/2025 7:29 PM [facility] Comment:Estimated glomerular filtration rate calculated using the CKD-EPI refit equation. Glucose 119(H) 70 - 99 mg/dL 06/22/2025 7:29 PM [facility] Calcium 10.3 8.5 - 10.5 mg/dL 06/22/2025 7:29 PM [facility] AST 24 <33 U/L 06/22/2025 7:29 PM [facility] ALT 14 <34 U/L 06/22/2025 7:29 PM [facility] Alkaline Phosphatase 84 40 - 130 U/L 06/22/2025 7:29 PM [facility] Bilirubin, Total 0.4 0.0 - 1.2 mg/dL 06/22/2025 7:29 PM [facility] Total Protein 6.8 6.4 - 8.3 g/dL 06/22/2025 7:29 PM [facility] Albumin 4.3 3.5 - 5.2 g/dL 06/22/2025 7:29 PM [facility] Globulin 2.5 1.9 - 4.1 g/dL 06/22/2025 7:29 PM [facility] Blood 06/22/2025 7:54 AM EST 06/22/2025 7:55 AM EST us Debby BROWN LAB BLOOD BKR ORDERABLES Fi nal Result [address] [address] * (ABNORMAL) CBC and Differential (06/22/2025 7:54 AM EST) WBC 5.93 4.00 - 11.00 K/uL 06/22/2025 7:20 PM [facility] RBC 4.56 4.00 - 5.20 M/uL 06/22/2025 7:20 PM [facility] Hemoglobin 14.4 12.0 - 16.0 g/dL 06/22/2025 7:20 PM [facility] Hematocrit 44.0 36.0 - 46.0 % 06/22/2025 7:20 PM [facility] MCV 96.5 80.0 - 100.0 fL 06/22/2025 7:20 PM [facility] MCH 31.6(H) 27.0 - 31.0 pg 06/22/2025 7:20 PM [facility] MCHC 32.7 32.0 - 36.0 g/dL 06/22/2025 7:20 PM [facility] MPV 10.3 8.4 - 12.0 fL 06/22/2025 7:20 PM [facility] RDW-CV 13.9 11.5 - 14.5 % 06/22/2025 7:20 PM [facility] PLT 246 150 - 450 K/uL 06/22/2025 7:20 PM [facility] Neutrophils 64.9 % 06/22/2025 7:20 PM [facility] Lymphocytes 25.5 % 06/22/2025 7:20 PM [facility] Monocytes 6.1 % 06/22/2025 7:20 PM [facility] Eosinophils 2.5 % 06/22/2025 7:20 PM [facility] Basophils 0.8 % 06/22/2025 7:20 PM [facility] Imm Grans 0.2 % 06/22/2025 7:20 PM [facility] NRBC 0.0 <=0.0 /100 WBCs 06/22/2025 7:20 PM [facility] Absolute Neutrophils 3.85 1.92 - 7.60 K/uL 06/22/2025 7:20 PM [facility] Absolute Lymphocytes 1.51 0.72 - 4.10 K/uL 06/22/2025 7:20 PM [facility] Absolute Monocytes 0.36 0.16 - 1.10 K/uL 06/22/2025 7:20 PM [facility] Absolute Eosinophils 0.15 0.00 - 0.50 K/uL 06/22/2025 7:20 PM [facility] Absolute Basophils 0.05 0.00 - 0.15 K/uL 06/22/2025 7:20 PM [facility] Absolute Imm Grans 0.01 0.00 - 0.09 K/uL 06/22/2025 7:20 PM [facility] Absolute NRBC 0.00 <=0.00 K cells/uL 06/22/2025 7:20 PM [facility] Absolute Neutrophils 3.85 1.92 - 7.60 K/uL 06/22/2025 7:20 PM [facility] Comment:Automated cell count . Manual ANC may differ if performed. Diff Type Auto 06/22/2025 7:20 PM [facility] Blood 06/22/2025 7:54 AM EST 06/22/2025 7:55 AM EST Debby BROWN LAB BLOOD BKR ORDERABLES Fi nal Result [address] [address] * (ABNORMAL) Hemoglobin A1c (06/22/2025 7:54 AM EST) Hemoglobin A1c 6.0(H) 4.3 - 5.6 % 06/22/2025 7:20 PM [facility] Calculated Mean Blood Glucose 126 mg/dL 06/22/2025 7:20 PM [facility] Comment:There is no establis [facility] normal range for the Estimated Average Glucose (EAG). However, a HbA1c of 5.6% (upper limit of normal) represents an EAG of 114 mg/dL. The diagnostic HbA1c level for diabetes is greater than or equal to 6.5%, which represents an EAG greater than or equal to 140 mg/dL. Blood 06/22/2025 7:54 AM EST 06/22/2025 7:55 AM EST Debby BROWN LAB BLOOD BKR ORDERABLES Fi nal Result [address] [address] * (ABNORMAL) Lipid Panel (06/22/2025 7:54 AM EST) Cholesterol 152 <200 mg/dL 06/22/2025 7:29 PM EST [facility] HDL 59 >=40 mg/dL 06/22/2025 7:29 PM [facility] Calculated LDL 60 <130 mg/dL 06/22/2025 7:29 PM [facility] Comment:LDL is calculated us ing the Griffith-NIH equation (TOD Cardiol. 2019December 03;5(5):540-548). Non-HDL Cholesterol 93 mg/dL 06/22/2025 7:29 PM [facility] Comment:Guidelines suggest a non-HDL cholesterol goal 30 mg/dL higher than the patient-specific LDL cholesterol goal. Cardiac Risk Ratio 2.6 0.0 - 5.0 2024 7:29 PM [facility] Triglycerides 207(H) <=150 mg/dL 06/22/2025 7:29 PM [facility] Blood 06/22/2025 7:54 AM EST 06/22/2025 7:55 AM EST us Debby BROWN LAB BLOOD BKR ORDERABLES Fi nal Result [address] [address] * XR HAND 3 OR MORE VIEWS (BILATERAL) (05/24/2025 10:49 AM EDT) Anatomical Region Laterality Modality Hand Left Computed Radiogr aphy 05/24/2025 1:50 PM EDT Impressions 05/24/2025 1:52 PM EDT Moderately severe bilateral arthritis. There is significant degenerative appearing osteoarthritis at the first CMC and triscaphe joints bilaterally as well as moderate osteophyte formation and joint space loss with some deformity throughout the DIP and PIP joints bilaterally, perhaps most prominent within the third PIP joints. These changes also appear most consistent with degenerative osteoarthritis. There is a reported history of rheumatoid arthritis, and it is difficult to exclude the sequela of some marginal erosive change within the PIP joints, however no other discrete marginal erosion is identified. No visualized acute, displaced fracture or dislocation. Narrative 05/24/2025 1:52 PM EDT XR HAND 3 OR MORE VIEWS (BILATERAL) Referring clinician's provided indication for this examination in [facility]: Arthritis: Rheumatoid; Osteoarthritis; Pain COMPARISON: None Procedure Note Darren Hook MD - 05/24/2025 XR HAND 3 OR MORE VIEWS (BILATERAL) Referring clinician's provided indication for this examination in [facility]:Arthritis: Rheumatoid; Osteoarthritis; Pain COMPARISON: None IMPRESSION: Moderately severe bilateral arthritis. There is significant degenerativeappearing osteoarthritis at the first CMC and triscaphe joints bilaterallyas well as moderate osteophyte formation and joint space loss with somedeformity throughout the DIP and PIP joints bilaterally, perhaps mostprominent within the third PIP joints. These changes also appear mostconsistent with degenerative osteoarthritis. There is a reported historyof rheumatoid arthritis, and it is difficult to exclude the sequela ofsome marginal erosive change within the PIP joints, however no otherdiscrete marginal erosion is identified. No visualized acute, displacedfracture or dislocation. us Rubia Duncan MD IMG XR UPPER EXTREMITY F inal Result * Sedimentation rate (ESR) (05/03/2025 8:06 AM EDT) ESR 17 0 - 30 mm/h [facility] Blood 05/03/2025 8:0 6 AM EDT 05/03/2025 8:10 AM EDT us Rubia Duncan MD LAB BLOOD BKR ORDERABLES Final Result [address] [address] * (ABNORMAL) CBC and differential (05/03/2025 8:06 AM EDT) WBC 5.55 4.00 - 11.00 K/uL [facility] RBC 4.39 4.00 - 5.20 M/uL [facility] HGB 14.1 12.0 - 16.0 g/dL [facility] HCT 42.9 36.0 - 46.0 % [facility] PLT 253 150 - 450 K/uL [facility] MCV 97.7 80.0 - 100.0 fL [facility] MCH 32.1(H) 27.0 - 31.0 pg [facility] MCHC 32.9 32.0 - 36.0 g/dL [facility] RDW 14.0 11.5 - 14.5 % [facility] MPV 10.0 8.4 - 12.0 fL [facility] NRBC 0.00 0.00 /100 WBCs [facility] ABSOLUTE NRBC 0.00 0.00 K/uL [facility] DIFF METHOD Auto [facility] NEUTS 65.2 48.0 - 76.0 % [facility] LYMPHS 24.9 18.0 - 41.0 % [facility] MONOS 5.4 4.0 - 11.0 % [facility] EOS 3.6 0.0 - 5.0 % [facility] BASOS 0.7 0.0 - 1.5 % [facility] Granulocytes, immature (%) 0.2 0.0 - 0.9 % [facility] ABSOLUTE NEUTS 3.62 1.92 - 7.60 K/uL [facility] ABSOLUTE LYMPHS 1.38 0.72 - 4.10 K/uL [facility] ABSOLUTE MONOS 0.30 0.16 - 1.10 K/uL [facility] ABSOLUTE EOS 0.20 0.00 - 0.50 K/uL [facility] ABSOLUTE BASOS 0.04 0.00 - 0.15 K/uL [facility] Granulocytes, immature 0.01 0.00 - 0.09 K/uL [facility] Blood 05/03/2025 8:06 AM EDT 05/03/2025 8:10 AM EDT us Rubia Duncan MD LAB BLOOD BKR ORDERABLES Final Result [address] [address] [phone] * (ABNORMAL) C-Reactive Protein (05/03/2025 8:06 AM EDT) C REACTIVE PROTEIN 9.2(H) 0.0 - 4.0 mg/L [facility] Blood 05/03/2025 8:06 AM EDT 05/03/2025 8:10 AM EDT us Rubia Duncan MD LAB BLOOD BKR ORDERABLES Final Result [facility] [address] [place] [address] * BD DXA AXIAL (SPINE) WITH HIP (12/20/2021 1:47 PM EDT) Anatomical Region Laterality Modality Bone Density Bone Density 12/20/2021 3:43 PM EDT Impressions 12/20/2021 3:46 PM EDT Normal lumbar spine and right hip bone density. Narrative 12/20/2021 3:46 PM EDT COMPARISON: None. BONE DENSITY FINDINGS: History: This is a 76-year-old postmenopausal female. Evaluation of the lumbar spine and right hip was performed and felt to be technically adequate. L1, L2 & L4 vertebral bodies total bone mineral density was calculated at 1.080 gm/cm2 with a T-score of 0.4 falling within the WHO classification of normal. Z-score of 2.9. Right femoral neck bone mineral density was calculated at 0.853 gm/cm2 with a T- score of 0 falling within the WHO classification of normal. Z-score of 2.2. Total Right hip bone mineral density was calculated at 1.064 gm/cm2 with a T- score of 1 falling within the WHO classification of normal. Z-score of 2.9. Procedure Note Girma Fritz MD - 12/20/2021 COMPARISON: None. BONE DENSITY FINDINGS: History: This is a 76-year-old postmenopausal female. Evaluation of the lumbar spine and right hip was performed and felt to betechnically adequate. L1, L2 & L4 vertebral bodies total bone mineral density was calculated at1.080 gm/cm2 with a T-score of 0.4 falling within the WHO classificationof normal. Z-score of 2.9. Right femoral neck bone mineral density was calculated at 0.853 gm/wt0gril a T- score of 0 falling within the WHO classification of normal.Z-score of 2.2. Total Right hip bone mineral density was calculated at 1.064 gm/cm2 with aT- score of 1 falling within the WHO classification of normal. Z-score of2.9. IMPRESSION: Normal lumbar spine and right hip bone density. Rubia BECKMAN BD BONE DENSITY DEXA Final Result from Last 3 Months or Most Recently Relevant to Health Maintenance Insurance MEDICARE PART A & B [employer] MEDICARE SUPPLEMENT MEDICARE PART A & B FOR [facility] MEDICARE SUPPLEMENT MEDICARE PART A & B MEDICARE PART A & B MEDICARE PART A & B [employer] [facility] MEDICARE SUPPLEMENT MEDICARE PART A & B [employer] MEDICARE SUPPLEMENT MEDICARE PART A & B FOR LIFE MEDICARE SUPPLEMENT MEDICARE PART A & B MEDICARE PART A & B FOR LIFE MEDICARE SUPPLEMENT Advance Directives For more information, please contact: [phone] (9AM - 5PM [facility], Saturday-Saturday) Documents on File Type Date Recorded 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 It is not the complete legal health record.[facility]
--- OUTSIDE RECORDS SUMMARY | 2025-06-30 07:16 | XMS_ITS | Continuity of Care Document ---
Author Organization [place] - [facility], [facility] Address [address] [place] [address] [place] [address] Assessment No assessment recorded. Plan of Treatment Reminders Order Date Submit Date Provider Last Modified By Organization Details Last Modified Time Details Appointments MEDICARE ANNUAL WELLNESS 2025 09:00A M KEVIN COY Not available Not available Not available Lab None recorded. Referral None recorded. Procedures None recorded. Surgeries None recorded. Imaging None recorded. Medication Orders None recorded. Patient TargetsNo targets recorded. Patient InstructionsNo instructions recorded. Reason for Referral None Reported. Results Created Date Observation Date Name Description Value Unit Range Abnormal Flag Note LastModifiedBy Organization Detail LastModifiedTime Result Notes None recorded. Problems Name Problem SNOMED Code Status Onset Date Resolution Date Notes Provider Name and Address Organization Details Recorded Time Lamonte perez 77975764 Active 2017 Not Available [facility] 4 17:49:01 Disorder of breast 15375736 Active 2017 Breast cancer 2000, lumpecto my, XRT Left THR 2014 Not Available [facility] 4 17:49:01 Rheumato id arthriti s 72610948 Active 2017 Dr. Nixon bryan Not Available [facility] 4 17:49:01 Lyme disease 98405203 Active 2017 Not Available [facility] 4 17:49:00 Osteopor osis 95026288 Active 2017 Not Available [facility] 4 17:49:01 Hemorrho ids 43307625 Active 2017 Not Available [facility] 4 17:49:01 Impaired fasting glycemia 046622947 Completed 201702/12/2018November DIMPLE Mascorro [address] [place], [address], [facility] 8 09:22:42 Hypertri glycerid emia 817355507 Active 2017 Not Available [facility] 4 17:49:00 Low back pain 123387288 Active 2021 Not Available [facility] 4 17:49:00 Osteoart hritis of knee 973514493 Active 2021 Not Available [facility] 4 17:49:00 Overweig ht 708726519 Active 2021 Not Available [facility] 4 17:49:00 Microalb uminuria 976757116 Active 2021 Not Available [facility] 4 17:49:00 Hypercal cemia 79967063 Active 2021 Not Available [facility] 4 17:49:01 Carotid artery stenosis 51095986 Active 2022 Not Available [facility] 4 17:49:01 Carotid artery stenosis 37436667 Active 2022 Not Available [facility] 4 17:49:01 Type 2 diabetes mellitus 03606429 Active 2022 Not Available [facility] 4 17:49:01 Cellulit is of lower limb 382291571 Active 2022 Not Available [facility] 4 17:49:01 Osteoart hritis of shoulder region 24728589 Active 2022 Not Available [facility] 4 17:49:01 Osteoart hritis of left hip joint 5492470006 15713 Active 2022 Not Available [facility] 4 17:49:00 Disorder of bone 19591530 Active 2022 Not Available [facility] 4 17:49:01 Vertigo 405445923 Active 2022 Not Available [facility] 4 17:49:01 Posterio r rhinorrh ea 13499247 Active 2023 KEVIN COY [address] [place], [address], [facility] 4 10:33:06 Edema of lower extremit y 131795446 Active 2023 KEVIN COY [address] [place], [address], [facility] 4 10:36:12 Cough 70255162 Active 2023 KEVIN COY [address] [place], [address], [facility] 4 12:15:25 Total replacem ent of hip Active 2023 R KEVIN COY [address] [place], [address], [facility] 4 10:17:40 Primary insomnia 7806448 Active 2024 KEVIN COY [address] [place], [address], [facility] 5 09:44:50 Oxygen saturati on below referenc e range 744064676 Active 2024 KEVIN COY [address] [place], [address], [facility] 5 09:46:18 Kidney stone 06629850 Active 2024 KEVIN COY [address] [place] [address], [address], [facility] 5 09:47:20 Dyspnea 961633066 Active 2024 KEVIN COY [address] [place], [address], [facility] 5 13:42:22 Nodule of lung 170164483 Active 2024 KEVIN COY [address] [place], [address], [facility] 09:41:14 Problem Notes None recorded. Procedures Surgical History Date Name Laterality Status Provider Name and Address Organization Details Recorded Time 024 Corticosteroid Injection completed Gary Mcfadden DO [address] [place] [address], [address], [facility] 01/29/2024 14:11:37 024 Corticosteroid Injection completed Gary Mcfadden DO [address] [place] [address], [address], [facility] 10/01/2023 15:44:04 023 Corticosteroid Injection completed Gary Mcfadden DO [address] [place] [address], [address], [facility] 05/22/2023 14:43:19 023 Corticosteroid Injection completed Gary Mcfadden DO [address] [place] [address], [address], [facility] 01/02/2023 17:04:01 023 Corticosteroid Injection completed Gary Mcfadden DO [address] [place] [address], [address], [facility] 10/24/2022 14:24:12 023 Corticosteroid Injection completed Gary Mcfadden DO [address] [place] [address], [address], [facility] 09/11/2022 12:15:39 022 Corticosteroid Injection completed Gary Mcfadden DO [address] [place] [address], [address], [facility] 12/08/2021 12:37:09 021 Corticosteroid Injection completed Gary Mcfadden DO [address] [place] [address], [address], [facility] 07/25/2021 09:35:46 021 Corticosteroid Injection completed Gary Mcfadden DO [address] [place] [address], [address], [facility] 02/13/2021 15:45:24 018 Most Recent Mammogram [facility] 09/09/2018 13:49:25 Imaging Results None recorded. Procedure Notes None recorded. Medical Equipment None Reported. Allergies Allergen ID Allergen Name Allergen Category Reaction Reaction Severity Criticality Documentation Date Start Date Code Code System Note Provider Name and Address Organization Details Recorded Time 85046 codeine phosphate medicatio n Not available Not available Not available 06/29/20252016 2672 RxNorm Other react ion(s ): up set stoma ch and vomit ting unrec ogniz ed react ion (text : Nause a and/o r Vomit ing, code: 13678 000) (from exter nal sourc e) Not Available [employer] - prod 5 03:44:53 62989 latex environme nt,medica tion rash Not available [facility] 06/29/20252014 74487 91 RxNorm Not Available [employer] - prod 5 03:44:53 37327 acetamino phen / oxycodone medicatio n Not available Not available Not available 06/29/20252016 46974 3 RxNorm Other react ion(s ): stoma ch upset unrec ogniz ed react ion (text : Nause a and/o r Vomit ing, code: 40759 000) (from exter nal sourc e) Not Available [employer] Data [employer] - prod 5 03:44:53 7209 duloxetin e medicatio n nausea Not available Not available 04/01/2023 20261 RxNorm KEVIN COY [address] [place], [address] [place] [address] Internal Medicine 3 09:04:05 7431 Latex (substanc e) environme nt,medica tion Not available Not available Not available 06/04/2023 27608 8007 SNOMED Julianne Louie christine [facility] 3 14:15:23 8111 oxycodone medicatio n Not available Not available Not available 01/20/2024 7804 RxNorm nause a, chest pain KEVIN COY [address] [place], [address], [facility] 4 10:06:05 Medications Name Sig [...] Available Not Available Not Available amoxicillin 500 mg-anisa m clavulanate 125 mg tablet TAKE 1 [...] Not Available Not Available Fluzone High-Dose Quad 2020-21 (PF) 240 mcg/0.7 mL IM syringe 11/02 completed Not Available Not Available Not Available BinaxNOW COVID-19 Ag Self Test kit TEST DIRECTED TODAY 09/12 completed Not Available Not Available Not Available Vitals Date Recorded Body height Body mass index (BMI) Body weight Oxygen saturation Heart rate Systolic And Diastolic Provider Name and Address Organization Details Last Updated DateTime 5 163.83 cm 30.1 kg/m2 16622.4 4 g 95 % 62 /min 128/76 mm[Hg] HARIS MUNOZ [facility] 5 10:03:05 Social History Question Answer Notes LastModified by Organizat ion Details LastModified Time Tobacco Smoking Status Never [facility]oker [facility] 12/06/2017 11:10:37 What Was [...] virus, quadrivalent, preservative 8 completed Not Available [facility] 08/07/2023 17:49:02 COVID-19, mRNA, LNP-S, PF, 30 mcg/0.3 mL dose 2 completed Not Available [facility] 08/07/2023 17:49:02 Influenza, split virus, quadrivalent, preservative 2 completed Not Available [facility] 08/07/2023 17:49:02 SARS-COV-2 (COVID-19) vaccine, UNSPECIFIED 3 completed Not Available [facility] 08/07/2023 17:49:02 SARS-COV-2 (COVID-19) vaccine, UNSPECIFIED 4 completed Emani christine [facility] 05/25/2024 10:25:28 Tdap 5 completed Not Available [facility] 08/07/2023 17:49:03 pneumococcal polysaccharide PPV23 5 completed Not Available [facility] 08/07/2023 17:49:03 Pneumococcal conjugate PCV 13 7 completed Not Available [facility] 08/07/2023 17:49:03 Influenza, split virus, quadrivalent, preservative 9 completed Not Available [facility] 08/07/2023 17:49:01 pneumococcal polysaccharide PPV23 8 completed Not Available [facility] 08/07/2023 17:49:03 COVID-19 vaccine, vector-nr, rS-ChAdOx1, PF, 0.5 mL 1 completed Not Available [facility] 08/07/2023 17:49:02 COVID-19 vaccine, vector-nr, rS-ChAdOx1, PF, 0.5 mL 1 completed Not Available [facility] 08/07/2023 17:49:02 Past Encounters Encounter ID Performer Location Encounter Start Date Encounter Closed Date Diagnosis/Indication Diagnosis SNOMED-CT Code Diagnosis ICD10 Code Diagnosis IMO Codes Diagnosis Note [id number] Gary Mcfadden DO [facility] [address] [address] 06/29/2025 09:49:10 06/29/2025 16:30:02 Depression screening 706405107 Z13.31 negative Type 2 haris betes mellitus 42536585 E11.9 needs renewed standing orders Essential hypertension 37243661 I10 excellent Health Concerns Section Related Observation LastModified by Organization Detai ls LastModified Time None Recorded Concern Status LastModified by Organization Details LastModified Time None Recorded Payers Encounter Date Sequence Insurance Name Policy Number Policy Abrams Covered Member ID Abrams Member ID Guarantor Name 06/29/2025 1 MEDICARE B-[place]: [facility] [employer] Evelia Russell [id number] Evelia Russell 06/29/2025 2 FOR LIFE ( - MEDICARE SUPPLEMENT) Blake Russell [id number] Evelia Russell Notes Date Note Type Note Provider Name a nd Address Organization Details Recorded Time 5 text/html ROS as noted in the [...] for consult for cataract surgery KEVIN COY [address] [place] [address], [place], [address], [facility] 06/29/2025 10:19:56 OBGyn Episode No OBEpisode recorded.
--- OUTSIDE RECORDS SUMMARY | 2025-06-30 07:16 | XMS_ITS | Encounter Summary ---
Author Organization [facility] Address [address] [place] [address] Phone Care Team Providers Care Helicopter Pilot Instructor Name Role Phone Gary Mcfadden DO Primary Care Provider [phone] Gary Mcfadden DO Primary Care Provider [phone] Encounter Details Date Type Department Care Team (Late st Contact Info) Description 08/14/2023 Procedure Pass [facility] PERIOPERATIVE DEPT [address] [place] [id number] Social History Tobacco Use Types Packs/Day Years Used Date Smoking Tobacco: Never Smokeless Tobacco: Never Child or Family Care Answer Date Record [...] computer) with a working camera? Yes 02/22/2023 Comments Unknown Sex and Gender Information Value Date Recorded Sex Assigned at Not on file Legal Sex Female 12:12 PM EDT Gender Identity Not on file Sexual Orientation Not on file documented as of this encounter Plan of Treatment Upcoming Encounters Date Type Department Care Team (Late st Contact Info) Description 09/08/2025 9:30 AM EST Office Visit [facility] Rheumatology [address] [place] [address] Rubia Duncan MD [address], [address] [place] [address] documented as of this encounter Visit Diagnoses Not on filedocumented in this encounter Care Teams Helicopter Pilot Instructor Relationship Specialty Start Date End Date Gary Mcfadden DO PCP - General Internal Medicine 01/01/19 06/22/25 Gary Mcfadden DO [address] [place] [address] PCP - General Internal Medicine 06/23/25 documented as of this encounter Additional Source Comments The information contained in this document represents components of the legal health record. It is not the complete legal health record.[facility]
== END 2025-06-30 07:13 | disposition home or self-care (01) ==
LOC: HO.CT 07:12
PROVIDERS: PCP Physician Assistant; Visit Provider Physician Assistant
DX: R91.1 Solitary pulmonary nodule (principal)
CPT/HCPCS: 71250

== ENCOUNTER → 2025-06-30 07:26 | Outpatient (BNV) | payer MEDICARE, OTHER, SELFPAY | PROVIDERS: PCP Physician Assistant; Visit Provider Radiology Diagnostic Radiology | DX: R91.1 Solitary pulmonary nodule (principal) | CPT/HCPCS: 71250 ==

== ENCOUNTER 2025-07-07 14:35 | Emergency (ER) | payer MEDICARE, OTHER, SELFPAY ==
--- NOTE | ~2025-07-07 | CT_ITS ---
CLINICAL HISTORY: left flank pain, history of stones CT abdomen and pelvis without IV contrast. COMPARISON: CT abdomen and pelvis dated 10/12/24 at 19:36 EDT FINDINGS: Minimal linear atelectasis versus scarring along the lung bases. Small hiatal hernia. Normal gallbladder. Noncontrast appearance of the liver, spleen, pancreas and adrenal glands are unremarkable. Renal vascular calcifications present on the left, stable. No renal calculus present bilaterally. No hydronephrosis or hydroureter bilaterally. Distal ureters are obscured secondary to artifact from bilateral total hip arthroplasties. Normal appendix. Sdzvjhce-rz-peeed colonic stool burden. No bowel obstruction. Mild distal colonic diverticulosis without evidence of diverticulitis. No mesenteric or retroperitoneal lymphadenopathy. Moderate aortoiliac atherosclerotic vascular calcifications. Normal appearance of the urinary bladder. No adnexal mass identified. Small fat containing inguinal hernias present bilaterally. Bilateral total hip arthroplasties partially visualized. Moderate to advanced multilevel l spondylosis. No acute fracture or suspicious bone lesion. IMPRESSION: 1. No evidence of renal obstruction. No hydronephrosis or hydroureter bilaterally. No renal calculus identified bilaterally. Distal ureters are obscured secondary to artifact from bilateral total hip arthroplasties. 2. Nnwqetma-ns-injrx colonic stool burden. No bowel obstruction. This document has been electronically signed by: Fitz Merino MD on 07/07/2025 20:52:21
[2025-07-07 15:07] VITALS: BP 178/78; PULSE 65; RESP 20; TEMP 36.3; O2SAT 95; BMI 29.8
--- NOTE | 2025-07-07 15:11 | ED.GENADULT ---
HPI - General Adult General Chief complaint: Abdominal Pain Stated complaint: kidney stone Time Seen by Provider: 07/07/25 19:19 Source: patient, RN notes reviewed and old records reviewed Mode of arrival: ambulatory Limitations: no limitations History of Present Illness ED Provider: Keshia HPI narrative: Patient is an 80 year old female with a pmhx of bilateral kidney stones presenting today with a week history of left flank moderate pain, today the pain increased to an 8/10 with nausea. Pt denies fever, abdominal pain, v/d, painful urination, or hematuria. The patient reports a history of kidney stones for notably earlier this year and he reports that this pain feels similar. Denies any fevers or chills Related Data Home Medications ?Medication ?Instructions ?Recorded ?Confirmed atenolol 25 mg tablet 25 mg PO DAILY 10/13/24 01/11/25 celecoxib 200 mg capsule 200 mg PO DAILY 10/13/24 01/11/25 folic acid 1 mg tablet 1 mg PO DAILY 10/13/24 01/11/25 glimepiride 2 mg tablet 2 mg PO DAILY 10/13/24 01/11/25 lisinopril 10 mg tablet 10 mg PO DAILY 10/13/24 01/11/25 metformin 750 mg tablet,extended 750 mg PO BID 10/13/24 01/11/25 release 24 hr methotrexate sodium 2.5 mg tablet 12.5 mg PO FR 10/13/24 01/11/25 rosuvastatin 40 mg tablet 40 mg PO BEDTIME 10/13/24 01/11/25 Previous Rx's ?Medication ?Instructions ?Recorded docusate sodium 100 mg capsule 100 mg PO BID #60 caps 10/14/24 (Colace) polyethylene glycol 3350 17 17 g PO DAILY PRN constipation 10/14/24 gram/dose oral powder (Miralax) #510 grams cefuroxime axetil 250 mg tablet 250 mg PO Q12H #10 tabs 07/07/25 magnesium citrate (OneLAX 148 ml PO DAILY PRN constipation 07/07/25 Magnesium Citrate oral solution) #296 mL polyethylene glycol 3350 17 17 g PO DAILY 2 weeks #238 grams 07/07/25 gram/dose oral powder (Miralax) Allergies Allergy/AdvReac Type Severity Reaction Status Date / Time acetaminophen (From PERCOCET) Allergy Intermediate NAUSEA & Verified 07/07/25 15:10 VOMITING codeine (CODEINE) Allergy Unknown RASH-VOMITI Verified 07/07/25 15:10 NG latex Allergy Rash Verified 07/07/25 15:10 From PERCOCET Allergy Intermediate NAUSEA & Uncoded 10/20/24 09:57 VOMITING Review of Systems Constitutional: Constitutional: Denies body ache(s), Denies chills, Denies fever(s) and Denies headache(s) Eyes: Eyes: Denies blurry vision ENT: Denies vertigo, Denies dizziness and Denies headache(s) Cardiovascular: Cardiovascular: Denies chest pain, Denies dyspnea and Denies dyspnea on exertion Respiratory: Respiratory: Denies cough, Denies dyspnea and Denies dyspnea on exertion Gastrointestinal: Gastrointestinal: Reports abdominal pain, Reports nausea and Denies vomiting Genitourinary: Genitourinary: Denies dysuria, Denies pelvic pain and Reports flank pain Musculoskeletal: Musculoskeletal: Reports back pain Integumentary/Breasts: Skin/Breast: Denies rash Neurologic: Denies vertigo, Denies dizziness and Denies headache(s) Psychiatric: Psychiatric: Denies anxiety PMFSH Past Medical History Medical History Lyme disease Diabetes mellitus, type 2 Urinary tract infection Kidney stones Dizziness Hypercholesteremia Osteoporosis Foot fracture, right Breast cancer Surgical History Breast cancer, left breast S/P hip replacement Social History Social History Household Members: None Housing: Condominium Are you a primary floor care specialist to a significant other at home: No Do you presently have visiting nurse or other home services: No Alcohol intake: never Patient Tobacco Use Status: Never used Tobacco service: No Physical Exam ED Vital Signs: Vital Signs - 24 hr 07/07/25 15:07 07/07/25 20:37 Temperature 97.4 F 98.3 F Pulse Rate 65 65 Respiratory Rate 20 16 Blood Pressure 178/78 H 170/75 H Pulse Oximetry 95 94 Oxygen Delivery Method Room Air Room Air BMI result Body Mass Index 29.8 Const General: healthy appearing, comfortable, no acute distress, alert and awake Nutritional Appearance: well nourished Orientation/consciousness: patient oriented x3 HENMT Head: Yes normocephalic and Yes atraumatic Eyes Eyelids: Yes eyelids normal Conjunctivae: conjunctivae normal Sclerae: sclerae normal Corneas: corneas normal Pupils: Equal, round and reactive pupils present EOM: EOMs intact bilaterally Neck Neck: Yes full ROM Resp Effort & Inspection: normal respiratory effort, able to speak in complete sentences and not labored Cardio Rate: regular rate Rhythm: regular rhythm GI Other: No CVA tenderness Inspection: No distended Palpation (GI): Soft to palpation, not firm, Tenderness to palpation present (GI) in the LLQ, no guarding and not rigid Auscultation: normoactive bowel sounds Skin General skin exam: no rashes or lesions noted and elasticity normal Neuro General: patient oriented x3 Cranial nerves: Yes CN's II-XII intact bilaterally, Yes Equal, round and reactive pupils present and Yes Bilaterally intact EOM present Cognition (Neuro): normal cognition Extrem Other: Moving all extremities well without any obvious deformities Course Course Course Narrative: RME: 80-year-old female history of kidney stones. Presents to ED for left flank pain with nausea for the past couple of days. Labs UA ordered Medications Administered Discontinued Medications Generic Name Dose Route Start Last Admin Trade Name Freq PRN Reason Stop Dose Admin Cefuroxime Axetil 250 mg 07/07/25 21:49 07/07/25 22:19 Cefuroxime Axetil 250 Mg Tablet PO 07/07/25 21:50 250 mg ONCE ONE Administration Medical Decision Making Medical Decision Making [facility] Narrative: 80-year-old female with a past medical history as above presents for evaluation of left flank pain. Her symptoms started 1 week ago on worsened today. She had associated nausea. Denies any urinary symptoms. Denies any fevers or chills. Her vitals are stable on arrival and she is quite well appearing. She actually declines analgesia. She has no leukocytosis or anemia. No significant chemistry abnormalities warranting dimension. BUN is slightly elevated to 18 with a normal creatinine of 0.64. Urinalysis shows no hematuria but does show 21-50 white cells with moderate leukocyte esterase and no evidence of contamination with epithelial cells. Likely indicative of mild UTI. The patient has no evidence of systemic infection or pyelonephritis. A CT scan of the abdomen pelvis was ordered to evaluate for obstructive uropathy. This shows mostly just constipation which I discussed with the patient. She will be discharged to follow up with her PCP Differential Diagnosis Differential Diagnoses: The differential diagnosis associated with the presentation includes Abdominal pain Constipation Obstructive uropathy UTI Pyelonephritis Diverticulitis Colitis Lab Data MDM Lab Attestation statement: I reviewed the patient's lab results. As above 07/07/25 17:41 07/07/25 17:41 Labs: Lab Results 07/07/25 Range/Units 17:41 WBC 9.6 (4.8-10.8) X10*3/uL RBC 4.56 (4.20-5.50) X10*6/uL Hgb 14.2 (12.0-16.0) g/dl Hct 44.0 (37.0-47.0) % MCV 96.5 (80.0-98.0) fL MCH 31.1 (27.0-33.0) pg MCHC 32.3 (31.0-35.0) g/dl RDW 13.7 (11.0-16.0) % Plt Count 239 (160-400) X10*3/uL MPV 9.6 (9.4-12.3) fL Immature Gran % (Auto) 0.3 (0.0-0.4) % Neut % (Auto) 74.3 H (45-73) % Lymph % (Auto) 18.7 L (20-40) % [place] % (Auto) 5.2 (2-11) % Eos % (Auto) 1.0 (0-4) % Baso % (Auto) 0.5 (0-2) % Lymph # (Auto) 1.8 (1.2-4.9) X10*3/uL [place] # (Auto) 0.5 (0.1-1.2) X10*3/uL Eos # (Auto) 0.1 (0.0-0.4) X10*3/uL Baso # (Auto) 0.1 (0.0-0.2) X10*3/uL Abs Immat Gran (auto) 0.03 (0.00-0.03) X10*3/uL Absolute Neuts (auto) 7.1 (2.0-8.3) x10*3/uL Absolute Nucleated RBC 0.000 (0.0-0.012) X10*3/uL Nucleated RBC % (auto) 0.0 (0.0-0.2) /100WBC Sodium 143 (135-145) mmol/L Potassium 4.5 (3.3-5.1) mmol/L Chloride 106 (96-108) mmol/L Carbon Dioxide 29 (22-29) mmol/L Anion Gap 13 (12-20) BUN 18 H (9-16) mg/dL Creatinine 0.64 (0.5-1.4) mg/dL Estim Creat Clear Calc 72.6 Estimated GFR > 60 Random Glucose 98 (60-115) mg/dL Calcium 10.9 H D (8.4-10.2) mg/dL Total Bilirubin 0.3 (0.0-1.0) mg/dL AST 30 (5-31) U/L ALT 17 (0-31) U/L Alkaline Phosphatase 86 (39-117) U/L Total Protein 7.1 (6.5-8.0) g/dL Albumin 4.7 (3.5-5.0) g/dL Urine Color Yellow Urine Appearance Cloudy Urine pH 5.5 (5.0-9.0) Ur Specific [place] 1.025 (1.005-1.025) Urine Protein Trace (Neg-Trace) mg/dL Urine Glucose (UA) Negative (Negative) mg/dL Urine Ketones Negative (Negative) mg/dL Urine Blood Negative (Negative) Urine Nitrite Negative (Negative) Ur Leukocyte Esterase Moderate (2+) H (Negative) Urine RBC 0-2 (0-2) /HPF Urine WBC 21-50 H (0-5) /HPF Ur Squamous Epith Cells 0-2 (0-2) /HPF Calcium Oxalate Crystal Present Urine Bacteria None Seen (None Seen) Hyaline Casts 0-2 (0-2) /LPF Radiology Impression Discussion of test interpretation with radiology: I have reviewed the radiologist's reading. Radiologist Impression: FINDINGS: Minimal linear atelectasis versus scarring along the lung bases. Small hiatal hernia. Normal gallbladder. Noncontrast appearance of the liver, spleen, pancreas and adrenal glands are unremarkable. Renal vascular calcifications present on the left, stable. No renal calculus present bilaterally. No hydronephrosis or hydroureter bilaterally. Distal ureters are obscured secondary to artifact from bilateral total hip arthroplasties. Normal appendix. Gjrppmld-kj-umlxn colonic stool burden. No bowel obstruction. Mild distal colonic diverticulosis without evidence of diverticulitis. No mesenteric or retroperitoneal lymphadenopathy. Moderate aortoiliac atherosclerotic vascular calcifications. Normal appearance of the urinary bladder. No adnexal mass identified. Small fat containing inguinal hernias present bilaterally. Bilateral total hip arthroplasties partially visualized. Moderate to advanced multilevel l spondylosis. No acute fracture or suspicious bone lesion. IMPRESSION: 1. No evidence of renal obstruction. No hydronephrosis or hydroureter bilaterally. No renal calculus identified bilaterally. Distal ureters are obscured secondary to artifact from bilateral total hip arthroplasties. 2. Uibtepss-hx-jobfb colonic stool burden. No bowel obstruction. This document has been electronically signed by: Fitz Merino MD on 07/07/2025 20:52:21 Discharge Plan Discharge Clinical Impression: Acute flank pain, Constipation Urinary tract infection Qualifiers: Urinary tract infection type: acute cystitis Hematuria presence: with hematuria Qualified Code(s): N30.01 - Acute cystitis with hematuria Patient Disposition: Home, Self-Care Instructions: Constipation (ED), Urinary Tract Infection in Older Adults (ED) Additional Instructions: Your workup in the ER today was reassuring. You do have a mild UTI. I do not think this is contributing to your pain but we are still going to treat you with antibiotics twice daily for 5 days. Your pain seems to be from constipation. Increase fluid and fiber intake in your diet. I recommend taking a stool softener such as MiraLax every night for the next 2 weeks. You may use magnesium citrate as a laxative. If you wish, you may do this when you get back home on Saturday after your trip to [place] Return for new or worsening symptoms Prescriptions: New cefuroxime axetil 250 mg tablet 250 mg PO Q12H Qty: 10 0RF magnesium citrate [OneLAX Magnesium Citrate] Solution 148 ml PO DAILY PRN (Reason: constipation) Qty: 296 0RF polyethylene glycol 3350 [Miralax] 17 gram/dose powder 17 g PO DAILY 14 Days Qty: 238 0RF No Action celecoxib 200 mg capsule 200 mg PO DAILY atenolol 25 mg tablet 25 mg PO DAILY glimepiride 2 mg tablet 2 mg PO DAILY methotrexate sodium 2.5 mg tablet 12.5 mg PO FR Rx Instructions: 5 tabs X 2.5 mg lisinopril 10 mg tablet 10 mg PO DAILY folic acid 1 mg tablet 1 mg PO DAILY metformin 750 mg tablet extended release 24 hr 750 mg PO BID rosuvastatin 40 mg tablet 40 mg PO BEDTIME docusate sodium [Colace] 100 mg capsule 100 mg PO BID Qty: 60 0RF polyethylene glycol 3350 [Miralax] 17 gram/dose powder 17 g PO DAILY PRN (Reason: constipation) Qty: 510 0RF Interventions: ED Discharge Assessment Last Done: 07/07/25 22:20 Discharge Date/Time: 07/07/25 22:26 Print Language: Hong Konger
[2025-07-07 17:54] LABS: MANUAL DIFF FLAG NO
[2025-07-07 17:56] LABS: Appearance Urine Cloudy; Glucose Urine UA Negative (Negative); PH 5.5 (5.0-9.0); Specific Gravity - Urine 1.025 (1.005-1.025); UMIC TRIGGER UACC YES
[2025-07-07 17:57] LABS: Hematocrit 44.0 % (37.0-47.0); Hemoglobin 14.2 g/dl (12.0-16.0); Imm Gran Abs Auto 0.03 X10*3/uL (0.00-0.03); Imm Gran Pct Auto 0.3 % (0.0-0.4); Lymphocytes Absolute Auto 1.8 X10*3/uL (1.2-4.9); Mean Corpuscular HGB Conc 32.3 g/dl (31.0-35.0); Mean Corpuscular Hemoglobin 31.1 pg (27.0-33.0); Mean Corpuscular Volume 96.5 fL (80.0-98.0); NRBC Abs Auto 0.000 X10*3/uL (0.0-0.012); NRBC Pct Auto 0.0 /100WBC (0.0-0.2); Platelet Count 239 X10*3/uL (160-400); Red Blood Count 4.56 X10*6/uL (4.20-5.50); White Blood Count 9.6 X10*3/uL (4.8-10.8)
[2025-07-07 18:05] LABS: UACC Culture Trigger YES
[2025-07-07 18:13] LABS: Alanine Aminotransferase 17 U/L (0-31); Albumin Level 4.7 g/dL (3.5-5.0); Alkaline Phosphatase 86 U/L (39-117); Anion Gap 13 (12-20); Aspartate Amino Transferase 30 U/L (5-31); Blood Urea Nitrogen 18 mg/dL (9-16); Calcium 10.9 mg/dL (8.4-10.2); Carbon Dioxide 29 mmol/L (22-29); Chloride 106 mmol/L (96-108); Creatinine Clr Calc Pharmacy 72.6; Estimated Glomerular Filt Rate > 60; Potassium 4.5 mmol/L (3.3-5.1); Sodium 143 mmol/L (135-145); Total Protein 7.1 g/dL (6.5-8.0)
--- OUTSIDE RECORDS SUMMARY | 2025-07-07 19:06 | XMS_ITS | Encounter Summary ---
Author Organization [facility] Address [address] [place] [address] [place] [address] Phone Care Team Providers Care [employer] Cross[employer] Protection Maintainer Name Role Phone Gary Mcfadden Primary Care Provider [phone] Gary Mcfadden Nargis Primary Care Provider [phone] Encounter Details Date Type Department Care Team (Late st Contact Info) Description 11/29/2022 Ancillary Orders [facility], X-Ray - [address] [address] Jena Torres PA [address] [place] [id number] [email or web address] Hip pain, right; Right knee pain, unspecified [...] Description 09/08/2025 9:30 AM EST Office Visit [facility] Rheumatology [address] [facility] [place] [address] Rubia Duncan MD [address] [facility], [address] [place] [address] [email or web address] documented as of this encounter Results * [...] Severe right hip joint space narrowing with obce-dh-mqps contact. Gluteal enthesopathy at the greater trochanter. [...] Severe right hip joint space narrowing with ephm-vl-yakufqeadhl. Gluteal enthesopathy at the greater trochanter. LEFT [...] thigh documented in this encounter Care Teams [employer] Cross[employer] Protection Maintainer Relationship Specialty Start Date End Date Gary Mcfadden DO [email or web address] PCP - General Internal Medicine 01/01/19 06/22/25 Gary Mcfadden DO [address] [place] [address] PCP - General Internal Medicine 06/23/25 documented as of this encounter Additional Source Comments The information contained in this document represents components of the legal health record. It is not the complete legal health record.[facility]
--- OUTSIDE RECORDS SUMMARY | 2025-07-07 19:06 | XMS_ITS | Patient Health Record ---
Author Organization [facility] Address [address] [facility] [address] [place] [address] Support Name Relationship Address Phone RODNEY YORK Guarantor Unknown [phone] Reason For Referral No Information Medications Medication [...] Status W/U Status Risk Notes Problem Hyperlipidemia (99101968) Other and unspecified hyperlipidemia (272.4) Active confirmed Major Problem Obesity (839946142) Obesity, unspecified (278.00) Active confirmed Major Problem Rheumatoid arthritis (90325305) Rheumatoid arthritis (714.0) Active confirmed Major Problem Gynecological examination normal (190788349435436) Routine gynecological examination (V72.31) Active confirmed Diag Plan Of Treatment No Information Insurance Providers Payer Name Payer Address Payer Phone Subscriber Number Group Number Insured Name Patient Relationship to Insured Coverage Start Date Coverage End Date MEDICARE [address] [place] [id number] [phone] [id number] RODNEY YORK Self - patient is the insured /[employer] [address] [place] [phone] [id number] RODNEY YORK Self - patient is the insured
--- OUTSIDE RECORDS SUMMARY | 2025-07-07 19:06 | XMS_ITS | Encounter Summary ---
Author Organization [facility] Address [address] [place] [address] Phone Care Team Providers Care Nanny/Household Manager Name Role Phone Gary Mcfadden DO Primary Care Provider [phone] Gary Mcfadden DO Primary Care Provider [phone] Encounter Details Date Type Department Care Team (Late st Contact Info) Description 08/14/2023 Procedure Pass [facility] PERIOPERATIVE DEPT [address] [place] [id number] Social History Tobacco Use Types Packs/Day Years [...] Description 09/08/2025 9:30 AM EST Office Visit [facility] Rheumatology [address] [place] [address] Rubia Duncan MD [address] [facility], [address] [place] [address] documented as of this encounter Visit Diagnoses Not on filedocumented in this encounter Care Teams Nanny/Household Manager Relationship Specialty Start Date End Date Gary Mcfadden DO [email or web address] PCP - General Internal Medicine 01/01/19 06/22/25 Gary Mcfadden DO [address] [facility] [place] [address] [email or web address] PCP - General Internal Medicine 06/23/25 documented as of this encounter Additional Source Comments The information contained in this document represents components of the legal health record. It is not the complete legal health record.[facility]
--- OUTSIDE RECORDS SUMMARY | 2025-07-07 19:06 | XMS_ITS | Continuity of Care Document ---
Author Organization [place] - [facility], [facility] Address [address] [place] [address] Assessment No assessment recorded. Plan of Treatment [...] Abnormal Flag Note LastModifiedBy Organization Detail LastModifiedTime 07/06/20 25 06/30/2025 CT, chest , w/o contr ast No observ ation record ed. [facility], [place], [address], 07/07/2025 10:24:43 Result Notes None recorded. Problems Name Problem SNOMED Code Status Onset Date Resolution Date Notes Provider Name and Address Organization Details Recorded Time Lamonte vargasen chris 33365174 Active 2017 Not Available [facility] 4 17:49:01 Disorder of breast 17342192 Active 2017 Breast cancer 2000, lumpecto my, XRT Left THR 2014 Not Available [facility] 4 17:49:01 Rheumato id arthriti s 35367090 Active 2017 Dr. Nixon bryan Not Available [facility] 4 17:49:01 Lyme disease 17821487 Active 2017 Not Available [facility] 4 17:49:00 Osteopor osis 68628785 Active 2017 Not Available [facility] 4 17:49:01 Hemorrho ids 54551704 Active 2017 Not Available [facility] 4 17:49:01 Impaired fasting glycemia 577215401 Completed 201702/12/2018November DIMPLE Mascorro [address] [place], [address], [facility] 8 09:22:42 Hypertri glycerid emia 757933628 Active 2017 Not Available [facility] 4 17:49:00 Low back pain 539701828 Active 2021 Not Available [facility] 4 17:49:00 Osteoart hritis of knee 632448546 Active 2021 Not Available [facility] 4 17:49:00 [place] ht 380849565 Active 2021 Not Available [facility] 4 17:49:00 Microalb uminuria 281843761 Active 2021 Not Available [facility] 4 17:49:00 Hypercal cemia 05840256 Active 2021 Not Available [facility] 4 17:49:01 Carotid artery stenosis 00545021 Active 2022 Not Available [facility] 4 17:49:01 Carotid artery stenosis 60991810 Active 2022 Not Available [facility] 4 17:49:01 Type 2 diabetes mellitus 19698234 Active 2022 Not Available [facility] 4 17:49:01 Cellulit is of lower limb 365645645 Active 2022 Not Available [facility] 4 17:49:01 Osteoart hritis of shoulder region 08115302 Active 2022 Not Available [facility] 4 17:49:01 Osteoart hritis of left hip joint 3409507745 64455 Active 2022 Not Available [facility] 4 17:49:00 Disorder of bone 68654140 Active 2022 Not Available [facility] 4 17:49:01 Vertigo 949618515 Active 2022 Not Available [facility] 4 17:49:01 Posterio r rhinorrh ea 34252851 Active 2023 KEVIN COY [address] [place], [address], [facility] 4 10:33:06 Edema of lower extremit y 804906972 Active 2023 KEVIN COY [address] [place], [address], [facility] 4 10:36:12 Cough 14767326 Active 2023 KEVIN COY [address] [place], [address], [facility] 4 12:15:25 Total replacem ent of hip Active 2023 R KEVIN COY [address] [place], [address], [facility] 4 10:17:40 Primary insomnia 7784340 Active 2024 KEVIN COY [address] [place], [address], [facility] 5 09:44:50 Oxygen saturati on below referenc e range 801979113 Active 2024 KEVIN COY [address] [place], [address], [facility] 5 09:46:18 Kidney stone 05276496 Active 2024 KEVIN COY [address] [place], [address], [facility] 5 09:47:20 Dyspnea 087270270 Active 2024 KEVIN COY [address] [place], [address], [facility] 5 13:42:22 Nodule of lung 210426806 Active 2024 KEVIN COY [address] [place] [address], [address], [facility] 5 09:41:14 Thyroid nodule 009540336 Active 2024 KEVIN COY [address] [place] [address], [address], [facility] 5 10:25:47 Problem Notes None recorded. Procedures Surgical History Date Name Laterality Status Provider Name and Address Organization Details Recorded Time 024 Corticosteroid Injection completed Gary Mcfadden DO [address] [place] [address], [address], [facility] 01/29/2024 14:11:37 024 Corticosteroid Injection completed Gary Mcfadden DO [address] [place] [address], [address], [facility] 10/01/2023 15:44:04 023 Corticosteroid Injection completed Gary Mcfadden DO [address] [place] [address], [address], [facility] 05/22/2023 14:43:19 023 Corticosteroid Injection completed Gary Mcfadden DO [address] [place] [address], [address], [facility] 01/02/2023 17:04:01 023 Corticosteroid Injection completed Gary Mcfadden DO [address] [place] [address], [address], [facility] 10/24/2022 14:24:12 023 Corticosteroid Injection completed Gary Mcfadden DO [address] [place] [address], [address], [facility] 09/11/2022 12:15:39 022 Corticosteroid Injection completed Gary Mcfadden DO [address] [place] [address], [address], [facility] 12/08/2021 12:37:09 021 Corticosteroid Injection completed Gary Mcfadden DO [address] [place], [address], [facility] 07/25/2021 09:35:46 021 Corticosteroid Injection completed Gary Mcfadden DO [address] [place], [address], [facility] 02/13/2021 15:45:24 018 Most Recent Mammogram completed Radha Elsie [facility] 09/09/2018 13:49:25 Imaging Results None recorded. Procedure Notes None recorded. Medical Equipment None Reported. Allergies Allergen ID Allergen Name Allergen Category Reaction Reaction Severity Criticality Documentation Date Start Date Code Code System Note Provider Name and Address Organization Details Recorded Time 78680 codeine phosphate medicatio n Not available Not available Not available 06/29/20252016 2672 RxNorm Other react ion(s ): up set stoma ch and vomit ting unrec ogniz ed react ion (text : Nause a and/o r Vomit ing, code: 21786 000) (from exter nal sourc e) Not Available [employer] - prod 5 03:44:53 57037 latex environme nt,medica tion rash Not available low 06/29/20252014 11404 91 RxNorm Not Available [employer] - prod 5 03:44:53 31403 acetamino phen / oxycodone medicatio n Not available Not available Not available 06/29/20252016 91082 3 RxNorm Other react ion(s ): stoma ch upset unrec ogniz ed react ion (text : Nause a and/o r Vomit ing, code: 63595 000) (from exter nal sourc e) Not Available [employer] - External Data [employer] - prod 5 03:44:53 7209 duloxetin e medicatio n nausea Not available Not available 04/01/2023 54136 RxNorm KEVIN COY [address] [place], [address], [facility] 3 09:04:05 7431 Latex (substanc e) environme nt,medica tion Not available Not available Not available 06/04/2023 35370 8007 SNOMED [facility], [facility] 3 14:15:23 8111 oxycodone medicatio n Not available Not available Not available 01/20/2024 7804 RxNorm nause a, chest pain KEVIN COY [address] [place], [address], [facility] 4 10:06:05 Medications Name [...] Updated DateTime 5 163.83 cm 30.1 kg/m2 72054.4 4 g 95 % 62 /min 128/76 mm[Hg] HARIS MUNOZ [facility] 5 10:03:05 Social History Question Answer Notes LastModified by Organizat ion Details LastModified Time Tobacco Smoking Status [facility] 12/06/2017 11:10:37 What Was [...] virus, quadrivalent, preservative 8 completed Not Available [facility] 08/07/2023 17:49:02 COVID-19, mRNA, LNP-S, PF, 30 mcg/0.3 mL dose 2 completed Not Available [facility] 08/07/2023 17:49:02 Influenza, split virus, quadrivalent, preservative 2 completed Not Available [facility] 08/07/2023 17:49:02 SARS-COV-2 (COVID-19) vaccine, UNSPECIFIED 3 completed Not Available [facility] 08/07/2023 17:49:02 SARS-COV-2 (COVID-19) vaccine, UNSPECIFIED 4 completed Emani christine [place] [facility] 05/25/2024 10:25:28 Tdap 5 completed Not Available [facility] 08/07/2023 17:49:03 pneumococcal polysaccharide PPV23 5 completed Not Available [facility] 08/07/2023 17:49:03 Pneumococcal conjugate PCV 13 7 completed Not Available [facility] 08/07/2023 17:49:03 Influenza, split virus, quadrivalent, preservative 9 completed Not Available [facility] 08/07/2023 17:49:01 pneumococcal polysaccharide PPV23 8 completed Not Available [facility] 08/07/2023 17:49:03 COVID-19 vaccine, vector-nr, rS-ChAdOx1, PF, 0.5 mL 1 completed Not Available [facility] 08/07/2023 17:49:02 COVID-19 vaccine, vector-nr, rS-ChAdOx1, PF, 0.5 mL 1 completed Not Available [facility] 08/07/2023 17:49:02 Past Encounters Encounter ID Performer Location Encounter Start Date Encounter Closed Date Diagnosis/Indication Diagnosis SNOMED-CT Code Diagnosis ICD10 Code Diagnosis IMO Codes Diagnosis Note [id number] Gary Mcfadden DO [facility] [address] [facility] [place] [address] 06/29/2025 09:49:10 06/29/2025 16:30:02 Depression screening 616954675 Z13.31 negative Type 2 haris betes mellitus 21456783 E11.9 needs renewed standing orders Essential hypertension 57420662 I10 excellent Health Concerns Section Related Observation LastModified by Organization Detai ls LastModified Time None Recorded Concern Status LastModified by Organization Details LastModified Time None Recorded Payers Encounter Date Sequence Insurance Name Policy Number Policy Abrams Covered Member ID Abrams Member ID Guarantor Name 06/29/2025 1 [place]IC[place]: [employer] Evelia Russell [id number] Evelia Drew 06/29/2025 2 FOR LIFE ( - MEDICARE SUPPLEMENT) Blake Russell [id number] Evelia Russell Notes Date Note Type Note [...] consult for cataract surgery KEVIN COY [address] [facility], [place], [address], [facility] 06/29/2025 10:19:56 OBGyn Episode No OBEpisode recorded.
--- OUTSIDE RECORDS SUMMARY | 2025-07-07 19:06 | XMS_ITS | Clinical Summary ---
Author Organization [facility] Address [address] [place] [address] Phone Care Team Providers Care Fluorescent Lighting Model Maker Name Role Phone Gary Mcfadden DO Primary Care Provider [phone] Allergies Active Allergy Reactions Criticality Noted Date [...] folic acid (FOLVITE) 1 MG tabletIndication s: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, care home, current use,Rheumatoid arthritis with positive rheumatoid factor [...] prior to next visit -standing orders in [place]. Continue joint protection, energy conservation techniques. Avoid [...] prior to next visit -standing orders in [place]. She was inquiring whether I would allow [...] prior to next visit -standing orders in [place]. She was inquiring whether I would allow [...] prior to next visit -standing orders in [place]. I have explained to her that she [...] prior to next visit -standing orders in [place]. I have explained to her that she [...] prior to next visit -standing orders in [place]. I have explained to her that she [...] next visit in 4 months-standing orders in [place]. Carefully continue current dose of weekly oral [...] next visit in 4 months-standing orders in [place]. Carefully continue current dose of weekly oral [...] expected goal consider formal dietary/nutritional support. 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, care home, current use 05/10/2021 Assessment & Plan (05/13/2025 10:16 AM EDT): Take exactly as prescribed. Refrain from alcohol drinking while on methotrexate. Hold methotrexate whenever running fever, feeling sick or taking antibiotics. Complete entire course of antibiotic and wait at least 48 hours after the last dose of antibiotic before returning to its usual weekly schedule. Make sure to inform any new MD PA, DIRECTOR NURSING SERVICE about chronic methotrexate therapy particularly in emergency [...] sure to inform any new MD PA, DIRECTOR NURSING SERVICE about chronic methotrexate therapy particularly in emergency [...] sure to inform any new MD PA, DIRECTOR NURSING SERVICE about chronic methotrexate therapy particularly in emergency [...] sure to inform any new KEVIN GORDON, DIRECTOR NURSING SERVICE about chronic methotrexate therapy particularly in emergency situations. Monitor for increasing breathing difficulty, chest pain cough, abdominal pain, diarrhea, skin or mucous membranes yellowing etc. [facility] current use of oral hypoglycemic drug 05/10/2021 [...] next visit in 4 months-standing orders in [place]. Carefully continue current dose of weekly oral [...] next visit in 4 months-standing orders in [place]. Carefully continue current dose of weekly oral [...] next visit in 4 months-standing orders in [place]. Carefully continue current dose of weekly oral [...] next visit in 4 months-standing orders in [place]. Carefully continue current dose of weekly oral [...] - 05/24/2025 11:59 PM EDT Hospital Encounter [facility], X-Ray - [address] [address] Rubia Duncan MD Discharge Disposition: Home or Self Care 05/13/2025 9:30 AM EDT Office Visit [facility] Rheumatology [address] [place] [address] Rubia Duncan MD Rheumatoid arthritis involving multiple sites with positive rheumatoid factor (Primary Dx); 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, care home, current use; Primary osteoarthritis involving multiple joints; NSAID long-term use; Encounter for monitoring statin therapy; Need for influenza vaccination; Rheumatoid arthritis with positive rheumatoid factor; Class 1 obesity due to excess calories with serious comorbidity and body mass index (BMI) of 31.0 to 31.9 in adult 05/03/2025 8:06 AM EDT - 05/03/2025 11:59 PM EDT Hospital Encounter [address] [address] Rubia Duncan MD Discharge Disposition: Home or [...] Description 09/08/2025 9:30 AM EST Office Visit [facility] Rheumatology [address] [place] [address] Rubia Duncan MD [address], [address] [place] [address] [email or web address] Health Maintenance Due Date Last Done Comments [...] this topic Medical Devices Implanted Type Area Drawer Waxer Device Identifier Shelf Expiration Date Model / Serial / Lot Hip 36mm 0.0 Implant Plus Hd Alumina Ceramic Modular Delta Biolox 04 - [id number] Implanted:Qty: 1 on 12/20/2023 by Evelio Lang MD at [facility] STANDARD Right: Hip [employer] 08/21/2028 6570-0-1 36 / / [id number] Hardware Left: Hip Acetabular Insert 3.9x36mm 0deg Trident X3 Polyethylene - [id number] Implanted:Qty: 1 on 12/20/2023 by Evelio Lang MD at [facility] Right: Acetabulum [employer] 09/14/2028 723-00-3 6D / / [id number] Hip Acetabular 48d Shell Trident Ii Tritanium 3d Surface Clusterhole - [id number] Implanted:Qty: 1 on 12/20/2023 by Evelio Lang MD at [facility] Right: Hip [employer] 10/07/2028 702-04-4 8D / / [id number] Hip Stem Sz 2 High Offset Insignia Collared - [id number] Implanted:Qty: 1 on 12/20/2023 by Evelio Lang MD at [facility] Right: Acetabulum [employer] 08/28/2028 7000-660 2 / / [id number] Procedures Procedure Name Priority Date/Time Associated Diagnosis [...] multiple sites with positive rheumatoid factor 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, care home, current use NSAID long-term use C-REACTIVE PROTEIN (CRP) Routine 05/03/2025 8:06 AM EDT Rheumatoid arthritis involving multiple sites with positive rheumatoid factor 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, intermediate card tender, current use NSAID long-term use SEDIMENTATION RATE (ESR) Routine 05/03/2025 8:06 AM EDT Rheumatoid arthritis involving multiple sites with positive rheumatoid factor 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, care home, current use NSAID long-term use CBC AND DIFFERENTIAL Routine 05/03/2025 8:06 AM EDT Rheumatoid arthritis involving multiple sites with positive rheumatoid factor 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, intermediate card tender, current use NSAID long-term use BD DXA [...] 136 - 145 mmol/L 06/22/2025 7:29 PM [facility] Potassium 4.2 3.4 - 5.1 mmol/L 06/22/2025 7:29 PM [facility] Chloride 103 98 - 107 mmol/L 06/22/2025 7:29 PM [facility] CO2 26 20 - 31 mmol/L 06/22/2025 7:29 PM [facility] Anion Gap 12 3 - 17 mmol/L 06/22/2025 7:29 PM [facility] BUN 13 6 - 23 mg/dL 06/22/2025 7:29 PM [facility] Creatinine 0.60 0.50 - 1.00 mg/dL 06/22/2025 7:29 PM [facility] eGFR 90 >59 mL/min/1.7 3m2 06/22/2025 7:29 PM [facility] Comment:Estimated glomerular filtration rate calculated using the CKD-EPI refit equation. Glucose 119(H) 70 - 99 mg/dL 06/22/2025 7:29 PM [facility] Calcium 10.3 8.5 - 10.5 mg/dL 06/22/2025 7:29 PM [facility] AST 24 <33 U/L 06/22/2025 7:29 PM [facility] ALT 14 <34 U/L 06/22/2025 7:29 PM [facility] Alkaline Phosphatase 84 40 - 130 U/L 06/22/2025 7:29 PM [facility] Bilirubin, Total 0.4 0.0 - 1.2 mg/dL 06/22/2025 7:29 PM [facility] Total Protein 6.8 6.4 - 8.3 g/dL 06/22/2025 7:29 PM [facility] Albumin 4.3 3.5 - 5.2 g/dL 06/22/2025 7:29 PM [facility] Globulin 2.5 1.9 - 4.1 g/dL 06/22/2025 7:29 PM [facility] Blood 06/22/2025 7:54 AM EST 06/22/2025 7:55 AM EST us Debby BROWN LAB BLOOD BKR ORDERABLES Fi nal Result [address] [address] * (ABNORMAL) CBC and Differential (06/22/2025 7:54 AM EST) WBC 5.93 4.00 - 11.00 K/uL 06/22/2025 7:20 PM [facility] RBC 4.56 4.00 - 5.20 M/uL 06/22/2025 7:20 PM [facility] Hemoglobin 14.4 12.0 - 16.0 g/dL 06/22/2025 7:20 PM [facility] Hematocrit 44.0 36.0 - 46.0 % 06/22/2025 7:20 PM [facility] MCV 96.5 80.0 - 100.0 fL 06/22/2025 7:20 PM [facility] MCH 31.6(H) 27.0 - 31.0 pg 06/22/2025 7:20 PM [facility] MCHC 32.7 32.0 - 36.0 g/dL 06/22/2025 7:20 PM [facility] MPV 10.3 8.4 - 12.0 fL 06/22/2025 7:20 PM [facility] RDW-CV 13.9 11.5 - 14.5 % 06/22/2025 7:20 PM [facility] PLT 246 150 - 450 K/uL 06/22/2025 7:20 PM [facility] Neutrophils 64.9 % 06/22/2025 7:20 PM [facility] Lymphocytes 25.5 % 06/22/2025 7:20 PM [facility] Monocytes 6.1 % 06/22/2025 7:20 PM [facility] Eosinophils 2.5 % 06/22/2025 7:20 PM [facility] Basophils 0.8 % 06/22/2025 7:20 PM [facility] Imm Grans 0.2 % 06/22/2025 7:20 PM [facility] NRBC 0.0 <=0.0 /100 WBCs 06/22/2025 7:20 PM [facility] Absolute Neutrophils 3.85 1.92 - 7.60 K/uL 06/22/2025 7:20 PM [facility] Absolute Lymphocytes 1.51 0.72 - 4.10 K/uL 06/22/2025 7:20 PM [facility] Absolute Monocytes 0.36 0.16 - 1.10 K/uL 06/22/2025 7:20 PM [facility] Absolute Eosinophils 0.15 0.00 - 0.50 K/uL 06/22/2025 7:20 PM [facility] Absolute Basophils 0.05 0.00 - 0.15 K/uL 06/22/2025 7:20 PM [facility] Absolute Imm Grans 0.01 0.00 - 0.09 K/uL 06/22/2025 7:20 PM [facility] Absolute NRBC 0.00 <=0.00 K cells/uL 06/22/2025 7:20 PM [facility] Absolute Neutrophils 3.85 1.92 - 7.60 K/uL 06/22/2025 7:20 PM [facility] Comment:Automated cell count . Manual ANC may differ if performed. Diff Type Auto 06/22/2025 7:20 PM [facility] Blood 06/22/2025 7:54 AM EST 06/22/2025 7:55 AM EST Debby BROWN LAB BLOOD BKR ORDERABLES Fi nal Result [address] [address] * (ABNORMAL) Hemoglobin A1c (06/22/2025 7:54 AM EST) Hemoglobin A1c 6.0(H) 4.3 - 5.6 % 06/22/2025 7:20 PM [facility] Calculated Mean Blood Glucose 126 mg/dL 06/22/2025 7:20 PM [facility] Comment:There is no establis [facility] normal range for the Estimated Average Glucose [...] LAB BLOOD BKR ORDERABLES Fi nal Result [address] [address] * (ABNORMAL) Lipid Panel (06/22/2025 7:54 AM EST) Cholesterol 152 <200 mg/dL 06/22/2025 7:29 PM EST [facility] HDL 59 >=40 mg/dL 06/22/2025 7:29 PM [facility] Calculated LDL 60 <130 mg/dL 06/22/2025 7:29 PM [facility] Comment:LDL is calculated us ing the Griffith-NIH equation (TOD Cardiol. 2019December 03;5(5):540-548). Non-HDL Cholesterol 93 mg/dL 06/22/2025 7:29 PM [facility] Comment:Guidelines suggest a non-HDL cholesterol goal 30 mg/dL higher than the patient-specific LDL cholesterol goal. Cardiac Risk Ratio 2.6 0.0 - 5.0 2024 7:29 PM [facility] Triglycerides 207(H) <=150 mg/dL 06/22/2025 7:29 PM [facility] Blood 06/22/2025 7:54 AM EST 06/22/2025 7:55 AM EST us Debby BROWN LAB BLOOD BKR ORDERABLES Fi nal Result [address] [address] * XR HAND 3 OR MORE VIEWS [...] clinician's provided indication for this examination in [facility]: Arthritis: Rheumatoid; Osteoarthritis; Pain COMPARISON: None Procedure Note Darren Hook MD - 05/24/2025 XR HAND 3 OR MORE VIEWS (BILATERAL) Referring clinician's provided indication for this examination in [facility]:Arthritis: Rheumatoid; Osteoarthritis; Pain COMPARISON: None IMPRESSION: Moderately [...] EDT) ESR 17 0 - 30 mm/h [facility] Blood 05/03/2025 8:0 6 AM EDT 05/03/2025 8:10 AM EDT us Rubia Duncan MD LAB BLOOD BKR ORDERABLES Final Result [address] [address] * (ABNORMAL) CBC and differential (05/03/2025 8:06 AM EDT) WBC 5.55 4.00 - 11.00 K/uL [facility] RBC 4.39 4.00 - 5.20 M/uL [facility] HGB 14.1 12.0 - 16.0 g/dL [facility] HCT 42.9 36.0 - 46.0 % [facility] PLT 253 150 - 450 K/uL [facility] MCV 97.7 80.0 - 100.0 fL [facility] MCH 32.1(H) 27.0 - 31.0 pg [facility] MCHC 32.9 32.0 - 36.0 g/dL [facility] RDW 14.0 11.5 - 14.5 % [facility] MPV 10.0 8.4 - 12.0 fL [facility] NRBC 0.00 0.00 /100 WBCs [facility] ABSOLUTE NRBC 0.00 0.00 K/uL [facility] DIFF METHOD Auto [facility] NEUTS 65.2 48.0 - 76.0 % [facility] LYMPHS 24.9 18.0 - 41.0 % [facility] MONOS 5.4 4.0 - 11.0 % [facility] EOS 3.6 0.0 - 5.0 % [facility] BASOS 0.7 0.0 - 1.5 % [facility] Granulocytes, immature (%) 0.2 0.0 - 0.9 % [facility] ABSOLUTE NEUTS 3.62 1.92 - 7.60 K/uL [facility] ABSOLUTE LYMPHS 1.38 0.72 - 4.10 K/uL [facility] ABSOLUTE MONOS 0.30 0.16 - 1.10 K/uL [facility] ABSOLUTE EOS 0.20 0.00 - 0.50 K/uL [facility] ABSOLUTE BASOS 0.04 0.00 - 0.15 K/uL [facility] Granulocytes, immature 0.01 0.00 - 0.09 K/uL [facility] Blood 05/03/2025 8:06 AM EDT 05/03/2025 8:10 AM EDT us Rubia Duncan MD LAB BLOOD BKR ORDERABLES Final Result [address] [address] [phone] * (ABNORMAL) C-Reactive Protein (05/03/2025 8:06 AM EDT) C REACTIVE PROTEIN 9.2(H) 0.0 - 4.0 mg/L [facility] Blood 05/03/2025 8:06 AM EDT 05/03/2025 8:10 AM EDT us Rubia Duncan MD LAB BLOOD BKR ORDERABLES Final Result [facility] [address] [place] [address] * BD DXA AXIAL (SPINE) WITH HIP [...] bone mineral density was calculated at 0.853 gm/zb9ifxs a T- score of 0 falling within [...] Maintenance Insurance MEDICARE PART A & B [employer] MEDICARE SUPPLEMENT MEDICARE PART A & B Member Subscriber Plan / Payer (Ef fective 2009-Present) Name:Frank Russelle Member ID:[id number] Relation to Subscriber:Self Name:DrewEvelia Subscriber ID:[id number] Payer ID:[id number] Group ID:Not on file Type:Medicare Address: [facility] [address] [place] [phone] FOR [facility] MEDICARE SUPPLEMENT [facility] Address: [address] [address] MEDICARE PART A & B Member Subscriber Plan / Payer (Ef fective 2009-Present) Name:Evelia Russell Member ID:[id number] Relation to Subscriber:Self Name:Evelia Russell Subscriber ID:[id number] Payer ID:[id number] Group ID:Not on file Type:Medicare Address: [facility] [address] [place] [address] MEDICARE PART A & B MEDICARE PART A & B [facility] MEDICARE SUPPLEMENT [facility] Address: [address] [address] MEDICARE PART A & B Member Subscriber Plan / Payer (Ef fective 2009-Present) Name:Frank Russelle Member ID:[id number] Relation to Subscriber:Self Name:Frank Russelle Subscriber ID:[id number] Payer ID:[id number] Group ID:Not on file Type:Medicare Address: [facility] [address] [place] [phone] [employer] MEDICARE SUPPLEMENT MEDICARE PART A & B Member Subscriber Plan / Payer (Ef fective 2009-) Name:Drew Evelia Member ID:[id number] Relation to Subscriber:Self Name:DrewFranke Subscriber ID:[id number] Payer ID:[id number] Group ID:Not on file Type:Medicare Address: [facility] [address] [place] [phone] [employer] MEDICARE SUPPLEMENT MEDICARE PART A & B Member Subscriber Plan / Payer (Ef fective 2009-Present) Name:Evelia Russell Member ID:[id number] Relation to Subscriber:Self Name:Evelia Russell Subscriber ID:[id number] Payer ID:[id number] Group ID:Not on file Type:Medicare Address: [facility] [address] [place] [address] MEDICARE PART A & B Member Subscriber Plan / Payer (Ef fective 2009-Present) Name:Evelia Russell Member ID:[id number] Relation to Subscriber:Self Name:Evelia Russell Subscriber ID:[id number] Payer ID:[id number] Group ID:Not on file Type:Medicare Address: [facility] [address] [place] [address] FOR [employer] MEDICARE SUPPLEMENT [facility] Address: [facility] [address] [place] [address] Advance Directives For more information, please contact: [phone] (9AM - 5PM 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 It is not the complete legal health record.[facility]
--- OUTSIDE RECORDS SUMMARY | 2025-07-07 19:07 | XMS_ITS | Encounter Summary ---
Author Organization [facility] Address [address] [place] [address] Phone Care Team Providers Care Computer Language Coder Name Role Phone Gary Mcfadden DO Primary Care Provider [phone] Gary Mcfadden DO Primary Care Provider [phone] Encounter Details Date Type Department Care Team (Late st Contact Info) Description 12/20/2023 Procedure Pass [facility] PERIOPERATIVE DEPT [address] [place] [id number] Social History Tobacco Use Types Packs/Day Years [...] 09/08/2025 9:30 AM EST Office Visit [facility] Rheumatology [address] [place] [address] Rubia Duncan MD [address], [address] [place] [address] documented as of this encounter Visit Diagnoses Not on filedocumented in this encounter Care Teams Computer Language Coder Relationship Specialty Start Date End Date Gary Mcfadden DO PCP - General Internal Medicine 01/01/19 06/22/25 Gary Mcfadden DO [address] [place] [id number] PCP - General Internal Medicine 06/23/25 documented as of this encounter Additional Source Comments The information contained in this document represents components of the legal health record. It is not the complete legal health record[facility]
--- OUTSIDE RECORDS SUMMARY | 2025-07-07 19:07 | XMS_ITS | Data Portability ---
Author Organization [facility] Telehealth Patient Home Address [address] [place] [address] Assessment Encounter Date Assessment Date Assessment LastModified [...] hemoglobi n A1c, QN, blood [email or web address] [facility] [address], [address], 03/23/2025 13:59:25 CMP, serum or plasma 2024 025 ATHENAFAX [facility] [address], [address], 12/07/2024 09:45:09 hemoglobi n A1c, QN, blood [email or web address] [facility] [address], [address], 03/23/2025 13:59:25 CBC w/ auto diff 2024 [facility] [address], [address], 12/07/2024 09:45:09 lipid panel, serum 2024 025 TYRONE [facility] [address], [address], 03/23/2025 13:53:26 lipid panel, serum 2024 025 TYRONE [facility] [address], [address], 06/23/2025 08:56:13 lipid panel, serum 2024 025 ALEXIA [facility] [address], [address], 06/23/2025 08:56:13 Referral None recorded. Procedures None recorded. Surgeries None recorded. Imaging CT, chest, w/o contrast 2024 [address] [place], [address], 03/30/2025 11:37:50 PFT, complete 2024 [facility], [address] [place], [address], 12/21/2024 08:09:53 Medication Orders trazodone 50 mg tablet 2024 TYRONE [id number], [address], [place], [id number], 03/29/2025 09:37:04 Patient TargetsNo targets recorded. Patient Instructions Encounter Date Encounter Id Patient Instructions Last Modified By Organization Details Last Modified Time 09/07/2024 [id number] advance care planning: care instructions rtryba Not [...] bilat eral No observ ation record ed. [facility] [address] [place], [address], 12/07/2024 09:56:53 10/13/19 25 10/12/2024 CT, abdom en + pelvi s, w/o contr ast No observ ation record ed. [facility] (Medical Records) [address] [place], [address], 12/07/2024 09:56:53 10/14/19 25 10/13/2024 fluor oscop ic lis nce for needl e place ment (PROC ) No observ ation record ed. [facility] (Medical Records) [address] [place], [address], 12/07/2024 09:56:52 01/21/20 25 01/19/2025 PFT, compl ete No observ ation record ed. [facility] (Medical Records) [address] [place], [address], 01/20/2025 13:41:38 02/02/20 25 02/01/2025 US, echoc ardio gram No observ ation record ed. [email or web address] Not Available 2024 09:01:57 02/03/20 25 01/30/2025 CT, chest , w/o contr ast No observ ation record ed. [email or web address] [place] [address] (Medical Records) [address] [place], [address], 02/02/2025 14:28:56 07/06/20 25 06/30/2025 CT, chest , w/o contr ast No observ ation record ed. [facility], [place], [address], 07/07/2025 10:24:43 Result Notes None recorded. Problems Name Problem SNOMED Code Status Onset Date Resolution Date Notes Provider Name and Address Organization Details Recorded Time Lamonte ojeda hyperten chris 45827129 Active 2017 Not Available [facility] 4 17:49:01 Disorder of breast 90604802 Active 2017 Breast cancer 2000, lumpecto my, XRT Left THR 2014 Not Available [facility] 4 17:49:01 Rheumato id arthriti s 59173646 Active 2017 Dr. Nixon bryan Not Available [facility] 4 17:49:01 Lyme disease 98679815 Active 2017 Not Available [facility] 4 17:49:00 Osteopor osis 50180951 Active 2017 Not Available [facility] 4 17:49:01 Hemorrho ids 28232981 Active 2017 Not Available [facility] 4 17:49:01 Impaired fasting glycemia 920683603 Completed 201702/12/2018November DIMPLE Mascorro [address] [place], [address], [facility] 8 09:22:42 Hypertri glycerid emia 916858064 Active 2017 Not Available [facility] 4 17:49:00 Low back pain 223993567 Active 2021 Not Available [facility] 4 17:49:00 Osteoart hritis of knee 177195830 Active 2021 Not Available [facility] 4 17:49:00 Overweig ht 791260879 Active 2021 Not Available [facility] 4 17:49:00 Microalb uminuria 418391770 Active 2021 Not Available [facility] 4 17:49:00 Hypercal cemia 49753548 Active 2021 Not Available [facility] 4 17:49:01 Carotid artery stenosis 74586261 Active 2022 Not Available [facility] 4 17:49:01 Carotid artery stenosis 73849238 Active 2022 Not Available [facility] 4 17:49:01 Type 2 diabetes mellitus 75993097 Active 2022 Not Available [facility] 4 17:49:01 Cellulit is of lower limb 761970089 Active 2022 Not Available [facility] 4 17:49:01 Osteoart hritis of shoulder region 94913495 Active 2022 Not Available [facility] 4 17:49:01 Osteoart hritis of left hip joint 4542540896 68717 Active 2022 Not Available [facility] 4 17:49:00 Disorder of bone 35152859 Active 2022 Not Available [facility] 4 17:49:01 Vertigo 003413609 Active 2022 Not Available [facility] 4 17:49:01 Posterio r rhinorrh ea 90414262 Active 2023 KEVIN COY [address] [place], [address], [facility] 4 10:33:06 Edema of lower extremit y 429545398 Active 2023 KEVIN COY [address] [place], [address], [facility] 4 10:36:12 Cough 90795499 Active 2023 KEVIN COY [address] [place], [address], [facility] 4 12:15:25 Total replacem ent of hip Active 2023 R KEVIN COY [address] [place], [address], [facility] 4 10:17:40 Primary insomnia 1117675 Active 2024 KEVIN COY [address] [place] [address], [address], [facility] 5 09:44:50 Oxygen saturati on below referenc e range 950979838 Active 2024 KEVIN COY [address] [place] [address], [address], [facility] 5 09:46:18 Kidney stone 76968922 Active 2024 KEVIN COY [address] [place] [address], [address], [facility] 5 09:47:20 Dyspnea 257241169 Active 2024 KEVIN COY [address] [place] [address], [address], [facility] 5 13:42:22 Nodule of lung 182014223 Active 2024 KEVIN COY [address] [place] [address], [address], [facility] 5 09:41:14 Thyroid nodule 427432329 Active 2024 KEVIN COY [address] [place] [address], [address], [facility] 5 10:25:47 Problem Notes None recorded. Procedures Surgical History Date Name Laterality Status Provider Name and Address Organization Details Recorded Time Corticosteroid Injection completed Gary Mcfadden DO [address] [place] [address], [address], [facility] 01/29/2024 14:11:37 024 Corticosteroid Injection completed Gary Mcfadden DO [address] [place] [address], [address], [facility] 10/01/2023 15:44:04 023 Corticosteroid Injection completed Gary Mcfadden DO [address] [place] [address], [address], [facility] 05/22/2023 14:43:19 023 Corticosteroid Injection completed Gary Mcfadden DO [address] [place] [address], [address], [facility] 01/02/2023 17:04:01 023 Corticosteroid Injection completed Gary Mcfadden DO [address] [place] [address], [address], [facility] 10/24/2022 14:24:12 023 Corticosteroid Injection completed Gary Mcfadden [address] [place] [address], [address], [facility] 09/11/2022 12:15:39 022 Corticosteroid Injection completed Gary McfaddenDO [address] [place] [address], [address], [facility] 12/08/2021 12:37:09 021 Corticosteroid Injection completed Gary Mcfaddne [address] [place] [address], [address], [facility] 07/25/2021 09:35:46 021 Corticosteroid Injection completed Gary McfaddenDO [address] [place] [address], [address], [facility] 02/13/2021 15:45:24 018 Most Recent Mammogram completed Radha Zimmerman [facility] 09/09/2018 13:49:25 Imaging Results None recorded. Procedure Notes None recorded. Medical Equipment None Reported. Allergies Allergen ID Allergen Name Allergen Category Reaction Reaction Severity Criticality Documentation Date Start Date Code Code System Note Provider Name and Address Organization Details Recorded Time 37366 codeine phosphate medicatio n Not available Not available Not available 06/29/20252016 2672 RxNorm Other react ion(s ): up set stoma ch and vomit ting unrec ogniz ed react ion (text : Nause a and/o r Vomit ing, code: 08665 000) (from exter nal sourc e) Not Available [place] - External [facility] - prod 5 03:44:53 82428 latex environme nt,medica tion rash Not available low 06/29/20252014 23560 91 RxNorm Not Available [facility] - [facility] - prod 5 03:44:53 14567 acetamino phen / oxycodone medicatio n Not available Not available Not available 06/29/20252016 49886 3 RxNorm Other react ion(s ): stoma ch upset unrec ogniz ed react ion (text : Nause a and/o r Vomit ing, code: 94371 000) (from exter nal sourc e) Not Available [facility] External Data Service - prod 5 03:44:53 7209 duloxetin e medicatio n nausea Not available Not available 04/01/2023 52071 RxNorm KEVIN COY [address] [place], [address], [facility] 3 09:04:05 7431 Latex (substanc e) environme nt,medica tion Not available Not available Not available 06/04/2023 63726 8007 SNOMED Julianne Louie [facility] 3 14:15:23 8111 oxycodone medicatio n Not available Not available Not available 01/20/2024 7804 RxNorm nause a, chest pain KEVIN COY [address] [place], [address], [facility] 4 10:06:05 Medications Name [...] Updated DateTime 5 163.83 cm 29.9 kg/m2 52872.4 9 g 61 /min 95 % 134/74 mm[Hg] Emani Sumanth [facility] 5 08:56:09 Date Recorded Body height Body mass index (BMI) Body weight Heart rate Oxygen saturation Systolic And Diastolic Provider Name and Address Organization Details Last Updated DateTime 5 163.83 cm 29.8 kg/m2 99066.4 1 g 61 /min 91 % 138/80 mm[Hg] Emani [facility] 5 09:35:14 Date Recorded Body height Body mass index (BMI) Body weight Heart rate Oxygen saturation Systolic And Diastolic Provider Name and Address Organization Details Last Updated DateTime 5 163.83 cm 30.3 kg/m2 84074.8 3 g 63 /min 90 % 156/80 mm[Hg] Emani [facility] 5 09:38:47 Date Recorded Body height Body mass index (BMI) Body weight Heart rate Oxygen saturation Systolic And Diastolic Provider Name and Address Organization Details Last Updated DateTime 4 163.83 cm 30.2 kg/m2 92272.9 6 g 54 /min 98 % 124/78 mm[Hg] Emani [facility] 4 10:26:51 Date Recorded Body height Body mass index (BMI) Body weight Oxygen saturation Heart rate Systolic And Diastolic Provider Name and Address Organization Details Last Updated DateTime 5 163.83 cm 30.1 kg/m2 92889.4 4 g 95 % 62 /min 128/76 mm[Hg] HARIS MUNOZ [facility] Medicine 5 10:03:05 Social History Question Answer Notes LastModified by Organizat ion Details LastModified Time Tobacco Smoking Status Never [facility]/2017 11:10:37 What Was The Date Of [...] virus, quadrivalent, preservative 8 completed Not Available [facility] 08/07/2023 17:49:02 COVID-19, mRNA, LNP-S, PF, 30 mcg/0.3 mL dose 2 completed Not Available [facility] 08/07/2023 17:49:02 Influenza, split virus, quadrivalent, preservative 2 completed Not Available [facility] 08/07/2023 17:49:02 SARS-COV-2 (COVID-19) vaccine, UNSPECIFIED 3 completed Not Available [facility] 08/07/2023 17:49:02 SARS-COV-2 (COVID-19) vaccine, UNSPECIFIED 4 completed Emani christine [place] [facility] 05/25/2024 10:25:28 Tdap 5 completed Not Available [facility] 08/07/2023 17:49:03 pneumococcal polysaccharide PPV23 5 completed Not Available [facility] 08/07/2023 17:49:03 Pneumococcal conjugate PCV 13 7 completed Not Available [facility] 08/07/2023 17:49:03 Influenza, split virus, quadrivalent, preservative 9 completed Not Available [facility] 08/07/2023 17:49:01 pneumococcal polysaccharide PPV23 8 completed Not Available [facility] 08/07/2023 17:49:03 COVID-19 vaccine, vector-nr, rS-ChAdOx1, PF, 0.5 mL 1 completed Not Available [facility] 08/07/2023 17:49:02 COVID-19 vaccine, vector-nr, rS-ChAdOx1, PF, 0.5 mL 1 completed Not Available [facility] 08/07/2023 17:49:02 Past Encounters Encounter ID Performer Location Encounter Start Date Encounter Closed Date Diagnosis/Indication Diagnosis SNOMED-CT Code Diagnosis ICD10 Code Diagnosis IMO Codes Diagnosis Note [id number] Gary Mcfadden [facility] [address] [facility],[place] [address] 12/06/2017 10:58:12 12/06/2017 15:55:32 Pneumonia 305979550 J18.9 Please take prescribed or OTC medication [...] defer and treat empiricall y Essential hypertension 46950357 I10 slightly elevated today, though like fever related, will check at f/u next week [id number] Gary Mcfadden DO [facility] [address] [facility],[place] [address] 12/13/2017 09:19:31 12/13/2017 10:36:58 Pneumonia 659723686 J18.9 sx all resolved except minor cough at this point Essential hypertension 76977005 I10 BP greatly improved after resolution of fever stable on current regimen Diabetes mellitus 140869 09 E11.9 consistent ly stable a1c, with good diet, and exercise lipids at goal as well [id number] Gary Mcfadden [facility] [address] [facility], [place] [address] 01/17/2018 14:59:45 01/17/2018 15:52:11 Acute sinusitis 53493770 J01.90 fluids, rinses, flonase if needed Essential hypertension 28496419 I10 stable [id number] Gary Mcfadden [facility] [address] [facility], [place] [address] 03/25/2018 08:51:05 03/25/2018 12:04:25 Essential hypertension 30987674 I10 not quite at goal, will increase lisinopril from 2.5 to 5 mg daily Diabetes mellitus 142066 09 E11.9 consistent ly stable a1c, with good diet, and exercise lipids at goal as well Hypertriglyceridemia 302 482179 E78.2 elevated trig diet/exerc ise/wt loss discussed [id number] Gary Mcfadden [facility] [address] [facility],[place] [address] 06/24/2018 09:47:54 06/24/2018 10:51:06 Essential hypertension 73403104 I10 accidental ly taking 2 of atenolol instead of 2 of lisinopril she will take atenolol 25 qd and lisinopril 5 mg qd bp at goal today Diabetes mellitus 499284 09 E11.9 consistent ly stable a1c, with good diet, and exercise lipids at goal as well Hypertriglyceridemia 302 026121 E78.2 elevated trig diet/exerc ise/wt loss discussed Body mass index 30+ - obesity 414080267 Z68.32 continue healthy diet and exercise Palpitations 47291885 R0 0.2 ? 2/2 bradycardi a? will d/c 50 atenolol and restart 25 of atenolol and assess sx. if persisting or if new sx develop f/u luz [id number] Gary Mcfadden DO [facility] [address] [facility],[place] [address] 09/10/2018 09:04:35 09/10/2018 10:18:01 Adult health examination 042640013 Z00.00 had derm annual exam medicare wellness visit complete Screening for cardiovascular system disease 485964847 Z13.6 labs complete LDL mildly elevated trigs elevated healthy diet encouraged will trial change from atorvastat in to rosuvastat in to attempt to reach LDL goals Screening mammography 24 808315 Z12.31 done 2019 Essential hypertension 70748431 I10 bp nearly at goal Diabetes mellitus 876659 09 E11.9 consistent ly stable a1c, on metformin with good diet, and exercise foot exam next visit Hypertriglyceridemia 302 519188 E78.2 trigs remain elevated LDL mildly above goal plan as stated above Body mass index 30+ - obesity 964328927 Z68.32 continue healthy diet and exercise Palpitations 57111468 R0 0.2 palps resolved Heartburn 31240424 R12 more likely explanatio n for her sx though if chest pain/back pain persists despite treatement f/u Chest pain 65768087 R07. 9 ACS unlikely in setting of totally normal EKG advised taht if chest pain persists we will pursue further cardiac work up Osteoporosis 35537126 M8 1.0 [place] [id number] Gary Mcfadden [facility] [address] [facility],[place] [address] 03/09/2019 08:54:24 03/09/2019 09:36:30 Essential hypertension 88138034 I10 stable Diabetes mellitus 219425 09 E11.9 consistent ly stable a1c, with good diet, and exercise lipids at goal as well dm eye exam scheduled for next month meds reviewed Hypertriglyceridemia 302 935461 E78.2 elevated trig diet/exerc ise/wt loss discussed Body mass index 30+ - obesity 341479655 Z68.32 continue healthy diet and exercise Palpitations 37530318 R0 0.2 resolved with proper bp medication s Heartburn 49591311 R12 resolved no longer taking zantac [id number] Gary Mcfadden [facility] [address] [facility],[place] [facility] [place] [address] 09/07/2019 08:50:34 09/07/2019 09:27:12 Screening for cardiovascular system disease 144135364 Z13.6 labs complete LDL mildly elevated trigs elevated healthy diet encouraged will trial change from atorvastat in to rosuvastat in to attempt to reach LDL goals Diabetes mellitus 927157 09 E11.9 go back on metformin BID rather than QD Essential hypertension 88702563 I10 stable Headache 25596436 R51 stable, treated with tylenol vs excedrin tension Difficulty sleeping 3013 15530 Z72.820 take tylenol pm occasional ly, advised it can become habit forming, but not likely if used sparingly [id number] Gary Mcfadden [facility] [address] [facility],[place] [address] 12/08/2019 08:50:47 12/08/2019 10:04:23 Diabetes mellitus 20877323 E11.9 the patient is doing well, no concerns no numbness or tingling in the feet no loss of propriocep tion or balance will check her HbA1c to see what her level is at Essential hypertension 19762833 I10 BP 120/76 excellent control [id number] Gary Mcfadden [facility] [address] [facility], [place] [address] 03/08/2020 08:54:15 03/08/2020 10:16:49 Essential hypertension 25150862 I10 BP 126/62 today the patient is well controlled on medication Diabetes mellitus 555321 09 E11.9 the patient is doing well, no concerns no numbness or tingling in the feet no loss of propriocep tion or balance will check her HbA1c to see what her level is at Hypertriglyceridemia 302 789537 E78.1 will check lipid panel again [id number] Gary Mcfadden [facility] [address] [facility], [place] [address] 04/20/2020 09:54:08 04/20/2020 10:32:45 Cellulitis of toe of right foot 1393641555 4597592 L03.031 not finished by cephalexin will change to doxy for poss resist and rechk in 10 days [id number] Gary Mcfadden [facility] [address] [place] [address], [place] [address] 05/02/2020 11:20:31 05/02/2020 12:08:55 Essential hypertension 19310958 I10 Diabetes mellitus 730683 09 E11.9 Cellulitis of toe of right foot 2215063766 0328023 L03.031 resolved and doing well [id number] Gary Mcfadden [facility] [address] [facility], [place] [address] 06/21/2020 10:24:54 06/21/2020 11:20:07 Type 2 diabetes mellitus 48345568 E11.9 will check A1c Adult [facility] examination 405261024 Z00.00 will fu in one month for BP Essential hypertension 78336646 I10 BP elevated will increase to 5 mg to 10 mg of lisinopril [id number] Gary Mcfadden [facility] [address] [facility],[place] [facility] [place] [address] 07/22/2020 10:22:13 07/22/2020 11:34:58 Essential hypertension 29119129 I10 BP much improved on increased lisinopril dosage Diabetes mellitus 383511 09 E11.9 the patient is doing well, no concerns no numbness or tingling in the feet no loss of propriocep tion or balance [id number] Gary Mcfadden [facility] [address] [facility],[place] [address] 11/02/2020 09:51:44 11/02/2020 15:02:04 Essential hypertension 40881544 I10 BP much improved on increased lisinopril dosage Acute low back pain 1435 99763 M54.5 will trial a low dose MSK relaxer and see if improvemen t patient is told to rest her back as well Diabetes mellitus 808594 09 E11.9 the patient is doing well, no concerns no numbness or tingling in the feet no loss of propriocep tion or balance A1c is down to 6.9 which is excellent [id number] Gary Mcfadden [facility] [address] [facility],[place] [address] 01/25/2021 09:52:00 01/25/2021 12:09:58 Osteoarthritis of knee 667852211 M17.0 L>Rset up with a cortisone injection with MB Diabetes mellitus 529586 09 E11.9 mild increase in neuropathy A1c is upwill work on exercise when her knee feels better Essential hypertension 10631173 I10 BP much improved on increased lisinopril dosage [id number] Gary Mcfadden [facility] [address] [facility],[place] [facility] [place] [address] 02/13/2021 14:53:54 02/13/2021 16:48:51 Osteoarthritis of left knee joint 3696521114 49607 M17.12 [place]ira [place] [id number] Gary Mcfadden [facility] [address] [facility],[place] [address] 04/24/2021 08:27:26 04/25/2021 11:57:09 Diabetes mellitus 11840965 E11.9 A1c is downdoing excellent with diet and exercise [id number] Gary Mcfadden [facility] [address] [facility],[place] [address] 07/25/2021 09:04:12 07/25/2021 11:09:29 Osteoarthritis of right knee joint 6055592467 31309 M17.11 [place] [id number] Gary Mcfadden [facility] [address] [facility],[place] [address] 08/15/2021 08:09:04 08/15/2021 17:23:48 Diabetes mellitus 15776744 E11.9 A1c is downdoing excellent with diet and exercise Essential hypertension 70517300 I10 BP much improved on increased lisinopril dosage Hypertriglyceridemia 302 436292 E78.1 will check lipid panel again Osteoporosis 19817168 M8 1.0 stable, sees arthritis clinic Rheumatoid arthritis 698 94532 M06.89 seeing arthritis clinic Vertigo 636086588 R42 will fu with work up to r/o [id number] Gary Mcfadden [facility] [address] [facility],[place] [address] 11/14/2021 09:18:16 11/15/2021 10:00:16 Hypertriglyceridemia 396274883 E78.1 will check lipid panel again Essential hypertension 47590980 I10 BP much improved on increased lisinopril dosage Diabetes mellitus 353080 09 E11.9 A1c is downdoing excellent with diet and exercise Low back pain 592484870 M54.59 acute flare up of her low backwill give a refill of MSK relaxer Osteoarthr itis of knee 302322505 M17.0 will have her fu with MB for cortisone inj in the right knee [id number] Gary Mcfadden [facility] [facility] [address] [facility] [address] [address] 12/08/2021 12:05:43 12/08/2021 12:47:42 Osteoarthritis of knee 976308252 M17.0 [place] [id number] KEVIN COY [facility] Internal Medicine [address],[place] [facility] [place] [address] 03/20/2022 11:06:26 03/20/2022 13:44:40 Hypertriglyceridemia 789109462 E78.1 stable, add fish oil Essential hypertension 77499891 I10 stable at home Diabetes mellitus 627877 09 E11.9 A1c is downdoing excellent with diet and exercise Overweight 376412917 E66 .3 will fu with nutritioni st referral [id number] Gary Mcfadden [facility] Internal Medicine [address],[place] [address] 06/18/2022 09:04:12 06/18/2022 09:50:39 Diabetes mellitus 72066773 E11.9 will need to add labs they didn't do all of it for me at prior appts Microalbuminuria 9389191 06 R80.8 will recheck labsprobab ly a combinatio n T2DM, being a methotrexa te user and being 77 y/o, probably related to mild kidney dysfunctio n Hypercalcemia 75038810 E 83.52 will recheck levels from prior assessment at [facility] Overweight 755927604 E66 .3 will f/u with nutritioni st referral 05063 Gary Mcfadden DO [facility] Internal Medicine [address],[place] [email or web address] [place] [address] 09/11/2022 11:37:16 09/11/2022 16:02:49 Osteoarthritis of knee 098810970 M17.0 [place] [id number] Gary Mcfadden [facility] Internal Medicine [address],[place] [address] 09/12/2022 11:09:02 09/12/2022 15:11:47 Diabetes mellitus 49213543 E11.9 agreed to starting on glipizide for better sugar control with elevated A1c Carotid ar alex stenosis 26601416 I65.21 will recheck in another yearwas between 0-49% Essential hypertension 72476011 I10 stable at home and here [id number] Gary Mcfadden DO [place] [address] [facility] [address],[place] [address] 10/24/2022 14:04:11 10/24/2022 16:05:05 Rheumatoid arthritis 38257262 M06.89 Osteoarthr itis of shoulder region 96492730 M19.019 shakira inj well tolerated [id number] Gary Mcfadden [facility] Internal Medicine [address] [facility] [address],[place] [address] 12/19/2022 09:20:11 12/19/2022 10:11:53 Type 2 diabetes mellitus 70566510 E11.9 will check A1c Essential hypertension 47724670 I10 stable at home and here Osteoarthr itis of left hip joint 5581555820 88610 M16.12 will set up with previous ortho Dr. Sparrow Low back pain 378363685 M54.59 stableit's her hip that's causing complicati on Disorder of bone 3317872 3 M89.762 left hip[address] fu with Dr. Sparrow [id number] Gary Mcfadden [facility] Internal Medicine [address] [facility] [address],[place] [address] 01/02/2023 16:23:51 01/04/2023 14:04:10 Osteoarthritis of knee 232589562 M17.0 [place] [id number] Gary Mcfadden [facility] Internal Medicine [address] [facility] [address] [email or web address] [place] [address] 04/01/2023 08:34:59 04/01/2023 15:53:08 Essential hypertension 34399537 I10 stable at home and here Hypercalcemia 87908043 E 83.52 elevated againprevi ous checks were normal with PTH Hypertriglyceridemia 302 634132 E78.1 stable, add fish oil Rheumatoid arthritis 698 52524 M06.89 stable Type 2 haris betes mellitus 98763240 E11.9 level is excellent Disorder of bone 6137778 3 M89.762 has hip surgery 07/[address] Levy Moore [id number] Gary Mcfadden [facility] Internal Medicine [address] [facility] [address] [facility] [place] [address] 05/22/2023 14:22:32 05/22/2023 15:29:01 Osteoarthritis of knee 436421625 M17.0 [place] [id number] Gary Mcfadden [facility] Internal [facility] [address] [facility], [place] [address] 06/04/2023 14:03:21 06/04/2023 14:57:43 Vertigo 750870529 R42 will trial medrol if no effective other options are valium, HTCZ insteadhol d on vestibular rehab referral for now Pre-surger y evaluation 581369131 Z01.818 The patient was seen in the office today for pre-op evaluation . All medical conditions on patient's problem list were addressed and are currently stable, no interventi on needed at this time. Based on history and physical performed, the patient is cleared for surgery. [id number] Gary BarillasBetsy Lesa [facility] Internal [address], [place] [address] 10/01/2023 15:07:23 10/02/2023 15:26:36 Osteoarthritis of knee 391541274 M17.0 well baltazar inj [id number] [facility] [address], [place] [address] 09/30/2023 10:18:18 10/01/2023 10:51:36 Posterior rhinorrhea 70730435 R09.82 start on nasal spraywill let me know if her ears are still having issues Edema of l ower extremity 092371851 R60.0 possibly just vascular incompeten cewill set up with lab work Type 2 haris betes mellitus 56531474 E11.9 level is excellent Hypercalcemia 55384408 E 83.52 elevated againprevi ous checks were normal with PTH Rheumatoid arthritis 698 75705 M06.89 stable [id number] Gary NargisBetsy Lesa [facility] Medicine [address] [facility],[place] [address] 10/25/2023 09:23:22 10/25/2023 14:18:18 Acute bronchitis 10866132 J20.8 continue on the medrol and benzonatat estart inhaler [id number] Gary Mcfadden [facility] Medicine [address] [facility] [address],[place] [address] 01/20/2024 09:48:24 01/20/2024 10:54:22 Depression screening 524454819 Z13.31 negative At low risk for fall 439 184233 Z91.81 0 Essential hypertension 24781270 I10 stable at home and here Type 2 haris betes mellitus 77457664 E11.9 level is excellent; 5.7%, feet look good [id number] Gary Mcfadden [facility] Medicine [address] [facility] [address] [email or web address] [place] [address] 01/29/2024 13:35:06 01/29/2024 14:37:32 Osteoarthritis of knee 169616471 M17.0 well baltazar inj [id number] Gary Mcfadden [facility] Medicine [address] [facility] [address],[place] [address] 05/25/2024 10:06:16 05/25/2024 11:19:26 Essential hypertension 30521356 I10 stable at home and here Hypercalcemia 98255092 E 83.52 stablewnl with this recent check Hypertriglyceridemia 302 278956 E78.1 stable Type 2 haris betes mellitus 07444381 E11.9 6% which is excellent [id number] Gary Mcfadden [facility] Medicine [address] [facility] [address] [address] 09/07/2024 08:47:58 09/07/2024 09:34:56 Adult health examination 135481060 Z00.00 BP is stable Type 2 haris betes mellitus 66988345 E11.9 6% which is excellent Rheumatoid arthritis 698 10023 M06.89 stable [id number] Gary Mcfadden [facility] Medicine [address] [facility] [address] [address] 12/07/2024 09:29:00 12/07/2024 11:02:40 Depression screening 363341397 Z13.31 negative Type 2 haris betes mellitus 08512255 E11.9 needs renewed standing orders Essential hypertension 85080580 I10 stable at home and here Primary insomnia 7377182 F51.01 58573 will trial trazodone Oxygen sat uration below reference range 666240348 R79.81 [id number] in ER and in office, no findings on recent BW through ER and her updated labs to show anemia or other issues Kidney stone 26395231 N2 0.0 49506 stablehad it removed surgically and she had a stent for about a weekdoes have a urology f/u [id number] Gary Mcfadden [facility] Internal Medicine [address] [facility], [place] [address] 03/29/2025 09:20:24 03/29/2025 13:08:38 Type 2 diabetes mellitus 44493358 E11.9 needs renewed standing orders Depression screening 171 887423 Z13.31 negative Nodule of lung 871508196 R91.1 530031 need recheck, s at the 3 mos [id number] Gary Mcfadden [facility] Internal Medicine [address] [facility],[place] [address] 06/29/2025 09:49:10 06/29/2025 16:30:02 Depression screening 582091626 Z13.31 negative Type 2 haris betes mellitus 10914427 E11.9 needs renewed standing orders Essential hypertension 58810365 I10 excellent Health Concerns Section Related Observation LastModified by Organization Detai ls LastModified Time None Recorded Concern Status LastModified by Organization Details LastModified Time None Recorded Advance Directives Directive None Recorded Payers Insurance Date Sequence Insurance Name Policy Number Policy Abrams Covered Member ID Abrams Member ID Guarantor Name 06/29/2025 1 [place]ICARE [place]: [employer] Evelia Russell [id number] Evelia Russell 03/26/2025 2 FOR LIFE ( - MEDICARE SUPPLEMENT) Blake Russell [id number] Evelia Russell 06/13/2023 2 UNSPECIFIED REMIT PAYOR [...] ankle swelling, orthopnea, palpitations KEVIN COY [address] [place], [address], [facility] Internal Medicine 05/25/2024 10:50:04 5 text/html [...] oil for her triglycerides KEVIN COY [address] [place], [address], [facility] Internal Medicine 09/07/2024 09:18:59 5 text/html [...] f/u after her PFT KEVIN COY [address] [place], [address], [facility] Internal Medicine 12/07/2024 09:57:05 5 text/html [...] of their medications [facility] medicationdenies chest pain, sob, ankle swelling, [...] lab work otherwise looks normal KEVIN COY [address] [place] [address], [address], [facility] Internal Medicine 03/29/2025 09:47:00 5 text/html ROS as noted in the HPI 3 mos f/u HTN: today in the office the patient BP is 128/76 L arm sittingthe patient is doing well on the BP medication with no side effects and no adjustment of their medications [facility] on medicationdenies chest pain, sob, ankle swelling, [...] consult for cataract surgery KEVIN COY [address] [place], [address], [facility] Internal Medicine 06/29/2025 10:19:56 OBGyn Episode No OBEpisode recorded.
[2025-07-07 20:37] VITALS: BP 170/75; PULSE 65; RESP 16; TEMP 36.8; O2SAT 94
--- NOTE | 2025-07-07 20:48 | PC.NURSE ---
pt from triage complaining of 7/10 L flank pain radiating to her lower back described as tightness. PT denies any other symptoms and is pending CT scan results. No BP/venipuncture on left side.
[2025-07-07 22:20] VITALS: BP 133/98; PULSE 77; RESP 16; TEMP 36.8; O2SAT 100
== END 2025-07-07 22:26 | disposition home or self-care (01) ==
PROVIDERS: Physician Assistant; Emergency Provider Emergency Medicine; PCP Internal Medicine
DX: N39.0 Urinary tract infection, site not specified (principal); R10.A2 Flank pain, left side; K59.00 Constipation, unspecified; E11.9 Type 2 diabetes mellitus without complications; Z87.442 Personal history of urinary calculi; Z79.899 Other long term (current) drug therapy
CPT/HCPCS: 36415; 74176; 80053; 81001; 85025; 87086; 99284

== ENCOUNTER → 2025-07-07 19:49 | Outpatient (BNV) | payer MEDICARE, OTHER, SELFPAY | PROVIDERS: PCP Internal Medicine; Visit Provider Radiology Diagnostic Radiology | DX: R10.A2 Flank pain, left side (principal) | CPT/HCPCS: 74176 ==